=== PATIENT | female | born 1955 | race Caucasian/White ===

== ENCOUNTER 2019-08-30 16:51 | Inpatient (IN) | payer OTHER, SELFPAY ==
[2019-08-30 16:51] VITALS: BP 154/114; PULSE 104; RESP 15; TEMP 36.8; O2SAT 97; BMI 63.6
--- NOTE | 2019-08-30 17:16 | ED_ITS ---
Entered by Poornima Reeves, acting as scribe for HPI - Psych General: Chief Complaint: Psychiatric Symptoms Stated Complaint: SI Time Seen by Provider: 08/30/19 17:16 Source: patient and family Mode of arrival: ambulatory Limitations: no limitations History of Present Illness: HPI Narrative: 63 yo female presents with depression and SI thoughts. pt states she has had depression all of her life. pt had thoughts of cutting her arm but didnt. pt denies any other symptoms at this time. MD complaint: suicidal ideation (1 week ago) and feels depressed Onset (ago): week(s) (1 week ago) Duration: constant History of same: Yes Relieving factors: none Exacerbating factors: other (stress) Context: new medication(s) Associated psychiatric symptoms: depression and suicidal ideation Associated symptoms: Reports depression Treatments prior to arrival: other (urgent care for the same sent to ED for treatment) If self harm: admits thoughts of self harm Review of Systems General: Reports: 10 or more systems reviewed and unremarkable except in HPI and below Psych: Reports: depression PFSH ED PFSH: Statuses (acute, chronic, etc) shown below reflect problem list status as previously entered and may not be historically accurate Medical History (Updated 08/30/19 @ 17:25 by Poornima Reeves) History of depression (Acute) Social History Smoking and tobacco status: never smoked Physical Exam Const: COMMON NORMALS: no apparent distress, average body habitus, oriented x3, no limitations, healthy appearing, alert and well nourished HENMT: COMMON NORMALS: normocephalic, head/scalp atraumatic, hearing grossly normal bilaterally, external ears normal, EAC's normal, TM's normal bilaterally, external nose normal, nasal mucous membranes and turbinates normal, moist oral mucous membranes, oropharynx normal, dentition normal and gingiva normal HEAD & SCALP: normocephalic and atraumatic NOSE: external nose normal and nasal mucous membranes and turbinates normal EXTERNAL EAR: Yes external ears normal EXTERNAL AUDITORY CANAL: EAC's normal TYMPANIC MEMBRANE: TM's normal bilaterally Eye: COMMON NORMALS: PERRL, EOMs intact bilaterally, conjunctivae normal, no scleral icterus, no papilledema, normal visual liu by confrontation and fundi normal bilaterally CONJUNCTIVA: Yes conjunctivae normal PUPIL: Yes PERRL DIRECT OPHTHALMOSCOPY: Yes no papilledema and Yes fundi normal bilaterally Neck/C-Spine: COMMON NORMALS: full ROM, no lymphadenopathy, supple, no meningeal signs, no JVD, thyroid normal and no carotid bruits THYROID: thyroid normal Chest: COMMONS NORMALS: inspection of chest normal and palpation of chest normal Resp: COMMON NORMALS: normal respiratory effort, no retractions, no use of accessory muscles, clear to auscultation bilaterally and percussion normal AUSCULTATION: clear to auscultation bilaterally PERCUSSION: percussion normal Cardio: COMMON NORMALS: no JVD, regular rate, regular rhythm, S1 normal heart sound, S2 normal heart sound, no gallops, no clicks, no murmurs, no rub and peripheral pulses 2+ throughout RATE: regular rate RHYTHM: regular rhythm HEART SOUNDS: S1 normal and S2 normal PERIPHERAL PULSES: pulses 2+ throughout GI: COMMON NORMALS: normal to inspection, nondistended, normoactive bowel sounds, soft to palpation, non-tender, no hepatosplenomegaly, no masses and no bruits PALPATION: Yes soft and Yes no hepatosplenomegaly : COMMON NORMALS: Yes no CVA tenderness and Yes external appearance normal BLADDER/KIDNEY EXAM: Yes no CVA tenderness Back/Pelvis: COMMON NORMALS: no CVA tenderness, thoracic and lumbar spine normal to inspection, no thoracic nor lumbar tenderness, thoraco-lumbar ROM normal and straight leg raise negative bilaterally Extremity: COMMON NORMALS: normal to inspection, full ROM, normal capillary refill, no joint enlargement, no clubbing, cyanosis or edema, no calf tenderness and no pedal edema Neuro: COMMON NORMALS: oriented x3 SENSORIUM/ORIENTATION: Yes alert MENINGEAL SIGNS: Yes no meningeal signs Psych: COMMON NORMALS: thought process normal THOUGHT PROCESS: normal thought process JUDGEMENT: judgment good Skin: COMMON NORMALS: no rashes or lesions noted, no wounds, skin turgor normal, no jaundice, no petechiae and no mottling GENERAL SKIN EXAM: no rashes or lesions noted and turgor normal Coding Level of Care Code ED Check Inspector for Chg Fwd Exam Problem Focused The documentation recorded by the Leandro gallegos Bridget Annette, accurately reflects the service I personally performed and the decisions made by , Alex Bhatia, DO
--- NOTE | 2019-08-30 17:33 | ECG_ITS ---
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 [email or web address]
[2019-08-30 18:42] LABS: Basophils # 0.1 10^3/uL (0.0-0.1); Basophils % 0.5 %; Eosinophils # 0.1 10^3/uL (0.0-0.8); Eosinophils % 0.8 %; Hematocrit 44.9 % (37.0-47.0); Hemoglobin 14.4 g/dL (11.5-15.3); Lymphocytes # 4.1 10^3/uL (0.8-4.8); Lymphocytes % 39.3 %; Mean Corpuscular HGB Conc 32.1 g/dL (30.0-36.0); Mean Corpuscular Hemoglobin 29.5 pg (28.0-34.0); Monocytes # 0.4 10^3/uL (0.2-0.9); Monocytes % 4.1 %; Neutrophils # 5.8 10^3/uL (1.8-7.7); Neutrophils % 55.1 %; Nucleated Red Blood Cells % 0 %; Platelet Count 292 10^3/cmm (130-400); Red Blood Count 4.88 10^6/uL (4.1-5.3); Red Cell Distribution Width 13.8 % (12.1-15.1); White Blood Count 10.4 10^3/uL (4.0-10.0)
--- NOTE | 2019-08-30 18:42 | PC.NURSE ---
Report was called to NPU by Sim. We were asked to wait till after shift change to bring pt down to NPU
--- NOTE | 2019-08-30 18:50 | PC.NURSE ---
NPU was called for report. They asked if we could wait until after shift change to bring pt down.
[2019-08-30 19:00] LABS: Alanine Aminotransferase 20 U/L (0-33); Albumin Level 4.6 g/dL (3.5-5.2); Alkaline Phosphatase 130 IU/L (35-105); Anion Gap 17.5 (5-19); Aspartate Amino Transferase 21 U/L (0-32); Blood Urea Nitrogen 15 mg/dL (8-23); Calcium 9.7 mg/Dl (8.8-10.2); Carbon Dioxide 25 mmol/L (22-29); Chloride 103 mmol/L (98-107); Globulin 2.9 g/dL (1.3-4.6); Glomerular Filtration Rate 50.2 mL/min (90-130); Glucose 124 mg/dL (74-106); Potassium 3.5 mmol/L (3.5-5.1); Sodium 142 mmol/L (136-145); Thyroid Stimulating Hormone 2.03 uIU/mL (0.27-4.20); Total Bilirubin 0.3 mg/dL (0.15-1.2); Total Protein 7.5 g/dL (6.6-8.7)
[2019-08-30 19:11] LABS: Acetaminophen < 5.0 ug/mL (10-30); Alcohol Level < 10 mg/dL (0-10); Salicylate < 0.3 mg/dL (3-10)
[2019-08-30 19:41] VITALS: BP 140/94; PULSE 100; RESP 16; O2SAT 100
[2019-08-30 19:52] VITALS: BP 134/84; PULSE 96; RESP 24; TEMP 36.7; O2SAT 99
[2019-08-30] MEDS: doxepin 25 mg Capsule PO (21:16)
[2019-08-30] MEDS: ropinirole 2 mg Tablet PO (21:16)
[2019-08-30] MEDS: mirtazapine 30 mg Tablet 45 MG PO (21:16)
[2019-08-31 06:00] VITALS: BP 119/78; PULSE 104; RESP 20; TEMP 36.9; O2SAT 96
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
[2019-08-31] MEDS: valACYclovir 1,000 mg Tablet 1000 MG PO (08:41)
[2019-08-31] MEDS: BuSPIRONE 10 mg Tablet 20 MG PO ×2 (08:41→17:31)
[2019-08-31] MEDS: montelukast sodium 10 mg Tablet PO (08:41)
[2019-08-31 14:00] VITALS: BP 114/75; PULSE 104; RESP 18; TEMP 36.6; O2SAT 92
[2019-08-31] MEDS: hyDROXYzine 25 mg Capsule 50 MG PO (17:31)
[2019-08-31] MEDS: atorvastatin 40 mg Tablet 20 MG PO (17:31)
--- NOTE | 2019-08-31 17:33 | PC.NURSE ---
Addendum entered by Little Cuello, TERRELL 08/31/19 18:36: PRN MED EFFECTIVE NO FURTHER C/O ANXIETY. PT ALSO UP TO NURSES STATION, STATED THAT HER HIVES WERE BETTER. Original Note: PRN VISTARIL 50 MG GIVEN PO PER PT C/O GENERALIZED ANXIETY. PT STATES SHE IS BREAKING OUT IN HIVES DUE TO STRESS WILL CONT TO MONITOR FOR DESIRED MED EFFECTIVENESS.
[2019-08-31 19:55] VITALS: BP 150/83; PULSE 96; RESP 19; TEMP 36.5; O2SAT 97
[2019-08-31] MEDS: ropinirole 2 mg Tablet PO (20:40)
[2019-08-31] MEDS: mirtazapine 30 mg Tablet 45 MG PO (20:40)
[2019-08-31] MEDS: quetiapine 25 mg Tablet PO (20:40)
[2019-09-01 06:00] VITALS: BP 133/78; PULSE 95; RESP 18; TEMP 36.7; O2SAT 94
[2019-09-01] MEDS: BuSPIRONE 10 mg Tablet 20 MG PO ×2 (08:22→17:54)
[2019-09-01] MEDS: montelukast sodium 10 mg Tablet PO (08:23)
[2019-09-01] MEDS: valACYclovir 1,000 mg Tablet 1000 MG PO (08:23)
[2019-09-01 14:00] VITALS: BP 142/83; PULSE 104; RESP 18; TEMP 36.4; O2SAT 96
[2019-09-01 16:16] VITALS: BP 142/53; PULSE 104; RESP 18; TEMP 36.4
[2019-09-01 16:20] VITALS: BP 142/53; PULSE 104; RESP 18; TEMP 36.4
--- NOTE | 2019-09-01 17:27 | P.DS_ITS ---
Reason for Visit Reason for Visit: Reason For Visit: SI Brief History: ER note: HPI Narrativ e: 63 yo female presents with depression and SI thoughts. pt states she has had depression all of her life. pt had thoughts of cutting her arm but didnt. pt denies any other symptoms at this time. Hospital Course Discharge Summary The patient attributed her suicidal ideation to the withdrawal of Seroquel by her psychiatrist. Doxepin had been used to replace it. When Seroquel was returned to her regimen and Doxepin withdrawn, the suicidal ideation resolved. Involuntary Hold Information 96 Hour Hold: 96 Hour Involuntary Admission: No Mental Status Exam MSE Comments: Mental Status Exam: Appearance: hygiene is good; no gross neurological deficits., gait is unremarkable; AIMS=0 Speech: Speech is of normal rate and rhythm and easily understood. Thought processes: Thought processes are abstract. Judgment is adequate for safety. Associations: intact Psychotic processes: There is no indication of guarding or paranoia. There is no attention to the internal stimuli. Auditory and visual hallucinations are denied. Judgment: Insight is fair. Problem solving skills are adequate for safety. Orientation: The patient is oriented to person, place time and situation. Memory: no deficits noted in immediate, intermediate, or remote spheres. Attention: The patient is alert and interpersonally engaged. Language: Verbalizations are coherent. Fund of knowledge: Fund of knowledge is adequate. Affect/Mood: Affect is consistent with a euthymic mood. she denied suicidal ideation Affective range is appropriate. Psychosis: perception unimpaired except through cognitive distortion; reality testing intact. Discharge Data Data Completed and Pending: Pending at discharge Category Date Time Status Drug Screen, Urin e Stat Lab 08/30/19 21:48 Ordered Urinalysis Stat Lab 08/30/19 21:47 Ordered Vitals: Last Vital Signs Temp 97.6 F 09/01/19 16:20 Pulse 104 H 09/01/19 16:20 Resp 18 09/01/19 16:20 BP 142/53 09/01/19 16:20 Pulse Ox 96 09/01/19 14:00 Discharge Plan Discharge Patient Disposition: Home, Self-Care Condition: Stable Prescriptions: New quetiapine 25 mg Tablet 25 mg PO BEDTIME Qty: 30 RF: 2 atorvastatin 40 mg Tablet 20 mg PO QPM Qty: 15 RF: 2 trazodone 50 mg Tablet 50 mg PO BEDTIME PRN (Reason: Sleep) Qty: 0 RF: 2 mirtazapine 30 mg Tablet 45 mg PO BEDTIME Qty: 30 RF: 2 buspirone 10 mg Tablet 20 mg PO BID Qty: 60 RF: 2 Continued valacyclovir 1 gram Tablet 1,000 mg PO DAILY RF: 0 ropinirole 2 mg Tablet 2 mg PO BEDTIME RF: 0 montelukast 10 mg Tablet 10 mg PO DAILY RF: 0 epinephrine 0.3 mg/0.3 mL Auto-Injector 0.3 mg IM Q10M PRN (Reason: Allergic Reaction) RF: 0 Discontinued doxepin 25 mg Capsule 25 mg PO BEDTIME RF: 0 simvastatin 40 mg Tablet 20 mg PO QPM RF: 0 buspirone 10 mg Tablet 20 mg PO BID RF: 0 mirtazapine 45 mg Tablet 45 mg PO BEDTIME RF: 0 Discharge Orders: Discharge Order (Routine); Ordered 09/01/19 Ordered By: Delano Frederick Referrals: Miguel Angel MD [Family Provider] - Discharge Diet: Usual diet Discharge Activity: Increase activity as tolerated Activity Restrictions/Additional Instructions: Follow-up at the [place]: [facility]. [address] [place] [address]. . November 09 @ 1:30 with Edilia Nunez for psychiatric medication management Call if you need to get in sooner. Right now she is booked out but she will see you if needed. Just call if the need arises, [facility] made for a [facility]. You will need to check with [facility] office staff about that request. Discharge Attestations NPU Time Spent in Discharge Care*: greater than 30 min Status at Discharge: Cognitive status at discharge: cognitively intact , Behavioral status at discharge: cooperative , Functional status at discharge: independent ambulation Overall status at discharge: patient is back to baseline Coding Level of Care Code Acute Grain Broker And Market Operator for Marci Quinn
[2019-09-01] MEDS: atorvastatin 40 mg Tablet 20 MG PO (17:54)
== END 2019-09-01 19:10 | disposition home or self-care (01) | DRG 897 ==
LOC: ER 18:03 → NP 18:28
PROVIDERS: Admitting Provider Psychiatry & Neurology Psychiatry; Emergency Provider Family Medicine; Family Provider Family Medicine Adult Medicine; Visit Provider Psychiatry & Neurology Psychiatry
DX: F19.939 Other psychoactive substance use, unspecified with withdrawal, unspecified (principal); R45.851 Suicidal ideations; E66.3 Overweight; F32.9 Major depressive disorder, single episode, unspecified; Z68.28 Body mass index [BMI] 28.0-28.9, adult
CPT/HCPCS: 12345; 36415; 80053; 80307; 84443; 85025; 93005; 99284

== ENCOUNTER 2019-10-06 20:00 | Outpatient (CLI) | payer OTHER, SELFPAY | END 2019-10-06 20:01 | disposition home or self-care (01) | LOC: SLEEP 10-07 10:32 | PROVIDERS: Family Provider Family Medicine Adult Medicine; Visit Provider Psychiatry & Neurology Psychiatry | DX: G47.30 Sleep apnea, unspecified (principal) | CPT/HCPCS: 95810; 95811 ==

== ENCOUNTER → 2019-10-17 10:31 | Outpatient (BNVA) | payer OTHER, SELFPAY | PROVIDERS: Family Provider Family Medicine Adult Medicine; Visit Provider Family Medicine | DX: R05 Cough (principal); J06.9 Acute upper respiratory infection, unspecified; B97.89 Other viral agents as the cause of diseases classified elsewhere | CPT/HCPCS: 87804 ==

== ENCOUNTER 2019-11-07 08:47 | Emergency (ER) | payer OTHER, SELFPAY ==
[2019-11-07 09:04] VITALS: O2SAT 96
--- NOTE | 2019-11-07 09:04 | XRR_ITS ---
PROCEDURE INFORMATION: Exam: XR Chest, 1 View Exam date and time: 11/07/2019 9:37 AM Age: 63 years old Clinical indication: Fever and cough TECHNIQUE: Imaging protocol: XR of the chest Views: 1 view. COMPARISON: CR Chest 2 views* [id number] 10/31/2014 9:18 PM FINDINGS: Lungs: No focal peripheral lung consolidation, air bronchogram formation, or silhouette sign. Pleural space: No pleural effusion or pneumothorax. Heart/Mediastinum: The cardiac silhouette is not enlarged. The mediastinal contours are normal. Bones/joints: No acute osseous abnormality. XR/XR chest 1V portable [id number] IMPRESSION: No pneumonia.
[2019-11-07 09:13] VITALS: BP 165/105; PULSE 108; RESP 20; TEMP 36.6; O2SAT 96; BMI 29.5
[2019-11-07 09:19] LABS: Basophils # 0.1 10^3/uL (0.0-0.1); Basophils % 0.6 %; Eosinophils # 0.1 10^3/uL (0.0-0.8); Eosinophils % 0.6 %; Hematocrit 46.6 % (37.0-47.0); Hemoglobin 14.8 g/dL (11.5-15.3); Lymphocytes # 3.3 10^3/uL (0.8-4.8); Lymphocytes % 38.2 %; Mean Corpuscular HGB Conc 31.8 g/dL (30.0-36.0); Mean Corpuscular Hemoglobin 28.8 pg (28.0-34.0); Mean Corpuscular Volume 90.8 fL (81-99); Mean Platelet Volume 8.9 fL (7.4-10.4); Monocytes # 0.4 10^3/uL (0.2-0.9); Monocytes % 4.9 %; Neutrophils # 4.7 10^3/uL (1.8-7.7); Neutrophils % 55.6 %; Nucleated Red Blood Cells % 0 %; Platelet Count 343 10^3/cmm (130-400); Red Blood Count 5.13 10^6/uL (4.1-5.3); Red Cell Distribution Width 14.2 % (12.1-15.1); White Blood Count 8.5 10^3/uL (4.0-10.0)
--- NOTE | 2019-11-07 09:29 | ED_ITS ---
Documented by User: RICCI Holloway 11/07/19 16:07 HPI - URI/Sore Throat General: Chief Complaint: Upper Respiratory Infection Stated Complaint: cough,fever, body aches Time Seen by Provider: 11/07/19 09:04 History of Present Illness: HPI Narrative: Patient is a 63-year-old female who comes into the ED with fever, cough and body aches. Symptoms started about a week ago. She describes the fevers as low-grade 99 to 100 ?F. He is having nasal drainage and nonproductive cough. She also has been having some body aches and fatigue. She has been eating and drinking normally. This morning she just started getting diarrhea. She has had some nausea but has not vomited. Does not care currently have any nausea. Patient denies any travel to the state of [place], [place] or [place] in the last month. Patient also denies any known contact with COVID-19 positive patients. Patient does describe that she works at a facility that is about [address] outside of the [facility] [place]. Associated symptoms: Reports diarrhea, fever(s), nasal congestion and nausea; Deny abdominal pain, chills, chest pain, headache(s) or vomiting Review of Systems Const: Reports: fever, body aches and fatigue; Denies: chills Eyes: Denies: change in vision or eye discomfort ENMT: Reports: nasal discharge, nasal congestion and post nasal drip; Denies: throat pain or painful swallowing Card: Denies: chest pain, palpitations, edema, swelling of feet/ankles, shortness of breath on exertion or shortness of breath when lying down Resp: Reports: non-productive cough; Denies: shortness of breath or productive cough GI: Reports: nausea and diarrhea; Denies: abdominal pain, vomiting, constipation or blood in stool : Denies: flank pain, painful urination or blood in urine Musc: Denies: neck pain, back pain or extremity swelling Skin/Breast: Denies: rash or new lesion Neuro: Denies: headache, numbness in extremities or weakness in extremities PFSH ED PFSH: Medical History History of depression Social History Smoking and tobacco status: never smoked Physical Exam Narrative: EXAM NARRATIVE: Patient is a 63-year-old female that is sitting comfortably on the exam bed monitor the room. Patient is showing no signs of acute respiratory distress or any other distress or pain. Const: COMMON NORMALS: oriented x3 HENMT: COMMON NORMALS: normocephalic and external nose normal HEAD & SCALP: normocephalic NOSE: external nose normal MOUTH: oral and palatal mucosa normal THROAT: uvula midline and posterior oropharynx abnormal cobblestoning Neck/C-Spine: COMMON NORMALS: supple GENERAL: Yes normal visual inspection Lymph: LYMPHATIC: no lymphadenopathy noted Resp: COMMON NORMALS: normal respiratory effort, no retractions, no use of accessory muscles and clear to auscultation bilaterally AUSCULTATION: clear to auscultation bilaterally Cardio: COMMON NORMALS: regular rate, regular rhythm, S1 normal heart sound, S2 normal heart sound, no gallops, no clicks, no murmurs and peripheral pulses 2+ throughout RATE: regular rate RHYTHM: regular rhythm HEART SOUNDS: S1 normal and S2 normal PERIPHERAL PULSES: pulses 2+ throughout GI: COMMON NORMALS: normal to inspection, nondistended, normoactive bowel sounds, soft to palpation, non-tender and no masses PALPATION: Yes soft : COMMON NORMALS: Yes no CVA tenderness BLADDER/KIDNEY EXAM: Yes no CVA tenderness Back/Pelvis: COMMON NORMALS: no CVA tenderness Extremity: COMMON NORMALS: normal to inspection and normal capillary refill Neuro: COMMON NORMALS: oriented x3 and moves all extremities Skin: COMMON NORMALS: no rashes or lesions noted GENERAL SKIN EXAM: no rashes or lesions noted and dry skin Course Consultations: Consultation #1: I called the [facility] epidemiology hotline to discuss patient's case for them to determine if COVID-19 testing would be recommended. After hearing the patient's case and history they do not recommend patient getting COVID-19 testing. Time: 10:10 Vital Signs: Vital signs: Vital Signs Temperature 98 F 11/07/19 09:13 Pulse Rate 68 11/07/19 10:52 Respiratory Rate 17 11/07/19 10:52 Blood Pressure 158/76 11/07/19 10:52 Pulse Oximetry 97 11/07/19 10:52 MDM - URI/Sore Throat Lab Data: Attestation: I reviewed the patient's lab results. Labs: Lab Results 11/07/19 11/07/19 11/07/19 Range/Units 09:10 09:10 09:10 WBC 8.5 (4.0-10.0) 10^3/ uL RBC 5.13 (4.1-5.3) 10^6/u L Hgb 14.8 (11.5-15.3) g/dL Hct 46.6 (37.0-47.0) % MCV 90.8 (81-99) fL MCH 28.8 (28.0-34.0) pg MCHC 31.8 (30.0-36.0) g/dL RDW 14.2 (12.1-15.1) % Plt Count 343 (130-400) 10^3/c mm MPV 8.9 (7.4-10.4) fL Neut % (Auto) 55.6 % Lymph % (Auto) 38.2 % [place] % (Auto) 4.9 % Eos % (Auto) 0.6 % Baso % (Auto) 0.6 % Neut # (Auto) 4.7 (1.8-7.7) 10^3/u L Lymph # (Auto) 3.3 (0.8-4.8) 10^3/u L [place] # (Auto) 0.4 (0.2-0.9) 10^3/u L Eos # (Auto) 0.1 (0.0-0.8) 10^3/u L Baso # (Auto) 0.1 (0.0-0.1) 10^3/u L Nucleated RBC % (a uto) 0 % Nucleated RBCs # 0.0 /100WBC Sodium 140 (136-145) mmol/L Potassium 4.1 (3.5-5.1) mmol/L Chloride 103 (98-107) mmol/L Carbon Dioxide 27 (22-29) mmol/L Anion Gap 14.1 (5-19) BUN 14 (8-23) mg/dL Creatinine 0.9 (0.5-0.9) mg/dL GFR Calculation 63.2 L (90-130) mL/min Glucose 133 H (65-115) mg/dL Calculated Osmolal ity 288 (285-295) mOsm/k g Calcium 9.9 (8.5-10.5) mg/dL Total Bilirubin 0.5 (0.15-1.2) mg/dL AST 23 (0-32) U/L ALT 22 (0-33) U/L Alkaline Phosphata se 126 H (35-105) IU/L Total Protein 7.9 (6.6-8.7) g/dL Albumin 4.7 (3.5-5.2) g/dL Globulin 3.2 (1.3-4.6) g/dL Influenza Type A A g Negative (Negative) POC Influenza B Ag Negative (Negative) Imaging Data^: CXR: Attestation: I personally reviewed and interpreted this imaging study as follows: Radiologist's impression: [address] [address] XRay Report Signed Patient: Natasha Wharton Unit #: [id number] : 1955 Age/Sex: 63 / F ADM Date: 11/07/19 Loc: ER Room/Bed: Attending Dr: Ordering Provider/Ordering MD: Luis Enrique Mclean Date of Service: 11/07/19 Procedure(s): XR chest 1V portable [id number] Accession Number(s): [id number] Report Number: [id number] PROCEDURE INFORMATION: Exam: XR Chest, 1 View Exam date and time: 11/07/2019 9:37 AM Age: 63 years old Clinical indication: Fever and cough TECHNIQUE: Imaging protocol: XR of the chest Views: 1 view. COMPARISON: CR Chest 2 views* [id number] 10/31/2014 9:18 PM FINDINGS: Lungs: No focal peripheral lung consolidation, air bronchogram formation, or silhouette sign. Pleural space: No pleural effusion or pneumothorax. Heart/Mediastinum: The cardiac silhouette is not enlarged. The mediastinal contours are normal. Bones/joints: No acute osseous abnormality. XR/XR chest 1V portable [id number] IMPRESSION: No pneumonia. Dictated By: Von Mckenzie Signed By: Von Mckenzie Signed Date/Time: 11/07/1957 DD/ 5 Discharge Plan Discharge Patient Disposition: Home, Self-Care Clinical Impression: Upper respiratory infection Qualifiers: URI type: unspecified viral URI Qualified Code(s): J06.9 - Acute upper respiratory infection, unspecified Condition: Stable Prescriptions: No Action valacyclovir 1 gram Tablet 1,000 mg PO DAILY RF: 0 ropinirole 2 mg Tablet 2 mg PO BEDTIME RF: 0 montelukast 10 mg Tablet 10 mg PO DAILY RF: 0 epinephrine 0.3 mg/0.3 mL Auto-Injector 0.3 mg IM Q10M PRN (Reason: Allergic Reaction) RF: 0 quetiapine 25 mg Tablet 25 mg PO BEDTIME Qty: 30 RF: 2 atorvastatin 40 mg Tablet 20 mg PO QPM Qty: 15 RF: 2 trazodone 50 mg Tablet 50 mg PO BEDTIME PRN (Reason: Sleep) Qty: 0 RF: 2 mirtazapine 30 mg Tablet 45 mg PO BEDTIME Qty: 30 RF: 2 buspirone 10 mg Tablet 20 mg PO BID Qty: 60 RF: 2 doxepin 25 mg Capsule 25 mg PO BEDTIME RF: 0 Bactrim DS 800-160 mg Tablet 1 tab PO Q12H RF: 0 Discharge Orders: Discharge Order (Routine); Ordered 11/07/19 Ordered By: Luis Enrique Mclean Referrals: Miguel Angel MD [Family Provider] - Discharge Diet: Regular Discharge Activity: Resume usual activity Patient Instructions: Viral Syndrome (ED), Upper Respiratory Infection - Adult Activity Restrictions/Additional Instructions: Follow-up with your PCP in 7 days for reevaluation. Take Tylenol or ibuprofen for fevers. Drink plenty of fluids and stay hydrated. Take [id number] nasal decongestants to help with symptoms. Remember to prevent the spread of any upper respiratory virus cover your mouth when coughing or sneezing. Wash hands multiple times throughout the day. Return to ED if worsening symptoms. Stand Alone Forms: Work/School Release Discharge Date/Time: 11/07/19 10:53 Coding Level of Care Code ED Apparatus Operator for Adalidg Fwd Exam Comprehensive Documented by User: Ken Saenz DO 11/09/19 12:54 HPI - URI/Sore Throat General: Chief Complaint: Upper Respiratory Infection Stated Complaint: cough,fever, body aches Time Seen by Provider: 11/07/19 09:04 [facility] ED PFSH: Medical History History of depression Social History Smoking and tobacco status: never smoked Course ED course: Agree with assessment and plan Vital Signs: Vital signs: Vital Signs Temperature 98 F 11/07/19 09:13 Pulse Rate 68 11/07/19 10:52 Respiratory Rate 17 11/07/19 10:52 Blood Pressure 158/76 11/07/19 10:52 Pulse Oximetry 97 11/07/19 10:52 MDM - URI/Sore Throat Lab Data: Labs: Lab Results 11/07/19 11/07/19 11/07/19 Range/Units 09:10 09:10 09:10 WBC 8.5 (4.0-10.0) 10^3/ uL RBC 5.13 (4.1-5.3) 10^6/u L Hgb 14.8 (11.5-15.3) g/dL Hct 46.6 (37.0-47.0) % MCV 90.8 (81-99) fL MCH 28.8 (28.0-34.0) pg MCHC 31.8 (30.0-36.0) g/dL RDW 14.2 (12.1-15.1) % Plt Count 343 (130-400) 10^3/c mm MPV 8.9 (7.4-10.4) fL Neut % (Auto) 55.6 % Lymph % (Auto) 38.2 % [place] % (Auto) 4.9 % Eos % (Auto) 0.6 % Baso % (Auto) 0.6 % Neut # (Auto) 4.7 (1.8-7.7) 10^3/u L Lymph # (Auto) 3.3 (0.8-4.8) 10^3/u L [place] # (Auto) 0.4 (0.2-0.9) 10^3/u L Eos # (Auto) 0.1 (0.0-0.8) 10^3/u L Baso # (Auto) 0.1 (0.0-0.1) 10^3/u L Nucleated RBC % (a uto) 0 % Nucleated RBCs # 0.0 /100WBC Sodium 140 (136-145) mmol/L Potassium 4.1 (3.5-5.1) mmol/L Chloride 103 (98-107) mmol/L Carbon Dioxide 27 (22-29) mmol/L Anion Gap 14.1 (5-19) BUN 14 (8-23) mg/dL Creatinine 0.9 (0.5-0.9) mg/dL GFR Calculation 63.2 L (90-130) mL/min Glucose 133 H (65-115) mg/dL Calculated Osmolal ity 288 (285-295) mOsm/k g Calcium 9.9 (8.5-10.5) mg/dL Total Bilirubin 0.5 (0.15-1.2) mg/dL AST 23 (0-32) U/L ALT 22 (0-33) U/L Alkaline Phosphata se 126 H (35-105) IU/L Total Protein 7.9 (6.6-8.7) g/dL Albumin 4.7 (3.5-5.2) g/dL Globulin 3.2 (1.3-4.6) g/dL Influenza Type A A g Negative (Negative) POC Influenza B Ag Negative (Negative) Discharge Plan Discharge Patient Disposition: Home, Self-Care Clinical Impression: Upper respiratory infection Qualifiers: URI type: unspecified viral URI Qualified Code(s): J06.9 - Acute upper respiratory infection, unspecified Condition: Stable Prescriptions: No Action valacyclovir 1 gram Tablet 1,000 mg PO DAILY RF: 0 ropinirole 2 mg Tablet 2 mg PO BEDTIME RF: 0 montelukast 10 mg Tablet 10 mg PO DAILY RF: 0 epinephrine 0.3 mg/0.3 mL Auto-Injector 0.3 mg IM Q10M PRN (Reason: Allergic Reaction) RF: 0 quetiapine 25 mg Tablet 25 mg PO BEDTIME Qty: 30 RF: 2 atorvastatin 40 mg Tablet 20 mg PO QPM Qty: 15 RF: 2 trazodone 50 mg Tablet 50 mg PO BEDTIME PRN (Reason: Sleep) Qty: 0 RF: 2 mirtazapine 30 mg Tablet 45 mg PO BEDTIME Qty: 30 RF: 2 buspirone 10 mg Tablet 20 mg PO BID Qty: 60 RF: 2 doxepin 25 mg Capsule 25 mg PO BEDTIME RF: 0 Bactrim DS 800-160 mg Tablet 1 tab PO Q12H RF: 0 Discharge Orders: Discharge Order (Routine); Ordered 11/07/19 Ordered By: Luis Enrique Mclean Referrals: Miguel Angel MD [Family Provider] - Discharge Diet: Regular Discharge Activity: Resume usual activity Patient Instructions: Viral Syndrome (ED), Upper Respiratory Infection - Adult Activity Restrictions/Additional Instructions: Follow-up with your PCP in 7 days for reevaluation. Take Tylenol or ibuprofen for fevers. Drink plenty of fluids and stay hydrated. Take [id number] nasal decongestants to help with symptoms. Remember to prevent the spread of any upper respiratory virus cover your mouth when coughing or sneezing. Wash hands multiple times throughout the day. Return to ED if worsening symptoms. Stand Alone Forms: Work/School Release Discharge Date/Time: 11/07/19 10:53 Coding Level of Care Code ED Apparatus Operator for Marci Fwd Exam Comprehensive
[2019-11-07 09:35] LABS: Albumin Level 4.7 g/dL (3.5-5.2); Alkaline Phosphatase 126 IU/L (35-105); Anion Gap 14.1 (5-19); Aspartate Amino Transferase 23 U/L (0-32); Blood Urea Nitrogen 14 mg/dL (8-23); Calcium 9.9 mg/dL (8.5-10.5); Carbon Dioxide 27 mmol/L (22-29); Chloride 103 mmol/L (98-107); Globulin 3.2 g/dL (1.3-4.6); Glomerular Filtration Rate 63.2 mL/min (90-130); Glucose 133 mg/dL (65-115); Osmolality Calculated 288 mOsm/kg (285-295); Potassium 4.1 mmol/L (3.5-5.1); Sodium 140 mmol/L (136-145); Total Bilirubin 0.5 mg/dL (0.15-1.2); Total Protein 7.9 g/dL (6.6-8.7)
[2019-11-07 09:46] LABS: Alanine Aminotransferase 22 U/L (0-33)
[2019-11-07 09:58] LABS: Influenza A by IFA Negative (Negative); Influenza B by IFA Negative (Negative)
[2019-11-07 10:52] VITALS: BP 158/76; PULSE 68; RESP 17; O2SAT 97
== END 2019-11-07 10:53 | disposition home or self-care (01) ==
PROVIDERS: Emergency Provider Physician Assistant; Family Provider Family Medicine Adult Medicine
DX: J06.9 Acute upper respiratory infection, unspecified (principal)
CPT/HCPCS: 12345; 36415; 71045; 80053; 85025; 87804; 99283

== ENCOUNTER → 2020-05-24 13:33 | Outpatient (BNVA) | payer OTHER, SELFPAY | PROVIDERS: Family Provider Family Medicine Adult Medicine; Visit Provider Internal Medicine | DX: Z20.828 Contact with and (suspected) exposure to other viral communicable diseases (principal) | CPT/HCPCS: 87635 ==

== ENCOUNTER → 2020-08-20 08:25 | Outpatient (BNVA) | payer OTHER, SELFPAY | PROVIDERS: Family Provider Family Medicine Adult Medicine; PCP Nurse Practitioner; Referring Provider Nurse Practitioner; Visit Provider Anesthesiology Pain Medicine | DX: M51.17 Intervertebral disc disorders with radiculopathy, lumbosacral region (principal); M47.816 Spondylosis without myelopathy or radiculopathy, lumbar region; M51.36 Other intervertebral disc degeneration, lumbar region; M54.9 Dorsalgia, unspecified | CPT/HCPCS: 99205 ==

== ENCOUNTER → 2020-08-31 12:30 | Outpatient (BNVA) | payer OTHER, SELFPAY | PROVIDERS: Family Provider Family Medicine Adult Medicine; PCP Nurse Practitioner; Visit Provider Anesthesiology Pain Medicine | DX: M47.816 Spondylosis without myelopathy or radiculopathy, lumbar region (principal); M54.9 Dorsalgia, unspecified | CPT/HCPCS: 64493; 64494; 64495; J1040; J3490 ==

== ENCOUNTER → 2020-09-17 10:18 | Outpatient (BNVA) | payer OTHER, SELFPAY | PROVIDERS: Family Provider Family Medicine Adult Medicine; PCP Nurse Practitioner; Visit Provider Anesthesiology Pain Medicine | DX: M54.9 Dorsalgia, unspecified (principal); M47.816 Spondylosis without myelopathy or radiculopathy, lumbar region; M54.16 Radiculopathy, lumbar region; M51.36 Other intervertebral disc degeneration, lumbar region; M79.605 Pain in left leg | CPT/HCPCS: 99213 ==

== ENCOUNTER 2020-12-10 19:32 | Emergency (ER) | payer OTHER, MEDICARE, SELFPAY ==
[2020-12-10] VITALS (8 sets, daily range): BP systolic 127–177; BP diastolic 76–97; PULSE 61–101; RESP 15–18; TEMP 36.7; O2SAT 95–97; BMI 29.5
--- NOTE | 2020-12-10 19:34 | ECG_ITS ---
[facility] Test Date: 2020-12-10 Pat Name: Natasha Wharton Department: Room: Gender: Female Rn Or Lvn: : 1955 Requested By: Alexis Bray Order Number: [id number] Rajni MD: Erin Nguyen M.D. Measurements Intervals [place] Rate: 100 P: 64 [place]: 154 QRS: 109 QRSD: 95 T: 31 QT: 366 QTc: 474 Interpretive Statements SINUS TACHYCARDIA WITH FREQUENT ECTOPIC PREMATURE COMPLEXES POSSIBLE RIGHT VENTRICULAR HYPERTROPHY NONSPECIFIC T-WAVE ABNORMALITY Compared to ECG 08/30/2019 19:09:07 Atrial abnormality now present Sinus rhythm no longer present Ventricular premature complex(es) no longer present T-wave abnormality still present Electronically Signed On 12-11-2020 17:32:29 CDT by Erin Nguyen M.D. [id number]
--- NOTE | 2020-12-10 19:34 | XR_ITS ---
WS: [id number] Exam: XR chest 1V portable [id number] Date/Time of Exam: 12/10/2020 7:34 PM Reason For Exam: cp Comparison 11/07/2019. Findings: The lungs are clear and fully expanded. Costophrenic angles are sharp. No infiltrates. Bronchovascula r relief appears normal. Cardiac silhouette is unremarkable. Bony elements are intact. XR/XR chest 1V portable [id number] IMPRESSION: Unremarkable chest radiograph.
--- NOTE | 2020-12-10 20:27 | ED_ITS ---
HPI - Chest Pain General: Chief Complaint: Chest Pain Stated Complaint: CP Time Seen by Provider: 12/10/20 20:18 Source: patient Mode of arrival: ambulatory Limitations: no limitations History of Present Illness: HPI narrative: 65-year-old female states she been having chest pain over the last week to 2 weeks. She states that it is in her left lower chest sharp in nature. States been constant. States it palpation makes it much worse. States that today her cat walked over her chest and caused severe pain. States pain is currently 8 out of 10. Denies any diaphoresis or shortness of breath. Denies any radiation of her pain. MD complaint: chest pain Associated symptoms: Deny abdominal pain, dyspnea, fever(s), nausea or vomiting Review of Systems Const: Denies: fever(s), chills, body aches or change in appetite Eyes: Denies: blurry vision or eye discomfort ENMT: Denies: throat pain or dental pain Card: Reports: chest pain Resp: Denies: dyspnea GI: Denies: abdominal pain, nausea, vomiting or diarrhea : Denies: dysuria Musc: Denies: neck pain or back pain Skin/Breast: Denies: rash Neuro: Denies: headache(s) Psych: Denies: depression Osmel/Lymph: Denies: easy bruising All/Imm: Denies: urticaria PFSH ED PFSH: Medical History (Updated 12/10/20 @ 23:08 by Alexis Bray MD) History of depression Social History Smoking and tobacco status: never smoked Physical Exam Const: COMMON NORMALS: no acute distress, patient oriented x3 and healthy appearing HENMT: COMMON NORMALS: normocephalic and atraumatic HEAD & SCALP: normocephalic and atraumatic Eye: COMMON NORMALS: Equal, round and reactive pupils present and EOMs intact bilaterally PUPIL: Yes Equal, round and reactive pupils present Neck/C-Spine: COMMON NORMALS: full ROM and supple Chest: COMMONS NORMALS: normal inspection of the chest OTHER: Point tender to left chest reproduces her pain Resp: COMMON NORMALS: normal respiratory effort, No retractions, No use of accessory muscles and clear to auscultation bilaterally AUSCULTATION: clear to auscultation bilaterally Cardio: COMMON NORMALS: regular rate, regular rhythm and No murmurs present (Cardio) RATE: regular rate RHYTHM: regular rhythm GI: COMMON NORMALS: Normal to inspection, nondistended, normoactive bowel sounds present, Soft to palpation, non-tender and no masses PALPATION: Yes Soft to palpation Extremity: COMMON NORMALS: normal to inspection and full ROM Neuro: COMMON NORMALS: patient oriented x3, moves all extremities and no focal motor deficits Psych: COMMON NORMALS: mental status grossly normal, Normal thought process present and cooperative THOUGHT PROCESS: Normal thought process present Skin: COMMON NORMALS: no rashes or lesions noted and no wounds GENERAL SKIN EXAM: no rashes or lesions noted Course Vital Signs: Vital signs: Vital Signs Temperature 98.0 F 12/10/20 20:00 Pulse Rate 83 12/10/20 22:31 Respiratory Rate 16 12/10/20 22:31 Blood Pressure 128/80 12/10/20 22:31 Pulse Oximetry 96 12/10/20 22:31 MDM - Chest Pain MDM Narrative: Medical decision making narrative: Natasha presents here with chest pain that is likely muscular in nature. She is point tender on exam and initial and repeat troponins here are negative. Her D-dimer is negative as well. She has no signs of pulmonary embolism or acute coronary syndrome. She is stable for discharge and is to follow-up with her PCP in 2 to 4 days return if worsening. Lab Data: Labs: Lab Results 12/10/20 12/10/20 12/10/20 Range/Units 20:36 20:36 20:36 WBC 11.1 H (4.0-10.0) 10^3/ uL RBC 4.74 (4.1-5.3) 10^6/u L Hgb 13.6 (11.5-15.3) g/dL Hct 42.3 (37.0-47.0) % MCV 89.2 (81-99) fL MCH 28.7 (28.0-34.0) pg MCHC 32.2 (30.0-36.0) g/dL RDW 14.1 (12.1-15.1) % Plt Count 330 (130-400) 10^3/c mm MPV 9.1 (7.4-10.4) fL Neut % (Auto) 50.2 % Lymph % (Auto) 42.9 % [place] % (Auto) 5.0 % Eos % (Auto) 1.1 % Baso % (Auto) 0.5 % Neut # (Auto) 5.58 (1.8-7.7) 10^3/u L Lymph # (Auto) 4.8 (0.8-4.8) 10^3/u L [place] # (Auto) 0.6 (0.2-0.9) 10^3/u L Eos # (Auto) 0.1 (0.0-0.8) 10^3/u L Baso # (Auto) 0.1 (0.0-0.1) 10^3/u L Nucleated RBC % (a uto) 0 % Nucleated RBCs # 0.0 /100WBC PT 12.80 (12.1-14.9) SECO NDS INR 0.93 (0.8-1.2) D-Dimer <= 0.27 (0-0.59) ug/mIFE U Sodium 142 (136-145) mmol/L Potassium 3.5 (3.5-5.1) mmol/L Chloride 106 (98-107) mmol/L Carbon Dioxide 24 (22-29) mmol/L Anion Gap 15.5 (5-19) BUN 16 (8-23) mg/dL Creatinine 0.8 (0.5-0.9) mg/dL GFR Calculation 72.0 L (90-130) mL/min Glucose 114 (65-115) mg/dL Calculated Osmolal ity 296 H (285-295) mOsm/k g Calcium 8.7 (8.5-10.5) mg/dL Total Bilirubin 0.3 (0.15-1.2) mg/dL AST 21 (0-32) U/L ALT 34 H (0-33) U/L Alkaline Phosphata se 110 H (35-105) IU/L Troponin T Baselin e (0-10) ng/L Troponin T 120 Min [place] (0-10) ng/L Delta Troponin T (0-10) ABS# Total Protein 6.6 (6.6-8.7) g/dL Albumin 4.3 (3.5-5.2) g/dL Globulin 2.3 (1.3-4.6) g/dL 12/10/20 12/10/20 Range/Units 20:36 22:41 WBC (4.0-10.0) 10^3/ uL RBC (4.1-5.3) 10^6/u L Hgb (11.5-15.3) g/dL Hct (37.0-47.0) % MCV (81-99) fL MCH (28.0-34.0) pg MCHC (30.0-36.0) g/dL RDW (12.1-15.1) % Plt Count (130-400) 10^3/c mm MPV (7.4-10.4) fL Neut % (Auto) % Lymph % (Auto) % [place] % (Auto) % Eos % (Auto) % Baso % (Auto) % Neut # (Auto) (1.8-7.7) 10^3/u L Lymph # (Auto) (0.8-4.8) 10^3/u L [place] # (Auto) (0.2-0.9) 10^3/u L Eos # (Auto) (0.0-0.8) 10^3/u L Baso # (Auto) (0.0-0.1) 10^3/u L Nucleated RBC % (a uto) % Nucleated RBCs # /100WBC PT (12.1-14.9) SECO NDS INR (0.8-1.2) D-Dimer (0-0.59) ug/mIFE U Sodium (136-145) mmol/L Potassium (3.5-5.1) mmol/L Chloride (98-107) mmol/L Carbon Dioxide (22-29) mmol/L Anion Gap (5-19) BUN (8-23) mg/dL Creatinine (0.5-0.9) mg/dL GFR Calculation (90-130) mL/min Glucose (65-115) mg/dL Calculated Osmolal ity (285-295) mOsm/k g Calcium (8.5-10.5) mg/dL Total Bilirubin (0.15-1.2) mg/dL AST (0-32) U/L ALT (0-33) U/L Alkaline Phosphata se (35-105) IU/L Troponin T Baselin e 6 (0-10) ng/L Troponin T 120 Min [place] 6.00 (0-10) ng/L Delta Troponin T 0 (0-10) ABS# Total Protein (6.6-8.7) g/dL Albumin (3.5-5.2) g/dL Globulin (1.3-4.6) g/dL Imaging Data^: CXR: Attestation: I personally reviewed and interpreted this imaging study as follows: My impression: no acute abnormality EKG Data^: EKG 1: Attestation: I personally reviewed and interpreted this EKG as follows: EKG interpretation date: 12/10/20 EKG interpretation time: 20:12 Interpretation: sins tach hr [address] or t wave abnormalities qrs 95 qtc 423 EKG 2: Attestation: I personally reviewed and interpreted this EKG as follows: EKG interpretation date: 12/10/20 EKG interpretation time: 21:28 Interpretation: nsr hr [address] or t wave abnormalities qrs 115 qtc 430 Discharge Plan Discharge Patient Disposition: Home Clinical Impression: Chest pain Qualifiers: Chest pain type: unspecified Qualified Code(s): R07.9 - Chest pain, unspecified Condition: Stable Prescriptions: New Naprosyn 500 mg tablet 500 mg PO BID PRN (Reason: pain) Qty: 20 RF: 0 No Action naproxen 500 mg tablet 500 mg PO BID@0700,1700 RF: 0 omeprazole 40 mg capsule,delayed release(DR/EC) 40 mg PO DAILY@0300 RF: 0 valacyclovir 1 gram Tablet 1,000 mg PO DAILY@0700 RF: 0 ropinirole 2 mg Tablet 2 mg PO BEDTIME@1700 RF: 0 montelukast 10 mg Tablet 10 mg PO DAILY@1700 RF: 0 epinephrine 0.3 mg/0.3 mL Auto-Injector 0.3 mg IM Q10M PRN (Reason: Allergic Reaction) RF: 0 One-A-Day Women's 50 Plus 400 mcg-500 mg calcium-20 mcg Tablet 1 tab PO DAILY@0700 RF: 0 Vitamin D3 1 tab PO DAILY@0700 RF: 0 quetiapine 25 mg tablet 25 mg PO BEDTIME@1700 RF: 0 atorvastatin 40 mg tablet 20 mg PO DAILY@1700 RF: 0 mirtazapine 30 mg tablet 45 mg PO BEDTIME@1700 RF: 0 buspirone 10 mg tablet 20 mg PO BID@0700,1700 RF: 0 Discharge Orders: Discharge ED (Routine); Ordered 12/10/20 Ordered By: Alexis Bray Referrals: Joellen Alvarez FNP [Primary Care Provider] - 1-3 days Discharge Diet: Advance as tolerated Discharge Activity: Resume usual activity Patient Instructions: Chest Pain (ED) Coding Level of Care Code ED Training And Development Coordinator for Chg Fwd Exam Comprehensive
[2020-12-10] MEDS: morphine 4 mg/mL SDV 1 mL IM (20:38)
[2020-12-10] MEDS: ondansetron 2 mg/ML SDV 2 mL 4 MG IVP (20:38)
[2020-12-10 20:53] LABS: Basophils # 0.1 10^3/uL (0.0-0.1); Basophils % 0.5 %; Eosinophils # 0.1 10^3/uL (0.0-0.8); Eosinophils % 1.1 %; Hematocrit 42.3 % (37.0-47.0); Hemoglobin 13.6 g/dL (11.5-15.3); Lymphocytes # 4.8 10^3/uL (0.8-4.8); Lymphocytes % 42.9 %; Mean Corpuscular HGB Conc 32.2 g/dL (30.0-36.0); Mean Corpuscular Hemoglobin 28.7 pg (28.0-34.0); Mean Corpuscular Volume 89.2 fL (81-99); Mean Platelet Volume 9.1 fL (7.4-10.4); Monocytes # 0.6 10^3/uL (0.2-0.9); Neutrophils # 5.58 10^3/uL (1.8-7.7); Neutrophils % 50.2 %; Nucleated Red Blood Cells % 0 %; Platelet Count 330 10^3/cmm (130-400); Red Blood Count 4.74 10^6/uL (4.1-5.3); Red Cell Distribution Width 14.1 % (12.1-15.1); White Blood Count 11.1 10^3/uL (4.0-10.0)
[2020-12-10 21:00] LABS: INR 0.93 (0.8-1.2)
[2020-12-10 21:03] LABS: D Dimer <= 0.27 ug/mIFEU (0-0.59)
[2020-12-10 21:12] LABS: Alanine Aminotransferase 34 U/L (0-33); Albumin Level 4.3 g/dL (3.5-5.2); Alkaline Phosphatase 110 IU/L (35-105); Anion Gap 15.5 (5-19); Aspartate Amino Transferase 21 U/L (0-32); Blood Urea Nitrogen 16 mg/dL (8-23); Calcium 8.7 mg/dL (8.5-10.5); Carbon Dioxide 24 mmol/L (22-29); Chloride 106 mmol/L (98-107); Creatinine Clr Calc Pharmacy 70.8634; Globulin 2.3 g/dL (1.3-4.6); Glucose 114 mg/dL (65-115); Osmolality Calculated 296 mOsm/kg (285-295); Potassium 3.5 mmol/L (3.5-5.1); Sodium 142 mmol/L (136-145); Total Bilirubin 0.3 mg/dL (0.15-1.2); Total Protein 6.6 g/dL (6.6-8.7)
[2020-12-10 21:17] LABS: Troponin(5th) Baseline 6 ng/L (0-10)
--- NOTE | 2020-12-10 21:34 | ECG_ITS ---
[facility] Test Date: 2020-12-10 Pat Name: Natasha Wharton Department: Room: Gender: Female Delivery Mgr: : 1955 Requested By: Alexis Bray Order Number: [id number] Rajni MD: Erin Nguyen M.D. Measurements Intervals [place] Rate: 85 P: 48 [place]: 157 QRS: 100 QRSD: 115 T: 2 QT: 388 QTc: 463 Interpretive Statements SINUS RHYTHM WITH OCCASIONAL ECTOPIC PREMATURE COMPLEXES BORDERLINE RIGHT AXIS DEVIATION [QRS AXIS > 90] INCOMPLETE RIGHT BUNDLE BRANCH BLOCK [90+ ms QRS DURATION, TERMINAL R IN V1/V2, 40+ ms S IN I/aVL/V4/V5/V6] ST DEVIATION AND MODERATE T-WAVE ABNORMALITY, CONSIDER ANTERIOR ISCHEMIA [-0.1+ mV T WAVE IN V3/V4] Compared to ECG 08/30/2019 19:09:07 Incomplete right bundle-branch block now present Possible ischemia now present Ventricular premature complex(es) no longer present T-wave abnormality still present Electronically Signed On 12-11-2020 17:49:42 CDT by Erin Nguyen M.D. [id number]
[2020-12-10 23:04] LABS: Troponin 5 2HR Delta 0 ABS# (0-10)
== END 2020-12-10 23:38 | disposition home or self-care (01) ==
PROVIDERS: Emergency Provider Emergency Medicine; PCP Nurse Practitioner
DX: R07.9 Chest pain, unspecified (principal)
CPT/HCPCS: 36415; 71045; 80053; 84484; 85025; 85378; 85610; 93005; 96372; 96374; 99284; J2270; J2405

== ENCOUNTER 2020-12-28 11:21 | Emergency (ER) | payer OTHER, MEDICARE, SELFPAY ==
[2020-12-28 11:36] VITALS: BP 143/70; PULSE 97; RESP 16; TEMP 36.8; O2SAT 98; BMI 27.6
--- NOTE | 2020-12-28 12:00 | XR_ITS ---
WS: [id number] Portable AP upright chest, 12/28/2020 Clinical Data: CP Comparison: Portable chest, 12/10/2020. Findings: No nodules, masses or effusions are seen. The heart is normal. The pulmonary vascularity is not increased. No pneumonia or pneumothorax is seen. The aortic arch and descending aorta are minima lly tortuous. The right diaphragm is slightly elevated. XR/XR chest 1V portable [id number] Impression: Atherosclerosis.
--- NOTE | 2020-12-28 12:02 | ED_ITS ---
HPI - Chest Pain General: Chief Complaint: Chest Pain Stated Complaint: CP SENT FROM [place] Time Seen by Provider: 12/28/20 11:45 Source: patient Mode of arrival: ambulatory Limitations: no limitations History of Present Illness: HPI narrative: Patient is a 65-year-old female who was recently diagnosed with a thoracic aortic aneurysm and presents to the emergency department with chest pain that has been intermittent for about 3 months. Chest pain is on the left side of her chest and radiates to her left arm and her flank region. She endorses dizziness and lightheadedness. Today she had severe dyspnea on exertion and had to lay down after doing mild work. She went to the [place] clinic who advised that she come to the emergency department to be evaluated. MD complaint: chest pain Pertinent past history: known aortic aneurysm Onset (ago): month(s) (3) Timing of current episode: episodic Prior episodes: Yes Onset: during rest and during exertion Pain location: left chest Pain radiation: left arm and left shoulder Severity: moderate Quality: aching Relieving factors: nothing Exacerbating factors: nothing Associated symptoms: Reports dyspnea; Deny abdominal pain, diaphoresis, fever(s), leg edema, nausea, palpitations, sense of impending doom, syncope or vomiting Treatment prior to arrival: none Review of Systems General: Reports: 10 or more systems reviewed and unremarkable except in HPI and below Const: Denies: fever(s) or diaphoresis Card: Denies: palpitations or syncope Resp: Reports: dyspnea GI: Denies: abdominal pain, nausea or vomiting [facility] ED PFSH: Medical History (Reviewed 12/28/20 @ 12:05 by Diya C[place] [facility] [facility] [place] GERD (gastroesophageal reflux disease) History of depression Hyperlipidemia PTSD (post-traumatic stress disorder) PVC (premature ventricular contraction) [place] History (Reviewed 12/28/20 @ 12:05 by Diya Cid [place] [facility] [place] Grandfather CAD (coronary artery disease) Myocardial infarction Diabetes Mother Stroke Dementia Father Stroke Dementia Social History (Reviewed 12/28/20 @ 12:05 by Diya Cid [place], [facility] [place] Smoking and tobacco status: never smoked Alcohol intake: current Alcohol intake frequency: holidays/special occasions only Physical Exam Const: COMMON NORMALS: no acute distress, average body habitus, patient oriented x3, no limitations, healthy appearing, alert and well nourished HENMT: COMMON NORMALS: normocephalic, atraumatic and moist oral mucous membranes HEAD & SCALP: normocephalic and atraumatic Neck/C-Spine: COMMON NORMALS: no meningeal signs and no JVD Chest: COMMONS NORMALS: normal inspection of the chest and normal palpation of entire chest wall Resp: COMMON NORMALS: normal respiratory effort, No retractions, No use of accessory muscles, clear to auscultation bilaterally and percussion normal AUSCULTATION: clear to auscultation bilaterally PERCUSSION: percussion normal Cardio: COMMON NORMALS: no JVD, regular rate, regular rhythm, S1 normal heart sound present, S2 normal heart sound present, No gallops present (Cardio), No clicks present (Cardio), No murmurs present (Cardio), No rub (Cardio) and Peripheral pulses 2+ throughout RATE: regular rate RHYTHM: regular rhythm HEART SOUNDS: S1 normal heart sound present and S2 normal heart sound present PERIPHERAL PULSES: Peripheral pulses 2+ throughout GI: COMMON NORMALS: Normal to inspection, nondistended, normoactive bowel sounds present, Soft to palpation, non-tender, No hepatosplenomegaly present, no masses and no bruits PALPATION: Yes Soft to palpation and Yes No hepatosplenomegaly present Extremity: COMMON NORMALS: normal to inspection, full ROM, capillary refill normal, no calf tenderness and no pedal edema Neuro: COMMON NORMALS: patient oriented x3 SENSORIUM/ORIENTATION: Yes alert MENINGEAL SIGNS: Yes no meningeal signs Course Reevaluation(s): Reevaluation #1: Discussed her lab and imaging findings with her. Negative high-sensitivity troponin. Since her symptoms have been ongoing for months ago think we need to repeat troponin. CTA of her chest was negative for complications of the aneurysm, it did however show emphysematous changes in her lungs. Even though she does not smoke she said she was exposed to a lot of secondhand smoke growing up and so I believe she has emphysema which may be responsible for her symptoms. 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 She informed me of this after I said I would like to order an outpatient stress test for her. We will therefore discharge her home and manage her as a case of COPD exacerbation with oral steroids and antibiotic. She voiced understanding and is in agreement with the plan. She has some hepatic cysts which are not concerning at this time. HEART score is 3 for age and risk factors, low risk for MACE in the next 6 weeks (1.7% risk). Time: 13:40 Vital Signs: Vital signs: Vital Signs Temperature 98.3 F 12/28/20 11:36 Pulse Rate 91 12/28/20 13:21 Respiratory Rate 20 H 12/28/20 13:21 Blood Pressure 154/52 12/28/20 13:21 Pulse Oximetry 98 12/28/20 13:21 MDM - Chest Pain MDM Narrative: Medical decision making narrative: 65-year-old female patient asthma presents to the emergency department with chest pain. Symptoms have been intermittent for about several months and has seen cardiology also for the same. Heart score is 3 which is low risk for a major adverse cardiac event within the next 6 weeks. She was recently diagnosed with an aneurysm and a CTA done today shows a mild thoracic aortic aneurysm. She also has some hepatic cysts which are unremarkable and does not require follow-up according to radiology. She has already been scheduled for an outpatient stress test and echocardiogram and she is advised to continue this. CTA shows emphysema and so she is treated as a case of a COPD exacerbation with oral steroids and antibiotic. Medical Records: Attestation: I reviewed the patient's medical records. Lab Data: Attestation: I reviewed the patient's lab results. Labs: Lab Results 12/28/20 12/28/20 12/28/20 Range/Units 11:47 12:10 12:10 WBC 9.4 (4.0-10.0) 10^3/ uL RBC 4.98 (4.1-5.3) 10^6/u L Hgb 14.3 (11.5-15.3) g/dL Hct 44.2 (37.0-47.0) % MCV 88.8 (81-99) fL MCH 28.7 (28.0-34.0) pg MCHC 32.4 (30.0-36.0) g/dL RDW 14.4 (12.1-15.1) % Plt Count 320 (130-400) 10^3/c mm MPV 9.3 (7.4-10.4) fL Neut % (Auto) 56.9 % Lymph % (Auto) 36.1 % [place] % (Auto) 5.7 % Eos % (Auto) 0.5 % Baso % (Auto) 0.6 % Neut # (Auto) 5.33 (1.8-7.7) 10^3/u L Lymph # (Auto) 3.4 (0.8-4.8) 10^3/u L [place] # (Auto) 0.5 (0.2-0.9) 10^3/u L Eos # (Auto) 0.1 (0.0-0.8) 10^3/u L Baso # (Auto) 0.1 (0.0-0.1) 10^3/u L Nucleated RBC % (a uto) 0 % Nucleated RBCs # 0.0 /100WBC Sodium 139 (136-145) mmol/L Potassium 4.2 (3.5-5.1) mmol/L Chloride 104 (98-107) mmol/L Carbon Dioxide 25 (22-29) mmol/L Anion Gap 14.2 (5-19) BUN 15 (8-23) mg/dL Creatinine 1.3 H (0.5-0.9) mg/dL GFR Calculation 41.1 L (90-130) mL/min Glucose 83 (65-115) mg/dL Calculated Osmolal ity 288 (285-295) mOsm/k g Calcium 9.0 (8.5-10.5) mg/dL Total Bilirubin 0.4 (0.15-1.2) mg/dL AST 34 H (0-32) U/L ALT 45 H (0-33) U/L Alkaline Phosphata se 111 H (35-105) IU/L Troponin T Baselin e (0-10) ng/L NT-Pro-B Natriuret Pep 33 (0-125) pg/mL Total Protein 7.3 (6.6-8.7) g/dL Albumin 4.7 (3.5-5.2) g/dL Globulin 2.6 (1.3-4.6) g/dL Lipase 46 (13-60) U/L Urine Color Straw (Yellow) Urine Appearance Clear (CLEAR) Urine pH 6.5 (5-7) Ur Specific Gravit y 1.005 (1.005-1.030) Urine Protein Neg (Negative) Urine Glucose (UA) Norm (Normal) Urine Ketones Negative (Negative) Urine Blood Neg (Negative) Urine Nitrate Negative (Negative) Urine Bilirubin Neg (Negative) Urine Urobilinogen Norm (Negative) mg/dL Ur Leukocyte Brittney ase Negative (Negative) 12/28/20 Range/Units 12:10 WBC (4.0-10.0) 10^3/ uL RBC (4.1-5.3) 10^6/u L Hgb (11.5-15.3) g/dL Hct (37.0-47.0) % MCV (81-99) fL MCH (28.0-34.0) pg MCHC (30.0-36.0) g/dL RDW (12.1-15.1) % Plt Count (130-400) 10^3/c mm MPV (7.4-10.4) fL Neut % (Auto) % Lymph % (Auto) % [place] % (Auto) % Eos % (Auto) % Baso % (Auto) % Neut # (Auto) (1.8-7.7) 10^3/u L Lymph # (Auto) (0.8-4.8) 10^3/u L [place] # (Auto) (0.2-0.9) 10^3/u L Eos # (Auto) (0.0-0.8) 10^3/u L Baso # (Auto) (0.0-0.1) 10^3/u L Nucleated RBC % (a uto) % Nucleated RBCs # /100WBC Sodium (136-145) mmol/L Potassium (3.5-5.1) mmol/L Chloride (98-107) mmol/L Carbon Dioxide (22-29) mmol/L Anion Gap (5-19) BUN (8-23) mg/dL Creatinine (0.5-0.9) mg/dL GFR Calculation (90-130) mL/min Glucose (65-115) mg/dL Calculated Osmolal ity (285-295) mOsm/k g Calcium (8.5-10.5) mg/dL Total Bilirubin (0.15-1.2) mg/dL AST (0-32) U/L ALT (0-33) U/L Alkaline Phosphata se (35-105) IU/L Troponin T Baselin e 6 (0-10) ng/L NT-Pro-B Natriuret Pep (0-125) pg/mL Total Protein (6.6-8.7) g/dL Albumin (3.5-5.2) g/dL Globulin (1.3-4.6) g/dL Lipase (13-60) U/L Urine Color (Yellow) Urine Appearance (CLEAR) Urine pH (5-7) Ur Specific Gravit y (1.005-1.030) Urine Protein (Negative) Urine Glucose (UA) (Normal) Urine Ketones (Negative) Urine Blood (Negative) Urine Nitrate (Negative) Urine Bilirubin (Negative) Urine Urobilinogen (Negative) mg/dL Ur Leukocyte Brittney ase (Negative) Imaging Data^: CTA Chest: Attestation: I personally reviewed and interpreted this imaging study as follows: Radiologist's impression: [employer] [address] [id number] Scan ReportSigned Patient: Natasha Wharton #: [id number]: 1955cct#:[id number]/Sex: 65 / FADM Date: 12/28/20Loc: ERRoom/Bed:Attending Dr: Ordering Provider/Ordering MD: Diya Cid [place] [facility] Date of Service: 12/28/20 Procedure(s): CT angio chest 32944 Accession Number(s): [id number] Report Number: [id number] PROCEDURE INFORMATION: Exam: CTA Chest With Contrast Exam date and time: 12/28/2020 12:26 PM Age: 65 years old Clinical indication: Pain; Chest pressure; Prior surgery; Additional info: History of thoracic aneurysm, nuno, chest pain TECHNIQUE: Imaging protocol: Computed tomographic angiography of the chest with contrast. 3D rendering (Not supervised by radiologist): MIP and/or 3D reconstructed images were created by the technologist. Radiation optimization: All CT scans at this facility use at least one of these dose optimization techniques: automated exposure control; mA and/or kV adjustment per patient size (includes targeted exams where dose is matched to clinical indication); or iterative reconstruction. Contrast material: OMNI 350; Contrast volume: 95 ml; Contrast route: INTRAVENOUS (IV); COMPARISON: CR XR chest 1V portable [id number] 12/28/2020 12:05 PM RADIATION DOSE METRICS: Total DLP (mGy-cm): 851.82 FINDINGS: Pulmonary arteries: Normal. No pulmonary emboli. Aorta: Proximal ascending thoracic aorta demonstrates mild aneurysmal dilation to 4.4 cm without findings of rupture. Lungs: Emphysematous changes. Bibasilar atelectasis. Pleural spaces: Unremarkable. No pneumothorax. No pleural effusion. Heart: Unremarkable. No cardiomegaly. No pericardial effusion. Lymph nodes: Unremarkable. No enlarged lymph nodes. Liver: Multiple hepatic cysts negative for follow-up advised. Bones/joints: Unremarkable. No acute fracture. Soft tissues: Unremarkable. CT/CT angio chest 59046 IMPRESSION: 1. Proximal ascending thoracic aorta demonstrates mild aneurysmal dilation to 4.4 cm without findings of rupture. 2. Multiple hepatic cysts negative for follow-up advised. 3. Emphysematous changes. 4. Bibasilar atelectasis. Radiation Dose CTDIVOL = (mGy): DLP = 851.82 (mGy-cm) Dictated By:Satya Carvajal MDSigned By:Satya Carvajal MDSigned Date/Time:12/28/20 1330DD/ 1328 CXR: Attestation: I personally reviewed and interpreted this imaging study as follows: Radiologist's impression: [address] [id number] ReportSigned Patient: Natasha Wharton #: [id number]: 1955cct#:[id number]/Sex: 65 / FADM Date: 12/28/20Loc: ERRoom/Bed:Attending Dr: Ordering Provider/Ordering MD: Diya Cid [place], [facility] of Service: 12/28/20 Procedure(s): XR chest 1V portable [id number] Accession Number(s): [id number] Report Number: [id number] WS: [id number] Portable AP upright chest, 12/28/2020 Clinical Data: CP Comparison: Portable chest, 12/10/2020. Findings: No nodules, masses or effusions are seen. The heart is normal. The pulmonary vascularity is not increased. No pneumonia or pneumothorax is seen. The aortic arch and descending aorta are minimally tortuous. The right diaphragm is slightly elevated. XR/XR chest 1V portable [id number] Impression: Atherosclerosis. Dictated By:Loren Wynn MDSigned By:Loren Wynn MDSigned Date/Time:12/28/20 1216DD/ 1215 EKG Data^: EKG 1: Attestation: I personally reviewed and interpreted this EKG as follows: EKG interpretation date: 12/28/20 EKG interpretation time: 11:39 Prior EKG tracings: available for review Interpretation: Sinus rhythm with frequent PVCs. Heart rate [address] changes. Discharge Plan Discharge Patient Disposition: Home Clinical Impression: COPD exacerbation, Hepatic cyst Chest pain Qualifiers: Chest pain type: unspecified Qualified Code(s): R07.9 - Chest pain, unspecified Aneurysm, thoracic aortic Qualifiers: Presence of rupture: without rupture Qualified Code(s): I71.2 - Thoracic aortic aneurysm, without rupture Condition: Stable Prescriptions: New prednisone 20 mg tablet 60 mg PO DAILY 5 Days Qty: 15 RF: 0 doxycycline hyclate 100 mg capsule 100 mg PO BID 7 Days Qty: 14 RF: 0 albuterol sulfate 90 mcg/actuation HFA aerosol inhaler 4 inh inhalation Q4H PRN (Reason: shortness of breath or wheezing) Qty: 8.5 RF: 0 Continued cholecalciferol (vitamin D3) 50 mcg (2,000 unit) capsule 50 mcg PO QAM RF: 0 omega-3 fatty acids [Fish Oil Concentrate] 1,000 mg capsule 1,000 mg PO BID RF: 0 chlorpheniramine maleate 4 mg tablet 4 mg PO QID PRN (Reason: Allergy Symptoms) RF: 0 valacyclovir 1 gram Tablet 1,000 mg PO BEDTIME RF: 0 epinephrine 0.3 mg/0.3 mL Auto-Injector 0.3 mg IM PRN PRN (Reason: Allergic Reaction) RF: 0 ropinirole 2 mg tablet 2 mg PO BID RF: 0 quetiapine 25 mg tablet 25 mg PO BEDTIME RF: 0 atorvastatin 40 mg tablet 20 mg PO DAILY@1700 RF: 0 buspirone 10 mg tablet 20 mg PO BID@0700,1700 RF: 0 Protonix 40 mg Tablet,Delayed Release (Dr/Ec) 40 mg PO DAILY RF: 0 mirtazapine 45 mg Tablet 45 mg PO BEDTIME RF: 0 One-A-Day Menopause Formula 400-60 mcg-mg Tablet 1 tab PO QAM RF: 0 Zzzquil Pure Zzzs 1 tab PO BEDTIME RF: 0 Discharge Orders: Discharge ED (Routine); Ordered 12/28/20 Ordered By: Diya Cid Referrals: Joellen Alvarez FNP [Primary Care Provider] - 1-3 days Discharge Diet: Advance as tolerated Discharge Activity: Increase activity as tolerated Patient Instructions: Chest Pain (ED), Emphysema (ED) Activity Restrictions/Additional Instructions: Return for any new or worsening symptoms. Follow-up with your primary care provider within 3 days. Follow-up with cardiology as scheduled. Obtain your echocardiogram and stress test as the school standards coach had ordered. Take the medications I prescribed as prescribed, use the inhaler every 4 hours for the next 2 days and then as needed thereafter. See if these help your symptoms. You might eventually need a lung function test to see if indeed you have emphysema and to see how severe it is. Coding Level of Care Code ED General Foundry Worker for Marci Fwsung Exam Comprehensive
[2020-12-28 12:21] VITALS: BP 133/86; PULSE 95; RESP 20; O2SAT 99
[2020-12-28 12:22] LABS: Add Urine Microscopic? NO; Charge for UA Resulting for Rev
[2020-12-28 12:22] LABS: Basophils # 0.1 10^3/uL (0.0-0.1); Basophils % 0.6 %; Eosinophils # 0.1 10^3/uL (0.0-0.8); Eosinophils % 0.5 %; Hematocrit 44.2 % (37.0-47.0); Hemoglobin 14.3 g/dL (11.5-15.3); Lymphocytes # 3.4 10^3/uL (0.8-4.8); Lymphocytes % 36.1 %; Mean Corpuscular HGB Conc 32.4 g/dL (30.0-36.0); Mean Corpuscular Hemoglobin 28.7 pg (28.0-34.0); Mean Corpuscular Volume 88.8 fL (81-99); Mean Platelet Volume 9.3 fL (7.4-10.4); Monocytes # 0.5 10^3/uL (0.2-0.9); Monocytes % 5.7 %; Neutrophils # 5.33 10^3/uL (1.8-7.7); Neutrophils % 56.9 %; Nucleated Red Blood Cells % 0 %; Platelet Count 320 10^3/cmm (130-400); Red Blood Count 4.98 10^6/uL (4.1-5.3); Red Cell Distribution Width 14.4 % (12.1-15.1); White Blood Count 9.4 10^3/uL (4.0-10.0)
[2020-12-28 12:38] LABS: Troponin(5th) Baseline 6 ng/L (0-10)
[2020-12-28 12:40] LABS: Bilirubin Urine Neg (Negative); Blood Urine Neg (Negative); Glucose Urine UA Norm (Normal); Ketones Urine Negative (Negative); Leukocyte Esterase Urine Negative (Negative); Nitrate Urine Negative (Negative); Protein Urine Neg (Negative); Specific Gravity, Urine 1.005 (1.005-1.030); Urine Appearance Clear (CLEAR); Urine Color Straw (Yellow); Urobilinogen Urine Norm (Negative); pH Urine 6.5 (5-7)
[2020-12-28 12:50] LABS: Alanine Aminotransferase 45 U/L (0-33); Albumin Level 4.7 g/dL (3.5-5.2); Alkaline Phosphatase 111 IU/L (35-105); Anion Gap 14.2 (5-19); Aspartate Amino Transferase 34 U/L (0-32); Blood Urea Nitrogen 15 mg/dL (8-23); Carbon Dioxide 25 mmol/L (22-29); Chloride 104 mmol/L (98-107); Globulin 2.6 g/dL (1.3-4.6); Glomerular Filtration Rate 41.1 mL/min (90-130); Glucose 83 mg/dL (65-115); Lipase 46 U/L (13-60); NT Pro B Type Natriuretic Pept 33 pg/mL (0-125); Osmolality Calculated 288 mOsm/kg (285-295); Potassium 4.2 mmol/L (3.5-5.1); Sodium 139 mmol/L (136-145); Total Bilirubin 0.4 mg/dL (0.15-1.2); Total Protein 7.3 g/dL (6.6-8.7)
[2020-12-28] MEDS: iohexol 350 mg/mL 100 mL Btl IV (12:52)
[2020-12-28 13:21] VITALS: BP 154/52; PULSE 91; RESP 20; O2SAT 98
--- NOTE | 2020-12-28 13:24 | PC.PHAR ---
pt states she takes care if her own medications-pt states she was taking a 81mg aspirin daily but states she stop taking if about 5 days ago-pt states she has protonix but hasnt started taking yet
[2020-12-28 14:27] VITALS: BP 142/87; PULSE 83; RESP 18; O2SAT 97
== END 2020-12-28 14:28 | disposition home or self-care (01) ==
PROVIDERS: Emergency Provider Family Medicine; PCP Nurse Practitioner
DX: J44.1 Chronic obstructive pulmonary disease with (acute) exacerbation (principal); K76.89 Other specified diseases of liver; R07.9 Chest pain, unspecified; I71.2 Thoracic aortic aneurysm, without rupture; E78.5 Hyperlipidemia, unspecified
CPT/HCPCS: 71045; 71275; 80053; 81003; 83690; 83880; 84484; 85025; 99284; Q9967

== ENCOUNTER 2021-01-18 09:26 | Outpatient (CLI) | payer OTHER, MEDICARE, SELFPAY ==
--- NOTE | 2021-01-18 10:00 | NM_ITS ---
WS: [id number] NUCLEAR MEDICINE HIDA SCAN CLINICAL INFORMATION: R10.11 - Right upper quadrant pain TECHNIQUE: Following intravenous administration of mCi of technetium 99m mebrofenin, images of the ab domen were obtained over the course of 60 minutes. Next, gallbladder ejection fraction was determined by obtaining preprandial and one-hour postprandial images of the gallbladder following oral ingestio n of Ensure. COMPARISON: None. FINDINGS: Normal hepatic uptake at 5 minutes. Hepatomegaly. Normal common bile duct activity and small bowel ac tivity. Gallbladder is visualized by 40 minutes. No evidence of acute cholecystitis. Gallbladder ejection fraction 71% within normal limits. No evidence of chronic cholecystitis. NM/NM hepatobiliary w phar* [id number] IMPRESSION: 1. No evidence of acute or chronic cholecystitis. 2. Gallbladder ejection fraction 71% within normal limits. 3. Hepatomegaly with multiple hepatic cysts.
== END 2021-01-18 09:27 | disposition home or self-care (01) ==
LOC: RAD 09:27
PROVIDERS: PCP Nurse Practitioner; Visit Provider Surgery
DX: R10.11 Right upper quadrant pain (principal); R16.0 Hepatomegaly, not elsewhere classified; K76.89 Other specified diseases of liver
CPT/HCPCS: 78227; A9537

== ENCOUNTER → 2021-01-25 12:39 | Outpatient (BNVA) | payer OTHER, MEDICARE, SELFPAY | PROVIDERS: PCP Nurse Practitioner; Visit Provider Surgery | DX: Z01.818 Encounter for other preprocedural examination (principal); Z20.822 Contact with and (suspected) exposure to COVID-19 | CPT/HCPCS: 87635 ==

== ENCOUNTER 2021-01-28 11:32 | Outpatient (CLI) | payer OTHER, MEDICARE, SELFPAY ==
[2021-01-28 11:40] VITALS: BMI 27.8
--- NOTE | 2021-01-28 11:55 | ECG_ITS ---
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 Interpretive Statements NAME OF STUDY: TREADMILL STRESS ECHOCARDIOGRAM INDICATION: Chest Pain Baseline blood pressure of 141/79 mm Hg, heart rate 93 beats per minute and oxygen saturation 97%. EKG showed normal sinus rhythm, right axis deviation with nonspecific ST depression. The patient exercised for 4 minutes 18 seconds on a standard Jeremias protocol. Patient attained a maximum heart rate of 155 beats per minute(100% of the maximum predicted heart rate) with a blood pressure at the peak exercise of 195/93 mm Hg and oxygen saturation 90%. The EKG at the peak exercise revealed half to [address] depression in inferolateral leads not meeting diagnostic criteria for ischemia. Patient did not have any chest pain or any significant arrhythmis with the exercise. The study was terminated due to exertional fatigue and attainment of maximum heart rate. During the recovery phase, there were no new changes. Early in recovery blood pressure increased to 206/92 mmHg and at the end of the recovery phase was 166/80 mm Hg with a heart rate of 95 beats per minute and oxygen saturation 95%. CONCLUSION: 1. Normal EKG response to treadmill exercise. 2. No exercise-induced chest pain or cardiac arrhythmia 3. Patient exercised for 4 minutes 18 seconds. Decreased exercise tolerance, attained a maximum of 7 METs. Maximum VO2 of 24.5 mL/kg/min. 4. Baseline hypertension with hypertensive response to exercise. Exaggerated heart rate response to exercise that may be suggestive of deconditioning. 5. Echo portion of the study will be documented separately. Electronically Signed On 02-01-2021 11:40:13 CDT by Erin Nguyen M.D. [id number]
--- NOTE | 2021-01-28 11:57 | USCV_ITS ---
Stress Echo Natasha Wharton Age: 65 Gender: F : 1955 Exam Date: 01/28/2021 12:27 Ordering Phys: Erin Nguyen MD ([email or web address]) Technologist: Exam Location: [facility] [place] Indication: chest pain Rhythm: Sinus Patient History: chest pain Cardiac Medications: Medications in past 24 hours: Contrast: Optison Stress Results Protocol: Jeremias Total dose(mL): Exercise Duration (min:sec): 4:18 METS: 7 Resting HR: 93 Resting BP: 141 / 79 Peak HR: 155 Peak BP: 210 / 93 Max Predicted HR: 155 100 % Max Predicted HR Target HR: 132 Double Product: 35878 Stress Summary: The patient's target heart rate was achieved BP Response: Normal Reason for Termination: Test terminated after reaching maximum heart rate Cardiac Symptoms: Short of Breath ECG Analysis Resting ECG: Stress ECG: Arrhythmia: MEASUREMENTS (Male/Female) Normal Values FINDINGS PROCEDURE: At the baseline, the patient's blood pressure was 141/79 mmHg with a heart rate of 87 bpm. The patient exercised for 4 minutes 18 seconds on a standard Jeremias protocol. Patient attained a maximum heart rate of 155 beats per minute(100% of the maximum predicted heart rate) with a blood pressure at the peak exercise of 210/93 mm Hg. During the recovery phase, there were no new changes. Echocardiographic pictures were taken at the baseline, immediately following the peak exercise and during the recovery phase. Baseline echocardiogram: Normal left ventricular size and systolic function with ejection fraction estimated at 65%. No regional wall motion abnormalities. Normal right ventricle size and systolic function. Normal left and right atrial size. No pericardial effusion. No intracardiac masses. Peak exercise echocardiogram: Normal augmentation of left ventricular systolic function with exercise. No new regional wall motion abnormalities. Recovery echocardiogram: Left ventricular systolic function normalizes. No regional wall motion abnormalities. CONCLUSIONS 1. This is a treadmill stress echocardiogram. 2. Fair exercise tolerance, attained a maximum of 7 METs. Double product of 32,551. 3. Baseline hypertension with normal blood pressure response to exercise. 4. Normal echocardiographic response to exercise. 5. Normal EKG response to exercise. Please see separate report for details of the study. Erin Nguyen MD (Electronically Signed) Final Date: 01 February 2021 13:46 S
--- NOTE | 2021-01-28 12:00 | USCV_ITS ---
Natasha Wharton Age: 65 Gender: F : 1955 Exam Date: 01/28/2021 11:48 Ordering Phys: Erin Nguyen MD ([email or web address]) Technologist: Danie Leong Exam Location: [facility] [place] Indication: CHEST PAIN, PVC BP: 120 / 70 HR: 83 Rhythm: Sinus Technical Quality: Adequate MEASUREMENTS (Male / Female) Normal Values 2D ECHO LV Diastolic Diameter PLAX 3.2 cm 4.2 - 5.9 / 3.9 - 5.3 cm LV Systolic Diameter PLAX 2.2 cm IVS Diastolic Thickness 0.9 cm 0.6 - 1.0 / 0.6 - 0.9 cm IVS Systolic Thickness 1.1 cm LVPW Diastolic Thickness 0.8 cm 0.6 - 1.0 / 0.6 - 0.9 cm LVPW Systolic Thickness 1.1 cm LVOT Diameter 2.0 cm LV Ejection Fraction 2D Teich 59.6 % LV Ejection Fraction MOD 2C 62.4 % LV Ejection Fraction 2C AL 62.5 % LA Diameter 3.3 cm LA Width 3.4 cm LA Height 4.5 cm RA Width 3.8 cm RA Height 4.8 cm Aorta at Sinotubular Diameter 2.8 cm M-MODE RV Diastolic Diameter MM 1.6 cm Aortic Annulus Diameter 3.0 cm LA Ao Ratio MM 1.2 MV E Point Septal Separation 0.7 cm DOPPLER AV Peak Velocity 119.0 cm/s LVOT Peak Velocity 108.0 cm/s AV Area Cont Eq vti 3.7 cm squared AV Area Cont Eq pk 3.0 cm squared MV Area PHT 5.1 cm squared Mitral E to A Ratio 0.9 MV E' Velocity 46.0 cm/s Mitral E to MV E' Ratio 9.1 Mitral E to LV E' Lateral Ratio 8.8 Mitral E to LV E' Septal Ratio 9.5 TR Peak Velocity 169.0 cm/s TR Peak Gradient 11.4 mmHg TV Peak E Velocity 94.0 cm/s Right Atrial Pressure 3.0 mmHg Pulmonary Artery Systolic Pressu 14.4 mmHg FINDINGS Left Ventricle Normal left ventricular size, systolic function and wall thickness, with no regional wall motion abnormalities. Left ventricular ejection fraction is estimated at 70 %. Normal diastolic function. Right Ventricle Normal right ventricular size and systolic function. Right ventricular systolic pressure 14.4 mmHg. Right Atrium Normal right atrial size. Left Atrium Normal left atrial size. Mitral Valve Structurally normal mitral valve. No mitral valve stenosis. No mitral valve regurgitation. Aortic Valve Aortic valve not well visualized. No aortic valve stenosis. No aortic valve regurgitation. Tricuspid Valve Structurally normal tricuspid valve. Trace tricuspid valve regurgitation. Pulmonic Valve Pulmonic valve not well visualized. Pericardium No pericardial effusion. Aorta Normal size aortic root. CONCLUSIONS 1. Technically difficult study. Echo contrast used per protocol. 2. Normal left ventricular size, systolic function and wall thickness, with no regional wall motion abnormalities. Left ventricular ejection fraction is estimated at 70 %. Normal diastolic function. 3. Normal right ventricular size and systolic function. 4. No significant valvular abnormality. 5. No prior similar studies to compare. Erin Nguyen MD (Electronically Signed) Final Date: 03 February 2021 13:37 S
[2021-01-28 12:52] VITALS: BP 166/80; PULSE 97
== END 2021-01-28 11:33 | disposition home or self-care (01) ==
LOC: CDL 11:34
PROVIDERS: PCP Nurse Practitioner; Visit Provider Internal Medicine Cardiovascular Disease
DX: R07.9 Chest pain, unspecified (principal); I10 Essential (primary) hypertension
CPT/HCPCS: 93017; 93350; 93352; C8929

== ENCOUNTER 2021-01-31 09:49 | Day surgery (SDC) | payer OTHER, MEDICARE, SELFPAY ==
[2021-01-30 08:44] VITALS: BMI 27.4
[2021-01-31 10:26] VITALS: BP 115/80; PULSE 51; RESP 18; TEMP 36.1; O2SAT 99
[2021-01-31] MEDS: sodium chloride 0.9% 1,000 ML 30 ML IV (10:31)
--- NOTE | 2021-01-31 10:40 | ANES.PREANE2 ---
Pre-Anesthetic Assessment Pre-Anesthetic Assessment: Height/Weight: Height 1.63 m Weight 72.575 kg Temp Pulse Resp BP Pulse Ox 97.0 F L 51 L 18 115/80 99 01/31/21 10:26 01/31/21 10:26 01/31/21 10:26 01/31/21 10:26 01/31/21 10:26 Preop Diagnosis: upper gi symptoms Proposed Procedure: Operation Date: 01/31/21 11:15 Proposed Procedures p EGD 94969 r10.11(Not Applicable) - Darrius Jeffrey MD Was Beta Yuri taken within 24 hours: Yes Was Clonidine taken within 24 hours: N/A Last intake: Intake Last Liquid Date 01/30/21 Last Solid Date 01/30/21 Social: Social History: No alcohol and No tobacco Exam: Pre-Anes Outpt Exam: alert, oriented x 3, clear to auscultation bilaterally and regular rate & rhythm Airway: Submandibular: WNL Cervical ROM: WNL MP: 2 Dentition: Full CV/HEM: CV/HEM: Arrythmia and HTN GI: GI: GERD Neuropsych: Neuropsych: Depression Anesthetic Plan: ASA status: 3 Anesthesia: MAC Risk of > 500 ml blood loss (7ml/kg in children): No Meds/Allergies Current Medications: Current Medications Generic Name Dose Route Start Last Admin Trade Name Freq PRN Reason Stop Dose Admin Sodium Chloride 1,000 mls @ 30 ml s/hr 01/31/21 10:15 01/31/21 10:31 Sodium Chloride 0.9% IV 02/01/21 10:14 30 mls/hr .Q24H NINA Administration PFSH Anesthesia PFSH: Medical History GERD (gastroesophageal reflux disease) History of depression Hyperlipidemia PTSD (post-traumatic stress disorder) PVC (premature ventricular contraction) Surgical History Hx of hysterectomy S/P bilateral breast lumpectomy Status post colonoscopy Family History Grandfather CAD (coronary artery disease) Myocardial infarction Diabetes Mother Stroke Dementia Father Stroke Dementia Social History Smoking and tobacco status: never smoked Alcohol intake: current Alcohol intake frequency: holidays/special occasions only Data Anesthesia Cardiac Studies: No Data to Display
--- NOTE | 2021-01-31 11:48 | W.PM.OPSUD ---
Surgery/Procedure H&P Update DATE OF PROCEDURE: January 31, 2021 DATE H&P PERFORMED: 01/08/21 H&P UPDATE INFORMATION: I have reviewed H&P completed within last 30 days, I have examined patient prior to procedure and No changes to prior documentation PREOP DIAGNOSIS: upper gi symptoms PLANNED PROCEDURE: Operation Date: 01/31/21 11:15 Proposed Procedures p EGD 48614 r10.11(Not Applicable) - Darrius Jeffery MD
[2021-01-31 12:05] VITALS: PULSE 66; TEMP 36.9; O2SAT 97
[2021-01-31 12:15] VITALS: BP 117/71; PULSE 62; RESP 18; O2SAT 96
--- NOTE | 2021-01-31 13:41 | ANE.PACU2 ---
Inpatient post-anesthesia follow up: Airway intact: Yes Vital signs: Temperature 98.4 F Pulse Rate 62 Respiratory Rate 18 Blood Pressure 117/71 Pulse Oximetry 96 Oxygen Delivery Me thod Room Air Oxygen Flow Rate 2 Fraction of Inspir ed Oxygen Hydration adequate: Yes Nausea and vomiting: No Pain level: 1 Mental status: Baseline
== END 2021-01-31 12:48 | disposition home or self-care (01) ==
PROVIDERS: PCP Nurse Practitioner; Visit Provider Surgery
PROC: 0DJ08ZZ Inspection of Upper Intestinal Tract, Via Natural or Artificial Opening Endoscopic (ICD-10-PCS; CPT 43235; principal; 2021-01-31 11:15)
DX: R10.11 Right upper quadrant pain (principal); K29.70 Gastritis, unspecified, without bleeding; F32.9 Major depressive disorder, single episode, unspecified; E78.5 Hyperlipidemia, unspecified; I10 Essential (primary) hypertension; K21.9 Gastro-esophageal reflux disease without esophagitis
CPT/HCPCS: 43239; 88305; 96360; 96361; J2704; J7030

== ENCOUNTER → 2021-02-01 10:41 | Outpatient (BNVA) | payer OTHER, MEDICARE, SELFPAY | PROVIDERS: PCP Nurse Practitioner; Visit Provider Surgery | DX: Z01.812 Encounter for preprocedural laboratory examination (principal); Z20.822 Contact with and (suspected) exposure to COVID-19 | CPT/HCPCS: 87635 ==

== ENCOUNTER 2021-02-06 10:57 | Day surgery (SDC) | payer OTHER, MEDICARE, SELFPAY ==
[2021-02-05 13:11] VITALS: BMI 27.8
[2021-02-06] VITALS (9 sets, daily range): BP systolic 102–130; BP diastolic 43–76; PULSE 61–79; RESP 12–22; TEMP 36.1–36.6; O2SAT 96–100
--- NOTE | 2021-02-06 11:06 | W.PM.OPSFHP ---
Same Day Surgery H&P Indication for Procedure/HPI DATE OF PROCEDURE: February 06, 2021 CHIEF COMPLAINT/INDICATIONFOR SURGICAL PROCEDURE: Laparoscopic cholecystectomy for chronic cholecystitis EGD: Normal PREOP DIAGNOSIS: upper gi symptoms PLANNED PROCEDRUE: Operation Date: 02/06/21 13:25 Proposed Procedures p Laparoscopic Cholecystectomy 41143 R10.11(Not Applicable) - Darrius Jeffrey MD Medications/Allergies* Home Medications Medication Instructions Recorded Confirmed Type epinephrine 0.3 mg IM PRN PRN 08/30/19 02/05/21 History atorvastatin 20 mg PO DAILY@1700 12/10/20 02/05/21 History buspirone 20 mg PO BID@0700,1700 12/10/20 02/05/21 History quetiapine 25 mg PO BEDTIME 12/10/20 02/05/21 History cholecalciferol (vitamin D3) 50 50 mcg PO QAM 12/20/20 02/05/21 History mcg (2,000 unit) capsule omega-3 fatty acids 1,000 mg 1,000 mg PO BID 12/20/20 02/05/21 History capsule ropinirole 2 mg tablet 2 mg PO BID tab 12/20/20 02/05/21 History One-A-Day Menopause Formula 1 tab PO QAM 12/28/20 02/05/21 History Zzzquil Pure Zzzs 1 tab PO BEDTIME 12/28/20 02/05/21 History mirtazapine 45 mg PO BEDTIME 12/28/20 02/05/21 History pantoprazole [Protonix] 40 mg PO DAILY 12/28/20 02/05/21 History ondansetron HCl [Zofran] 4 mg PO Q6H PRN 01/30/21 02/05/21 History Allergies/Adverse Reactions Allergy/AdvReac Type Severity Reaction Status Date / Time Penicillins Allergy Unknown Unknown Verified 02/05/21 13:08 erythromycin base Allergy Unknown Verified 02/05/21 13:08 ceyanne pepper Allergy Unknown Uncoded 02/05/21 13:08 Pertinent History/Comorbid Conditions* Medical History (Updated 02/04/21 @ 20:30 by Erin Nguyen MD) GERD (gastroesophageal reflux disease) History of depression Hyperlipidemia PTSD (post-traumatic stress disorder) PVC (premature ventricular contraction) Surgical History (Updated 01/31/21 @ 12:03 by Darrius Jeffrey MD) H/O esophagogastroduodenoscopy (01/31/21) gastritis Hx of hysterectomy S/P bilateral breast lumpectomy Status post colonoscopy Family History (Updated 12/20/20 @ 13:39 by Glendy Phipps RN) Diabetes Grandfather CAD (coronary artery disease) Grandfather Dementia Mother Father Myocardial infarction Grandfather Stroke Mother Father Social History Smoking and tobacco status: never smoked Alcohol intake: current Alcohol intake frequency: holidays/special occasions only Pertinent Exam Findings alert, oriented x 3 and regular rate & rhythm Recommendations Surgery/Procedure today Other Plans: Had extensive discussion with the patient that even though the imaging studies were normal patient could still have gallbladder disease since she has postprandial right upper quadrant pain associated with nausea, tenderness right upper quadrant on palpation, Golden sign positive. I explained to the patient that she could have less common etiologies like sphincter of Oddi spasm which could mimic gallbladder pathology and that she could have persistent symptoms after surgery. After being made aware of these possibilities the patient would still like to proceed with surgery Plan for laparoscopic possible open cholecystectomy Procedure, risks, benefits and alternatives have been discussed with the patient who wishes to proceed with surgery. Coding Level of Care Code Acute Mandrel Cleaner for Marci Quinn
--- NOTE | 2021-02-06 11:31 | ANES.PREANE2 ---
Pre-Anesthetic Assessment Pre-Anesthetic Assessment: Height/Weight: Height 1.63 m Weight 73.482 kg Preop Diagnosis: upper gi symptoms Proposed Procedure: Operation Date: 02/06/21 13:25 Proposed Procedures p Laparoscopic Cholecystectomy 51354 R10.11(Not Applicable) - Darrius Jeffrey MD Familial anesthetic complications: None Was Beta Yuri taken within 24 hours: N/A Was Clonidine taken within 24 hours: N/A Last intake: NPO > 8hrs Social: Social History: No alcohol and No tobacco Exam: Pre-Anes Outpt Exam: alert, oriented x 3, clear to auscultation bilaterally and regular rate & rhythm Airway: Cervical ROM: WNL MP: 2 Dentition: Full CV/HEM: Comments: chest pain - full cardiac work up, negative GI: GI: GERD Metabolic: Metabolic: Hyperlipidemia Anesthetic Plan: ASA status: 2 Risk of > 500 ml blood loss (7ml/kg in children): No PFSH Anesthesia PFSH: Medical History (Updated 02/04/21 @ 20:30 by Erin Nguyen MD) GERD (gastroesophageal reflux disease) History of depression Hyperlipidemia PTSD (post-traumatic stress disorder) PVC (premature ventricular contraction) Surgical History (Updated 02/06/21 @ 11:09 by Darrius Jeffrey MD) H/O esophagogastroduodenoscopy (01/31/21) gastritis Hx of hysterectomy S/P bilateral breast lumpectomy Status post colonoscopy Status post laparoscopic cholecystectomy (02/06/21) Family History Grandfather CAD (coronary artery disease) Myocardial infarction Diabetes Mother Stroke Dementia Father Stroke Dementia Social History Smoking and tobacco status: never smoked Alcohol intake: current Alcohol intake frequency: holidays/special occasions only Data Anesthesia Cardiac Studies: Echocardiogram 01/28/21
[2021-02-06] MEDS: sodium chloride 0.9% 1,000 ML 30 ML IV (11:35)
[2021-02-06] MEDS: ciprofloxacin 400 MG/200 ML PREMIX 200 MG IV (11:45)
[2021-02-06] MEDS: fentaNYL 50 mcg/mL INJ 2mL IVP ×2 (12:45→12:50)
[2021-02-06] MEDS: HYDROcodone-acetaminophen 5-325 mg Tablet 1 TAB PO (13:16)
--- NOTE | 2021-02-06 15:48 | ANE.PACU2 ---
Inpatient post-anesthesia follow up: Airway intact: Yes Vital signs: Temperature 98 F Pulse Rate 63 Respiratory Rate 16 Blood Pressure 122/58 Pulse Oximetry 97 Oxygen Delivery Me thod Room Air Oxygen Flow Rate 8 Fraction of Inspir ed Oxygen Hydration adequate: Yes Nausea and vomiting: No Pain level: 3 Mental status: Baseline
--- NOTE | 2021-02-06 16:43 | PM.OP ---
Operative Report Date of procedure: February 06, 2021 Pre-op Diagnosis: Chronic cholecystitis Post-op Diagnosis: 1. Chronic cholecystitis 2. Omentum and antrum of the stomach adherent to the body of the gallbladder Procedure Done: Laparoscopic cholecystectomy Specimens removed/disposition: Gallbladder Surgeon: Darrius Jeffrey Anesthesia: General Condition: stable Disposition: PACU Procedure: The patient was taken to the operating room and was intubated under general anesthesia. After the antibiotic had been administered, the abdomen was prepped and draped in a sterile manner. Using a #15 blade, a 1 centimeter infraumbilical curvilinear incision was made and using an open Karen technique the peritoneal cavity was entered. A 10 millimeter port was placed and 15 millimeters of pneumoperitoneum was created. A 10 millimeter, 30 degrees scope was then introduced. Three 5 millimeter ports were placed in the epigastric, midclavicular and the anterior axillary line two fingerbreadths below the costal margin on the right side under the direct visualization. The omentum and the stomach adherent to the body of the gallbladder was slowly taken down using combination of gentle dissection and electrocautery. Ratcheted forceps were introduced into the lateral most port and was used to retract the fundus of the gallbladder cephalad and using forceps the infundibulum of the gallbladder was retracted laterally. Using L-hook cautery the peritoneum overlying the Calot's triangle was opened medially and laterally until the cystic duct and the cystic artery were skeletonized. Dissection was carried along the body of the gallbladder and after ensuring critical view of safety, 4 clips applied on the cystic duct and 3 clips applied on the cystic artery and cut leaving, 3 clips on the remaining portion of the duct and 2 clips on the remaining portion of the artery. The rest of the gallbladder was dissected off the liver using L-hook cautery. There was no bleeding or bile leaking noted from the gallbladder fossa and the clips appeared to be in place. An EndoCatch bag was introduced to remove the gallbladder. All the ports were removed under direct visualization and there was no bleeding noted from the port sites. The fascia of the umbilicus was closed using [id number] 0 Vicryl sutures and the subcutaneous tissue was approximated using 3-0 Vicryl sutures. The skin at all four ports were closed using 4-0 Monocryl and Dermabond. A total of 10 millimeters of 0.5% Marcaine was infiltrated around the port sites. The patient was stable throughout the procedure.
== END 2021-02-06 14:15 | disposition home or self-care (01) ==
PROVIDERS: PCP Nurse Practitioner; Visit Provider Surgery
PROC: 0FT44ZZ Resection of Gallbladder, Percutaneous Endoscopic Approach (ICD-10-PCS; CPT 47562; principal; 2021-02-06 13:25)
DX: K81.1 Chronic cholecystitis (principal); K21.9 Gastro-esophageal reflux disease without esophagitis; E78.5 Hyperlipidemia, unspecified; F32.9 Major depressive disorder, single episode, unspecified
CPT/HCPCS: 47562; 88304; 96365; J0744; J1100; J2250; J2405; J2704; J2710; J3010; J3490; J7030

== ENCOUNTER 2021-08-12 09:24 | Outpatient (CLI) | payer OTHER, SELFPAY ==
--- NOTE | 2021-08-12 09:36 | MM_ITS ---
WS: [id number] Bilateral screening digital mammogram, 08/12/2021 Clinical Data: SCREEN Comparison: 06/17/2017, 01/05/2017, 06/23/2016, 06/02/2016, 03/25/2013, 03/18/2012, 03/17/2011, 05/24/2007, 04/17, 04/21/2007, 04/23/2006. Findings: The breast parenchymal pattern shows heterogeneous density No spiculated masses or clustered calcific ations are seen. There are no secondary signs of carcinoma. There are mole markers on both breasts. T here are clips in the central portion of the right breast unchanged. There are small calcifications i n the left breast unchanged MM/[id number] Impression: 1. Negative bilateral mammogram unchanged. 2. Recommend annual screening mammograms. BIRADS: 1-Negative FOLLOW UP: 1 Year Follow-up The CAD glass checker was used.
== END 2021-08-12 09:25 | disposition home or self-care (01) ==
LOC: RADSHAW 09:30
PROVIDERS: PCP Nurse Practitioner; Visit Provider Nurse Practitioner
DX: Z12.31 Encounter for screening mammogram for malignant neoplasm of breast (principal)
CPT/HCPCS: 77067

== ENCOUNTER 2021-08-13 14:11 | Emergency (ER) | payer OTHER, MEDICARE, SELFPAY ==
[2021-08-13 14:24] VITALS: BP 138/78; PULSE 80; RESP 20; TEMP 37.1; O2SAT 97; BMI 27.4
--- NOTE | 2021-08-13 16:38 | ED_ITS ---
Documented by User: RICCI Atkins 08/13/21 16:41 HPI - Back Pain/Injury General: Chief Complaint: Back Pain/Injury Stated Complaint: SEVERE BACK PAIN RIGHT SIDE Time Seen by Provider: 08/13/21 16:31 Source: patient Mode of arrival: ambulatory Limitations: no limitations History of Present Illness: HPI Narrative: Patient is a nice 65-year-old fema le presents to ED today with a complaint of right-sided back pain. Patient tells me approximately 4 days ago she was attempting to move a washer after one of the water hoses broke and began noticing pain to her back several hours later. She states over the weekend pain continued to increase. She is noticing radicular symptoms down her right leg above the knee. She does not describe any saddle anesthesia. She is not having any urinary retention or bowel incontinence. Patient has been ambulatory since injury. Patient tells me she has a history of chronic back pains and osteoporosis. MD elicited complaint: back pain Pertinent past history: prior back pain Onset (ago): day(s) Timing: constant Severity: moderate Pain scale (0-10): 7 Location: lumbar spine and right lower back Radiation: right leg below the knee Relieving factors: none Context: turning/twisting Associated symptoms: Reports no associated symptoms; Deny abdominal pain, chills, dysuria, fever(s) or hematuria Review of Systems Const: Denies: fever(s), chills or body aches Card: Denies: chest pain Resp: Denies: dyspnea GI: Denies: abdominal pain : Denies: flank pain, dysuria or hematuria Musc: Reports: back pain; Denies: neck pain, extremity swelling, joint pain, joint swelling, joint redness or joint warmth Neuro: Denies: numbness in extremities or weakness in extremities PFS ED PFSH: Medical History GERD (gastroesophageal reflux disease) History of depression Hyperlipidemia PTSD (post-traumatic stress disorder) PVC (premature ventricular contraction) Surgical History H/O esophagogastroduodenoscopy (01/31/21) gastritis Hx of hysterectomy S/P bilateral breast lumpectomy Status post colonoscopy Status post laparoscopic cholecystectomy (02/06/21) Family History Grandfather CAD (coronary artery disease) Myocardial infarction Diabetes Mother Stroke Dementia Father Stroke Dementia Social History Alcohol intake: current Alcohol intake frequency: holidays/special occasions only Physical Exam Const: COMMON NORMALS: average body habitus, patient oriented x3, no limitations, healthy appearing, alert and well nourished GENERAL APPEARANCE: cooperative and in distress (appears mildly uncomfortable secondary to pain) Resp: COMMON NORMALS: normal respiratory effort and clear to auscultation bilaterally AUSCULTATION: clear to auscultation bilaterally Cardio: COMMON NORMALS: regular rate and regular rhythm RATE: regular rate RHYTHM: regular rhythm : COMMON NORMALS: Yes no CVA tenderness BLADDER/KIDNEY EXAM: Yes no CVA tenderness Back/Pelvis: COMMON NORMALS: no CVA tenderness THORACIC SPINE/UPPER BACK: Yes normal to inspection and Yes thoracic ROM normal LUMBAR SPINE/LOWER BACK: Yes pain with ROM, Yes lumbar spinal tenderness Lumbar spinal tenderness location: L2, L3 and L4, Yes paraspinal muscle tenderness Lumbar paraspinal muscle tenderness: right and No paraspinal muscle spasm PELVIS: Yes buttocks normal Extremity: COMMON NORMALS: normal to inspection, full ROM, no clubbing, cyanosis or edema, no calf tenderness and no pedal edema GENERAL: Yes normal exam except as noted Neuro: COMMON NORMALS: patient oriented x3, moves all extremities, no focal motor deficits and no sensory deficits noted SENSORIUM/ORIENTATION: Yes alert SENSORY EXAM: Yes other (equal to bilateral LEs) MOTOR EXAM: 5/5 motor strength present throughout Skin: COMMON NORMALS: no rashes or lesions noted GENERAL SKIN EXAM: no rashes or lesions noted Course Vital Signs: Vital signs: Vital Signs Temperature 98.7 F 08/13/21 14:24 Pulse Rate 80 08/13/21 14:24 Respiratory Rate 20 H 08/13/21 14:24 Blood Pressure 138/78 08/13/21 14:24 Pulse Oximetry 97 08/13/21 14:24 Discharge Plan Discharge Patient Disposition: Home Clinical Impression: Lumbar radiculopathy Condition: Stable Prescriptions: New Celebrex 100 mg capsule 100 mg PO BID PRN (Reason: pain) Qty: 30 RF: 0 prednisone 20 mg tablet 20 mg PO BID 7 Days Qty: 14 RF: 0 methocarbamol 750 mg tablet 750 mg PO Q8H PRN (Reason: muscle pain and spasms) Qty: 20 RF: 0 No Action cholecalciferol (vitamin D3) 50 mcg (2,000 unit) capsule 50 mcg PO QAM RF: 0 omega-3 fatty acids [Fish Oil Concentrate] 1,000 mg capsule 1,000 mg PO BID RF: 0 metoprolol tartrate 25 mg tablet 25 mg PO BID Qty: 180 RF: 3 epinephrine 0.3 mg/0.3 mL Auto-Injector 0.3 mg IM PRN PRN (Reason: Allergic Reaction) RF: 0 ropinirole 2 mg tablet 2 mg PO BID RF: 0 quetiapine 25 mg tablet 25 mg PO BEDTIME RF: 0 atorvastatin 40 mg tablet 20 mg PO DAILY@1700 RF: 0 buspirone 10 mg tablet 20 mg PO BID@0700,1700 RF: 0 ondansetron HCl [Zofran] 4 mg tablet 4 mg PO Q6H PRN (Reason: Nausea) RF: 0 hydrocodone-acetaminophen 5-325 mg tablet 1 tab PO Q6H PRN (Reason: pain) Qty: 20 RF: 0 Zofran 4 mg tablet 4 mg PO Q6H PRN (Reason: nausea and vomiting) Qty: 20 RF: 0 Colace 100 mg capsule 100 mg PO BID Qty: 30 RF: 0 pantoprazole [Protonix] 40 mg Tablet,Delayed Release (Dr/Ec) 40 mg PO DAILY RF: 0 mirtazapine 45 mg Tablet 45 mg PO BEDTIME RF: 0 One-A-Day Menopause Formula 400-60 mcg-mg Tablet 1 tab PO QAM RF: 0 Zzzquil Pure Zzzs 1 tab PO BEDTIME RF: 0 albuterol sulfate 90 mcg/actuation HFA aerosol inhaler 4 inh inhalation Q4H PRN (Reason: shortness of breath or wheezing) Qty: 8.5 RF: 0 Discharge Orders: Discharge ED (Routine); Ordered 08/13/21 Ordered By: Luis Enrique Mclean Referrals: Joellen Alvarez FNP [Primary Care Provider] - Discharge Diet: Regular Discharge Activity: Increase activity as tolerated Patient Instructions: Lumbar Radiculopathy (ED) Activity Restrictions/Additional Instructions: Follow-up with medical provider as directed in 7 to 10 days for reevaluation. Rest, ice or apply heat on lower back to help with symptoms. Limit lifting to allow for healing. Stretch lower back daily. Take medications as prescribed. Return to the ER or your medical provider if condition worsens. Please read and understand discharge instructions. Thank you for choosing [facility] for your healthcare needs today. Please realize this is an emergency room and that we are providing you with a medical screening exam and this may not be complete and all inclusive of all the testing and or work up that you may need to determine your ailment or severity of your illness. It is very important that you follow up as instructed or that you return to the Emergency Department should you have concerns or if your condition changes or worsens in any way. Sign Out Sign Out Data: Patient Sign Out occurred on 08/13/21 at 17:08. Patient's care was discussed, and care was transferred from to RICCI Holloway. Coding Level of Care Code ED [employer]ed [employer] Drafter for Chg Fwd Exam Comprehensive Documented by User: RICCI Holloway 08/14/21 00:18 HPI - Back Pain/Injury General: Chief Complaint: Back Pain/Injury Stated Complaint: SEVERE BACK PAIN RIGHT SIDE Time Seen by Provider: 08/13/21 16:31 [facility] ED PFSH: Medical History GERD (gastroesophageal reflux disease) History of depression Hyperlipidemia PTSD (post-traumatic stress disorder) PVC (premature ventricular contraction) Surgical History H/O esophagogastroduodenoscopy (01/31/21) gastritis Hx of hysterectomy S/P bilateral breast lumpectomy Status post colonoscopy Status post laparoscopic cholecystectomy (02/06/21) Family History Grandfather CAD (coronary artery disease) Myocardial infarction Diabetes Mother Stroke Dementia Father Stroke Dementia Social History Alcohol intake: current Alcohol intake frequency: holidays/special occasions only Course Vital Signs: Vital signs: Vital Signs Temperature 98.7 F 08/13/21 14:24 Pulse Rate 80 08/13/21 14:24 Respiratory Rate 20 H 08/13/21 14:24 Blood Pressure 138/78 08/13/21 14:24 Pulse Oximetry 97 08/13/21 14:24 MDM - Back Pain/Injury MDM Narrative: Medical decision making narrative: Patient is a 65-year-old female comes to the ED with right lower back pain that radiates down into her right upper leg. Denies any cauda equina symptoms. Patient injured lower back when trying to move a washing machine. X-ray of lumbar spine showed no acute fractures but showed some multilevel degenerative changes of the lumbar spine. Patient was diagnosed with lumbar radiculopathy and discharged home with a p rescription for Celebrex, prednisone and methocarbamol. She was told to follow- up with PCP in 7 to 10 days for reevaluation. Return to ED precautions given. Patient understood agree with plan. Imaging Data^: Xray Ortho: Attestation: I personally reviewed and interpreted this imaging study as follows: Radiologist's impression: [address] [address] XRay Report Signed Patient: Natasha Wharton Unit #: [id number] : 1955 Age/Sex: 65 / F ADM Date: 08/13/21 Loc: ER Room/Bed: Attending Dr: Ordering Provider/Ordering MD: Angella Todd Date of Service: 08/13/21 Procedure(s): XR lumbar spine 2-3V* [id number] Accession Number(s): [id number] Report Number: [id number] PROCEDURE INFORMATION: Exam: XR Lumbosacral Spine Exam date and time: 08/13/2021 4:37 PM Age: 65 years old Clinical indication: Injury or trauma; Fall; Sprain or strain, lumbar ligaments; Injury date: 1 week ago; Additional info: Back injury TECHNIQUE: Imaging protocol: XR of the lumbosacral spine. Views: 2 or 3 views. COMPARISON: No relevant prior studies available. FINDINGS: Bones/joints: 5 [id number] vertebral bodies. The right and left sacroiliac joints are unremarkable. Vertebral body height is maintained. No subluxation. Normal bone mineralization. Small marginal osteophytes from L2-L3 through L5-S1. Mild loss of disc space height at L3-L4. Mild to moderate facet sclerosis and hypertrophy at all lumbar spine levels. No acute fracture. Soft tissues: No paravertebral soft tissue abnormality. No radiopaque foreign body. Intraperitoneal space: Surgical clips in the right upper quadrant, consistent with a previous cholecystectomy. XR/XR lumbar spine 2-3V* [id number] IMPRESSION: 1. No acute fracture of the lumbar spine. CT scan would be recommended if there is continuing clinical concern for fracture. 2. Multilevel degenerative changes of varying severity in the visualized spine. Dictated By: Amelia Teixeira MD Signed By: Amelia Teixeira MD Signed Date/Time: 08/13/21 2355 DD/ 1637 Discharge Plan Discharge Patient Disposition: Home Clinical Impression: Lumbar radiculopathy Condition: Stable Prescriptions: New Celebrex 100 mg capsule 100 mg PO BID PRN (Reason: pain) Qty: 30 RF: 0 prednisone 20 mg tablet 20 mg PO BID 7 Days Qty: 14 RF: 0 methocarbamol 750 mg tablet 750 mg PO Q8H PRN (Reason: muscle pain and spasms) Qty: 20 RF: 0 No Action cholecalciferol (vitamin D3) 50 mcg (2,000 unit) capsule 50 mcg PO QAM RF: 0 omega-3 fatty acids [Fish Oil Concentrate] 1,000 mg capsule 1,000 mg PO BID RF: 0 metoprolol tartrate 25 mg tablet 25 mg PO BID Qty: 180 RF: 3 epinephrine 0.3 mg/0.3 mL Auto-Injector 0.3 mg IM PRN PRN (Reason: Allergic Reaction) RF: 0 ropinirole 2 mg tablet 2 mg PO BID RF: 0 quetiapine 25 mg tablet 25 mg PO BEDTIME RF: 0 atorvastatin 40 mg tablet 20 mg PO DAILY@1700 RF: 0 buspirone 10 mg tablet 20 mg PO BID@0700,1700 RF: 0 ondansetron HCl [Zofran] 4 mg tablet 4 mg PO Q6H PRN (Reason: Nausea) RF: 0 hydrocodone-acetaminophen 5-325 mg tablet 1 tab PO Q6H PRN (Reason: pain) Qty: 20 RF: 0 Zofran 4 mg tablet 4 mg PO Q6H PRN (Reason: nausea and vomiting) Qty: 20 RF: 0 Colace 100 mg capsule 100 mg PO BID Qty: 30 RF: 0 pantoprazole [Protonix] 40 mg Tablet,Delayed Release (Dr/Ec) 40 mg PO DAILY RF: 0 mirtazapine 45 mg Tablet 45 mg PO BEDTIME RF: 0 One-A-Day Menopause Formula 400-60 mcg-mg Tablet 1 tab PO QAM RF: 0 Zzzquil Pure Zzzs 1 tab PO BEDTIME RF: 0 albuterol sulfate 90 mcg/actuation HFA aerosol inhaler 4 inh inhalation Q4H PRN (Reason: shortness of breath or wheezing) Qty: 8.5 RF: 0 Discharge Orders: Discharge ED (Routine); Ordered 08/13/21 Ordered By: Luis Enrique Mclean Referrals: Joellen Alvarez FNP [Primary Care Provider] - Discharge Diet: Regular Discharge Activity: Increase activity as tolerated Patient Instructions: Lumbar Radiculopathy (ED) Activity Restrictions/Additional Instructions: Follow-up with medical provider as directed in 7 to 10 days for reevaluation. Rest, ice or apply heat on lower back to help with symptoms. Limit lifting to a llow for healing. Stretch lower back daily. Take medications as prescribed. Return to the ER or your medical provider if condition worsens. Please read and understand discharge instructions. Thank you for choosing [facility] for your healthcare needs today. Please realize this is an emergency room and that we are providing you with a medical screening exam and this may not be complete and all inclusive of all the testing and or work up that you may need to determine your ailment or severity of your illness. It is very important that you follow up as instructed or that you return to the Emergency Department should you have concerns or if your condition changes or worsens in any way. Sign Out Sign Out Data: Patient Sign Out occurred on 08/13/21 at 17:08. Patient's care was discussed, and care was transferred from to RICCI Holloway. Coding Level of Care Code ED [employer]ed [employer] Drafter for Adaildg Fwd Exam Comprehensive
[2021-08-13] MEDS: orphenadrine 30 mg/mL Inj 2 mL 60 MG IM (16:54)
[2021-08-13] MEDS: ketorolac 30 mg/mL INJ IM (16:55)
[2021-08-13] MEDS: dexamethasone 10 mg/mL INJ 8 MG IM (16:55)
== END 2021-08-13 18:19 | disposition home or self-care (01) ==
PROVIDERS: Emergency Provider Physician Assistant; PCP Nurse Practitioner
DX: M54.16 Radiculopathy, lumbar region (principal); E78.5 Hyperlipidemia, unspecified
CPT/HCPCS: 72100; 96372; 99283; J1100; J1885; J2360

== ENCOUNTER → 2021-09-12 12:43 | Outpatient (BNVA) | payer OTHER, SELFPAY | PROVIDERS: PCP Nurse Practitioner; Referring Provider Nurse Practitioner; Visit Provider Podiatrist Foot & Ankle Surgery | DX: M79.672 Pain in left foot (principal) | CPT/HCPCS: 73630 ==

== ENCOUNTER 2021-11-15 15:43 | Emergency (ER) | payer OTHER, MEDICARE, SELFPAY ==
[2021-11-15 15:50] VITALS: BP 156/96; PULSE 82; RESP 16; TEMP 36.7; O2SAT 96; BMI 27.1
--- NOTE | 2021-11-15 16:17 | ED_ITS ---
HPI - Fall General: Chief Complaint: Extremity Injury, Upper Stated Complaint: Rt hand injury, left side hurting too Time Seen by Provider: 11/15/21 15:55 Source: patient Mode of arrival: ambulatory Limitations: no limitations History of Present Illness: Patient is a 66-year-old female who presents to the ED today following a fall. Patient tells me she accidentally tripped and fell yesterday and landed onto her left side. She states she believes she tried to catch herself prior to the fall and injured her right wrist and hand. She noticed a small area of bruising to her left lateral thigh as well as a small bruise to her left lower ribs. She denies painful inspiration, chest pain, shortness of breath, difficulty breathing. He is not having any abdominal pain. She denies striking her head or LOC. No neck or back pain. She is ambulatory without difficulty. MD complaint: fall Onset (ago): day(s) (yesterday) Fall from: standing Place fall occurred: home Loss of consciousness: None Prolonged down time: no Symptoms prior to fall: none Context: tripped/slipped Location of injury - extremities: Right: hand Associated symptoms-after fall: Reports no associated symptoms; Denies abdominal pain, chest pain, difficulty walking, headache(s), lightheadedness or neck pain Review of Systems Const: Denies: fever(s), chills, body aches or fatigue Eyes: Denies: change in vision Card: Denies: chest pain, palpitations, lightheadedness, syncope or pre- syncope Resp: Denies: dyspnea or pain on inspiration GI: Denies: abdominal pain, nausea or vomiting Musc: Reports: extremity pain (R hand) and joint pain (R wrist); Denies: neck pain, back pain, extremity swelling or joint swelling Neuro: Denies: headache(s), numbness in extremities, weakness in extremities, sensory changes, difficulty walking, frequent falls or dizziness PFSH ED PFSH: Medical History GERD (gastroesophageal reflux disease) History of depression Hyperlipidemia PTSD (post-traumatic stress disorder) PVC (premature ventricular contraction) Surgical History H/O esophagogastroduodenoscopy (01/31/21) gastritis Hx of hysterectomy S/P bilateral breast lumpectomy Status post colonoscopy Status post laparoscopic cholecystectomy (02/06/21) Family History Grandfather CAD (coronary artery disease) Myocardial infarction Diabetes Mother Stroke Dementia Father Stroke Dementia Social History Smoking and tobacco status: never smoked Alcohol intake: current Alcohol intake frequency: holidays/special occasions only Physical Exam Const: COMMON NORMALS: no acute distress, average body habitus, patient oriented x3, no limitations, healthy appearing, alert and well nourished HENMT: COMMON NORMALS: normocephalic and atraumatic HEAD & SCALP: normo cephalic and atraumatic FACE & SINUS: normal facial exam Eye: GENERAL EYE: appearance normal, both eyes and all related structures Neck/C-Spine: COMMON NORMALS: full ROM CERVICAL SPINE: Yes cervical ROM normal, No pain with cervical ROM, No Cervical spine tenderness, No step off deformity and No Paracervical muscle tenderness Chest: OTHER: very small area of faint ecchymosis to L lateral lower ribs with mild tenderness; no crepitus; breathing pattern/lung sounds normal; no abdominal tenderness Resp: COMMON NORMALS: normal respiratory effort and clear to auscultation bilaterally AUSCULTATION: clear to auscultation bilaterally Cardio: COMMON NORMALS: regular rate and regular rhythm RATE: regular rate RHYTHM: regular rhythm GI: COMMON NORMALS: Normal to inspection, nondistended, normoactive bowel sounds present, Soft to palpation, non-tender, No hepatosplenomegaly present and no masses PALPATION: Yes Soft to palpation and Yes No hepatosplenomegaly present Back/Pelvis: COMMON NORMALS: thoracic and lumbar spine normal to inspection, no thoracic nor lumbar tenderness and thoraco-lumbar ROM normal Extremity: COMMON NORMALS: capillary refill normal, no joint enlargement and no clubbing, cyanosis or edema GENERAL: Yes normal exam except as noted RIGHT UPPER EXTREMITY: Yes wrist (TTP distal wrist w/o no swelling or deformity noted) Right wrist: Yes neurovascular exam (normal) and Yes hand & digits (TTP thenar eminence w/o scaphoid tenderness) Right hand and digits: Yes ROM exam (normal), Yes neurovascular exam (normal) and Yes tendon exam (normal) LEFT LOWER EXTREMITY: Yes hip joint and Yes upper leg (full painless ROM to hip/knee; minimal pain/bruising to lateral L thigh) Left upper leg: Yes neurovascular exam (normal) Neuro: COMMON NORMALS: patient oriented x3 SENSORIUM/ORIENTATION: Yes alert Course Vital Signs: Vital signs: Vital Signs Temperature 98.1 F 11/15/21 15:50 Pulse Rate 82 11/15/21 15:50 Respiratory Rate 16 11/15/21 15:50 Blood Pressure 156/96 11/15/21 15:50 Pulse Oximetry 96 11/15/21 15:50 MDM - Fall Medical Decision Making XRs negative. Recommend conservative therapies at home and follow up with PCP in 1-2 weeks for continued pain. Return to ED precautions verbally discussed with patient. Imaging Data XR R wrist/hand: My impression: NAD XR CXR/R ribs: My impression: NAD Discharge Plan Discharge Patient Disposition: Home Clinical Impression: Fall on same level from tripping Right wrist sprain Qualifiers: Encounter type: initial encounter Qualified Code(s): S63.501A - Unspecified sprain of right wrist, initial encounter Contusion of rib on left side Qualifiers: Encounter type: initial encounter Qualified Code(s): S20.212A - Contusion of left front wall of thorax, initial encounter Condition: Stable Prescriptions: No Action cholecalciferol (vitamin D3) 50 mcg (2,000 unit) capsule 50 mcg PO QAM 0RF omega-3 fatty acids [Fish Oil Concentrate] 1,000 mg capsule 1,000 mg PO BID 0RF (DME) Custom Molded Orthotics See Rx Instructions .Route .MEDSUPPLY Qty: 1 0RF Rx Instructions: As directed metoprolol tartrate 25 mg tablet 25 mg PO BID Qty: 180 3RF epinephrine 0.3 mg/0.3 mL Auto-Injector 0.3 mg IM PRN PRN (Reason: Allergic Reaction) 0RF ropinirole 2 mg tablet 2 mg PO BID 0RF quetiapine 25 mg tablet 25 mg PO BEDTIME 0RF atorvastatin 40 mg tablet 20 mg PO DAILY@1700 0RF buspirone 10 mg tablet 20 mg PO BID@0700,1700 0RF hydrocodone-acetaminophen 5-325 mg tablet 1 tab PO Q6H PRN (Reason: pain) Qty: 20 0RF Zofran 4 mg tablet 4 mg PO Q6H PRN (Reason: nausea and vomiting) Qty: 20 0RF Colace 100 mg capsule 100 mg PO BID Qty: 30 0RF Celebrex 100 mg capsule 100 mg PO BID PRN (Reason: pain) Qty: 30 0RF methocarbamol 750 mg tablet 750 mg PO Q8H PRN (Reason: muscle pain and spasms) Qty: 20 0RF pantoprazole [Protonix] 40 mg Tablet,Delayed Release (Dr/Ec) 40 mg PO DAILY 0RF mirtazapine 45 mg Tablet 45 mg PO BEDTIME 0RF One-A-Day Menopause Formula 400-60 mcg-mg Tablet 1 tab PO QAM 0RF Zzzquil Pure Zzzs 1 tab PO BEDTIME 0RF albuterol sulfate 90 mcg/actuation HFA aerosol inhaler 4 inh inhalation Q4H PRN (Reason: shortness of breath or wheezing) Qty: 8.5 0RF Rx Instructions: until breathing returns to target peak flow/parameters Discharge Orders: Discharge ED (Routine); Ordered 11/15/21 Ordered By: Angella Todd Referrals: Joellen Alvarez FNP [Primary Care Provider] - Patient Instructions: Wrist Sprain (ED), Rib Contusion (ED) Coding Level of Care Code ED [employer] Leader for Marci Quinn
--- NOTE | 2021-11-15 16:17 | XRR_ITS ---
PROCEDURE INFORMATION: Exam: XR Right Wrist Exam date and time: 11/15/2021 4:29 PM Age: 66 years old Clinical indication: Injury or trauma; Blunt trauma (contusions or hematomas); Injury date: 11/14/21; Patient HX: Accidentally tripped and fell yesterday and landed onto her left side. Tried to catch herself prior to the fall and injured her right wrist and hand. She noticed a small area of bruising to her left lateral thigh as well as a small bruise to her left lower ribs. She denies painful inspiration, chest pain, shortness of breath, difficulty breathing. ; Additional info: Fall, pain TECHNIQUE: Imaging protocol: XR Right wrist. Views: 3 or more views. COMPARISON: No relevant prior studies available. FINDINGS: Bones/joints: Normal. Soft tissues: Normal. XR/XR wrist RT min 3V* [id number] IMPRESSION: No acute findings.
--- NOTE | 2021-11-15 16:17 | XRR_ITS ---
PROCEDURE INFORMATION: Exam: XR Left Ribs with PA Chest Exam date and time: 11/15/2021 4:29 PM Age: 66 years old Clinical indication: Injury or trauma; Rib area, left side; Blunt trauma; Injury date: 11/14/21; Patient HX: Accidentally tripped and fell yesterday and landed onto her left side. Tried to catch herself prior to the fall and injured her right wrist and hand. She noticed a small area of bruising to her left lateral thigh as well as a small bruise to her left lower ribs. She denies painful inspiration, chest pain, shortness of breath, difficulty breathing. TECHNIQUE: Imaging protocol: XR Left ribs with PA chest. Views: 3 views COMPARISON: CR XR chest 1V portable [id number] 12/28/2020 12:05 PM FINDINGS: Lungs: Unremarkable. No consolidation. Pleural spaces: Unremarkable. No pleural effusion. No pneumothorax. Heart/Mediastinum: Unremarkable. No cardiomegaly. Bones/joints: Unremarkable. XR/XR ribs LT mn 3V w CXR1V [id number] IMPRESSION: No acute findings.
--- NOTE | 2021-11-15 16:17 | XRR_ITS ---
PROCEDURE INFORMATION: Exam: XR Left Hand Exam date and time: 11/15/2021 4:29 PM Age: 66 years old Clinical indication: Injury or trauma; Blunt trauma (contusions or hematomas); Injury date: 11/14/21; Patient HX: Accidentally tripped and fell yesterday and landed onto her left side. Tried to catch herself prior to the fall and injured her right wrist and hand. She noticed a small area of bruising to her left lateral thigh as well as a small bruise to her left lower ribs. She denies painful inspiration, chest pain, shortness of breath, difficulty breathing. ; Additional info: Fall, pain TECHNIQUE: Imaging protocol: XR Left hand. Views: 3 or more views. COMPARISON: No relevant prior studies available. 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 No fracture. Soft tissues: Normal. XR/XR hand LT min 3V* [id number] IMPRESSION: No acute findings.
== END 2021-11-15 17:29 | disposition home or self-care (01) ==
PROVIDERS: Emergency Provider Physician Assistant; PCP Nurse Practitioner
DX: S63.501A Unspecified sprain of right wrist, initial encounter (principal); W01.0XXA Fall on same level from slipping, tripping and stumbling without subsequent striking against object, initial encounter; S20.212A Contusion of left front wall of thorax, initial encounter; Z79.891 Long term (current) use of opiate analgesic
CPT/HCPCS: 71101; 73110; 73130; 99282

== ENCOUNTER 2021-11-19 06:48 | Outpatient (CLI) | payer OTHER, SELFPAY ==
--- NOTE | 2021-11-19 07:15 | US_ITS ---
WS: [id number] INDICATION: Ruelas's neuroma LEFT foot TECHNIQUE: Ultrasound plantar LEFT foot area of concern FINDINGS: Ultrasound plantar LEFT foot in the area of concern. 1st through 5th intertarsal metatarsal spaces evaluated. No cystic or solid lesions. No evidence of Ruelas's neuroma. US/US soft tissue/extremity [id number] IMPRESSION: No suspicious findings. No evidence of Ruelas's neuroma.
== END 2021-11-19 06:49 | disposition home or self-care (01) ==
LOC: RAD 06:49
PROVIDERS: PCP Nurse Practitioner; Visit Provider Podiatrist Foot & Ankle Surgery
DX: G57.62 Lesion of plantar nerve, left lower limb (principal)
CPT/HCPCS: 76882

== ENCOUNTER → 2021-12-10 13:02 | Outpatient (BNVA) | payer OTHER, SELFPAY | PROVIDERS: PCP Nurse Practitioner; Visit Provider Podiatrist Foot & Ankle Surgery | DX: G57.62 Lesion of plantar nerve, left lower limb (principal); M20.41 Other hammer toe(s) (acquired), right foot; M20.42 Other hammer toe(s) (acquired), left foot; M21.612 Bunion of left foot | CPT/HCPCS: 64455; J1100; J3301; J3490 ==

== ENCOUNTER 2021-12-23 13:42 | Emergency (ER) | payer OTHER, MEDICARE, SELFPAY ==
[2021-12-23 14:07] VITALS: BP 121/87; PULSE 86; RESP 15; TEMP 36.7; O2SAT 98; BMI 27.4
--- NOTE | 2021-12-23 14:33 | CT_ITS ---
WS: [id number] CT HEAD NONCONTRAST HISTORY: gait problem TECHNIQUE: Contiguous axial imaging performed through the brain in 2.5 mm imaging. Bone and soft tiss ue windows. Sagittal and coronal reformats reviewed. All CT scans at [facility] use at least one of these dose optimization techniques: automated exposure control; mA and/or kV adjustment per pa tient size (includes targeted exams where dose is matched to clinical indication); or iterative recon struction. DLP: 825.86 mGy.cm COMPARISON: 08/23/2007 No acute intracranial hemorrhage, midline shift or mass effect. No atrophy or prior infarcts or herniation. Perivascular space inferior LEFT basal ganglia. Ventricles: Normal size with no hydrocephalus. No inferior displacement of the cerebellar tonsils. Paranasal sinuses: As visualized are clear. Mastoid air cells: Well pneumatized. Calvarium and scalp: Skull is intact with no soft tissue edema or swelling. CT/CT head wo con* [id number] IMPRESSION: 1. No acute intracranial hemorrhage or edema. 2. No sulcal effacement or edema.
--- NOTE | 2021-12-23 14:44 | W.ED.GENADLT ---
HPI - General Adult General: Chief complaint: Extremity Problem,Nontraumatic Stated complaint: Doctor sent for possible stroke Time Seen by Provider: 12/23/21 14:17 History of Present Illness: Patient is a 66-year-old female with history of GERD, hyperlipidemia, PVCs, depression who presents the emergency room for concerns of recurrent falls and left foot drop. Patient tells me that she has been dealing with a left foot issues for the last month and noticed that her left foot has been caught occasionally and causing her to fall. Patient denies any injury. Patient tells me that this started shortly after she fell about a month ago onto her right wrist. At that time, patient denies any injury to the left foot. However since to the fall, patient has had difficulty walking with the left foot. Patient denies any acute weakness in the arms or legs, diplopia, slurring of speech, language difficulty, vision changes in the last month. In addition, patient denies n/v/f/c/cp/sob/abdpain/dysuria/hematuria/diarrhea/hematochezia. She was told earlier today to come to the emergency room for evaluation of her problem. Onset:1 month ago Duration:1 month Location:ongoing Severity:mild Associated symptoms: Deny chest pain, dyspnea, nausea, rash, palpitations or vomiting Review of Systems Const: Denies: fever(s) or chills Eyes: Denies: change in vision ENMT: Denies: mouth pain Card: Denies: chest pain or palpitations Resp: Denies: dyspnea or non-productive cough GI: Denies: abdominal pain, nausea, vomiting or diarrhea : Denies: dysuria Musc: Reports: other (+L foot drop); Denies: extremity pain Skin/Breast: Denies: rash or new lesions Neuro: Denies: weakness in extremities Psych: Reports: other (Normal mood) Osmel/Lymph: Denies: easy bruising PFSH ED PFSH: Medical History GERD (gastroesophageal reflux disease) History of depression Hyperlipidemia PTSD (post-traumatic stress disorder) PVC (premature ventricular contraction) Surgical History H/O esophagogastroduodenoscopy (01/31/21) gastritis Hx of hysterectomy S/P bilateral breast lumpectomy Status post colonoscopy Status post laparoscopic cholecystectomy (02/06/21) Family History Grandfather CAD (coronary artery disease) Myocardial infarction Diabetes Mother Stroke Dementia Father Stroke Dementia Social History Smoking and tobacco status: never smoked Alcohol intake: current Alcohol intake frequency: holidays/special occasions only Physical Exam Const: COMMON NORMALS: alert HENMT: COMMON NORMALS: atraumatic HEAD & SCALP: atraumatic MOUTH: moist mucous membranes not abnormal Eye: COMMON NORMALS: EOMs intact bilaterally and conjunctivae normal CONJUNCTIVA: Yes conjunctivae normal Neck/C-Spine: COMMON NORMALS: full ROM and supple Resp: COMMON NORMALS: normal respiratory effort and clear to auscultation bilaterally AUSCULTATION: clear to auscultation bilaterally Cardio: COMMON NORMALS: regular rate RATE: regular rate GI: COMMON NORMALS: Soft to palpation and non-tender PALPATION: Yes Soft to palpation Extremity: COMMON NORMALS: full ROM Neuro: SENSORIUM/ORIENTATION: Yes alert MOTOR EXAM: No Abnormal motor strength present and Other motor observations present (no focal motor deficits) OTHER: Mental status? Awake, alert, and oriented to self, year, month, location, and situation.? Following simple axial and appendicular commands.? Has appropriate fund of knowledge, comprehension, and insight.? Able to recall and understands pertinent aspects of medical history and current treatment status.? ? Language? Speech is fluent without word-finding difficulties.? 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 ? Cranial nerves? 2,3,4,6: PERRL, EOMI with no nystagmus. 5: Intact sensation to light touch, symmetric? 7: Smile symmetrical, no facial droop.? 8: Hearing grossly intact.? 9,10: Normal palate movement.? 11: Normal strength in trapezius bilaterally 12: Tongue protrudes midline.? ? Motor examination? Normal bulk & tone. Strength as follows (R/L): Delts (5/5), Biceps (5/5), Triceps (5/5), Wrist ext (5/5), hip flexors (5/5), plantarflexors (5/5), dorsiflexors (5/5). ? Sensation? Light Touch: Grossly intact and equal in upper and lower extremities bilaterally? Romberg: Negative.? Distal joint position sense intact ? Coordination? Gdxerk-wy-xyrx-finger movements intact without dysmetria or past-pointing.? Rapid fingertaps: preserved amplitude without decriment.? No tremor, myoclonus or truncal ataxia.? ? Gait/stance? Steady, normal narrow base gait with appropriate arm swing and turning.? Tandem gait without hesitation or loss of balance. Psych: COMMON NORMALS: speech normal SPEECH: Yes normal speech MOOD & AFFECT: Yes euthymic mood Course Vital Signs: Vital signs: Vital Signs Temperature 98.0 F 12/23/21 16:18 Pulse Rate 81 12/23/21 16:18 Respiratory Rate 15 12/23/21 16:18 Blood Pressure 114/79 12/23/21 16:18 Pulse Oximetry 98 12/23/21 16:18 [facility] - General Adult Medical Decision Making 66-year-old female with a history of PTSD, PVC, hyperlipidemia presenting to the emergency room for evaluation of left-sided foot drop and recurrent falls. On physical exam, patient is able to ambulate without difficulty. Strength out of 5 out of 5 on the left foot, no visible foot drop today. CT head negative for any acute finding. Basic blood work within normal limit. It is unclear what is the cause of patient's foot drop. Neurologically patient is intact. I have given patient close follow-up with outpatient PCP for possible MRI at this time. Do not suspect acute stroke or other acute intracranial pathologies. Disposition: Discharge. Patient counseled regarding diagnostic impression, treatment plan. Patient given ED strict return precautions to return for continuation, worsening, or development of new symptoms. Instructed to f/u w/ PCP regarding symptoms today. Patient verbalized understanding. Lab Data : 12/23/21 15:00 12/23/21 15:[address] 12/23/21 14:33 IMPRESSION: 1. No acute intracranial hemorrhage or edema. 2. No sulcal effacement or edema. Laboratory Results WBC 11.0 10^3/uL (4.0-10.0) H 12/23/21 15:00 RBC 4.70 10^6/uL (4.1-5.3) 12/23/21 15:00 Hgb 13.8 g/dL (11.5-15.3) 12/23/21 15:00 Hct 42.5 % (37.0-47.0) 12/23/21 15:00 MCV 90.4 fl (81-99) 12/23/21 15:00 MCH 29.4 pg (28.0-34.0) 12/23/21 15:00 MCHC 32.5 g/dL (30.0-36.0) 12/23/21 15:00 RDW 14.1 % (12.1-15.1) 12/23/21 15:00 Plt Count 294 10^3/cmm (130-400) 12/23/21 15:00 MPV 9.1 fL (7.4-10.4) 12/23/21 15:00 Neut % (Auto) 64.9 % 12/23/21 15:00 Lymph % (Auto) 29.0 % 12/23/21 15:00 Ashe % (Auto) 5.0 % 12/23/21 15:00 Eos % (Auto) 0.3 % 12/23/21 15:00 Baso % (Auto) 0.4 % 12/23/21 15:00 Neut # (Auto) 7.14 10^3/uL (1.8-7.7) 12/23/21 15:00 Lymph # (Auto) 3.2 10^3/uL (0.8-4.8) 12/23/21 15:00 Ashe # (Auto) 0.6 10^3/uL (0.2-0.9) 12/23/21 15:00 Eos # (Auto) 0.0 10^3/uL (0.0-0.8) 12/23/21 15:00 Baso # (Auto) 0.0 10^3/uL (0.0-0.1) 12/23/21 15:00 Nucleated RBC % (auto) 0 % 12/23/21 15:00 Nucleated RBCs # 0.0 /100WBC 12/23/21 15:00 Sodium 141 mmol/L (136-145) 12/23/21 15:00 Potassium 3.4 mmol/L (3.5-5.1) L 12/23/21 15:00 Chloride 106 mmol/L (98-107) 12/23/21 15:00 Carbon Dioxide 23 mmol/L (22-29) 12/23/21 15:00 Anion Gap 15.4 (5-19) 12/23/21 15:00 BUN 15 mg/dL (8-23) 12/23/21 15:00 Creatinine 0.9 mg/dL (0.5-0.9) 12/23/21 15:00 GFR Calculation 62.6 mL/min (90-130) L 12/23/21 15:00 Glucose 100 mg/dL (65-115) 12/23/21 15:00 Calculated Osmolality 293 mOsm/kg (285-295) 12/23/21 15:00 Calcium 8.8 mg/dL (8.5-10.5) 12/23/21 15:00 Imaging Data Other Imaging: Radiologist's impression: [facility] [place] [address] CT Scan Report Signed Patient: Natasha Wharton Unit #: [id number] : 1955 Age/Sex: 66 / F ADM Date: 12/23/21 Loc: ER Room/Bed: Attending Dr: Ordering Provider/Ordering MD: Anne Olivia MD Date of Service: 12/23/21 Procedure(s): CT head wo con* [id number] Accession Number(s): [id number] Report Number: [id number] WS: [id number] CT HEAD NONCONTRAST HISTORY: gait problem TECHNIQUE: Contiguous axial imaging performed through the brain in 2.5 mm imaging. Bone and soft tissue windows. Sagittal and coronal reformats reviewed.? [facility] use at least one of these dose optimization techniques: automated exposure control; mA and/or kV adjustment per patient size (includes targeted exams where dose is matched to clinical indication); or iterative reconstruction. DLP: 825.86 mGy.cm COMPARISON: 08/23/2007 No acute intracranial hemorrhage, midline shift or mass effect. No atrophy or prior infarcts or herniation.? Perivascular space inferior LEFT basal ganglia. Ventricles:? Normal size with no hydrocephalus. No inferior displacement of the cerebellar tonsils. Paranasal sinuses: As visualized are clear. Mastoid air cells: Well pneumatized. Calvarium and scalp: Skull is intact with no soft tissue edema or swelling. CT/CT head wo con* [id number] IMPRESSION: ? 1.? No acute intracranial hemorrhage or edema. 2.? No sulcal effacement or edema. ? Dictated By: Denise Mosley DO Signed By: Denise Mosley DO Signed Date/Time: 12/23/211457 DD/ 52 Discharge Plan Discharge Patient Disposition: Home Clinical Impression: Foot drop Condition: Stable Prescriptions: No Action cholecalciferol (vitamin D3) 50 mcg (2,000 unit) capsule 50 mcg PO QAM 0RF (DME) Custom Molded Orthotics See Rx Instructions .Route .MEDSUPPLY Qty: 1 0RF Rx Instructions: As directed metoprolol tartrate 25 mg tablet 25 mg PO BID Qty: 180 3RF ropinirole 2 mg tablet 2 mg PO BID 0RF quetiapine 25 mg tablet 25 mg PO BEDTIME 0RF atorvastatin 40 mg tablet 20 mg PO DAILY@1700 0RF buspirone 10 mg tablet 20 mg PO BID@0700,1700 0RF pantoprazole [Protonix] 40 mg Tablet,Delayed Release (Dr/Ec) 40 mg PO DAILY@04 0RF One-A-Day Menopause Formula 400-60 mcg-mg Tablet 1 tab PO QAM 0RF Zzzquil Pure Zzzs 1 tab PO BEDTIME 0RF albuterol sulfate 90 mcg/actuation HFA aerosol inhaler 4 inh inhalation Q4H PRN (Reason: shortness of breath or wheezing) Qty: 8.5 0RF Rx Instructions: until breathing returns to target peak flow/parameters Celebrex 200 mg Capsule 200 mg PO BEDTIME PRN (Reason: Back Pain) 0RF methocarbamol 500 mg Tablet 500 mg PO Q8H PRN (Reason: Muscle Spasm) 0RF Fish Oil Concentrate 1,000 mg Capsule 1,000 mg PO BID 0RF valacyclovir 1 gram Tablet 1,000 mg PO QPM 0RF Fosamax 35 mg Tablet 35 mg PO Q7D 0RF Rx Instructions: on thu mirtazapine 30 mg Tablet 60 mg PO BEDTIME 0RF EpiPen 2-Fredy 0.3 mg/0.3 mL Auto-Injector 0.3 mg IM Q4H PRN (Reason: Allergic Reaction) 0RF Discharge Orders: Discharge ED (Routine); Ordered 12/23/21 Ordered By: Anne Olivia Referrals: Joellen Alvarez FNP [Referring] - Discharge Diet: Advance as tolerated Discharge Activity: Increase activity as tolerated Patient Instructions: Fall Prevention (ED) Activity Restrictions/Additional Instructions: Come back to the emergency room if any weakness in your arms or legs, if you have any facial droop, double vision, visual blindness, visual field deficits, balance problem, inability to walk, language difficulties or any new or concerning complaints. Coding Level of Care Code ED Cement Mason Helper for Adalidg Fwd Exam Comprehensive
[2021-12-23 15:25] LABS: Basophils % 0.4 %; Eosinophils % 0.3 %; Hematocrit 42.5 % (37.0-47.0); Hemoglobin 13.8 g/dL (11.5-15.3); Lymphocytes # 3.2 10^3/uL (0.8-4.8); Mean Corpuscular HGB Conc 32.5 g/dL (30.0-36.0); Mean Corpuscular Hemoglobin 29.4 pg (28.0-34.0); Mean Corpuscular Volume 90.4 fl (81-99); Mean Platelet Volume 9.1 fL (7.4-10.4); Monocytes # 0.6 10^3/uL (0.2-0.9); Neutrophils # 7.14 10^3/uL (1.8-7.7); Neutrophils % 64.9 %; Nucleated Red Blood Cells % 0 %; Platelet Count 294 10^3/cmm (130-400); Red Cell Distribution Width 14.1 % (12.1-15.1)
[2021-12-23 15:50] LABS: Anion Gap 15.4 (5-19); Blood Urea Nitrogen 15 mg/dL (8-23); Calcium 8.8 mg/dL (8.5-10.5); Carbon Dioxide 23 mmol/L (22-29); Chloride 106 mmol/L (98-107); Creatinine Clr Calc Pharmacy 60.0365; Glomerular Filtration Rate 62.6 mL/min (90-130); Glucose 100 mg/dL (65-115); Osmolality Calculated 293 mOsm/kg (285-295); Potassium 3.4 mmol/L (3.5-5.1); Sodium 141 mmol/L (136-145)
[2021-12-23 16:18] VITALS: BP 114/79; PULSE 81; RESP 15; TEMP 36.7; O2SAT 98
== END 2021-12-23 16:20 | disposition home or self-care (01) ==
PROVIDERS: Emergency Provider Emergency Medicine
DX: M21.372 Foot drop, left foot (principal); Z79.51 Long term (current) use of inhaled steroids
CPT/HCPCS: 70450; 80048; 85025; 99283

== ENCOUNTER → 2022-01-09 13:24 | Outpatient (BNVA) | payer OTHER, SELFPAY | PROVIDERS: Visit Provider Podiatrist Foot & Ankle Surgery | DX: G57.62 Lesion of plantar nerve, left lower limb (principal); M20.41 Other hammer toe(s) (acquired), right foot; M20.42 Other hammer toe(s) (acquired), left foot; M21.612 Bunion of left foot | CPT/HCPCS: 99213 ==

== ENCOUNTER → 2022-05-06 13:09 | Outpatient (BNVA) | payer OTHER, SELFPAY | PROVIDERS: PCP Nurse Practitioner; Referring Provider Nurse Practitioner; Visit Provider Specialist | DX: M21.372 Foot drop, left foot (principal); M54.32 Sciatica, left side | CPT/HCPCS: 99203; 99204 ==

== ENCOUNTER 2023-04-27 17:59 | Emergency (ER) | payer OTHER, SELFPAY ==
[2023-04-27 18:02] VITALS: BP 112/88; PULSE 99; RESP 24; TEMP 37.7; O2SAT 100
--- NOTE | 2023-04-27 18:27 | W.ED.COVID ---
HPI - COVID General: Chief Complaint: COVID symptoms Stated Complaint: Possible Covid\Influence A Time Seen by Provider: 04/27/23 18:26 History of Present Illness: 67-year-old female comes in today with illness starting on Thursday. Patient reports fever and chills occasional cough. Patient reports some increased mucus production. Patient appears nontoxic but mildly unwell. Patient appears in no pain. COVID 19 common symptoms: positive fever(s), non-productive cough, throat pain and diarrhea; negative dyspnea, nausea or vomiting COVID 19 other sytmptoms: negative chest pain COVID Results: SARS-CoV-2 Antigen (Rapid) positive (Negative) H 04/27/23 18:15 SARS-CoV-2 RNA (RT-PCR) Not detected (NOT DETECTED) 02/01/21 10:41 Review of Systems General: Reports: 10 or more systems reviewed and unremarkable except in HPI and below Const: Reports: fever(s) ENMT: Reports: throat pain Card: Denies: chest pain Resp: Reports: non-productive cough; Denies: dyspnea GI: Reports: diarrhea; Denies: nausea or vomiting : Denies: difficulty voiding Skin/Breast: Denies: rash PFSH ED PFSH: Medical History GERD (gastroesophageal reflux disease) History of depression Hyperlipidemia PTSD (post-traumatic stress disorder) PVC (premature ventricular contraction) Surgical History H/O esophagogastroduodenoscopy (01/31/21) gastritis Hx of hysterectomy S/P bilateral breast lumpectomy Status post colonoscopy Status post laparoscopic cholecystectomy (02/06/21) Family History Grandfather CAD (coronary artery disease) Myocardial infarction Diabetes Mother Stroke Dementia Father Stroke Dementia Social History Smoking and tobacco status: never smoked Alcohol intake: current Alcohol intake frequency: holidays/special occasions only Substance/Drug Use: never Physical Exam Const: COMMON NORMALS: alert HENMT: COMMON NORMALS: normocephalic HEAD & SCALP: normocephalic Neck/C-Spine: COMMON NORMALS: full ROM Resp: COMMON NORMALS: normal respiratory effort and clear to auscultation bilaterally AUSCULTATION: clear to auscultation bilaterally Cardio: COMMON NORMALS: regular rate and regular rhythm RATE: regular rate RHYTHM: regular rhythm Extremity: COMMON NORMALS: normal to inspection Neuro: SENSORIUM/ORIENTATION: Yes alert Skin: COMMON NORMALS: turgor normal GENERAL SKIN EXAM: turgor normal Course Vital Signs: Vital signs: Vital Signs Temperature 99.8 F H 04/27/23 18:02 Pulse Rate 99 04/27/23 18:02 Respiratory Rate 24 H 04/27/23 18:02 Blood Pressure 112/88 04/27/23 18:02 Pulse Oximetry 100 04/27/23 18:35 Oxygen Delivery Me thod Room Air 04/27/23 18:35 MDM - COVID Medical Decision Making Patient came in today for 2-day history of fever with body aches and flulike symptoms. On exam respirations are even lungs are clear to auscultation. Vital signs are normal. Differential diagnosis include COVID, influenza, pneumonia. Exam noted no signs of respiratory failure distress or pneumonia. COVID-19 test was positive. Influenza was negative. Reviewed exam with patient with recommendations for treatment with Paxlovid and supportive care. Patient and family both reported understanding agreed to plan. Lab Data Laboratory Results Influenza Type A Ag negative (Negative) 04/27/23 18:15 Influenza Type B Ag negative (Negative) 04/27/23 18:15 SARS-CoV-2 Ag (Rapid) positive (Negative) H 04/27/23 18:15 SARS-CoV-2 Antigen (Rapid) positive (Negative) H 04/27/23 18:15 SARS-CoV-2 RNA (RT-PCR) Not detected (NOT DETECTED) 02/01/21 10:41 Discharge Plan Discharge Patient Disposition: Home Clinical Impression: COVID Condition: Stable Prescriptions: New Paxlovid 150-100 mg tablets,dose pack See Rx Instructions .ROUTE .COMPLEX Qty: 20 0RF Rx Instructions: take ONE 150 mg tablet of nirmatrelvir with ONE 100 mg tablet of ritonavir twice daily for 5 days ondansetron 4 mg tablet,disintegrating 4 mg PO Q8H PRN (Reason: nausea and vomiting) Qty: 10 0RF No Action cholecalciferol (vitamin D3) 50 mcg (2,000 unit) capsule 50 mcg PO QAM (DME) Custom Molded Orthotics See Rx Instructions .Route .MEDSUPPLY Qty: 1 0RF Rx Instructions: As directed clindamycin HCl 150 mg capsule 450 mg PO TID 7 Days Qty: 63 0RF metoprolol tartrate 25 mg tablet 25 mg PO BID Qty: 180 3RF ropinirole 2 mg tablet 2 mg PO BID quetiapine 25 mg tablet 25 mg PO BEDTIME atorvastatin 40 mg tablet 20 mg PO DAILY@1700 buspirone 10 mg tablet 20 mg PO BID@0700,1700 pantoprazole [Protonix] 40 mg Tablet,Delayed Release (Dr/Ec) 40 mg PO DAILY@04 One-A-Day Menopause Formula 400-60 mcg-mg Tablet 1 tab PO QAM Zzzquil Pure Zzzs 1 tab PO BEDTIME albuterol sulfate 90 mcg/actuation HFA aerosol inhaler 4 inh inhalation Q4H PRN (Reason: shortness of breath or wheezing) Qty: 8.5 0RF Rx Instructions: until breathing returns to target peak flow/parameters Celebrex 200 mg Capsule 200 mg PO BEDTIME PRN (Reason: Back Pain) methocarbamol 500 mg Tablet 500 mg PO Q8H PRN (Reason: Muscle Spasm) Fish Oil Concentrate 1,000 mg Capsule 1,000 mg PO BID valacyclovir 1 gram Tablet 1,000 mg PO QPM Fosamax 35 mg Tablet 35 mg PO Q7D Rx Instructions: on thu mirtazapine 30 mg Tablet 60 mg PO BEDTIME EpiPen 2-Fredy 0.3 mg/0.3 mL Auto-Injector 0.3 mg IM Q4H PRN (Reason: Allergic Reaction) Discharge Orders: Discharge ED (Routine); Ordered 04/27/23 Ordered By: Tulio Juan Referrals: Joellen Alvarez FNP [Primary Care Provider] - Discharge Diet: Usual diet Discharge Activity: Increase activity as tolerated Patient Instructions: COVID-19 (Coronavirus Disease 2019) (ED) Activity Restrictions/Additional Instructions: Home and rest. Drink plenty of water and fluids. Use acetaminophen and/or ibuprofen for pain and discomfort. Take Paxlovid as directed. Use ondansetron as needed for nausea or vomiting. Follow-up with primary care for further instructions. Return to ED for worsening symptoms such as increasing shortness of breath, severe chest pain, or new concerns. Coding Level of Care Code ED Metrology Specialist for Marci Quinn
[2023-04-27 18:35] VITALS: O2SAT 100
[2023-04-27 18:52] LABS: Influenza A by IFA negative (Negative); Influenza B by IFA negative (Negative)
[2023-04-27 18:54] LABS: SARS Covid-2 Antigen positive (Negative)
== END 2023-04-27 19:14 | disposition home or self-care (01) ==
PROVIDERS: Emergency Medicine; Emergency Provider Nurse Practitioner Family; PCP Nurse Practitioner
DX: U07.1 COVID-19 (principal); E78.5 Hyperlipidemia, unspecified
CPT/HCPCS: 87426; 87804; 99283

== ENCOUNTER 2023-04-29 21:43 | Emergency (ER) | payer OTHER, SELFPAY ==
[2023-04-29 21:45] VITALS: BMI 27.4
[2023-04-29 21:50] VITALS: BP 141/117; PULSE 96; RESP 16; TEMP 36.7; O2SAT 97
--- NOTE | 2023-04-29 21:58 | ED_ITS ---
improved HPI - Extremity Problem General: Chief complaint: Extremity Problem,Nontraumatic Stated complaint: covid Time Seen by Provider: 04/29/23 22:06 Source: patient and EMS Mode of arrival: EMS Limitations: no limitations History of Present Illness: This patient returns to our emergency department because of concerns about potential medication interactions. She recently was diagnosed as being COVID- positive and was started on Paxlovid for the tensional benefits from its shortened of duration of COVID-19. She states that she took her Paxlovid earlier today and then took her other medications approximately 5 PM and then started noticing approximately 6 PM or thereabouts severe muscle cramps and spasms of her lower legs. She denies any difficulty swallowing breathing etc. She has had typical COVID symptoms to include some fogginess, nonproductive cough and some body aches. She states she has been eating and drinking normally. She has no history of COPD or other cardiopulmonary conditions. Associated symptoms: Deny chest pain or rash Review of Systems Const: Reports: fatigue and malaise Eyes: Denies: change in vision ENMT: Denies: throat pain, odynophagia, nasal discharge or nasal congestion Card: Denies: chest pain, palpitations or irregular heart rhythm Resp: Reports: non-productive cough; Denies: wheezing or stridor GI: Denies: abdominal pain, nausea, vomiting or diarrhea : Denies: flank pain, difficulty voiding, dysuria or urinary frequency Musc: Reports: extremity pain; Denies: neck pain or back pain Skin/Breast: Denies: rash or pruritus Neuro: Denies: headache(s), numbness in extremities or weakness in extremities Psych: Reports: anxiety [facility] ED PFSH: Medical History GERD (gastroesophageal reflux disease) History of depression Hyperlipidemia PTSD (post-traumatic stress disorder) PVC (premature ventricular contraction) Surgical History H/O esophagogastroduodenoscopy (01/31/21) gastritis Hx of hysterectomy S/P bilateral breast lumpectomy Status post colonoscopy Status post laparoscopic cholecystectomy (02/06/21) Family History Grandfather CAD (coronary artery disease) Myocardial infarction Diabetes Mother Stroke Dementia Father Stroke Dementia Social History Smoking and tobacco status: never smoked Alcohol intake: current Alcohol intake frequency: holidays/special occasions only Substance/Drug Use: never Physical Exam Narrative: EXAM NARRATIVE: The patient is alert and is able to carry on a conversation in a goal-directed fashion but is intermittently having spasms of her lower extremities. Const: COMMON NORMALS: average body habitus, patient oriented x3 and alert GENERAL APPEARANCE: cooperative HENMT: COMMON NORMALS: normocephalic, atraumatic, Normal nasal mucous membranes and turbinates present, moist oral mucous membranes and oropharynx normal HEAD & SCALP: normocephalic and atraumatic NOSE: Normal nasal mucous membranes and turbinates present Eye: COMMON NORMALS: Equal, round and reactive pupils present, EOMs intact bilaterally and conjunctivae normal CONJUNCTIVA: Yes conjunctivae normal PUPIL: Yes Equal, round and reactive pupils present Neck/C-Spine: COMMON NORMALS: full ROM, no lymphadenopathy, supple and No carotid bruits Chest: COMMONS NORMALS: normal inspection of the chest Resp: COMMON NORMALS: normal respiratory effort, No retractions, No use of accessory muscles, clear to auscultation bilaterally and percussion normal EFFORT & INSPECTION: Yes able to speak in complete sentences AUSCULTATION: clear to auscultation bilaterally PERCUSSION: percussion normal Cardio: COMMON NORMALS: regular rate, regular rhythm, No murmurs present (Cardio) and Peripheral pulses 2+ throughout RATE: regular rate RHYTHM: regular rhythm PERIPHERAL PULSES: Peripheral pulses 2+ throughout GI: COMMON NORMALS: Normal to inspection, nondistended, normoactive bowel sounds present, Soft to palpation and non-tender PALPATION: Yes Soft to palpation : COMMON NORMALS: Yes no CVA tenderness BLADDER/KIDNEY EXAM: Yes no CVA tenderness Back/Pelvis: COMMON NORMALS: no CVA tenderness, thoracic and lumbar spine normal to inspection, no thoracic nor lumbar tenderness and thoraco-lumbar ROM normal Extremity: COMMON NORMALS: capillary refill normal and no calf tenderness NARRATIVE EXTREMITY EXAM: She has intermittent palpable firmness of her muscles of her upper thighs. The time of examination she had no palpable firmness or spasm of her calf musculature. There is no deformity of the lower extremities, pedal edema, erythema etc. Neuro: COMMON NORMALS: patient oriented x3 SENSORIUM/ORIENTATION: Yes alert Psych: COMMON NORMALS: mental status grossly normal Skin: COMMON NORMALS: no rashes or lesions noted, no wounds, turgor normal, no jaundice and no petechiae GENERAL SKIN EXAM: no rashes or lesions noted and turgor normal Course Reevaluation(s): Reevaluation #1: Her spasms seem to be lessening albeit still present intermittently. The plan will be to continue to observe her for continued and improvement in the emergency department. The plan will be to recommend that she not take any additional Paxlovid due to the potential for interactions particularly with her BuSpar, mirtazapine, her quetiapine. We noted that she is not hypoxic, not tachycardic or otherwise displaying any ongoing symptoms to suggest severe COVID-19 disease. Time: 22:40 Vital Signs: Vital signs: Vital Signs Temperature 98.0 F 04/29/23 21:50 Pulse Rate 96 04/29/23 21:50 Respiratory Rate 16 04/29/23 21:50 Blood Pressure 141/117 04/29/23 21:50 Pulse Oximetry 97 04/29/23 21:50 Oxygen Delivery Me thod Room Air 04/29/23 21:50 MDM - Extremity (Nontraumatic) Medical Decision Making This patient presented to our emergency department because of severe lower extremity cramps. They began this evening. She notably was diagnosed as having COVID-19 and started on Paxlovid yesterday. She states that she took her Paxlovid today and then shortly thereafter within an hour or so took her usual medications and then sometime later started developing lower extremity cramping. She has a history of restless leg syndrome but this is much more severe than that usual condition. Clinical examination revealed her to be uncomfortable and having intermittent spasms of the quadricep muscles primarily. She was given a Valium 5 mg as well as a 2 g of magnesium bolus. We will also be given IV fluid bolus in addition to help control her symptoms. The plan will be to observe her to ensure that she is having lessening of her symptoms. Some of the symptoms will take a better time to resolve given the half-life of the medications. Because of the significant potential for interactions of Paxlovid with many of her medications most specifically: BuSpar alone, Cristian has a pain, quetiapine we have recommended that she stop the Paxlovid. Her history does not include any history of significant cardiopulmonary disease and she is not displaying any signs of hypoxia tachycardia or other instability at this time so it is 1 should expect her to have a relatively unremarkable COVID-19 course based upon current strain and its decreased clinical effects. Discharge Plan Discharge Patient Disposition: Home Clinical Impression: Drug interaction, COVID Condition: Stable Prescriptions: Discontinued Paxlovid 150-100 mg tablets,dose pack See Rx Instructions .ROUTE .COMPLEX Qty: 20 0RF Rx Instructions: take ONE 150 mg tablet of nirmatrelvir with ONE 100 mg tablet of ritonavir twice daily for 5 days No Action cholecalciferol (vitamin D3) 50 mcg (2,000 unit) capsule 50 mcg PO QAM (DME) Custom Molded Orthotics See Rx Instructions .Route .MEDSUPPLY Qty: 1 0RF Rx Instructions: As directed clindamycin HCl 150 mg capsule 450 mg PO TID 7 Days Qty: 63 0RF metoprolol tartrate 25 mg tablet 25 mg PO BID Qty: 180 3RF ropinirole 2 mg tablet 2 mg PO BID quetiapine 25 mg tablet 25 mg PO BEDTIME atorvastatin 40 mg tablet 20 mg PO DAILY@1700 buspirone 10 mg tablet 20 mg PO BID@0700,1700 pantoprazole [Protonix] 40 mg Tablet,Delayed Release (Dr/Ec) 40 mg PO DAILY@04 One-A-Day Menopause Formula 400-60 mcg-mg Tablet 1 tab PO QAM Zzzquil Pure Zzzs 1 tab PO BEDTIME albuterol sulfate 90 mcg/actuation HFA aerosol inhaler 4 inh inhalation Q4H PRN (Reason: shortness of breath or wheezing) Qty: 8.5 0RF Rx Instructions: until breathing returns to target peak flow/parameters Celebrex 200 mg Capsule 200 mg PO BEDTIME PRN (Reason: Back Pain) methocarbamol 500 mg Tablet 500 mg PO Q8H PRN (Reason: Muscle Spasm) Fish Oil Concentrate 1,000 mg Capsule 1,000 mg PO BID valacyclovir 1 gram Tablet 1,000 mg PO QPM Fosamax 35 mg Tablet 35 mg PO Q7D Rx Instructions: on thu mirtazapine 30 mg Tablet 60 mg PO BEDTIME EpiPen 2-Fredy 0.3 mg/0.3 mL Auto-Injector 0.3 mg IM Q4H PRN (Reason: Allergic Reaction) ondansetron 4 mg tablet,disintegrating 4 mg PO Q8H PRN (Reason: nausea and vomiting) Qty: 10 0RF Discharge Orders: Discharge ED (Routine); Ordered 04/29/23 Ordered By: Blake Hutchison Referrals: Joellen Alvarez FNP [Primary Care Provider] - Discharge Diet: Usual diet Discharge Activity: Increase activity as tolerated Patient Instructions: Opioid Safety, Pain Management Activity Restrictions/Additional Instructions: As we discussed you should continue to remain well-hydrated with sports drinks, water etc. You should aim for at least 2 quarts of fluid a day. You may use a teaspoon to a tablespoon of honey to help with your cough. If you develop worsening symptoms, shortness of breath, inability eat or drink or any other concerning symptoms you are welcome to return to the emergency department. Do not resume taking your Paxlovid. Coding Level of Care Code ED Regional Business Manager for Marci Quinn
[2023-04-29] MEDS: diazePAM 5 mg Tablet PO (22:03)
[2023-04-29] MEDS: magnesium sulfate premix 2 GM/50 ML PIGGYBACK IV (22:18)
[2023-04-29 22:25] VITALS: BP 128/97; PULSE 97; RESP 28; O2SAT 96
[2023-04-29] MEDS: lactated ringers 1,000 ML 999 ML IV (22:47)
[2023-04-29 23:01] VITALS: BP 107/66; PULSE 84; RESP 20; O2SAT 95
[2023-04-29 23:30] VITALS: BP 101/57; PULSE 84; O2SAT 97
[2023-04-30] VITALS: BP 90/64; PULSE 77; O2SAT 95
[2023-04-30 00:49] VITALS: BP 109/73; PULSE 81; O2SAT 98
== END 2023-04-30 00:49 | disposition home or self-care (01) ==
PROVIDERS: Emergency Provider Emergency Medicine; PCP Nurse Practitioner
DX: U07.1 COVID-19 (principal); R25.2 Cramp and spasm; T37.5X5A Adverse effect of antiviral drugs, initial encounter; E78.5 Hyperlipidemia, unspecified
CPT/HCPCS: 96361; 96365; 99284; J3475; J7120

== ENCOUNTER 2023-05-04 10:37 | Emergency (ER) | payer OTHER, SELFPAY ==
[2023-05-04] VITALS (8 sets, daily range): BP systolic 156–178; BP diastolic 86–100; PULSE 69–73; RESP 16; TEMP 37.4; O2SAT 96; BMI 27.4
--- NOTE | 2023-05-04 10:40 | XR_ITS ---
WS: [id number] XR chest 1V portable [id number] REASON FOR EXAM: cp FINDINGS: Chest is unchanged compared to 11/15/2021. The heart and the mediastinum are within normal limits. Normal thoracic aorta. Calcified granulomatous disease in both hemithoraces. No acute pulmonary parenchymal or pleural abnormality. Mild degenerative spondylosis in the mid and lower thoracic spine. IMPRESSION: Stable chest with no acute abnormality.
--- NOTE | 2023-05-04 10:40 | ECG_ITS ---
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 Measurements Intervals [place] Rate: 70 P: 52 OK: 170 QRS: 84 QRSD: 110 T: 33 QT: 398 QTc: 432 Interpretive Statements SINUS RHYTHM WITH OCCASIONAL ECTOPIC PREMATURE COMPLEXES NONSPECIFIC T-WAVE ABNORMALITY Compared to ECG 12/10/2020 21:28:25 Incomplete right bundle-branch block no longer present Possible ischemia no longer present T-wave abnormality still present Electronically Signed On 05-04-2023 21:30:09 CDT by Erin Nguyen M.D. [id number]
--- NOTE | 2023-05-04 11:14 | ED_ITS ---
HPI - COVID General: Chief Complaint: COVID symptoms Stated Complaint: covid+ since thursday Time Seen by Provider: 05/04/23 10:57 History of Present Illness: 67-year-old occasion female with history of PTSD, depression hyperlipidemia and GERD presented emergency room with chest pain that started last night. Patient described the pain as sharp sensation with severity of 7 out of 10 mostly on the left side of her chest. Pain is nonradiating. Chart reviewed some nonproductive cough. Has coughing up blood or vomiting blood no fever or chills. She was diagnosed with COVID about 7 days ago. Denies any sick contact or recent foreign travel. COVID 19 common symptoms: positive non-productive cough; negative fever(s), chills, productive cough, dyspnea, fatigue, body aches, headache(s), nausea or vomiting COVID 19 other sytmptoms: positive chest pain; negative confusion or dizziness COVID Results: SARS-CoV-2 Antigen (Rapid) positive (Negative) H 04/27/23 18:1 5 SARS-CoV-2 RNA (RT-PCR) Not detected (NOT DETECTED) 02/01/21 1 0:41 Review of Systems General: Reports: 10 or more systems reviewed and unremarkable except in HPI and below Const: Denies: fever(s), chills, body aches, change in appetite, change in weight, fatigue, malaise, night sweats, diaphoresis, change in sleep pattern or daytime sleepiness Card: Reports: chest pain; Denies: palpitations, irregular heart rhythm, edema, swelling of feet/ankles, lightheadedness, syncope or pre-syncope Resp: Reports: non-productive cough and pain on inspiration; Denies: dyspnea, productive cough, hemoptysis, chest congestion or other GI: Denies: abdominal pain, nausea, vomiting, hematemesis, coffee ground emesis, dysphagia or heartburn Musc: Denies: neck pain, back pain, extremity pain, extremity swelling, joint pain, joint swelling, joint redness, joint warmth, joint stiffness, limited range of motion or muscle cramps Skin/Breast: Denies: rash, pruritus, erythema, photosensitivity, skin tenderness, skin swelling, sores or new lesions Neuro: Denies: headache(s), numbness in extremities, weakness in extremities, sensory changes, lack of coordination, frequent falls, dizziness, vertigo, confusion, behavioral changes, Slurred speech present, difficulty communicating thoughts, seizure-like activity, involuntary movements, restless legs or other PFSH ED PFSH: Medical History GERD (gastroesophageal reflux disease) History of depression Hyperlipidemia PTSD (post-traumatic stress disorder) PVC (premature ventricular contraction) Surgical History H/O esophagogastroduodenoscopy (01/31/21) gastritis Hx of hysterectomy S/P bilateral breast lumpectomy Status post colonoscopy Status post laparoscopic cholecystectomy (02/06/21) Family History Grandfather CAD (coronary artery disease) Myocardial infarction Diabetes Mother Stroke Dementia Father Stroke Dementia Social History Smoking and tobacco status: never smoked Alcohol intake: current Alcohol intake frequency: holidays/special occasions only Substance/Drug Use: never Physical Exam Const: COMMON NORMALS: no acute distress, average body habitus, patient oriented x3, no limitations, healthy appearing, alert and well nourished HENMT: COMMON NORMALS: normocephalic, atraumatic, hearing grossly normal bilaterally, external ears normal, EAC's normal, TM's normal bilaterally, Normal external nose present, Normal nasal mucous membranes and turbinates present, moist oral mucous membranes, oropharynx normal, dentition normal and gingiva normal HEAD & SCALP: normocephalic and atraumatic NOSE: Normal external nose present and Normal nasal mucous membranes and turbinates present EXTERNAL EAR: Yes external ears normal EXTERNAL AUDITORY CANAL: EAC's normal TYMPANIC MEMBRANE: TM's normal bilaterally Neck/C-Spine: COMMON NORMALS: no JVD Chest: CHEST: Yes abnormal inspection of the chest, Yes Symmetrical chest wall rise, No crepitus, Yes localized rib tenderness with anteroposterior compression, No Sternal flail present, No mass, No sinus tracts, Yes tenderness, No laceration, No abrasion, No Ecchymosis present, No wounds and No Surgical scars present (Chest) OTHER: Left-sided chest wall tenderness on palpation. No palpable deformity or visible rash. Resp: COMMON NORMALS: normal respiratory effort, No retractions, No use of accessory muscles, clear to auscultation bilaterally and percussion normal AUSCULTATION: clear to auscultation bilaterally PERCUSSION: percussion normal Cardio: COMMON NORMALS: no JVD, regular rate, regular rhythm, S1 normal heart sound present, S2 normal heart sound present, No gallops present (Cardio), No clicks present (Cardio), No murmurs present (Cardio), No rub (Cardio) and Per ipheral pulses 2+ throughout RATE: regular rate RHYTHM: regular rhythm HEART SOUNDS: S1 normal heart sound present and S2 normal heart sound present PERIPHERAL PULSES: Peripheral pulses 2+ throughout Extremity: COMMON NORMALS: normal to inspection, full ROM, capillary refill normal, no joint enlargement, no clubbing, cyanosis or edema, no calf tenderness and no pedal edema Neuro: COMMON NORMALS: patient oriented x3 SENSORIUM/ORIENTATION: Yes alert Course Vital Signs: Vital signs: Vital Signs Temperature 99.3 F 05/04/23 10:57 Pulse Rate 69 05/04/23 11:56 Respiratory Rate 16 05/04/23 13:10 Blood Pressure 156/86 05/04/23 12:30 Pulse Oximetry 96 05/04/23 11:24 Oxygen Delivery Me thod Room Air 05/04/23 11:24 MDM - COVID Medical Decision Making Patient was made comfortable emergency room and had extensive work-up done including CBC, CMP and a CT scan and x-ray. CT scan showed stable aortic aneurysm. I discussed the CT finding with patient. Close follow-up PCP recommended for evaluation and treatment. Patient had a complete cardiac work- up done for heart attack including troponin and EKG. Differential Diagnosis Likely COVID 19, influenza, other viral infection, bacterial infection, pneumonia, copd exacerbation, pulmonary embolism, NSTEMI/STEMI, CHF exacerbation, stroke, overdose/intoxication and other Lab Data 05/04/23 11:45 05/04/23 11:45 Laboratory Results WBC 9.57 10^3/uL (3.29-11.43) 05/04/23 11:45 RBC 4.45 10^6/uL (3.85-5.65) 05/04/23 11:45 Hgb 13.20 g/dL (11.27-16.99) 05/04/23 11:45 Hct 39.7 % (36-47) 05/04/23 11:45 MCV 89.2 fl (85-98) 05/04/23 11:45 MCH 29.7 pg (27-33) 05/04/23 11:45 MCHC 33.2 g/dL (30-55) 05/04/23 11:45 RDW 13.6 % (12.1-15.1) 05/04/23 11:45 Plt Count 309 10^3/cmm (157-399) 05/04/23 11:45 MPV 8.8 fL (7.4-10.4) 05/04/23 11:45 Neut % (Auto) 55.8 % 05/04/23 11:45 Lymph % (Auto) 36.2 % 05/04/23 11:45 [place] % (Auto) 6.1 % 05/04/23 11:45 Eos % (Auto) 1.1 % 05/04/23 11:45 Baso % (Auto) 0.4 % 05/04/23 11:45 Neut # (Auto) 5.34 10^3/uL (1.8-7.7) 05/04/23 11:45 Lymph # (Auto) 3.5 10^3/uL (0.8-4.8) 05/04/23 11:45 [place] # (Auto) 0.6 10^3/uL (0.2-0.9) 05/04/23 11:45 Eos # (Auto) 0.1 10^3/uL (0.0-0.8) 05/04/23 11:45 Baso # (Auto) 0.0 10^3/uL (0.0-0.1) 05/04/23 11:45 Nucleated RBC % (auto) 0 % 05/04/23 11:45 Nucleated RBCs # 0.0 /100WBC 05/04/23 11:45 Sodium 136 mmol/L (136-145) 05/04/23 11:45 Potassium 3.1 mmol/L (3.5-5.1) L 05/04/23 11:45 Chloride 102 mmol/L (98-107) 05/04/23 11:45 Carbon Dioxide 24 mmol/L (22-29) 05/04/23 11:45 Anion Gap 13.1 (5-19) 05/04/23 11:45 BUN 11 mg/dL (8-23) 05/04/23 11:45 Creatinine 0.9 mg/dL (0.5-0.9) 05/04/23 11:45 GFR Calculation 62.5 mL/min (90-130) L 05/04/23 11:45 Glucose 129 mg/dL (65-115) H 05/04/23 11:45 Calculated Osmolality 283 mOsm/kg (285-295) L 05/04/23 11:45 Calcium 8.7 mg/dL (8.5-10.5) 05/04/23 11:45 Total Bilirubin 0.3 mg/dL (0.15-1.2) 05/04/23 11:45 AST 27 U/L (0-32) 05/04/23 11:45 ALT 25 U/L (0-33) 05/04/23 11:45 Alkaline Phosphatase 78 U/L (35-105) 05/04/23 11:45 Troponin T Baseline 6 ng/L (0-10) 05/04/23 11:45 Troponin T 120 Minute 6.00 ng/L (0-10) 05/04/23 14:00 Delta Troponin T 0 ABS# (0-10) 05/04/23 14:00 Total Protein 6.6 g/dL (6.6-8.7) 05/04/23 11:45 Albumin 4.0 g/dL (3.5-5.2) 05/04/23 11:45 Globulin 2.6 g/dL (1.3-4.6) 05/04/23 11:45 SARS-CoV-2 Antigen (Rapid) positive (Negative) H 04/27/23 18:1 5 SARS-CoV-2 RNA (RT-PCR) Not detected (NOT DETECTED) 02/01/21 1 0:41 XR interpretation done by ED provider, pending radiology final review EKG Data EKG 1: Interpretation: EKG shows sinus rhythm with a rate of [address] changes. No ST elevation ST changes. OK interval 159 QT interval 422. Discharge Plan Discharge Patient Disposition: Home Clinical Impression: Aortic aneurysm without rupture, Chest pain Condition: Stable Prescriptions: New Medrol (Fredy) 4 mg tablets,dose pack 4 mg PO DAILY Qty: 21 0RF No Action cholecalciferol (vitamin D3) 50 mcg (2,000 unit) capsule 50 mcg PO QAM (DME) Custom Molded Orthotics See Rx Instructions .Route .MEDSUPPLY Qty: 1 0RF Rx Instructions: As directed metoprolol tartrate 25 mg tablet 25 mg PO BID Qty: 180 3RF ropinirole 2 mg tablet 2 mg PO BID quetiapine 25 mg tablet 25 mg PO BEDTIME atorvastatin 40 mg tablet 20 mg PO DAILY@1700 buspirone 10 mg tablet 20 mg PO BID@0700,1700 pantoprazole [Protonix] 40 mg Tablet,Delayed Release (Dr/Ec) 40 mg PO DAILY@04 One-A-Day Menopause Formula 400-60 mcg-mg Tablet 1 tab PO QAM Zzzquil Pure Zzzs 1 tab PO BEDTIME albuterol sulfate 90 mcg/actuation HFA aerosol inhaler 4 inh inhalation Q4H PRN (Reason: shortness of breath or wheezing) Qty: 8.5 0RF Rx Instructions: until breathing returns to target peak flow/parameters celecoxib [Celebrex] 200 mg Capsule 200 mg PO BEDTIME PRN (Reason: Back Pain) valacyclovir 1 gram Tablet 1,000 mg PO QPM alendronate [Fosamax] 35 mg Tablet 35 mg PO Q7D Rx Instructions: on thu mirtazapine 30 mg Tablet 60 mg PO BEDTIME epinephrine [EpiPen 2-Fredy] 0.3 mg/0.3 mL Auto-Injector 0.3 mg IM Q4H PRN (Reason: Allergic Reaction) Discharge Orders: Discharge ED (Routine); Ordered 05/04/23 Ordered By: Michaela Almendarez Referrals: Joellen Alvarez FNP [Primary Care Provider] - Discharge Diet: Advance as tolerated Discharge Activity: Resume usual activity Patient Instructions: Opioid Safety, Pain Management Coding Level of Care Code 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
--- NOTE | 2023-05-04 11:18 | CT_ITS ---
WS: [id number] CTA OF THE CHEST WITH PULMONARY EMBOLISM PROTOCOL TECHNIQUE: High-resolution contrast enhanced CTA of the chest with coronal and sagittal reformatted i mages with pulmonary embolism protocol. MIP images are also reviewed. CLINICAL INFORMATION: sob with covid infection COMPARISON: 12/28/2020 DLP: 301.[address] scans at [facility] use at least one of these dose optimization techniques: automated e xposure control; mA and/or kV adjustment per patient size (includes targeted exams where dose is matc hed to clinical indication); or iterative reconstruction. FINDINGS: Chronic emphysematous changes. Slight bibasilar atelectasis. No acute pulmonary infiltrates . No focal pneumonia or pleural fluid. Aneurysmal ascending thoracic aorta measuring 4.2 cm stable compared to 2020. Proximal main pulmonary arteries are normal. Normal segmental and subsegmental pulmonary arteries. No evidence of pulmonary embolus. No mediastinal or hilar lymphadenopathy. No axillary lymphadenopathy. Adrenal glands are normal. Incidental hepatic cysts. Cholecystectomy. Small esophageal hernia. IMPRESSION: 1. No acute pulmonary infiltrates. 2. No evidence of pulmonary embolus. 3. Aneurysmal ascending thoracic aorta measuring 4.2 cm unchanged. 4. Incidental hepatic cysts similar to previous.
[2023-05-04] MEDS: nitroglycerin 1 gm/inch oint Pkt 0.5 INCH TOPICAL (11:56)
[2023-05-04] MEDS: ondansetron 2 mg/ML SDV 2 mL 4 MG IVP (12:00)
[2023-05-04] MEDS: aspirin 81 mg Chew Tablet 324 MG PO (12:02)
[2023-05-04 12:04] LABS: Basophils % 0.4 %; Eosinophils # 0.1 10^3/uL (0.0-0.8); Eosinophils % 1.1 %; Hematocrit 39.7 % (36-47); Lymphocytes # 3.5 10^3/uL (0.8-4.8); Lymphocytes % 36.2 %; Mean Corpuscular HGB Conc 33.2 g/dL (30-55); Mean Corpuscular Hemoglobin 29.7 pg (27-33); Mean Corpuscular Volume 89.2 fl (85-98); Mean Platelet Volume 8.8 fL (7.4-10.4); Monocytes # 0.6 10^3/uL (0.2-0.9); Monocytes % 6.1 %; Neutrophils # 5.34 10^3/uL (1.8-7.7); Neutrophils % 55.8 %; Nucleated Red Blood Cells % 0 %; Platelet Count 309 10^3/cmm (157-399); Red Blood Count 4.45 10^6/uL (3.85-5.65); Red Cell Distribution Width 13.6 % (12.1-15.1); White Blood Count 9.57 10^3/uL (3.29-11.43)
[2023-05-04 12:17] LABS: Alanine Aminotransferase 25 U/L (0-33); Alkaline Phosphatase 78 U/L (35-105); Anion Gap 13.1 (5-19); Aspartate Amino Transferase 27 U/L (0-32); Blood Urea Nitrogen 11 mg/dL (8-23); Calcium 8.7 mg/dL (8.5-10.5); Carbon Dioxide 24 mmol/L (22-29); Chloride 102 mmol/L (98-107); Globulin 2.6 g/dL (1.3-4.6); Glomerular Filtration Rate 62.5 mL/min (90-130); Glucose 129 mg/dL (65-115); Osmolality Calculated 283 mOsm/kg (285-295); Potassium 3.1 mmol/L (3.5-5.1); Sodium 136 mmol/L (136-145); Total Bilirubin 0.3 mg/dL (0.15-1.2); Total Protein 6.6 g/dL (6.6-8.7); Troponin(5th) Baseline 6 ng/L (0-10)
--- NOTE | 2023-05-04 12:32 | ECG_ITS ---
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 Measurements Intervals [place] Rate: 65 P: 64 AL: 159 QRS: 92 QRSD: 112 T: 34 QT: 422 QTc: 442 Interpretive Statements SINUS RHYTHM BORDERLINE RIGHT AXIS DEVIATION [QRS AXIS > 90] MODERATE INTRAVENTRICULAR CONDUCTION DELAY [110+ ms QRS DURATION] NONSPECIFIC T-WAVE ABNORMALITY Compared to ECG 05/04/2023 10:49:35 Intraventricular conduction delay now present T-wave abnormality still present Electronically Signed On 05-04-2023 21:25:35 CDT by Erni Nguyen M.D. [id number]
[2023-05-04] MEDS: morphine 4 mg/mL SDV 1 mL IVP (13:10)
[2023-05-04] MEDS: iohexol 350 mg/mL 500 mL Btl (per mL) IV (13:48)
[2023-05-04 14:56] LABS: Troponin 5 2HR Delta 0 ABS# (0-10)
== END 2023-05-04 15:10 | disposition home or self-care (01) ==
PROVIDERS: Emergency Provider Family Medicine; PCP Nurse Practitioner
DX: I71.9 Aortic aneurysm of unspecified site, without rupture (principal); E78.5 Hyperlipidemia, unspecified
CPT/HCPCS: 36415; 71045; 71275; 80053; 84484; 85025; 93005; 96374; 96375; 99285; J2270; J2405; Q9967

== ENCOUNTER → 2023-05-19 10:36 | Outpatient (BNVA) | payer OTHER, SELFPAY | PROVIDERS: PCP Nurse Practitioner; Referring Provider Nurse Practitioner; Visit Provider Surgery | DX: K63.5 Polyp of colon (principal) | CPT/HCPCS: 99203; 99214 ==

== ENCOUNTER 2023-06-05 09:22 | Outpatient (CLI) | payer OTHER, SELFPAY ==
--- NOTE | 2023-06-05 09:31 | MM_ITS ---
WS: [id number] BILATERAL SCREENING DIGITAL TOMOSYNTHESIS MAMMOGRAM WITH CAD HISTORY: SCREENING COMPARISON: 06/02/2016, 08/12/2021 Bilateral CC and MLO views with tomosynthesis and synthetic mammography submitted. Computer aided det ection analyzed. Breast composition: The breasts are heterogeneously dense, which may obscure small masses. No suspici ous masses, microcalcifications or architectural distortion. Stable bilateral breast calcifications. IMPRESSION: MM/[place] [id number] BI-RADS: 2-Benign FOLLOW UP: 1 Year Follow-up
== END 2023-06-05 09:23 | disposition home or self-care (01) ==
LOC: RAD 09:22
PROVIDERS: PCP Nurse Practitioner; Visit Provider Nurse Practitioner
DX: Z12.31 Encounter for screening mammogram for malignant neoplasm of breast (principal)
CPT/HCPCS: 77063; 77067

== ENCOUNTER 2023-06-19 05:58 | Day surgery (SDC) | payer OTHER, SELFPAY ==
[2023-06-19 06:03] VITALS: BP 118/80; PULSE 76; RESP 19; TEMP 36.3; O2SAT 99; BMI 25.7
[2023-06-19] MEDS: sodium chloride 0.9% 1,000 ML 30 ML IV (06:20)
--- NOTE | 2023-06-19 06:30 | W.PM.OPSUD ---
Surgery/Procedure H&P Update DATE OF PROCEDURE: June 19, 2023 DATE H&P PERFORMED: 05/19/23 H&P UPDATE INFORMATION: I have reviewed H&P completed within last 30 days, I have examined patient prior to procedure, No changes to prior documentation and [place] [facility] [place] indicated PLANNED PROCEDURE: Operation Date: 06/19/23 07:00 Proposed Procedures p 71791 colon G0121 screen colon A risk K63.5(Not Applicable) - Shon Kovacs MD
--- NOTE | 2023-06-19 06:44 | ANES.PREANE2 ---
Pre-Anesthetic Assessment Height/Weight: Height 1.63 m Weight 68.039 kg Temp Pulse Resp BP Pulse Ox O2 Del Method 97.3 F L 76 19 H 118/80 99 Room Air 06/19/23 06:03 06/19/23 06:03 06/19/23 06:03 06/19/23 06:03 06/19/23 06:03 06/19/23 06:03 Preop Diagnosis: screening Operation Date: 06/19/23 07:00 Proposed Procedures p 90778 colon G0121 screen colon A risk K63.5(Not Applicable) - Shon Kovacs MD Was Beta Yuri taken within 24 hours: Yes Was Clonidine taken within 24 hours: N/A Last intake: Intake Last Liquid Date 06/18/23 Last Liquid Time 22:00 Last Solid Date 06/18/23 Last Solid Time 06:00 Social No alcohol and No tobacco Exam alert and oriented x 3 Airway Submandibular: within normal limits Cervical ROM: within normal limits Mallampati: Class II Dentition: other Comments: Comments: missing, what she has is solid History/ROS No significant history except as noted Pulmonary Sleep Apnea CV/HEM Arrythmia and Hypertension (has thoracic aneurysm; seen in Apr; medically managed) None reported Hepatic None reported GI Gastroesophageal Reflux Disease Metabolic None reported Musc/skel Lower Back Pain Neuropsych Anxiety (PTSD) and Depression Anesthetic Plan ASA status: 3 Anesthesia: MAC Risk of > 500 ml blood loss (7ml/kg in children): No Medications/Allergies Home Medications Medication Instructions Recorded Confirmed Last Taken Type atorvastatin 40 mg tablet 20 mg PO DAILY@1700 12/10/20 06/18/23 06/17/23 History buspirone 10 mg tablet 20 mg PO BID@0700,1700 12/10/20 06/18/23 06/17/23 History quetiapine 25 mg tablet 25 mg PO BEDTIME 12/10/20 06/18/23 06/17/23 History cholecalciferol (vitamin D3) 50 50 mcg PO QAM 12/20/20 06/18/23 06/17/23 History mcg (2,000 unit) capsule ropinirole 2 mg tablet 2 mg PO BID 12/20/20 06/18/23 06/17/23 History Zzzquil Pure Zzzs 1 tab PO BEDTIME PRN Sleep 12/28/20 06/18/2323 History albuterol sulfate 90 mcg/actuation 4 inh inhalation Q4H PRN shortness 12/28/20 06/18/23 01/30/21 Rx aerosol inhaler of breath or wheezing #8.5 grams multivitamin-calcium, 1 tab PO QAM 12/28/20 06/18/23 06/17/23 History [id number] isoflavone 400 mcg-60 mg tablet (One-A-Day Menopause Formula) pantoprazole 40 mg tablet,delayed 40 mg PO DAILY@04 12/28/20 06/18/23 06/18/23 History release (Protonix) metoprolol tartrate 25 mg tablet 25 mg PO BID #180 tabs 01/09/21 06/19/23 06/19/23 Rx 0001 Custom Molded Orthotics #1 ea 09/12/21 05/19/23 Unknown Rx alendronate 35 mg tablet 35 mg PO Q7D 12/23/21 06/18/23 06/17/23 History celecoxib 200 mg capsule (Celebrex) 200 mg PO BEDTIME PRN Back Pain 12/23/21 06/18/23 12/22/21 History epinephrine 0.3 mg/0.3 mL 0.3 mg IM Q4H PRN Allergic Reaction 12/23/21 06/18/23 Unknown History injection, auto-injector (EpiPen 2-Fredy) mirtazapine 30 mg tablet 60 mg PO BEDTIME 12/23/21 06/18/23 06/17/23 History valacyclovir 1 gram tablet 1,000 mg PO QPM 12/23/21 06/18/23 06/17/23 History venlafaxine 75 mg tablet 75 mg PO BEDTIME 06/18/23 06/18/23 06/17/23 History Allergies Allergy/AdvReac Type Severity Reaction Status Date / Time Penicillins Allergy Unknown Unknown Verified 06/18/23 08:07 erythromycin base Allergy Unknown Verified 06/18/23 08:07 ceyanne pepper Allergy Unknown Uncoded 06/18/23 08:07 Current Medications Generic Name Dose Route Start Last Admin Trade Name Freq PRN Reason Stop Dose Admin Sodium Chloride 1,000 mls @ 30 mls/hr 06/19/23 06:15 06/19/23 06:20 Sodium Chloride 0.9% IV 06/20/23 06:14 30 mls/hr .Q24H NINA Administration PFSH Anesthesia Medical History GERD (gastroesophageal reflux disease) History of depression Hyperlipidemia PTSD (post-traumatic stress disorder) PVC (premature ventricular contraction) Surgical History H/O esophagogastroduodenoscopy (01/31/21) gastritis Hx of hysterectomy S/P bilateral breast lumpectomy Status post colonoscopy Status post laparoscopic cholecystectomy (02/06/21) Family History Grandfather CAD (coronary artery disease) Myocardial infarction Diabetes Mother Stroke Dementia Father Stroke Dementia Social History Smoking and tobacco/nicotine status: never used tobacco/nicotine Alcohol intake: current Alcohol intake frequency: holidays/special occasions only Substance/Drug Use: never Data Anesthesia Cardiac Studies: Echocardiogram 01/28/21 Stress Echocardiogram 01/28/21
[2023-06-19 07:39] VITALS: BP 100/59; PULSE 63; RESP 16; TEMP 36.1; O2SAT 100
[2023-06-19 07:49] VITALS: BP 108/67; PULSE 68; RESP 16; O2SAT 100
--- NOTE | 2023-06-19 08:10 | ANE.PACU2 ---
Inpatient post-anesthesia follow up: Airway intact: Yes Vital signs: Temperature 97.0 F Pulse Rate 68 Respiratory Rate 16 Blood Pressure 108/67 Pulse Oximetry 100 Oxygen Delivery Me thod Room Air Oxygen Flow Rate Fraction of Inspir ed Oxygen Hydration adequate: Yes Nausea and vomiting: No Pain level: 1 Mental status: Baseline
== END 2023-06-19 08:09 | disposition home or self-care (01) ==
PROVIDERS: PCP Nurse Practitioner; Visit Provider Surgery
PROC: 0DJD8ZZ Inspection of Lower Intestinal Tract, Via Natural or Artificial Opening Endoscopic (ICD-10-PCS; CPT 45378; principal; 2023-06-19 07:00)
DX: Z12.11 Encounter for screening for malignant neoplasm of colon (principal); G47.30 Sleep apnea, unspecified; I10 Essential (primary) hypertension; K21.9 Gastro-esophageal reflux disease without esophagitis; E78.5 Hyperlipidemia, unspecified
CPT/HCPCS: 45378; J2371; J2704; J7030

== ENCOUNTER 2023-10-13 14:30 | Emergency (ER) | payer OTHER, SELFPAY ==
--- NOTE | 2023-10-13 14:35 | XR_ITS ---
WS: [id number] Exam: XR chest 1V portable [id number] Date/Time of Exam: 10/13/2023 2:35 PM Reason For Exam: fever Comparison 05/04/2023. The lungs are clear and fully expanded. Normal cardiomediastinal silhouette and regional bony element s. No pleural effusion. IMPRESSION: 1. Negative chest.
[2023-10-13 15:10] VITALS: BP 141/78; PULSE 90; RESP 14; TEMP 36.8; O2SAT 95; BMI 26.1
[2023-10-13 15:10] LABS: Basophils # 0.1 10^3/uL (0.0-0.1); Basophils % 0.6 %; Eosinophils # 0.1 10^3/uL (0.0-0.8); Eosinophils % 0.6 %; Hematocrit 41.3 % (36-47); Lymphocytes % 39.4 %; Mean Corpuscular HGB Conc 32.7 g/dL (30-55); Mean Corpuscular Hemoglobin 29.3 pg (27-33); Mean Corpuscular Volume 89.6 fl (85-98); Mean Platelet Volume 8.4 fL (7.4-10.4); Monocytes # 0.5 10^3/uL (0.2-0.9); Monocytes % 4.9 %; Neutrophils # 5.53 10^3/uL (1.8-7.7); Neutrophils % 54.3 %; Nucleated Red Blood Cells % 0 %; Platelet Count 282 10^3/cmm (157-399); Red Blood Count 4.61 10^6/uL (3.85-5.65); Red Cell Distribution Width 14.2 % (12.1-15.1); White Blood Count 10.18 10^3/uL (3.29-11.43)
[2023-10-13 15:28] LABS: Alanine Aminotransferase 22 U/L (0-33); Albumin Level 4.4 g/dL (3.5-5.2); Alkaline Phosphatase 93 U/L (35-105); Anion Gap 16.1 (5-19); Aspartate Amino Transferase 20 U/L (0-32); Blood Urea Nitrogen 17 mg/dL (8-23); Calcium 9.1 mg/dL (8.5-10.5); Carbon Dioxide 25 mmol/L (22-29); Chloride 103 mmol/L (98-107); Creatinine Clr Calc Pharmacy 57.8352; Glomerular Filtration Rate 62.5 mL/min (90-130); Glucose 95 mg/dL (65-115); Osmolality Calculated 291 mOsm/kg (285-295); Potassium 4.1 mmol/L (3.5-5.1); Sodium 140 mmol/L (136-145); Total Bilirubin 0.3 mg/dL (0.15-1.2); Total Protein 7.4 g/dL (6.6-8.7)
--- NOTE | 2023-10-13 16:51 | W.ED.COVID ---
HPI - COVID General: Chief Complaint: COVID symptoms Stated Complaint: fever, chills, confusion, N Time Seen by Provider: 10/13/23 16:33 Source: patient Mode of arrival: ambulatory Limitations: no limitations History of Present Illness: 67-year-old female states she feels like she has COVID again. She states that she has had cough some congestion general malaise with a brain fog. She states she has been going to a long COVID clinic and [place] due to her last COVID infection and thinks she was exposed she is well-appearing here no distress denies any worse improved factors she had a slight sore throat as well she states from coughing. COVID 19 common symptoms: positive chills, non-productive cough, fatigue, body aches and throat pain; negative fever(s), dyspnea, headache(s), nausea, vomiting or diarrhea COVID 19 other sytmptoms: negative chest pain COVID Results: SARS-CoV-2 Antigen (Rapid) negative (Negative) 10/13/23 17:00 SARS-CoV-2 RNA (RT-PCR) Not detected (NOT DETECTED) 02/01/21 10:41 Review of Systems Const: Reports: chills, body aches and fatigue; Denies: fever(s) or change in appetite Eyes: Denies: eye discomfort ENMT: Reports: throat pain; Denies: dental pain Card: Denies: chest pain Resp: Reports: non-productive cough; Denies: dyspnea GI: Denies: abdominal pain, nausea, vomiting or diarrhea Musc: Denies: neck pain or back pain Skin/Breast: Denies: rash Neuro: Denies: headache(s) [facility] PFSH: Medical History PVC (premature ventricular contraction) GERD (gastroesophageal reflux disease) Hyperlipidemia PTSD (post-traumatic stress disorder) History of depression Surgical History Status post laparoscopic cholecystectomy (02/06/21) H/O esophagogastroduodenoscopy (01/31/21) gastritis Status post colonoscopy S/P bilateral breast lumpectomy Hx of hysterectomy Family History Grandfather CAD (coronary artery disease) Myocardial infarction Diabetes Mother Stroke Dementia Father Stroke Dementia Social History Smoking and tobacco/nicotine status: never used tobacco/nicotine Alcohol intake: current Alcohol intake frequency: holidays/special occasions only Substance/Drug Use: never Physical Exam Const: COMMON NORMALS: no acute distress, patient oriented x3 and healthy appearing HENMT: COMMON NORMALS: normocephalic and atraumatic HEAD & SCALP: normocephalic and atraumatic MOUTH: Normal oral and palatal mucosa present THROAT: posterior oropharynx normal Eye: COMMON NORMALS: Equal, round and reactive pupils present and EOMs intact bilaterally PUPIL: Yes Equal, round and reactive pupils present Neck/C-Spine: COMMON NORMALS: full ROM and supple Chest: COMMONS NORMALS: normal inspection of the chest Resp: COMMON NORMALS: normal respiratory effort, No retractions, No use of accessory muscles and clear to auscultation bilaterally AUSCULTATION: clear to auscultation bilaterally Cardio: COMMON NORMALS: regular rate, regular rhythm and No murmurs present (Cardio) RATE: regular rate RHYTHM: regular rhythm GI: COMMON NORMALS: Normal to inspection, nondistended, normoactive bowel sounds present, Soft to palpation, non-tender and no masses PALPATION: Yes Soft to palpation Extremity: COMMON NORMALS: normal to inspection and full ROM Neuro: COMMON NORMALS: patient oriented x3, moves all extremities and no focal motor deficits Psych: COMMON NORMALS: mental status grossly normal, Normal thought process present and cooperative THOUGHT PROCESS: Normal thought process present Skin: COMMON NORMALS: no rashes or lesions noted and no wounds GENERAL SKIN EXAM: no rashes or lesions noted Course Vital Signs: Vital signs: Vital Signs Temperature 98.3 F 10/13/23 15:10 Pulse Rate 90 10/13/23 15:10 Respiratory Rate 14 10/13/23 15:10 Blood Pressure 141/78 10/13/23 15:10 Pulse Oximetry 95 10/13/23 15:10 Oxygen Delivery Me thod Room Air 10/13/23 15:10 [facility] - COVID Medical Decision Making 67-year-old female who presents here with likely upper respiratory infection. She is well-appearing here blood work here is normal x-ray shows no pneumonia her vitals are normal she is stable for discharge she is follow-up with PCP and return if worsening she understands agrees to plan. Medical Records I reviewed the patient's medical records. Lab Data I reviewed the patient's lab results. 10/13/23 14:52 10/13/23 14:52 Laboratory Results WBC 10.18 10^3/uL (3.29-11.43) 10/13/23 14:52 RBC 4.61 10^6/uL (3.85-5.65) 10/13/23 14:52 Hgb 13.50 g/dL (11.27-16.99) 10/13/23 14:52 Hct 41.3 % (36-47) 10/13/23 14:52 MCV 89.6 fl (85-98) 10/13/23 14:52 MCH 29.3 pg (27-33) 10/13/23 14:52 MCHC 32.7 g/dL (30-55) 10/13/23 14:52 RDW 14.2 % (12.1-15.1) 10/13/23 14:52 Plt Count 282 10^3/cmm (157-399) 10/13/23 14:52 MPV 8.4 fL (7.4-10.4) 10/13/23 14:52 Neut % (Auto) 54.3 % 10/13/23 14:52 Lymph % (Auto) 39.4 % 10/13/23 14:52 [place] % (Auto) 4.9 % 10/13/23 14:52 Eos % (Auto) 0.6 % 10/13/23 14:52 Baso % (Auto) 0.6 % 10/13/23 14:52 Neut # (Auto) 5.53 10^3/uL (1.8-7.7) 10/13/23 14:52 Lymph # (Auto) 4.0 10^3/uL (0.8-4.8) 10/13/23 14:52 [place] # (Auto) 0.5 10^3/uL (0.2-0.9) 10/13/23 14:52 Eos # (Auto) 0.1 10^3/uL (0.0-0.8) 10/13/23 14:52 Baso # (Auto) 0.1 10^3/uL (0.0-0.1) 10/13/23 14:52 Nucleated RBC % (auto) 0 % 10/13/23 14:52 Nucleated RBCs # 0.0 /100WBC 10/13/23 14:52 Sodium 140 mmol/L (136-145) 10/13/23 14:52 Potassium 4.1 mmol/L (3.5-5.1) 10/13/23 14:52 Chloride 103 mmol/L (98-107) 10/13/23 14:52 Carbon Dioxide 25 mmol/L (22-29) 10/13/23 14:52 Anion Gap 16.1 (5-19) 10/13/23 14:52 BUN 17 mg/dL (8-23) 10/13/23 14:52 Creatinine 0.9 mg/dL (0.5-0.9) 10/13/23 14:52 GFR Calculation 62.5 mL/min (90-130) L 10/13/23 14:52 Glucose 95 mg/dL (65-115) 10/13/23 14:52 Calculated Osmolality 291 mOsm/kg (285-295) 10/13/23 14:52 Calcium 9.1 mg/dL (8.5-10.5) 10/13/23 14:52 Total Bilirubin 0.3 mg/dL (0.15-1.2) 10/13/23 14:52 AST 20 U/L (0-32) 10/13/23 14:52 ALT 22 U/L (0-33) 10/13/23 14:52 Alkaline Phosphatase 93 U/L (35-105) 10/13/23 14:52 Total Protein 7.4 g/dL (6.6-8.7) 10/13/23 14:52 Albumin 4.4 g/dL (3.5-5.2) 10/13/23 14:52 Globulin 3.0 g/dL (1.3-4.6) 10/13/23 14:52 Influenza Type A Ag negative (Negative) 10/13/23 17:00 Influenza Type B Ag negative (Negative) 10/13/23 17:00 SARS-CoV-2 Ag (Rapid) negative (Negative) 10/13/23 17:00 SARS-CoV-2 Antigen (Rapid) negative (Negative) 10/13/23 17:00 SARS-CoV-2 RNA (RT-PCR) Not detected (NOT DETECTED) 02/01/21 10:41 All radiology interpretation(s) finalized by discharge Discharge Plan Discharge Patient Disposition: Home Clinical Impression: Upper respiratory infection Condition: Stable Prescriptions: No Action cholecalciferol (vitamin D3) 50 mcg (2,000 unit) capsule 50 mcg PO QAM (DME) Custom Molded Orthotics See Rx Instructions .Route .MEDSUPPLY Qty: 1 0RF Rx Instructions: As directed metoprolol tartrate 25 mg tablet 25 mg PO BID Qty: 180 3RF ropinirole 2 mg tablet 2 mg PO BID quetiapine 25 mg tablet 25 mg PO BEDTIME atorvastatin 40 mg tablet 20 mg PO DAILY@1700 buspirone 10 mg tablet 20 mg PO BID@0700,1700 pantoprazole [Protonix] 40 mg Tablet,Delayed Release (Dr/Ec) 40 mg PO DAILY@04 One-A-Day Menopause Formula 400-60 mcg-mg Tablet 1 tab PO QAM Zzzquil Pure Zzzs 1 tab PO BEDTIME PRN (Reason: Sleep) albuterol sulfate 90 mcg/actuation HFA aerosol inhaler 4 inh inhalation Q4H PRN (Reason: shortness of breath or wheezing) Qty: 8.5 0RF Rx Instructions: until breathing returns to target peak flow/parameters celecoxib [Celebrex] 200 mg Capsule 200 mg PO BEDTIME PRN (Reason: Back Pain) valacyclovir 1 gram Tablet 1,000 mg PO QPM alendronate 35 mg Tablet 35 mg PO Q7D Rx Instructions: on thu mirtazapine 30 mg Tablet 60 mg PO BEDTIME epinephrine [EpiPen 2-Fredy] 0.3 mg/0.3 mL Auto-Injector 0.3 mg IM Q4H PRN (Reason: Allergic Reaction) venlafaxine 75 mg Tablet 75 mg PO BEDTIME Discharge Orders: Discharge ED (Routine); Ordered 10/13/23 Ordered By: Alexis Bray Referrals: Joellen Alvarez FNP [Primary Care Provider] - 4-7 days Discharge Diet: Advance as tolerated Discharge Activity: Resume usual activity Patient Instructions: Upper Respiratory Infection (ED) Coding Level of Care Code ED Novelty Worker for Marci Quinn
[2023-10-13 17:00] VITALS: BP 137/116; PULSE 90; O2SAT 97
[2023-10-13 17:14] VITALS: O2SAT 96
[2023-10-13 17:40] LABS: Influenza A by IFA negative (Negative); Influenza B by IFA negative (Negative)
[2023-10-13 17:41] LABS: SARS Covid-2 Antigen negative (Negative)
[2023-10-13 18:41] VITALS: BP 151/92; PULSE 82; O2SAT 95
== END 2023-10-13 18:20 | disposition home or self-care (01) ==
PROVIDERS: Emergency Provider Emergency Medicine; PCP Nurse Practitioner
DX: J06.9 Acute upper respiratory infection, unspecified (principal); Z11.52 Encounter for screening for COVID-19; E78.5 Hyperlipidemia, unspecified
CPT/HCPCS: 36415; 71045; 80053; 85025; 87426; 87804; 99284

== ENCOUNTER 2023-12-16 15:43 | Emergency (ER) | payer OTHER, MEDICARE, SELFPAY ==
--- NOTE | 2023-12-16 15:50 | ECG_ITS ---
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 Measurements Intervals [place] Rate: 113 P: 67 RI: 134 QRS: 121 QRSD: 87 T: 48 QT: 335 QTc: 461 Interpretive Statements SINUS TACHYCARDIA POSSIBLE RIGHT VENTRICULAR HYPERTROPHY [SOME/ALL OF: PROMINENT R IN V1, LATE TRANSITION, RAD, ELIEZER, SSS] MODERATE ST DEPRESSION [0.05+ mV ST DEPRESSION] Compared to ECG 05/04/2023 12:32:01 Atrial abnormality now present ST (T wave) deviation now present Sinus rhythm no longer present Intraventricular conduction delay no longer present T-wave abnormality no longer present Electronically Signed On 12-16-2023 16:47:53 CDT by Jose Gotti M.D. [id number] f
[2023-12-16 15:53] VITALS: BP 173/101; PULSE 110; RESP 18; TEMP 36.7; O2SAT 97
--- NOTE | 2023-12-16 15:53 | XRR_ITS ---
PROCEDURE INFORMATION: Exam: XR Chest Exam date and time: 12/16/2023 4:28 PM Age: 68 years old Clinical indication: Pain; Angina pectoris; Additional info: Chest pain TECHNIQUE: Imaging protocol: Radiologic exam of the chest. Views: 1 view. COMPARISON: CR XR chest 1V portable [id number] 10/13/2023 2:46 PM FINDINGS: Lungs: Clear. Pleural spaces: No pleural effusion identified. Heart/Mediastinum: Cardiomediastinal silhouette is stable.. Diaphragm: Slight elevation right hemidiaphragm similar to that demonstrated 05/04/2023. Bones/joints: No acute osseous abnormality identified. XR/XR chest 1V portable [id number] IMPRESSION: No acute cardiopulmonary abnormality identified.
--- NOTE | 2023-12-16 16:04 | PC.PHAR ---
PT IS [facility] FOR MED LIST 4PM 12/16/23
[2023-12-16 16:16] LABS: Basophils # 0.1 10^3/uL (0.0-0.1); Basophils % 0.6 %; Eosinophils # 0.1 10^3/uL (0.0-0.8); Hematocrit 41.7 % (36-47); Lymphocytes # 4.2 10^3/uL (0.8-4.8); Lymphocytes % 41.8 %; Mean Corpuscular HGB Conc 32.6 g/dL (30-55); Mean Corpuscular Hemoglobin 28.6 pg (27-33); Mean Corpuscular Volume 87.8 fl (85-98); Mean Platelet Volume 8.7 fL (7.4-10.4); Monocytes # 0.6 10^3/uL (0.2-0.9); Monocytes % 5.8 %; Neutrophils # 5.11 10^3/uL (1.8-7.7); Neutrophils % 50.6 %; Nucleated Red Blood Cells % 0 %; Platelet Count 300 10^3/cmm (157-399); Red Blood Count 4.75 10^6/uL (3.85-5.65); Red Cell Distribution Width 14.1 % (12.1-15.1); White Blood Count 10.08 10^3/uL (3.29-11.43)
--- NOTE | 2023-12-16 16:18 | PC.NURSE ---
MEDICATIONS DELAYED DUE TO PYXIS ERROR.
--- NOTE | 2023-12-16 16:19 | PC.PHAR ---
PT STATES IS OUT OF MANY OF HER MEDICATIONS-EXPECTED DELIVERY FROM [facility] IS TOMORROW, 12/17/23.
--- NOTE | 2023-12-16 16:28 | ED_ITS ---
Documented by User: Cabrera Benson DO 12/16/23 16:30 HPI - Chest Pain 2 General: Chief Complaint: Chest Pain Stated Complaint: chest pain Time Seen by Provider: 12/16/23 15:52 History of Present Illness: Patient presents to the ER with intermittent chest pain/pressure/sharp stabbing/dull achy sensation started last night. Sometimes it radiates down her left arm sometimes it feels like her heart is palpating. This does not happen all the time this is not happening currently. Patient does have long COVID and is very post exertionally fatigued even with very small exertional activities. Patient has been out of her blood pressure medicine for about 4 days as well as her anxiety medicine. Review of Systems 2 General: Reports: 10 or more systems reviewed and unremarkable except in HPI and below PFSH ED 2 PFSH: Medical History PVC (premature ventricular contraction) GERD (gastroesophageal reflux disease) Hyperlipidemia PTSD (post-traumatic stress disorder) History of depression Surgical History Status post laparoscopic cholecystectomy (02/06/21) H/O esophagogastroduodenoscopy (01/31/21) gastritis Status post colonoscopy S/P bilateral breast lumpectomy Hx of hysterectomy Family History Grandfather CAD (coronary artery disease) Myocardial infarction Diabetes Mother Stroke Dementia Father Stroke Dementia Social History Smoking and tobacco/nicotine status: never used tobacco/nicotine Alcohol intake: current Alcohol intake frequency: holidays/special occasions only Substance/Drug Use: never Physical Exam 2 Const: COMMON NORMALS: no acute distress, average body habitus, patient oriented x3, no limitations, healthy appearing, alert and well nourished HENMT: COMMON NORMALS: normocephalic, atraumatic, hearing grossly normal bilaterally, external ears normal, Normal external nose present, moist oral mucous membranes and oropharynx normal HEAD & SCALP: normocephalic and atraumatic NOSE: Normal external nose present EXTERNAL EAR: Yes external ears normal Neck/C-Spine: COMMON NORMALS: full ROM, no lymphadenopathy, supple, no meningeal signs, no JVD and Thyroid normal THYROID: Thyroid normal Chest: COMMONS NORMALS: normal inspection of the chest; negative for normal palpation of entire chest wall (Tender to palpate left-sided chest wall anterior) Resp: COMMON NORMALS: normal respiratory effort, No retractions, No use of accessory muscles and clear to auscultation bilaterally AUSCULTATION: clear to auscultation bilaterally Cardio: COMMON NORMALS: no JVD, regular rate, regular rhythm, S1 normal heart sound present, S2 normal heart sound present, No gallops present (Cardio), No clicks present (Cardio), No murmurs present (Cardio) and No rub (Cardio) R ATE: regular rate RHYTHM: regular rhythm HEART SOUNDS: S1 normal heart sound present and S2 normal heart sound present GI: COMMON NORMALS: Normal to inspection, nondistended, normoactive bowel sounds present, Soft to palpation, non-tender, No hepatosplenomegaly present and no masses PALPATION: Yes Soft to palpation and Yes No hepatosplenomegaly present Neuro: COMMON NORMALS: patient oriented x3 SENSORIUM/ORIENTATION: Yes alert MENINGEAL SIGNS: Yes no meningeal signs Course 2 Vital Signs: Vital signs: Vital Signs Temperature 98.1 F 12/16/23 15:53 Pulse Rate 88 12/16/23 19:13 Respiratory Rate 18 12/16/23 19:13 Blood Pressure 133/95 12/16/23 19:13 Pulse Oximetry 95 12/16/23 17:14 Oxygen Delivery Me thod Room Air 12/16/23 17:14 MDM - Chest Pain Differential Diagnosis Unlikely acute massive pulmonary embolism, acute respiratory failure, acute myocardial infarction, cardiac arrest or sudden cardiac Medical Records I reviewed the patient's medical records. Lab Data I reviewed the patient's lab results. 12/16/23 16:06 12/16/23 16:06 Laboratory Results WBC 10.08 10^3/uL (3.29-11.43) 12/16/23 16:06 RBC 4.75 10^6/uL (3.85-5.65) 12/16/23 16:06 Hgb 13.60 g/dL (11.27-16.99) 12/16/23 16:06 Hct 41.7 % (36-47) 12/16/23 16:06 MCV 87.8 fl (85-98) 12/16/23 16:06 MCH 28.6 pg (27-33) 12/16/23 16:06 MCHC 32.6 g/dL (30-55) 12/16/23 16:06 RDW 14.1 % (12.1-15.1) 12/16/23 16:06 Plt Count 300 10^3/cmm (157-399) 12/16/23 16:06 MPV 8.7 fL (7.4-10.4) 12/16/23 16:06 Neut % (Auto) 50.6 % 12/16/23 16:06 Lymph % (Auto) 41.8 % 12/16/23 16:06 Mora % (Auto) 5.8 % 12/16/23 16:06 Eos % (Auto) 1.0 % 12/16/23 16:06 Baso % (Auto) 0.6 % 12/16/23 16:06 Neut # (Auto) 5.11 10^3/uL (1.8-7.7) 12/16/23 16:06 Lymph # (Auto) 4.2 10^3/uL (0.8-4.8) 12/16/23 16:06 Mora # (Auto) 0.6 10^3/uL (0.2-0.9) 12/16/23 16:06 Eos # (Auto) 0.1 10^3/uL (0.0-0.8) 12/16/23 16:06 Baso # (Auto) 0.1 10^3/uL (0.0-0.1) 12/16/23 16:06 Nucleated RBC % (auto) 0 % 12/16/23 16:06 Nucleated RBCs # 0.0 /100WBC 12/16/23 16:06 PT 12.20 SECONDS (12.1-14.9) 12/16/23 16:06 INR 0.88 (0.8-1.2) 12/16/23 16:06 Sodium 139 mmol/L (136-145) 12/16/23 16:06 Potassium 4.3 mmol/L (3.5-5.1) 12/16/23 16:06 Chloride 104 mmol/L (98-107) 12/16/23 16:06 Carbon Dioxide 21 mmol/L (22-29) L 12/16/23 16:06 Anion Gap 18.3 (5-19) 12/16/23 16:06 BUN 14 mg/dL (8-23) 12/16/23 16:06 Creatinine 0.9 mg/dL (0.5-0.9) 12/16/23 16:06 GFR Calculation 62.3 mL/min (90-130) L 12/16/23 16:06 Glucose 106 mg/dL (65-115) 12/16/23 16:06 Calculated Osmolality 289 mOsm/kg (285-295) 12/16/23 16:06 Calcium 9.2 mg/dL (8.5-10.5) 12/16/23 16:06 Total Bilirubin 0.2 mg/dL (0.15-1.2) 12/16/23 16:06 AST 27 U/L (0-32) 12/16/23 16:06 ALT 26 U/L (0-33) 12/16/23 16:06 Alkaline Phosphatase 117 U/L (35-105) H 12/16/23 16:06 Troponin T Baseline 8 ng/L (0-10) 12/16/23 16:06 Troponin T 120 Minute 8.81 ng/L (0-10) 12/16/23 18:11 Delta Troponin T 0.81 ABS# (0-10) 12/16/23 18:11 Total Protein 7.0 g/dL (6.6-8.7) 12/16/23 16:06 Albumin 4.4 g/dL (3.5-5.2) 12/16/23 16:06 Globulin 2.6 g/dL (1.3-4.6) 12/16/23 16:06 All radiology interpretation(s) finalized by discharge Discharge Plan Discharge Patient Disposition: Home Clinical Impression: Chest pain Condition: Stable Prescriptions: No Action (DME) Custom Molded Orthotics See Rx Instructions .Route .MEDSUPPLY Qty: 1 0RF Rx Instructions: As directed metoprolol tartrate 25 mg tablet 25 mg PO BID Qty: 180 3RF ropinirole 2 mg tablet 2 mg PO BID quetiapine 25 mg tablet 25 mg PO BEDTIME atorvastatin 40 mg tablet 20 mg PO DAILY@1700 buspirone 10 mg tablet 20 mg PO BID@0700,1700 pantoprazole [Protonix] 40 mg Tablet,Delayed Release (Dr/Ec) 40 mg PO DAILY@04 One-A-Day Menopause Formula 400-60 mcg-mg Tablet 1 tab PO QAM Zzzquil Pure Zzzs 1 tab PO BEDTIME PRN (Reason: Sleep) albuterol sulfate 90 mcg/actuation HFA aerosol inhaler 4 inh inhalation Q4H PRN (Reason: shortness of breath or wheezing) Qty: 8.5 0RF Rx Instructions: until breathing returns to target peak flow/parameters celecoxib [Celebrex] 200 mg Capsule 200 mg PO BEDTIME PRN (Reason: Back Pain) valacyclovir 1 gram Tablet 1,000 mg PO QPM alendronate 35 mg Tablet 35 mg PO Q7D Rx Instructions: on thu mirtazapine 30 mg Tablet 60 mg PO BEDTIME epinephrine [EpiPen 2-Fredy] 0.3 mg/0.3 mL Auto-Injector 0.3 mg IM Q4H PRN (Reason: Allergic Reaction) venlafaxine 75 mg Tablet 75 mg PO BEDTIME Discharge Orders: Discharge ED (Routine); Ordered 12/16/23 Ordered By: Alexis Bray Referrals: Joellen Alvarez FNP [Primary Care Provider] - 1-3 days Discharge Diet: Advance as tolerated Discharge Activity: Resume usual activity Patient Instructions: Chest Pain (ED) Coding Level of Care Code ED Stunt Double for Chg Fwd Documented by User: Alexis Bray MD 12/16/23 19:31 HPI - Chest Pain 2 General: Chief Complaint: Chest Pain Stated Complaint: chest pain Time Seen by Provider: 12/16/23 15:52 PFSH ED 2 PFSH: Medical History PVC (premature ventricular contraction) GERD (gastroesophageal reflux disease) Hyperlipidemia PTSD (post-traumatic stress disorder) History of depression Surgical History Status post laparoscopic cholecystectomy (02/06/21) H/O esophagogastroduodenoscopy (01/31/21) gastritis Status post colonoscopy S/P bilateral breast lumpectomy Hx of hysterectomy Family History Grandfather CAD (coronary artery disease) Myocardial infarction Diabetes Mother Stroke Dementia Father Stroke Dementia Social History Smoking and tobacco/nicotine status: never used tobacco/nicotine Alcohol intake: current Alcohol intake frequency: holidays/special occasions only Substance/Drug Use: never Course 2 Vital Signs: Vital signs: Vital Signs Temperature 98.1 F 12/16/23 15:53 Pulse Rate 88 12/16/23 19:13 Respiratory Rate 18 12/16/23 19:13 Blood Pressure 133/95 12/16/23 19:13 Pulse Oximetry 95 12/16/23 17:14 Oxygen Delivery Me thod Room Air 12/16/23 17:14 MDM - Chest Pain Medical Decision Making Patient presents for chest pains atypical in nature troponins here are negative she is well-appearing here she has no signs of dissection or pulm embolism she is pain-free here she is follow-up with PCP return if worsening. Lab Data 12/16/23 16:06 12/16/23 16:06 Laboratory Results WBC 10.08 10^3/uL (3.29-11.43) 12/16/23 16:06 RBC 4.75 10^6/uL (3.85-5.65) 12/16/23 16:06 Hgb 13.60 g/dL (11.27-16.99) 12/16/23 16:06 Hct 41.7 % (36-47) 12/16/23 16:06 MCV 87.8 fl (85-98) 12/16/23 16:06 MCH 28.6 pg (27-33) 12/16/23 16:06 MCHC 32.6 g/dL (30-55) 12/16/23 16:06 RDW 14.1 % (12.1-15.1) 12/16/23 16:06 Plt Count 300 10^3/cmm (157-399) 12/16/23 16:06 MPV 8.7 fL (7.4-10.4) 12/16/23 16:06 Neut % (Auto) 50.6 % 12/16/23 16:06 Lymph % (Auto) 41.8 % 12/16/23 16:06 Mora % (Auto) 5.8 % 12/16/23 16:06 Eos % (Auto) 1.0 % 12/16/23 16:06 Baso % (Auto) 0.6 % 12/16/23 16:06 Neut # (Auto) 5.11 10^3/uL (1.8-7.7) 12/16/23 16:06 Lymph # (Auto) 4.2 10^3/uL (0.8-4.8) 12/16/23 16:06 Mora # (Auto) 0.6 10^3/uL (0.2-0.9) 12/16/23 16:06 Eos # (Auto) 0.1 10^3/uL (0.0-0.8) 12/16/23 16:06 Baso # (Auto) 0.1 10^3/uL (0.0-0.1) 12/16/23 16:06 Nucleated RBC % (auto) 0 % 12/16/23 16:06 Nucleated RBCs # 0.0 /100WBC 12/16/23 16:06 PT 12.20 SECONDS (12.1-14.9) 12/16/23 16:06 INR 0.88 (0.8-1.2) 12/16/23 16:06 Sodium 139 mmol/L (136-145) 12/16/23 16:06 Potassium 4.3 mmol/L (3.5-5.1) 12/16/23 16:06 Chloride 104 mmol/L (98-107) 12/16/23 16:06 Carbon Dioxide 21 mmol/L (22-29) L 12/16/23 16:06 Anion Gap 18.3 (5-19) 12/16/23 16:06 BUN 14 mg/dL (8-23) 12/16/23 16:06 Creatinine 0.9 mg/dL (0.5-0.9) 12/16/23 16:06 GFR Calculation 62.3 mL/min (90-130) L 12/16/23 16:06 Glucose 106 mg/dL (65-115) 12/16/23 16:06 Calculated Osmolality 289 mOsm/kg (285-295) 12/16/23 16:06 Calcium 9.2 mg/dL (8.5-10.5) 12/16/23 16:06 Total Bilirubin 0.2 mg/dL (0.15-1.2) 12/16/23 16:06 AST 27 U/L (0-32) 12/16/23 16:06 ALT 26 U/L (0-33) 12/16/23 16:06 Alkaline Phosphatase 117 U/L (35-105) H 12/16/23 16:06 Troponin T Baseline 8 ng/L (0-10) 12/16/23 16:06 Troponin T 120 Minute 8.81 ng/L (0-10) 12/16/23 18:11 Delta Troponin T 0.81 ABS# (0-10) 12/16/23 18:11 Total Protein 7.0 g/dL (6.6-8.7) 12/16/23 16:06 Albumin 4.4 g/dL (3.5-5.2) 12/16/23 16:06 Globulin 2.6 g/dL (1.3-4.6) 12/16/23 16:06 Discharge Plan Discharge Patient Disposition: Home Clinical Impression: Chest pain Condition: Stable Prescriptions: No Action (DME) Custom Molded Orthotics See Rx Instructions .Route .MEDSUPPLY Qty: 1 0RF Rx Instructions: As directed metoprolol tartrate 25 mg tablet 25 mg PO BID Qty: 180 3RF ropinirole 2 mg tablet 2 mg PO BID quetiapine 25 mg tablet 25 mg PO BEDTIME atorvastatin 40 mg tablet 20 mg PO DAILY@1700 buspirone 10 mg tablet 20 mg PO BID@0700,1700 pantoprazole [Protonix] 40 mg Tablet,Delayed Release (Dr/Ec) 40 mg PO DAILY@04 One-A-Day Menopause Formula 400-60 mcg-mg Tablet 1 tab PO QAM Zzzquil Pure Zzzs 1 tab PO BEDTIME PRN (Reason: Sleep) albuterol sulfate 90 mcg/actuation HFA aerosol inhaler 4 inh inhalation Q4H PRN (Reason: shortness of breath or wheezing) Qty: 8.5 0RF Rx Instructions: until breathing returns to target peak flow/parameters celecoxib [Celebrex] 200 mg Capsule 200 mg PO BEDTIME PRN (Reason: Back Pain) valacyclovir 1 gram Tablet 1,000 mg PO QPM alendronate 35 mg Tablet 35 mg PO Q7D Rx Instructions: on thu mirtazapine 30 mg Tablet 60 mg PO BEDTIME epinephrine [EpiPen 2-Fredy] 0.3 mg/0.3 mL Auto-Injector 0.3 mg IM Q4H PRN (Reason: Allergic Reaction) venlafaxine 75 mg Tablet 75 mg PO BEDTIME Discharge Orders: Discharge ED (Routine); Ordered 12/16/23 Ordered By: Alexis Bray Referrals: Joellen Alvarez MANGLE TENDER [Primary Care Provider] - 1-3 days Discharge Diet: Advance as tolerated Discharge Activity: Resume usual activity Patient Instructions: Chest Pain (ED) Coding Level of Care Code ED Stunt Double for Marci Quinn
[2023-12-16 16:35] LABS: INR 0.88 (0.8-1.2)
[2023-12-16 16:36] LABS: Troponin(5th) Baseline 8 ng/L (0-10)
[2023-12-16] MEDS: aspirin 81 mg Chew Tablet 324 MG PO (16:42)
[2023-12-16] MEDS: metoprolol tartrate 1 mg/1 mL SDV 5 mL 5 MG IVP (16:43)
[2023-12-16 16:45] LABS: Alanine Aminotransferase 26 U/L (0-33); Albumin Level 4.4 g/dL (3.5-5.2); Alkaline Phosphatase 117 U/L (35-105); Blood Urea Nitrogen 14 mg/dL (8-23); Calcium 9.2 mg/dL (8.5-10.5); Carbon Dioxide 21 mmol/L (22-29); Chloride 104 mmol/L (98-107); Creatinine Clr Calc Pharmacy 57.0429; Globulin 2.6 g/dL (1.3-4.6); Glomerular Filtration Rate 62.3 mL/min (90-130); Glucose 106 mg/dL (65-115); Osmolality Calculated 289 mOsm/kg (285-295); Sodium 139 mmol/L (136-145); Total Bilirubin 0.2 mg/dL (0.15-1.2)
[2023-12-16 16:51] LABS: Anion Gap 18.3 (5-19); Aspartate Amino Transferase 27 U/L (0-32); Potassium 4.3 mmol/L (3.5-5.1)
[2023-12-16 17:14] VITALS: BP 143/83; PULSE 89; O2SAT 95
--- NOTE | 2023-12-16 17:53 | ECG_ITS ---
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 Measurements Intervals [place] Rate: 83 P: 60 HI: 154 QRS: 95 QRSD: 106 T: 44 QT: 401 QTc: 472 Interpretive Statements SINUS RHYTHM BORDERLINE RIGHT AXIS DEVIATION [QRS AXIS > 90] MODERATE T-WAVE ABNORMALITY, CONSIDER ANTERIOR ISCHEMIA [-0.1+ mV T-WAVE IN V3/V4] Compared to ECG 12/16/2023 15:50:02 T-wave abnormality now present Possible ischemia now present Sinus tachycardia no longer present Atrial abnormality no longer present ST (T wave) deviation no longer present Electronically Signed On 12-17-2023 23:09:45 CDT by Bunny Barcenas M.D. [id number]
[2023-12-16 18:51] VITALS: BP 147/87; PULSE 87
[2023-12-16 19:13] VITALS: BP 133/95; PULSE 88; RESP 18
[2023-12-16 19:25] LABS: Troponin 5 2HR 8.81 ng/L (0-10); Troponin 5 2HR Delta 0.81 ABS# (0-10)
== END 2023-12-16 19:44 | disposition home or self-care (01) ==
PROVIDERS: Emergency Medicine; Emergency Provider Emergency Medicine; PCP Nurse Practitioner
DX: R07.9 Chest pain, unspecified (principal); E78.5 Hyperlipidemia, unspecified
CPT/HCPCS: 36415; 71045; 80053; 84484; 85025; 85610; 93005; 96374; 99285; J3490

== ENCOUNTER 2023-12-20 06:55 | Emergency (ER) | payer OTHER, SELFPAY ==
[2023-12-20 07:08] VITALS: BP 169/78; PULSE 80; TEMP 36.6; O2SAT 95; BMI 26.1
--- NOTE | 2023-12-20 07:08 | XRR_ITS ---
PROCEDURE INFORMATION: Exam: XR Chest Exam date and time: 12/20/2023 7:18 AM Age: 68 years old Clinical indication: Cough and dyspnea; Additional info: Dyspnea/cough TECHNIQUE: Imaging protocol: Radiologic exam of the chest. Views: 1 view. COMPARISON: CR XR chest 1V portable [id number] 12/16/2023 4:28 PM FINDINGS: Lungs: Unremarkable. No consolidation. Pleural spaces: Unremarkable. No pleural effusion. No pneumothorax. Heart/Mediastinum: Unremarkable. No cardiomegaly. 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 XR/XR chest 1V portable [id number] IMPRESSION: No acute cardiopulmonary process.
--- NOTE | 2023-12-20 07:08 | ECG_ITS ---
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 Measurements Intervals [place] Rate: 82 P: 59 [place]: 145 QRS: 91 QRSD: 109 T: 36 QT: 383 QTc: 448 Interpretive Statements SINUS RHYTHM BORDERLINE RIGHT AXIS DEVIATION [QRS AXIS > 90] Compared to ECG 12/16/2023 18:38:33 T-wave abnormality no longer present Possible ischemia no longer present Electronically Signed On 12-20-2023 12:02:35 CDT by Jose Gotti M.D. [id number]
--- NOTE | 2023-12-20 07:09 | ED_ITS ---
HPI - Chest Pain 2 General: Chief Complaint: Chest Pain Stated Complaint: CHEST PAINS Time Seen by Provider: 12/20/23 06:58 Source: patient Mode of arrival: ambulatory History of Present Illness: 60-year-old female presents emergency ro om with complaint of chest pain. She was seen 4 days ago for chest pain cardiac enzymes at that time were negative. She states she continues to have what she describes as twinges of chest pain that is worse with activity. She states she has long COVID and has increasing shortness of breath with activity as well. She has no known history of coronary disease no previous stress Taxanes or angiogram. Patient is non-smoker and she is not diabetic. MD complaint: chest pain Onset (ago): week(s) Timing of current episode: episodic Prior episodes: Yes Onset: during rest and during exertion Pain location: substernal Quality: sharp ([place]) Relieving factors: nothing Exacerbating factors: nothing Associated symptoms: Deny abdominal pain, dyspnea or fever(s) Treatment prior to arrival: none Review of Systems 2 Const: Denies: fever(s) or chills Card: Reports: chest pain Resp: Denies: dyspnea GI: Denies: abdominal pain : Denies: dysuria, urinary frequency or urinary urgency Musc: Denies: neck pain or back pain Skin/Breast: Denies: rash PFSH ED 2 PFSH: Medical History PVC (premature ventricular contraction) GERD (gastroesophageal reflux disease) Hyperlipidemia PTSD (post-traumatic stress disorder) History of depression Surgical History Status post laparoscopic cholecystectomy (02/06/21) H/O esophagogastroduodenoscopy (01/31/21) gastritis Status post colonoscopy S/P bilateral breast lumpectomy Hx of hysterectomy Family History Grandfather CAD (coronary artery disease) Myocardial infarction Diabetes Mother Stroke Dementia Father Stroke Dementia Social History Smoking and tobacco/nicotine status: never used tobacco/nicotine Alcohol intake: current Alcohol intake frequency: holidays/special occasions only Substance/Drug Use: never Physical Exam 2 Const: COMMON NORMALS: no acute distress GENERAL APPEARANCE: cooperative and comfortable ORIENTATION/CONSCIOUSNESS: Yes awake, Yes oriented to person, Yes oriented to place and Yes oriented to time HENMT: COMMON NORMALS: normocephalic, atraumatic and hearing grossly normal bilaterally HEAD & SCALP: normocephalic and atraumatic Resp: COMMON NORMALS: normal respiratory effort, No retractions, No use of accessory muscles and clear to auscultation bilaterally AUSCULTATION: clear to auscultation bilaterally Cardio: COMMON NORMALS: regular rate, regular rhythm and No murmurs present (Cardio) RATE: regular rate RHYTHM: regular rhythm GI: COMMON NORMALS: Soft to palpation and No hepatosplenomegaly present A USCULTATION: Yes normoactive bowel sounds PALPATION: Yes Soft to palpation, No Tenderness to palpation present (GI), No Guarding due to palpation present (GI) and Yes No hepatosplenomegaly present Extremity: COMMON NORMALS: normal to inspection, capillary refill normal, no clubbing, cyanosis or edema, no calf tenderness and no pedal edema Neuro: SENSORIUM/ORIENTATION: Yes oriented to person, Yes oriented to place and Yes oriented to time Skin: COMMON NORMALS: no rashes or lesions noted GENERAL SKIN EXAM: no rashes or lesions noted Course 2 Vital Signs: Vital signs: Vital Signs Temperature 97.8 F 12/20/23 07:08 Pulse Rate 76 12/20/23 07:42 Blood Pressure 136/81 12/20/23 07:42 Pulse Oximetry 97 12/20/23 07:42 Oxygen Delivery Me thod Room Air 12/20/23 07:42 MDM - Chest Pain Medical Decision Making Patient states she has had intermittent chest discomfort for over a week. She was seen earlier this week cardiac enzymes are negative. She has not been tachycardic or hypoxic cardiac enzymes negative EKG does not show any acute changes she is mildly hypertensive. No focal neurologic deficits are noted. She not having any pain radiating to the back. There is no widening of the mediastinum there is a CTA from April 2023 that shows a 4.2 cm thoracic aneurysm. At the time the workup was completed she is not having any further more discomfort. She relates a lot of her symptoms to long-term side effects of having previously had COVID. She has no known history of heart disease. Given her description of symptoms I do think she will need to have a stress test. Her cardiac enzymes continue to be negative as they were at the last evaluation. Will discharge her home on a Sorbide mononitrate started on baby aspirin daily and have her set up for an outpatient Lexiscan sestamibi stress test Medical Records I reviewed the patient's medical records. Lab Data I reviewed the patient's lab results. 12/20/23 07:47 12/20/23 07:47 Radiology Impressions Chest X-Ray 12/20/23 07:08 IMPRESSION: No acute cardiopulmonary process. Laboratory Results WBC 8.36 10^3/uL (3.29-11.43) 12/20/23 07:47 RBC 4.59 10^6/uL (3.85-5.65) 12/20/23 07:47 Hgb 13.00 g/dL (11.27-16.99) 12/20/23 07:47 Hct 40.6 % (36-47) 12/20/23 07:47 MCV 88.5 fl (85-98) 12/20/23 07:47 MCH 28.3 pg (27-33) 12/20/23 07:47 MCHC 32.0 g/dL (30-55) 12/20/23 07:47 RDW 14.1 % (12.1-15.1) 12/20/23 07:47 Plt Count 272 10^3/cmm (157-399) 12/20/23 07:47 MPV 8.7 fL (7.4-10.4) 12/20/23 07:47 Neut % (Auto) 59.6 % 12/20/23 07:47 Lymph % (Auto) 33.5 % 12/20/23 07:47 Dixie % (Auto) 4.9 % 12/20/23 07:47 Eos % (Auto) 1.2 % 12/20/23 07:47 Baso % (Auto) 0.6 % 12/20/23 07:47 Neut # (Auto) 4.98 10^3/uL (1.8-7.7) 12/20/23 07:47 Lymph # (Auto) 2.8 10^3/uL (0.8-4.8) 12/20/23 07:47 Dixie # (Auto) 0.4 10^3/uL (0.2-0.9) 12/20/23 07:47 Eos # (Auto) 0.1 10^3/uL (0.0-0.8) 12/20/23 07:47 Baso # (Auto) 0.1 10^3/uL (0.0-0.1) 12/20/23 07:47 Nucleated RBC % (auto) 0 % 12/20/23 07:47 Nucleated RBCs # 0.0 /100WBC 12/20/23 07:47 Sodium 139 mmol/L (136-145) 12/20/23 07:47 Potassium 4.1 mmol/L (3.5-5.1) 12/20/23 07:47 Chloride 106 mmol/L (98-107) 12/20/23 07:47 Carbon Dioxide 23 mmol/L (22-29) 12/20/23 07:47 Anion Gap 14.1 (5-19) 12/20/23 07:47 BUN 15 mg/dL (8-23) 12/20/23 07:47 Creatinine 0.9 mg/dL (0.5-0.9) 12/20/23 07:47 GFR Calculation 62.3 mL/min (90-130) L 12/20/23 07:47 Glucose 92 mg/dL (65-115) 12/20/23 07:47 Calculated Osmolality 288 mOsm/kg (285-295) 12/20/23 07:47 Calcium 9.0 mg/dL (8.5-10.5) 12/20/23 07:47 Total Bilirubin 0.3 mg/dL (0.15-1.2) 12/20/23 07:47 AST 20 U/L (0-32) 12/20/23 07:47 ALT 24 U/L (0-33) 12/20/23 07:47 Alkaline Phosphatase 98 U/L (35-105) 12/20/23 07:47 Troponin T Baseline < 6 ng/L (0-10) 12/20/23 07:47 Troponin T 120 Minute 6.00 ng/L (0-10) 12/20/23 09:41 Delta Troponin T 0.63269 ABS# (0-10) 12/20/23 09:41 Total Protein 6.4 g/dL (6.6-8.7) L 12/20/23 07:47 Albumin 4.0 g/dL (3.5-5.2) 12/20/23 07:47 Globulin 2.4 g/dL (1.3-4.6) 12/20/23 07:47 All radiology interpretation(s) finalized by discharge Discharge Plan Discharge Patient Disposition: Home Clinical Impression: Atypical chest pain, HTN (hypertension) Condition: Stable Prescriptions: New aspirin 81 mg tablet,delayed release (DR/EC) 81 mg PO DAILY Qty: 30 0RF isosorbide mononitrate 30 mg tablet extended release 24 hr 30 mg PO DAILY Qty: 30 0RF No Action (DME) Custom Molded Orthotics See Rx Instructions .Route .MEDSUPPLY Qty: 1 0RF Rx Instructions: As directed metoprolol tartrate 25 mg tablet 25 mg PO BID Qty: 180 3RF ropinirole 2 mg tablet 2 mg PO BID quetiapine 25 mg tablet 25 mg PO BEDTIME atorvastatin 40 mg tablet 20 mg PO DAILY@1700 buspirone 10 mg tablet 20 mg PO BID@0700,1700 pantoprazole [Protonix] 40 mg Tablet,Delayed Release (Dr/Ec) 40 mg PO DAILY@04 One-A-Day Menopause Formula 400-60 mcg-mg Tablet 1 tab PO QAM Zzzquil Pure Zzzs 1 tab PO BEDTIME PRN (Reason: Sleep) albuterol sulfate 90 mcg/actuation HFA aerosol inhaler 4 inh inhalation Q4H PRN (Reason: shortness of breath or wheezing) Qty: 8.5 0RF Rx Instructions: until breathing returns to target peak flow/parameters celecoxib [Celebrex] 200 mg Capsule 200 mg PO BEDTIME PRN (Reason: Back Pain) valacyclovir 1 gram Tablet 1,000 mg PO QPM alendronate 35 mg Tablet 35 mg PO Q7D Rx Instructions: on thu mirtazapine 30 mg Tablet 60 mg PO BEDTIME epinephrine [EpiPen 2-Fredy] 0.3 mg/0.3 mL Auto-Injector 0.3 mg IM Q4H PRN (Reason: Allergic Reaction) venlafaxine 75 mg Tablet 75 mg PO BEDTIME Discharge Orders: Discharge ED (Routine); Ordered 12/20/23 Ordered By: Ken Saenz Referrals: Alvarez,Joellen R, BRIDGE IRONWORKER HELPER [Primary Care Provider] - Discharge Diet: Usual diet Discharge Activity: Limit activity as instructed Patient Instructions: Opioid Safety, Pain Management Activity Restrictions/Additional Instructions: Thank you for choosing [facility] for your healthcare needs today. Please realize this is an emergency room and that we are providing you with a medical screening exam and this may not be complete and all inclusive of all the testing and or work up that you may need to determine your ailment or severity of your illness. It is very important that you follow up as instructed or that you return to the Emergency Department should you have concerns or if your condition changes or worsens in any way. You were seen today with complaints of chest discomfort. Your EKG did not show any acute changes your cardiac enzymes were normal. Your blood pressure was noted to be high recommend you start isosorbide mononitrate 30 mg once daily baby aspirin daily we will set up an outpatient stress test for you and have you follow-up with your primary care doctor if chest pain worsens return to the emergency room. Coding Level of Care Code ED Product Applications Engineer for Marci Quinn
[2023-12-20] MEDS: isosorbide mononitrate ER 30 mg Tablet PO (07:37)
[2023-12-20 07:42] VITALS: BP 136/81; PULSE 76; O2SAT 97
[2023-12-20] MEDS: aspirin 81 mg Chew Tablet 162 MG PO (07:50)
[2023-12-20 07:54] LABS: Basophils # 0.1 10^3/uL (0.0-0.1); Basophils % 0.6 %; Eosinophils # 0.1 10^3/uL (0.0-0.8); Eosinophils % 1.2 %; Hematocrit 40.6 % (36-47); Lymphocytes # 2.8 10^3/uL (0.8-4.8); Lymphocytes % 33.5 %; Mean Corpuscular Hemoglobin 28.3 pg (27-33); Mean Corpuscular Volume 88.5 fl (85-98); Mean Platelet Volume 8.7 fL (7.4-10.4); Monocytes # 0.4 10^3/uL (0.2-0.9); Monocytes % 4.9 %; Neutrophils # 4.98 10^3/uL (1.8-7.7); Neutrophils % 59.6 %; Nucleated Red Blood Cells % 0 %; Platelet Count 272 10^3/cmm (157-399); Red Blood Count 4.59 10^6/uL (3.85-5.65); Red Cell Distribution Width 14.1 % (12.1-15.1); White Blood Count 8.36 10^3/uL (3.29-11.43)
[2023-12-20 08:14] LABS: Alanine Aminotransferase 24 U/L (0-33); Alkaline Phosphatase 98 U/L (35-105); Anion Gap 14.1 (5-19); Aspartate Amino Transferase 20 U/L (0-32); Blood Urea Nitrogen 15 mg/dL (8-23); Carbon Dioxide 23 mmol/L (22-29); Chloride 106 mmol/L (98-107); Creatinine Clr Calc Pharmacy 57.0429; Globulin 2.4 g/dL (1.3-4.6); Glomerular Filtration Rate 62.3 mL/min (90-130); Glucose 92 mg/dL (65-115); Osmolality Calculated 288 mOsm/kg (285-295); Potassium 4.1 mmol/L (3.5-5.1); Sodium 139 mmol/L (136-145); Total Bilirubin 0.3 mg/dL (0.15-1.2); Total Protein 6.4 g/dL (6.6-8.7)
[2023-12-20 08:15] LABS: Troponin(5th) Baseline < 6 ng/L (0-10)
--- NOTE | 2023-12-20 09:08 | ECG_ITS ---
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 Measurements Intervals [place] Rate: 76 P: 62 ME: 158 QRS: 92 QRSD: 116 T: 40 QT: 391 QTc: 441 Interpretive Statements SINUS RHYTHM BORDERLINE RIGHT AXIS DEVIATION [QRS AXIS > 90] MODERATE INTRAVENTRICULAR CONDUCTION DELAY [110+ ms QRS DURATION] NONSPECIFIC T-WAVE ABNORMALITY Compared to ECG 12/16/2023 18:38:33 Intraventricular conduction delay now present Possible ischemia no longer present T-wave abnormality still present Electronically Signed On 12-20-2023 12:40:15 CDT by Jose Gotti M.D. [id number]
[2023-12-20 10:04] LABS: Troponin 5 2HR Delta 0.00001 ABS# (0-10)
[2023-12-20 11:00] VITALS: BP 136/81; PULSE 76; TEMP 36.6; O2SAT 97
--- NOTE | 2023-12-20 11:40 | DCPLANNER ---
faxed out pt request to central schedule for stress test [id number] @[id number]
== END 2023-12-20 11:09 | disposition home or self-care (01) ==
PROVIDERS: Emergency Provider Family Medicine; PCP Nurse Practitioner
DX: R07.89 Other chest pain (principal); I10 Essential (primary) hypertension; E78.5 Hyperlipidemia, unspecified
CPT/HCPCS: 36415; 71045; 80053; 84484; 85025; 93005; 99285

== ENCOUNTER 2023-12-30 09:30 | Outpatient (CLI) | payer MEDICARE, SELFPAY ==
[2023-12-30 09:49] VITALS: BMI 26.1
--- NOTE | 2023-12-30 09:49 | ECG_ITS ---
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 Interpretive Statements NAME OF STUDY: LEXISCAN SESTAMIBI STRESS TEST INDICATION: [CP, ] Procedure: At the baseline, the blood pressure was 133/83 mmHg with a heart rate of 68 bpm. The electrocardiogram showed normal sinus rhythm, normal axis with normal ST and T's. The Lexiscan was infused over a period of 20 seconds. A total of 0.4 mg of Lexiscan was infused. The stress phase was continued for a total of 5 minutes. Heart rate was at the end of stress phase was 88 bpm and a blood pressure of 126/72 mmHg. The EKG at the peak infusion revealed normal sinus rhythm with no significant ST-T wave changes. Sestamibi was injected 20 seconds after the Lexiscan infusion. Blood pressure at the end of recovery phase was 129/77 mmHg with a heart rate of 85 bpm. Conclusion: 1. Normal EKG response to Lexiscan infusion 2. No Lexiscan induced chest pain or cardiac arrhythmia. 3. Normal blood pressure and heart rate response. 4. Sestamibi/sestamibi perfusion scan pending; see separate report. Electronically Signed On 01-05-2024 10:39:46 CDT by Jose Gotti M.D. [id number]
--- NOTE | 2023-12-30 09:50 | NMCV_ITS ---
NM candice perf SPECT r/s* [id number] Natasha Wharton Age: 68 Gender: F : 1955 Exam Date: 12/30/2023 10:39 Ordering Phys: Ken Saenz DO Technologist: JESSI William Exam Location: [facility] Indications: CHEST PAIN STRESS TEST Please see separate stress test report in [facility] for full findings IMAGE PROTOCOL Rest/Stress 1 Lexiscan Day Radiopharmaceutical Dose (mCi) Administration Site Administered by Rest: Tc-99m 10.4 IV JESSI Quiles Sestamibi Stress:Tc-99m 32.9 IV JESSI Quiles Sestamibi Rest: 30-Dec-2023 60 Discovery 630 Stress: 30-Dec-2023 30 Discovery 630 0.4mg Lexiscan. Images obtained in supine and prone position. SPECT RESULTS Technical Quality: Excellent Raw Data Analysis: Normal Image Corrections: No attenuation or motion correction applied Summed Stress Score: 0 Summed Rest Score: 0 Summed Difference Score: 0 PERFUSION FINDINGS SPECT images demonstrate homogeneous tracer distribution throughout the myocardium. FUNCTIONAL RESULTS (calculated via Gated SPECT) Stress Image LV EF (%): 96 Stress EDV (mL):57 TID: 1.08 Stress ESV (mL):2 FUNCTIONAL FINDINGS: There is normal left ventricular systolic function. IMPRESSIONS 1. Normal myocardial perfusion imaging with no evidence of ischemia 2. LV systolic function is normal Jose Gotti MD (Electronically Signed) Final Date: 01 Jan 2024 11:15 S
[2023-12-30] MEDS: regadenoson 0.4 Mg/5 ml Syringe 0.400000000000000022 MG IVP (11:17)
[2023-12-30 11:26] VITALS: BP 129/77; PULSE 84
== END 2023-12-30 09:31 | disposition home or self-care (01) ==
PROVIDERS: PCP Nurse Practitioner; Visit Provider Family Medicine
DX: R07.89 Other chest pain (principal)
CPT/HCPCS: 36415; 78452; 93017; 96374; A9500; J2785

== ENCOUNTER → 2024-03-01 13:48 | Outpatient (BNVA) | payer OTHER, SELFPAY | PROVIDERS: PCP Nurse Practitioner; Referring Provider Nurse Practitioner; Visit Provider Internal Medicine Cardiovascular Disease | DX: E78.5 Hyperlipidemia, unspecified (principal) | CPT/HCPCS: 99203 ==

== ENCOUNTER 2024-03-31 10:55 | Emergency (ER) | payer OTHER, MEDICARE, SELFPAY ==
[2024-03-31 10:57] VITALS: BP 146/84; PULSE 80; RESP 16; TEMP 36.7; O2SAT 95; BMI 27.1
[2024-03-31 11:18] VITALS: BP 146/84; PULSE 80; RESP 16; O2SAT 95
--- NOTE | 2024-03-31 11:26 | ECG_ITS ---
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 Measurements Intervals [place] Rate: 79 P: 63 IL: 161 QRS: 108 QRSD: 106 T: 46 QT: 384 QTc: 441 Interpretive Statements SINUS RHYTHM POSSIBLE RIGHT VENTRICULAR HYPERTROPHY [SOME/ALL OF: PROMINENT R IN V1, LATE TRANSITION, RAD, ELIEZER, SSS] NONSPECIFIC T-WAVE ABNORMALITY Compared to ECG 12/20/2023 09:56:49 Intraventricular conduction delay no longer present T-wave abnormality still present Electronically Signed On 03-31-2024 11:48:33 CDT by Jose Gotti M.D. [id number]
--- NOTE | 2024-03-31 11:27 | ED.C_ITS ---
HPI - Psych 2 General: Chief Complaint: Psychiatric Symptoms Stated Complaint: si Time Seen by Provider: 03/31/24 10:56 Source: patient Mode of arrival: ambulatory Limitations: no limitations History of Present Illness: This patient presented to the emergency department by EMS. She was on the telephone with a telemetry conference with her psychiatrist and was exhibiting frustration and concerning symptoms that prompted the psychiatrist to call EMS. Patient has a longstanding history of depression and [facility] She states that she has been increasingly frustrated and feeling sad and depressed. She states she just finished her first summer classes online for her doctoral degree and thought she had a 2-week break and wondered if she should just fall down the stairs to ended all for her. She states that for the past year she has had increasing physical debilities which have markedly increased her sadness and frustration. She apparently contracted COVID last year and was left with symptoms which included extreme fatigue shortness of breath with exertion etc. She has been evaluated for those symptoms and not had any notable findings that suggested structural heart disease. She states she has been taking her antidepressant medications as prescribed. She denies drug or alcohol use. 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 She has never attempted to harm herself in the past. She otherwise states that she has not had any other specific plans, have no access to firearms arms in the home etc. MD complaint: suicidal ideation and feels depressed History of same: Yes Relieving factors: medication Associated psychiatric symptoms: suicidal ideation, auditory hallucinations and visual hallucinations Associated symptoms: Reports depression and suicidal ideation; Deny auditory hallucinations, visual hallucinations or homicidal ideation If self harm: admits thoughts of self harm Related Data Home Medications Medication Instructions Recorded Confirmed atorvastatin 40 mg tablet 20 mg PO DAILY@1700 12/10/20 03/31/24 buspirone 10 mg tablet 20 mg PO BID@0700,1700 12/10/20 03/31/24 quetiapine 25 mg tablet 25 mg PO BEDTIME 12/10/20 03/31/24 ropinirole 2 mg tablet 2 mg PO BID 12/20/20 03/31/24 Zzzquil Pure Zzzs 1 tab PO BEDTIME PRN Sleep 12/28/20 03/31/24 multivitamin-calcium, 1 tab PO QAM 12/28/20 03/31/24 [id number] isoflavone 400 mcg-60 mg tablet (One-A-Day Menopause Formula) pantoprazole 40 mg tablet,delayed 40 mg PO DAILY@04 12/28/20 03/31/24 release (Protonix) alendronate 35 mg tablet 35 mg PO Q7D 12/23/21 03/31/24 epinephrine 0.3 mg/0.3 mL 0.3 mg IM Q4H PRN Allergic Reaction 12/23/21 03/31/24 injection, auto-injector (EpiPen 2-Fredy) mirtazapine 30 mg tablet 60 mg PO BEDTIME 12/23/21 03/31/24 valacyclovir 1 gram tablet 1,000 mg PO BEDTIME 12/23/21 03/31/24 venlafaxine 75 mg tablet 75 mg PO BEDTIME 06/18/23 03/31/24 Previous Rx's Medication Instructions Recorded albuterol sulfate 90 mcg/actuation 4 inh inhalation Q4H PRN shortness 12/28/20 aerosol inhaler of breath or wheezing #8.5 grams metoprolol tartrate 25 mg tablet 25 mg PO BID #180 tabs 01/09/21 Custom Molded Orthotics #1 ea 09/12/21 aspirin 81 mg tablet,delayed 81 mg PO DAILY #30 tabs 12/20/23 release Allergies Allergy/AdvReac Type Severity Reaction Status Date / Time Penicillins Allergy Unknown Unknown Verified 03/01/24 13:56 erythromycin base Allergy Unknown Verified 03/01/24 13:56 ceyanne pepper Allergy Unknown Uncoded 03/01/24 13:56 Review of Systems 2 Const: Denies: fever(s) or chills Eyes: Denies: change in vision ENMT: Denies: odynophagia, nasal discharge or nasal congestion Card: Reports: dyspnea on exertion; Denies: chest pain, palpitations, syncope or pre-syncope Resp: Reports: non-productive cough; Denies: productive cough, wheezing or stridor GI: Denies: abdominal pain, nausea, vomiting or diarrhea : Denies: flank pain, difficulty voiding, dysuria or urinary frequency Musc: Denies: neck pain, back pain, extremity pain or extremity swelling Skin/Breast: Denies: rash or pruritus Neuro: Denies: headache(s), numbness in extremities, weakness in extremities, Slurred speech present or seizure-like activity Psych: Reports: depression, mood swings and suicidal ideation; Denies: visual hallucinations, auditory hallucinations or homicidal ideation PFSH ED 2 PFSH: Medical History PVC (premature ventricular contraction) GERD (gastroesophageal reflux disease) Hyperlipidemia PTSD (post-traumatic stress disorder) History of depression Surgical History Status post laparoscopic cholecystectomy (02/06/21) H/O esophagogastroduodenoscopy (01/31/21) gastritis Status post colonoscopy S/P bilateral breast lumpectomy Hx of hysterectomy Family History Grandfather CAD (coronary artery disease) Myocardial infarction Diabetes Mother Stroke Dementia Father Stroke Dementia Social History Smoking and tobacco/nicotine status: never used tobacco/nicotine Alcohol intake: current Alcohol intake frequency: holidays/special occasions only Substance/Drug Use: never Physical Exam 2 Narrative: EXAM NARRATIVE: She makes good eye contact and answers questions in a very goal-directed and complete fashion. He is comfortable and cooperative. Const: COMMON NORMALS: no acute distress, average body habitus and patient oriented x3 GENERAL APPEARANCE: cooperative, comfortable and well kempt HENMT: COMMON NORMALS: Normal nasal mucous membranes and turbinates present, moist oral mucous membranes and oropharynx normal FACE & SINUS: normal facial exam NOSE: Normal nasal mucous membranes and turbinates present Eye: COMMON NORMALS: Equal, round and reactive pupils present, EOMs intact bilaterally and conjunctivae normal CONJUNCTIVA: Yes conjunctivae normal P UPIL: Yes Equal, round and reactive pupils present Neck/C-Spine: COMMON NORMALS: full ROM and Thyroid normal THYROID: Thyroid normal Chest: COMMONS NORMALS: normal inspection of the chest Resp: COMMON NORMALS: normal respiratory effort, No use of accessory muscles and clear to auscultation bilaterally AUSCULTATION: clear to auscultation bilaterally Cardio: COMMON NORMALS: regular rate, regular rhythm, No murmurs present (Cardio) and Peripheral pulses 2+ throughout RATE: regular rate RHYTHM: r egular rhythm PERIPHERAL PULSES: Peripheral pulses 2+ throughout GI: COMMON NORMALS: Normal to inspection, nondistended, normoactive bowel sounds present and Soft to palpation PALPATION: Yes Soft to palpation : COMMON NORMALS: Yes no CVA tenderness BLADDER/KIDNEY EXAM: Yes no CVA tenderness Back/Pelvis: COMMON NORMALS: no CVA tenderness, no thoracic nor lumbar tenderness and thoraco-lumbar ROM normal Extremity: COMMON NORMALS: normal to inspection, full ROM, capillary refill normal and no joint enlargement Neuro: COMMON NORMALS: patient oriented x3, moves all extremities, no focal motor deficits and no sensory deficits noted Psych: COMMON NORMALS: mental status grossly normal, Normal thought process present and speech normal APPEARANCE: Yes well kempt ATTITUDE: Yes calm ACTIVITY/MOTOR BEHAVIOR: Yes appropriate eye contact SPEECH: Yes normal speech MOOD & AFFECT: Yes Labile affect present THOUGHT PROCESS: Normal thought process present THOUGHT CONTENT: Yes Normal thought content present, Yes Suicidality present, No Homicidality present and No Hallucination(s) present MEMORY/COGNITION: Yes memory grossly intact INSIGHT: Good insight present (Psych) JUDGEMENT: Good judgement present (Psych) Skin: COMMON NORMALS: no rashes or lesions noted GENERAL SKIN EXAM: no rashes or lesions noted Course 2 Reevaluation(s): Reevaluation #1: Patient remained stable. She has been accepted by [facility] in [facility]. Stable for transfer. Time: 14:58 Consultations: Consultation #1: [facility] in [facility] reviewed her chart and supporting documents and if accepted the patient. They do not require a doc to doc conversation. Time: 14:59 Vital Signs: Vital signs: Vital Signs Temperature 98.1 F 03/31/24 10:57 Pulse Rate 80 03/31/24 11:18 Respiratory Rate 16 03/31/24 11:18 Blood Pressure 146/84 03/31/24 11:18 Pulse Oximetry 95 03/31/24 11:18 MDM - Psych Medical Decision Making This patient presented as noted in the HPI. She is a patient with longstanding depression being followed by the [place] psychiatry section who was referred to the emerged part because of concerns about decompensation and voicing suicidal ideations. Patient endorses the same during her interview in the emergency department. She has no obvious evidence of physical stigmata that would preclude mental health evaluation and she is desirous of inpatient care. Her screening laboratories EKG are all reassuring without any concerning findings at this time. She will be consulted for a transfer to a [facility]. She is currently cooperative and in stable condition. Lab Data I reviewed the patient's lab results. 03/31/24 12:03/31/24 12:25 Laboratory Results WBC 8.94 10^3/uL (3.29-11.43) 03/31/24 12: RBC 4.70 10^6/uL (3.85-5.65) 03/31/24 12: Hgb 12.90 g/dL (11.27-16.99) 03/31/24 12: Hct 41.7 % (36-47) 03/31/24 12: MCV 88.7 fl (85-98) 03/31/24 12: MCH 27.4 pg (27-33) 03/31/24 12: MCHC 30.9 g/dL (30-55) 03/31/24 12: RDW 14.9 % (12.1-15.1) 03/31/24 12: Plt Count 261 10^3/cmm (157-399) 03/31/24 12: MPV 8.5 fL (7.4-10.4) 03/31/24 12: Neut % (Auto) 57.8 % 03/31/24 12: Lymph % (Auto) 35.6 % 03/31/24 12: [place] % (Auto) 4.9 % 03/31/24 12: Eos % (Auto) 0.8 % 03/31/24 12: Baso % (Auto) 0.6 % 03/31/24 12: Neut # (Auto) 5.17 10^3/uL (1.8-7.7) 03/31/24 12: Lymph # (Auto) 3.2 10^3/uL (0.8-4.8) 03/31/24: [place] # (Auto) 0.4 10^3/uL (0.2-0.9) 03/31/24 12: Eos # (Auto) 0.1 10^3/uL (0.0-0.8) 03/31/24 12: Baso # (Auto) 0.1 10^3/uL (0.0-0.1) 03/31/24 12:25 Nucleated RBC % (auto) 0 % 03/31/24 12:25 Nucleated RBCs # 0.0 /100WBC 03/31/24 12:25 Sodium 140 mmol/L (136-145) 03/31/24 12:25 Potassium 4.2 mmol/L (3.5-5.1) 03/31/24 12:25 Chloride 105 mmol/L (98-107) 03/31/24 12:25 Carbon Dioxide 22 mmol/L (22-29) 03/31/24 12:25 Anion Gap 17.2 (5-19) 03/31/24 12:25 BUN 14 mg/dL (8-23) 03/31/24 12:25 Creatinine 0.9 mg/dL (0.5-0.9) 03/31/24 12:25 GFR Calculation 62.3 mL/min (90-130) L 03/31/24 12:25 Glucose 94 mg/dL (65-115) 03/31/24 12:25 Calculated Osmolality 290 mOsm/kg (285-295) 03/31/24 12:25 Calcium 9.0 mg/dL (8.5-10.5) 03/31/24 12:25 Total Bilirubin 0.2 mg/dL (0.15-1.2) 03/31/24 12:25 AST 20 U/L (0-32) 03/31/24 12:25 ALT 17 U/L (0-33) 03/31/24 12:25 Alkaline Phosphatase 90 U/L (35-105) 03/31/24 12:25 Total Protein 7.0 g/dL (6.6-8.7) 03/31/24 12:25 Albumin 4.2 g/dL (3.5-5.2) 03/31/24 12:25 Globulin 2.8 g/dL (1.3-4.6) 03/31/24 12:25 TSH 1.26 uIU/mL (0.27-4.20) 03/31/24 12:25 Urine Color Yellow (Yellow) 03/31/24 12:17 Urine Appearance Clear (CLEAR) 03/31/24 12:17 Urine pH 6.0 (5-7) 03/31/24 12:17 Ur Specific [place] 1.005 (1.005-1.030) 03/31/24 12:17 Urine Protein Negative (Negative) 03/31/24 12:17 Urine Glucose (UA) Negative (Normal) 03/31/24 12:17 Urine Ketones Negative (Negative) 03/31/24 12:17 Urine Blood Negative (Negative) 03/31/24 12:17 Urine Nitrate Negative (Negative) 03/31/24 12:17 Urine Bilirubin Negative (Negative) 03/31/24 12:17 Urine Urobilinogen 0.2 mg/dL (Negative) 03/31/24 12:17 Ur Leukocyte Esterase Negative (Negative) 03/31/24 12:17 Urine RBC 0-2 /hpf (0-2) 03/31/24 12:17 Urine WBC 0-5 /hpf (0-5) 03/31/24 12:17 Ur Squamous Epith Cells 0-5 /hpf (0-5) 03/31/24 12:17 Amorphous Sediment Not Reportable 03/31/24 12:17 Urine Bacteria None seen /hpf (NONE) 03/31/24 12:17 Hyaline Casts 0-4 /lpf H 03/31/24 12:17 Salicylates 0.4 mg/dL (3-10) L 03/31/24 12:25 Urine Opiates Screen Negative ng/mL (Negative) 03/31/24 12:17 Acetaminophen < 5.0 ug/mL (10-30) L 03/31/24 12:25 Ur Barbiturates Screen Negative ng/mL (Negative) 03/31/24 12:17 Ur Phencyclidine Scrn Negative ng/mL (Negative) 03/31/24 12:17 Ur Amphetamines Screen Negative ng/mL (Negative) 03/31/24 12:17 U Benzodiazepines Scrn Negative ng/mL (Negative) 03/31/24 12:17 Urine Cocaine Screen Negative ng/mL (Negative) 03/31/24 12:17 U Marijuana (THC) Screen Negative ng/mL (Negative) 03/31/24 12:17 Ethyl Alcohol < 10 mg/dL (0-10) 03/31/24 12:25 Influenza Type A Ag negative (Negative) 03/31/24 13:46 Influenza Type B Ag negative (Negative) 03/31/24 13:46 SARS-CoV-2 Ag (Rapid) negative (Negative) 03/31/24 13:46 No radiology studies performed this visit EKG Data EKG 1: I personally reviewed and interpreted this EKG as follows: Interpretation: Contemporaneous review of resting EKG reveals ventricular rate of 79 bpm. Normal OH interval, QRS duration, corrected QT interval. Normal axis. No acute ST-T wave changes noted at this time. No change from prior EKGs within our system. Discharge Plan Discharge Patient Disposition: Xfer Psychiatric Hosp Clinical Impression: Major depressive disorder, Suicidal ideation Condition: Stable Prescriptions: No Action (DME) Custom Molded Orthotics See Rx Instructions .Route .MEDSUPPLY Qty: 1 0RF Rx Instructions: As directed metoprolol tartrate 25 mg tablet 25 mg PO BID Qty: 180 3RF ropinirole 2 mg tablet 2 mg PO BID quetiapine 25 mg tablet 25 mg PO BEDTIME atorvastatin 40 mg tablet 20 mg PO DAILY@1700 buspirone 10 mg tablet 20 mg PO BID@0700,1700 pantoprazole [Protonix] 40 mg Tablet,Delayed Release (Dr/Ec) 40 mg PO DAILY@04 One-A-Day Menopause Formula 400-60 mcg-mg Tablet 1 tab PO QAM Zzzquil Pure Zzzs 1 tab PO BEDTIME PRN (Reason: Sleep) albuterol sulfate 90 mcg/actuation HFA aerosol inhaler 4 inh inhalation Q4H PRN (Reason: shortness of breath or wheezing) Qty: 8.5 0RF Rx Instructions: until breathing returns to target peak flow/parameters valacyclovir 1 gram Tablet 1,000 mg PO BEDTIME alendronate 35 mg Tablet 35 mg PO Q7D Rx Instructions: ON THURSDAY mirtazapine 30 mg Tablet 60 mg PO BEDTIME epinephrine [EpiPen 2-Fredy] 0.3 mg/0.3 mL Auto-Injector 0.3 mg IM Q4H PRN (Reason: Allergic Reaction) venlafaxine 75 mg Tablet 75 mg PO BEDTIME aspirin 81 mg tablet,delayed release (DR/EC) 81 mg PO DAILY Qty: 30 0RF Referrals: Joellen Alvarez FNP [Primary Care Provider] - Coding Level of Care Code ED Piece Dyeing Machine Tender for Marci Quinn
[2024-03-31 12:31] LABS: Basophils # 0.1 10^3/uL (0.0-0.1); Basophils % 0.6 %; Eosinophils # 0.1 10^3/uL (0.0-0.8); Eosinophils % 0.8 %; Hematocrit 41.7 % (36-47); Lymphocytes # 3.2 10^3/uL (0.8-4.8); Lymphocytes % 35.6 %; Mean Corpuscular HGB Conc 30.9 g/dL (30-55); Mean Corpuscular Hemoglobin 27.4 pg (27-33); Mean Corpuscular Volume 88.7 fl (85-98); Mean Platelet Volume 8.5 fL (7.4-10.4); Monocytes # 0.4 10^3/uL (0.2-0.9); Monocytes % 4.9 %; Neutrophils # 5.17 10^3/uL (1.8-7.7); Neutrophils % 57.8 %; Nucleated Red Blood Cells % 0 %; Platelet Count 261 10^3/cmm (157-399); Red Cell Distribution Width 14.9 % (12.1-15.1); White Blood Count 8.94 10^3/uL (3.29-11.43)
[2024-03-31 12:48] LABS: Charge for UA Resulting for Rev
[2024-03-31 12:51] LABS: Bilirubin Urine Negative (Negative); Blood Urine Negative (Negative); Glucose Urine UA Negative (Normal); Ketones Urine Negative (Negative); Leukocyte Esterase Urine Negative (Negative); Nitrate Urine Negative (Negative); Protein Urine Negative (Negative); Specific Gravity, Urine 1.005 (1.005-1.030); Urine Appearance Clear (CLEAR); Urine Color Yellow (Yellow); Urobilinogen Urine 0.2 mg/dL (Negative)
[2024-03-31 12:56] LABS: Bacteria Urine None Seen /hpf; Hyaline Casts Urine 0-4 /lpf; RBC Urine 0-2 /hpf (0-2); Squamous Epithelial Cell Urine 0-5 /hpf (0-5); WBC Urine 0-5 /hpf (0-5)
[2024-03-31 12:58] LABS: Amphetamines Screen Urine Negative (Negative); Barbiturates Screen Urine Negative (Negative); Benzodiazepines Screen Urine Negative (Negative); Cocaine Screen Urine Negative (Negative); Opiate Screen Urine Negative (Negative); PCP Screen Urine Negative (Negative); THC Screen Urine Negative (Negative)
[2024-03-31 13:03] LABS: Alanine Aminotransferase 17 U/L (0-33); Albumin Level 4.2 g/dL (3.5-5.2); Alkaline Phosphatase 90 U/L (35-105); Anion Gap 17.2 (5-19); Aspartate Amino Transferase 20 U/L (0-32); Blood Urea Nitrogen 14 mg/dL (8-23); Carbon Dioxide 22 mmol/L (22-29); Chloride 105 mmol/L (98-107); Creatinine Clr Calc Pharmacy 58.0712; Globulin 2.8 g/dL (1.3-4.6); Glomerular Filtration Rate 62.3 mL/min (90-130); Glucose 94 mg/dL (65-115); Osmolality Calculated 290 mOsm/kg (285-295); Potassium 4.2 mmol/L (3.5-5.1); Salicylate 0.4 mg/dL (3-10); Sodium 140 mmol/L (136-145); Thyroid Stimulating Hormone 1.26 uIU/mL (0.27-4.20); Total Bilirubin 0.2 mg/dL (0.15-1.2)
[2024-03-31 13:06] LABS: Acetaminophen < 5.0 ug/mL (10-30); Alcohol Level < 10 mg/dL (0-10)
--- NOTE | 2024-03-31 13:08 | PC.PHAR ---
PT IS [facility] 03/31/24 1:07PM
--- NOTE | 2024-03-31 13:23 | PC.PHAR ---
PT STATES SHE DID TAKE HER AM MEDS EXCEPT FOR VITAMIN. NEEDS HER REQUIP 2MG FOR RLS.
[2024-03-31] MEDS: ropinirole 1 mg Tablet 2 MG PO (13:46)
[2024-03-31 14:08] LABS: Influenza A by IFA negative (Negative); Influenza B by IFA negative (Negative)
[2024-03-31 14:10] LABS: SARS Covid-2 Antigen negative (Negative)
--- NOTE | 2024-03-31 16:00 | PC.NURSE ---
at 1600-- pt waiting on transport to [facility] in [place], [place]. estimated wait time is undetermined.
[2024-03-31 16:01] VITALS: BP 153/87; PULSE 80; RESP 17; O2SAT 96
== END 2024-03-31 18:40 ==
PROVIDERS: Emergency Provider Emergency Medicine; PCP Nurse Practitioner
DX: R45.851 Suicidal ideations (principal); F32.9 Major depressive disorder, single episode, unspecified; Z11.52 Encounter for screening for COVID-19; Z79.82 Long term (current) use of aspirin; E78.5 Hyperlipidemia, unspecified
CPT/HCPCS: 36415; 80053; 80306; 80307; 81003; 81015; 84443; 85025; 87426; 87804; 93005; 99284

== ENCOUNTER 2024-05-01 10:31 | Emergency (ER) | payer OTHER, MEDICARE, SELFPAY ==
[2024-05-01 10:42] VITALS: BP 175/90; PULSE 84; TEMP 36.8; O2SAT 99; BMI 26.1
--- NOTE | 2024-05-01 12:32 | XRR_ITS ---
PROCEDURE INFORMATION: Exam: XR Chest Exam date and time: 05/01/2024 12:38 PM Age: 68 years old Clinical indication: Other: Hypertension; Additional info: HTN TECHNIQUE: Imaging protocol: Radiologic exam of the chest. Views: 1 view. COMPARISON: CR XR chest 1V portable [id number] 12/20/2023 7:18 AM FINDINGS: Lungs: The lungs are clear. Pleural spaces: No pneumothorax or pleural effusion. Heart/Mediastinum: Cardiomediastinal silhouette is unremarkable. Bones/joints: No acute osseous or soft tissue abnormality. XR/XR chest 1V portable [id number] IMPRESSION: No acute cardiopulmonary abnormality.
--- NOTE | 2024-05-01 12:41 | ECG_ITS ---
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 Measurements Intervals Wright Rate: 83 P: 56 OK: 165 QRS: 89 QRSD: 123 T: 19 QT: 387 QTc: 455 Interpretive Statements SINUS RHYTHM POSSIBLE LATERAL MYOCARDIAL INFARCTION , PROBABLY OLD [30 ms Q WAVE IN I/aVL/V5/V6] Compared to ECG 03/31/2024 11:45:10 Myocardial infarct finding now present Atrial abnormality no longer present T-wave abnormality no longer present Electronically Signed On 05-01-2024 17:43:49 CDT by Jose Gotti M.D. [email or web address]
[2024-05-01 13:02] LABS: Basophils # 0.1 10^3/uL (0.0-0.1); Basophils % 0.5 %; Eosinophils # 0.1 10^3/uL (0.0-0.8); Eosinophils % 0.8 %; Hematocrit 39.5 % (36-47); Lymphocytes # 3.1 10^3/uL (0.8-4.8); Lymphocytes % 31.4 %; Mean Corpuscular HGB Conc 31.9 g/dL (30-55); Mean Corpuscular Hemoglobin 27.9 pg (27-33); Mean Corpuscular Volume 87.4 fl (85-98); Mean Platelet Volume 8.5 fL (7.4-10.4); Monocytes # 0.5 10^3/uL (0.2-0.9); Monocytes % 5.4 %; Neutrophils # 6.11 10^3/uL (1.8-7.7); Neutrophils % 61.7 %; Nucleated Red Blood Cells % 0 %; Platelet Count 272 10^3/cmm (157-399); Red Blood Count 4.52 10^6/uL (3.85-5.65); Red Cell Distribution Width 15.5 % (12.1-15.1); White Blood Count 9.91 10^3/uL (3.29-11.43)
--- NOTE | 2024-05-01 13:17 | ED.C_ITS ---
HPI - Psych 2 General: Chief Complaint: Psychiatric Symptoms Stated Complaint: Depression, Anxiety, MHE Time Seen by Provider: 05/01/24 12:06 History of Present Illness: Patient presents to the ER with complaints of severe depression. Patient states she has no energy to do anything and just cannot force herself. Patient did say if she got more energy she would formulate a plan to try to commit suicide. Patient says she has suicidal thoughts currently but is has no energy to even get it done. Patient was at the [facility] on Thursday they told her to come here to be evaluated. Patient was just seen in [place] in [place] for inpatient treatment and discharge approximately month ago. But patient has not got any better. Patient does have a history of depression. Patient is on buspirone, mirtazapine, Seroquel, ropinirole, venlafaxine. Related Data Home Medications Medication Instructions Recorded Confirmed atorvastatin 40 mg tablet 20 mg PO DAILY@1700 12/10/20 05/02/24 buspirone 10 mg tablet 20 mg PO TID 12/10/20 05/02/24 multivitamin-calcium, 1 tab PO QAM 12/28/20 05/02/24 [id number] isoflavone 400 mcg-60 mg tablet (One-A-Day Menopause Formula) pantoprazole 40 mg tablet,delayed 40 mg PO QAM 12/28/20 05/02/24 release (Protonix) alendronate 35 mg tablet 35 mg PO Q7D 12/23/21 05/02/24 epinephrine 0.3 mg/0.3 mL 0.3 mg IM Q4H PRN Allergic Reaction 12/23/21 05/02/24 injection, auto-injector (EpiPen 2-Fredy) valacyclovir 1 gram tablet 1,000 mg PO BEDTIME 12/23/21 05/02/24 venlafaxine 75 mg tablet 225 mg PO BEDTIME 06/18/23 05/02/24 diphenhydramine HCl 50 mg/30 mL 50 mg PO BEDTIME PRN Sleep 05/02/24 05/02/24 oral liquid (ZzzQuil) quetiapine 200 mg tablet 100 mg PO BEDTIME 05/02/24 05/02/24 Previous Rx's Medication Instructions Recorded metoprolol tartrate 25 mg tablet 25 mg PO BID #180 tabs 01/09/21 Custom Molded Orthotics #1 ea 09/12/21 aspirin 81 mg tablet,delayed 81 mg PO DAILY #30 tabs 12/20/23 release Allergies Allergy/AdvReac Type Severity Reaction Status Date / Time Penicillins Allergy Unknown Unknown Verified 03/01/24 13:56 erythromycin base Allergy Unknown Verified 03/01/24 13:56 ceyanne pepper Allergy Unknown Uncoded 03/01/24 13:56 Review of Systems 2 General: Reports: 10 or more systems reviewed and unremarkable except in HPI and below PFSH ED 2 PFSH: Medical History PVC (premature ventricular contraction) GERD (gastroesophageal reflux disease) Hyperlipidemia PTSD (post-traumatic stress disorder) History of depression Surgical History Status post laparoscopic cholecystectomy (02/06/21) H/O esophagogastroduodenoscopy (01/31/21) gastritis Status post colonoscopy S/P bilateral breast lumpectomy Hx of hysterectomy Family History Grandfather CAD (coronary artery disease) Myocardial infarction Diabetes Mother Stroke Dementia Father Stroke Dementia Social History Smoking and tobacco/nicotine status: never used tobacco/nicotine Alcohol intake: current Alcohol intake frequency: holidays/special occasions only Substance/Drug Use: never Physical Exam 2 Const: COMMON NORMALS: no acute distress, average body habitus, patient oriented x3, no limitations, healthy appearing, alert and well nourished HENMT: COMMON NORMALS: normocephalic, atraumatic, hearing grossly normal bilaterally, external ears normal, Normal external nose present and moist oral mucous membranes HEAD & SCALP: normocephalic and atraumatic NOSE: Normal external nose present EXTERNAL EAR: Yes external ears normal Neck/C-Spine: COMMON NORMALS: no JVD Chest: COMMONS NORMALS: normal inspection of the chest and normal palpation of entire chest wall Resp: COMMON NORMALS: normal respiratory effort, No retractions, No use of accessory muscles and clear to auscultation bilaterally AUSCULTATION: clear to auscultation bilaterally Cardio: COMMON NORMALS: no JVD, regular rate, regular rhythm, S1 normal heart sound present, S2 normal heart sound present, No gallops present (Cardio), No clicks present (Cardio), No murmurs present (Cardio) and No rub (Cardio) R ATE: regular rate RHYTHM: regular rhythm HEART SOUNDS: S1 normal heart sound present and S2 normal heart sound present GI: COMMON NORMALS: Normal to inspection, nondistended, normoactive bowel sounds present, Soft to palpation, non-tender, No hepatosplenomegaly present and no masses PALPATION: Yes Soft to palpation and Yes No hepatosplenomegaly present Neuro: COMMON NORMALS: patient oriented x3 SENSORIUM/ORIENTATION: Yes alert Course 2 Vital Signs: Vital signs: Vital Signs Temperature 98.3 F 05/01/24 10:42 Pulse Rate 110 H 05/02/24 13:22 Respiratory Rate 16 05/02/24 06:00 Blood Pressure 151/84 05/02/24 13:22 Pulse Oximetry 97 05/02/24 13:22 Oxygen Delivery Me thod Room Air 05/02/24 08:00 [facility] - Psych Medical Decision Making Patient is expressing suicidal ideation, [facility] a [facility]. She does not felt that she is getting any better. She wants to go back. Once medically cleared. We will call around search for appropriate placement starting would likely. Lab Data 05/01/24 12:56 05/01/24 12:56 Radiology Impressions Chest X-Ray 05/01/24 12:32 IMPRESSION: No acute cardiopulmonary abnormality. Laboratory Results WBC 9.91 10^3/uL (3.29-11.43) 05/01/24 12:56 RBC 4.52 10^6/uL (3.85-5.65) 05/01/24 12:56 Hgb 12.60 g/dL (11.27-16.99) 05/01/24 12:56 Hct 39.5 % (36-47) 05/01/24 12:56 MCV 87.4 fl (85-98) 05/01/24 12:56 MCH 27.9 pg (27-33) 05/01/24 12:56 MCHC 31.9 g/dL (30-55) 05/01/24 12:56 RDW 15.5 % (12.1-15.1) H 05/01/24 12:56 Plt Count 272 10^3/cmm (157-399) 05/01/24 12:56 MPV 8.5 fL (7.4-10.4) 05/01/24 12:56 Neut % (Auto) 61.7 % 05/01/24 12:56 Lymph % (Auto) 31.4 % 05/01/24 12:56 [place] % (Auto) 5.4 % 05/01/24 12:56 Eos % (Auto) 0.8 % 05/01/24 12:56 Baso % (Auto) 0.5 % 05/01/24 12:56 Neut # (Auto) 6.11 10^3/uL (1.8-7.7) 05/01/24 12:56 Lymph # (Auto) 3.1 10^3/uL (0.8-4.8) 05/01/24 12:56 [place] # (Auto) 0.5 10^3/uL (0.2-0.9) 05/01/24 12:56 Eos # (Auto) 0.1 10^3/uL (0.0-0.8) 05/01/24 12:56 Baso # (Auto) 0.1 10^3/uL (0.0-0.1) 05/01/24 12:56 Nucleated RBC % (auto) 0 % 05/01/24 12:56 Nucleated RBCs # 0.0 /100WBC 05/01/24 12:56 Sodium 142 mmol/L (136-145) 05/01/24 12:56 Potassium 3.9 mmol/L (3.5-5.1) 05/01/24 12:56 Chloride 107 mmol/L (98-107) 05/01/24 12:56 Carbon Dioxide 25 mmol/L (22-29) 05/01/24 12:56 Anion Gap 13.9 (5-19) 05/01/24 12:56 BUN 12 mg/dL (8-23) 05/01/24 12:56 Creatinine 0.9 mg/dL (0.5-0.9) 05/01/24 12:56 GFR Calculation 62.3 mL/min (90-130) L 05/01/24 12:56 Glucose 88 mg/dL (65-115) 05/01/24 12:56 Calculated Osmolality 293 mOsm/kg (285-295) 05/01/24 12:56 Calcium 8.7 mg/dL (8.5-10.5) 05/01/24 12:56 Total Bilirubin 0.2 mg/dL (0.15-1.2) 05/01/24 12:56 AST 17 U/L (0-32) 05/01/24 12:56 ALT 13 U/L (0-33) 05/01/24 12:56 Alkaline Phosphatase 86 U/L (35-105) 05/01/24 12:56 Troponin T 5th Gen ng/L < 6 ng/L (0-10) 05/01/24 12:56 Total Protein 6.9 g/dL (6.6-8.7) 05/01/24 12:56 Albumin 4.3 g/dL (3.5-5.2) 05/01/24 12:56 Globulin 2.6 g/dL (1.3-4.6) 05/01/24 12:56 Vitamin B12 705 pg/mL (232-1245) 05/01/24 12:36 TSH 0.82 uIU/mL (0.27-4.20) 05/01/24 12:56 Urine Color Yellow (Yellow) 05/01/24 11:22 Urine Appearance Clear (CLEAR) 05/01/24 11:22 Urine pH 5 (5-7) 05/01/24 11:22 Ur Specific [place] 1.010 (1.005-1.030) 05/01/24 11:22 Urine Protein Neg (Negative) 05/01/24 11:22 Urine Glucose (UA) Norm (Normal) 05/01/24 11:22 Urine Ketones Negative (Negative) 05/01/24 11:22 Urine Blood Neg (Negative) 05/01/24 11:22 Urine Nitrate Negative (Negative) 05/01/24 11:22 Urine Bilirubin Neg (Negative) 05/01/24 11:22 Urine Urobilinogen Norm mg/dL (Negative) 05/01/24 11:22 Ur Leukocyte Esterase Negative (Negative) 05/01/24 11:22 Amorphous Sediment Not Reportable 05/01/24 11:22 Salicylates 1.0 mg/dL (3-10) L 05/01/24 12:56 Urine Opiates Screen Negative ng/mL (Negative) 05/01/24 11:22 Acetaminophen < 5.0 ug/mL (10-30) L 05/01/24 12:56 Ur Barbiturates Screen Negative ng/mL (Negative) 05/01/24 11:22 Ur Phencyclidine Scrn Negative ng/mL (Negative) 05/01/24 11:22 Ur Amphetamines Screen Negative ng/mL (Negative) 05/01/24 11:22 U Benzodiazepines Scrn Negative ng/mL (Negative) 05/01/24 11:22 Urine Cocaine Screen Negative ng/mL (Negative) 05/01/24 11:22 U Marijuana (THC) Screen Negative ng/mL (Negative) 05/01/24 11:22 Ethyl Alcohol < 10 mg/dL (0-10) 05/01/24 12:56 Coronavirus (PCR) Negative (Negative) 05/01/24 13:30 Influenza A (PCR) Negative (Negative) 05/01/24 13:30 Influenza Type B (PCR) Negative (Negative) 05/01/24 13:30 RSV (PCR) Negative (Negative) 05/01/24 13:30 All radiology interpretation(s) finalized by discharge Discharge Plan Discharge Patient Disposition: Xfer Psychiatric Hosp Condition: Stable Referrals: Joellen Alvarez FNP [Primary Care Provider] - Coding Level of Care Code ED Front Desk Host for Marci Quinn
[2024-05-01 13:29] LABS: Alanine Aminotransferase 13 U/L (0-33); Albumin Level 4.3 g/dL (3.5-5.2); Alkaline Phosphatase 86 U/L (35-105); Anion Gap 13.9 (5-19); Aspartate Amino Transferase 17 U/L (0-32); Blood Urea Nitrogen 12 mg/dL (8-23); Calcium 8.7 mg/dL (8.5-10.5); Carbon Dioxide 25 mmol/L (22-29); Chloride 107 mmol/L (98-107); Creatinine Clr Calc Pharmacy 57.0429; Globulin 2.6 g/dL (1.3-4.6); Glomerular Filtration Rate 62.3 mL/min (90-130); Glucose 88 mg/dL (65-115); Osmolality Calculated 293 mOsm/kg (285-295); Potassium 3.9 mmol/L (3.5-5.1); Sodium 142 mmol/L (136-145); Thyroid Stimulating Hormone 0.82 uIU/mL (0.27-4.20); Total Bilirubin 0.2 mg/dL (0.15-1.2); Total Protein 6.9 g/dL (6.6-8.7)
[2024-05-01 13:31] LABS: Acetaminophen < 5.0 ug/mL (10-30); Alcohol Level < 10 mg/dL (0-10)
--- NOTE | 2024-05-01 13:32 | PC.NURSE ---
Pt friend at bedside. Dr Benson okayed for the friend to stay with pt as they are both calm and cooperative at this time. pt in green paper scrubs and verbalized understanding of delays/process for [facility] admission.
[2024-05-01 13:47] LABS: Add Urine Microscopic? NO
[2024-05-01 13:56] LABS: Bilirubin Urine Neg (Negative); Blood Urine Neg (Negative); Charge for UA Resulting for Rev; Glucose Urine UA Norm (Normal); Ketones Urine Negative (Negative); Leukocyte Esterase Urine Negative (Negative); Nitrate Urine Negative (Negative); Protein Urine Neg (Negative); Urine Appearance Clear (CLEAR); Urine Color Yellow (Yellow); Urobilinogen Urine Norm (Negative); pH Urine 5 (5-7)
[2024-05-01 13:58] LABS: Amphetamines Screen Urine Negative (Negative); Barbiturates Screen Urine Negative (Negative); Benzodiazepines Screen Urine Negative (Negative); Cocaine Screen Urine Negative (Negative); Opiate Screen Urine Negative (Negative); PCP Screen Urine Negative (Negative); THC Screen Urine Negative (Negative)
[2024-05-01 14:08] LABS: Vitamin B12 705 pg/mL (232-1245)
[2024-05-01 14:30] LABS: Covid PCR NEGATIVE (Negative); Influenza A NEGATIVE (Negative); Influenza B NEGATIVE (Negative); Respiratory Syncytial Virus Ce NEGATIVE (Negative)
[2024-05-01 14:51] VITALS: BP 134/78; PULSE 97; O2SAT 97
[2024-05-01 18:32] LABS: Troponin T (5th) Once < 6 ng/L (0-10)
[2024-05-01 19:32] VITALS: BP 129/94; PULSE 90; RESP 16; O2SAT 99
[2024-05-01 22:24] VITALS: PULSE 98
[2024-05-01] MEDS: LORazepam 2 mg Tablet PO (22:38)
[2024-05-02 05:33] VITALS: BP 112/88; PULSE 112; RESP 16; O2SAT 96
[2024-05-02 06:00] VITALS: BP 112/88; PULSE 88; RESP 16; O2SAT 98
--- NOTE | 2024-05-02 07:24 | PC.PHAR ---
[facility] 05/02/24 7:25 am
[2024-05-02 08:00] VITALS: BP 151/84; PULSE 110; O2SAT 97
[2024-05-02 13:22] VITALS: BP 151/84; PULSE 110; O2SAT 97
== END 2024-05-02 09:00 ==
PROVIDERS: Emergency Provider Emergency Medicine; PCP Nurse Practitioner
DX: R45.851 Suicidal ideations (principal); F32.A Depression, unspecified; E78.5 Hyperlipidemia, unspecified
CPT/HCPCS: 0241U; 36415; 71045; 80053; 80306; 80307; 81003; 82607; 84443; 84484; 85025; 93005; 99285

== ENCOUNTER 2024-05-20 12:44 | Emergency (ER) | payer OTHER, MEDICARE, SELFPAY ==
[2024-05-20 12:50] VITALS: BP 140/81; PULSE 92; RESP 18; TEMP 36.8; O2SAT 97
--- NOTE | 2024-05-20 14:07 | XR_ITS ---
WS: [id number] Exam: XR chest 1V portable [id number] Date/Time of Exam: 05/20/2024 2:28 PM Reason For Exam: ams Comparison 05/01/2024. Lungs are clear and fully expanded. Normal cardiomediastinal silhouette and regional bony elements. XR/XR chest 1V portable [id number] IMPRESSION: 1. Normal chest.
[2024-05-20 15:09] LABS: Basophils # 0.1 10^3/uL (0.0-0.1); Basophils % 0.6 %; Eosinophils # 0.1 10^3/uL (0.0-0.8); Eosinophils % 0.6 %; Hematocrit 42.5 % (36-47); Lymphocytes # 2.4 10^3/uL (0.8-4.8); Lymphocytes % 26.7 %; Mean Corpuscular HGB Conc 31.3 g/dL (30-55); Mean Corpuscular Hemoglobin 27.3 pg (27-33); Mean Corpuscular Volume 87.1 fl (85-98); Mean Platelet Volume 8.5 fL (7.4-10.4); Monocytes # 0.5 10^3/uL (0.2-0.9); Monocytes % 5.2 %; Neutrophils # 5.86 10^3/uL (1.8-7.7); Neutrophils % 66.7 %; Nucleated Red Blood Cells % 0 %; Platelet Count 287 10^3/cmm (157-399); Red Blood Count 4.88 10^6/uL (3.85-5.65); Red Cell Distribution Width 14.5 % (12.1-15.1); White Blood Count 8.79 10^3/uL (3.29-11.43)
[2024-05-20 15:21] VITALS: BP 152/110; PULSE 95; RESP 16; O2SAT 94
[2024-05-20 15:27] LABS: Alanine Aminotransferase 16 U/L (0-33); Albumin Level 4.4 g/dL (3.5-5.2); Alkaline Phosphatase 105 U/L (35-105); Aspartate Amino Transferase 24 U/L (0-32); Blood Urea Nitrogen 14 mg/dL (8-23); Calcium 9.2 mg/dL (8.5-10.5); Carbon Dioxide 27 mmol/L (22-29); Chloride 104 mmol/L (98-107); Creatinine Clr Calc Pharmacy 56.7003; Globulin 2.9 g/dL (1.3-4.6); Glomerular Filtration Rate 62.3 mL/min (90-130); Glucose 93 mg/dL (65-115); Osmolality Calculated 292 mOsm/kg (285-295); Sodium 141 mmol/L (136-145); Total Bilirubin 0.2 mg/dL (0.15-1.2); Total Protein 7.3 g/dL (6.6-8.7)
--- NOTE | 2024-05-20 15:30 | W.ED.WEAKNES ---
HPI - Weakness General: Chief complaint: Weakness Stated complaint: has covid, dizzy, trouble thinking Time Seen by Provider: 05/20/24 15:02 Source: patient Mode of arrival: wheelchair Limitations: no limitations History of Present Illness: Patient is a 68-year-old female presents to ED today with a complaint of generalized weakness and dizziness. She states last week while hospitalized at [facility] for mental health, they had a COVID outbreak on the unit. Patient states they tested her for COVID and she tested positive. She did apparently receive antiviral therapy x 5 days. She reportedly had cough, muscle aches, low-grade fevers, and brain fog. Patient tells me several years ago she tested positive for COVID and has since had long-haul COVID . Patient has had multiple medical provider visits regarding her long-haul COVID symptoms. Patient feels like her new COVID has now worsened everything. She is complaining of generalized weakness and dizziness. She denies any acute neurologic deficits. She is not having any chest pain, shortness of breath, difficulty breathing. She denies ear pain, tinnitus, or hearing loss. Vital signs are completely stable upon arrival. MD Complaint: generalized weakness Onset (ago): day(s) Duration: constant Location: generalized Migration: none Severity: moderate Relieving factors: none Exacerbating factors: none Context: other (recent COVID) Associated symptoms: Denies chest pain, chills, confusion, dysuria, fever(s), headache(s), nausea or vomiting Review of Systems Const: Reports: fatigue and malaise; Denies: fever(s), chills or body aches Eyes: Denies: change in vision, blurry vision, photophobia, floaters or seeing flashes ENMT: Denies: throat pain, odynophagia, nasal discharge, nasal congestion or sinus pain Card: Denies: chest pain Resp: Denies: dyspnea GI: Denies: abdominal pain, nausea, vomiting or diarrhea : Denies: flank pain, difficulty voiding, dysuria, urinary frequency, urinary urgency or urinary hesitancy Musc: Denies: neck pain, back pain, extremity pain, extremity swelling, joint pain or joint swelling Skin/Breast: Denies: rash Neuro: Reports: difficulty walking (secondary to weakness) and dizziness; Denies: headache(s), numbness in extremities, weakness in extremities, sensory changes, lack of coordination, confusion, behavioral changes, Slurred speech present, difficulty communicating thoughts or seizure-like activity PFSH ED PFSH: Medical History PVC (premature ventricular contraction) GERD (gastroesophageal reflux disease) Hyperlipidemia PTSD (post-traumatic stress disorder) History of depression Surgical History Status post laparoscopic cholecystectomy (02/06/21) H/O esophagogastroduodenoscopy (01/31/21) gastritis Status post colonoscopy S/P bilateral breast lumpectomy Hx of hysterectomy Family History Grandfather CAD (coronary artery disease) Myocardial infarction Diabetes Mother Stroke Dementia Father Stroke Dementia Social History Smoking and tobacco/nicotine status: never used tobacco/nicotine Alcohol intake: current Alcohol intake frequency: holidays/special occasions only Substance/Drug Use: never Physical Exam Const: COMMON NORMALS: no acute distress, average body habitus, patient oriented x3, no limitations, healthy appearing, alert and well nourished GENERAL APPEARANCE: cooperative ORIENTATION/CONSCIOUSNESS: Yes awake, Yes oriented to person, Yes oriented to place and Yes oriented to time HENMT: COMMON NORMALS: normocephalic and atraumatic HEAD & SCALP: normal to inspection, normocephalic and atraumatic FACE & SINUS: normal facial exam, sinuses nontender and face symmetric Eye: COMMON NORMALS: Equal, round and reactive pupils present and EOMs intact bilaterally GENERAL EYE: appearance normal, both eyes and all related structures and normal light reflex PUPIL: Yes Equal, round and reactive pupils present DIRECT OPHTHALMOSCOPY: Yes normal light reflex OTHER: no nystagmus Neck/C-Spine: COMMON NORMALS: full ROM, no lymphadenopathy and no meningeal signs GENERAL: Yes normal visual inspection Resp: COMMON NORMALS: normal respiratory effort and clear to auscultation bilaterally AUSCULTATION: clear to auscultation bilaterally Cardio: COMMON NORMALS: regular rate and regular rhythm RATE: regular rate RHYTHM: regular rhythm Extremity: GENERAL: Yes normal exam except as noted Neuro: ELIZABETH COMA SCALE: document GCS findings [place] coma scale eye opening: Spontaneous Elizabeth coma scale verbal response: Orientated [place] coma scale motor response: Obey commands [place] coma scale total score: 15 COMMON NORMALS: patient oriented x3, CN's II-XII intact bilaterally, moves all extremities, no focal motor deficits and no sensory deficits noted SENSORIUM/ORIENTATION: Yes alert, Yes oriented to person, Yes oriented to place and Yes oriented to time MENINGEAL SIGNS: Yes no meningeal signs Skin: COMMON NORMALS: no rashes or lesions noted GENERAL SKIN EXAM: no rashes or lesions noted Course Vital Signs: Vital signs: Vital Signs Temperature 98.3 F 05/20/24 12:50 Pulse Rate 79 05/20/24 16:01 Respiratory Rate 16 05/20/24 16:01 Blood Pressure 152/77 05/20/24 16:01 Pulse Oximetry 97 05/20/24 16:01 Oxygen Delivery Me thod Room Air 05/20/24 16:01 MDM - Weakness Medical Decision Making Patient appears in absolutely no acute distress. Her vital signs are stable. Blood work here overall is unremarkable apart from a CPK of 397. She was given a 1.5 liter of fluids and will be discharged home. Recommendation to continue fluids at home. She can follow-up with primary care early next week. She was ambulatory here without difficulty or assistance. Medical Records I reviewed the patient's medical records. Lab Data I reviewed the patient's lab results. 05/20/24 15:04 05/20/24 15:04 Radiology Impressions Chest X-Ray 05/20/24 14:07 IMPRESSION: 1. Normal chest. Laboratory Results WBC 8.79 10^3/uL (3.29-11.43) 05/20/24 15:04 RBC 4.88 10^6/uL (3.85-5.65) 05/20/24 15:04 Hgb 13.30 g/dL (11.27-16.99) 05/20/24 15:04 Hct 42.5 % (36-47) 05/20/24 15:04 MCV 87.1 fl (85-98) 05/20/24 15:04 MCH 27.3 pg (27-33) 05/20/24 15:04 MCHC 31.3 g/dL (30-55) 05/20/24 15:04 RDW 14.5 % (12.1-15.1) 05/20/24 15:04 Plt Count 287 10^3/cmm (157-399) 05/20/24 15:04 MPV 8.5 fL (7.4-10.4) 05/20/24 15:04 Neut % (Auto) 66.7 % 05/20/24 15:04 Lymph % (Auto) 26.7 % 05/20/24 15:04 [place] % (Auto) 5.2 % 05/20/24 15:04 Eos % (Auto) 0.6 % 05/20/24 15:04 Baso % (Auto) 0.6 % 05/20/24 15:04 Neut # (Auto) 5.86 10^3/uL (1.8-7.7) 05/20/24 15:04 Lymph # (Auto) 2.4 10^3/uL (0.8-4.8) 05/20/24 15:04 [place] # (Auto) 0.5 10^3/uL (0.2-0.9) 05/20/24 15:04 Eos # (Auto) 0.1 10^3/uL (0.0-0.8) 05/20/24 15:04 Baso # (Auto) 0.1 10^3/uL (0.0-0.1) 05/20/24 15:04 Nucleated RBC % (auto) 0 % 05/20/24 15:04 Nucleated RBCs # 0.0 /100WBC 05/20/24 15:04 Sodium 141 mmol/L (136-145) 05/20/24 15:04 Potassium 4.0 mmol/L (3.5-5.1) 05/20/24 15:04 Chloride 104 mmol/L (98-107) 05/20/24 15:04 Carbon Dioxide 27 mmol/L (22-29) 05/20/24 15:04 Anion Gap 14.0 (5-19) 05/20/24 15:04 BUN 14 mg/dL (8-23) 05/20/24 15:04 Creatinine 0.9 mg/dL (0.5-0.9) 05/20/24 15:04 GFR Calculation 62.3 mL/min (90-130) L 05/20/24 15:04 Glucose 93 mg/dL (65-115) 05/20/24 15:04 Calculated Osmolality 292 mOsm/kg (285-295) 05/20/24 15:04 Calcium 9.2 mg/dL (8.5-10.5) 05/20/24 15:04 Total Bilirubin 0.2 mg/dL (0.15-1.2) 05/20/24 15:04 AST 24 U/L (0-32) 05/20/24 15:04 ALT 16 U/L (0-33) 05/20/24 15:04 Alkaline Phosphatase 105 U/L (35-105) 05/20/24 15:04 Creatine Kinase 397 U/L (26-192) H* 05/20/24 15:04 Total Protein 7.3 g/dL (6.6-8.7) 05/20/24 15:04 Albumin 4.4 g/dL (3.5-5.2) 05/20/24 15:04 Globulin 2.9 g/dL (1.3-4.6) 05/20/24 15:04 Urine Color Yellow (Yellow) 05/20/24 16:06 Urine Appearance Clear (CLEAR) 05/20/24 16:06 Urine pH 5.5 (5-7) 05/20/24 16:06 Ur Specific [place] 1.010 (1.005-1.030) 05/20/24 16:06 Urine Protein Negative (Negative) 05/20/24 16:06 Urine Glucose (UA) Negative (Normal) 05/20/24 16:06 Urine Ketones Negative (Negative) 05/20/24 16:06 Urine Blood Negative (Negative) 05/20/24 16:06 Urine Nitrate Negative (Negative) 05/20/24 16:06 Urine Bilirubin Negative (Negative) 05/20/24 16:06 Urine Urobilinogen 0.2 mg/dL (Negative) 05/20/24 16:06 Ur Leukocyte Esterase Trace (Negative) A 05/20/24 16:06 Urine RBC 0-2 /hpf (0-2) 05/20/24 16:06 Urine WBC 6-10 /hpf (0-5) 05/20/24 16:06 Ur Squamous Epith Cells 0-5 /hpf (0-5) 05/20/24 16:06 Amorphous Sediment Not Reportable 05/20/24 16:06 Urine Bacteria None seen /hpf (NONE) 05/20/24 16:06 Hyaline Casts 0-4 /lpf H 05/20/24 16:06 All radiology interpretation(s) finalized by discharge Discharge Plan Discharge Patient Disposition: Home Clinical Impression: COVID Condition: Stable Prescriptions: No Action (DME) Custom Molded Orthotics See Rx Instructions .Route .MEDSUPPLY Qty: 1 0RF Rx Instructions: As directed metoprolol tartrate 25 mg tablet 25 mg PO BID Qty: 180 3RF atorvastatin 40 mg tablet 20 mg PO DAILY@1700 buspirone 10 mg tablet 20 mg PO TID pantoprazole [Protonix] 40 mg Tablet,Delayed Release (Dr/Ec) 40 mg PO QAM One-A-Day Menopause Formula 400-60 mcg-mg Tablet 1 tab PO QAM valacyclovir 1 gram Tablet 1,000 mg PO BEDTIME alendronate 35 mg Tablet 35 mg PO Q7D Rx Instructions: ON THURSDAY epinephrine [EpiPen 2-Fredy] 0.3 mg/0.3 mL Auto-Injector 0.3 mg IM Q4H PRN (Reason: Allergic Reaction) venlafaxine 75 mg Tablet 225 mg PO BEDTIME aspirin 81 mg tablet,delayed release (DR/EC) 81 mg PO DAILY Qty: 30 0RF quetiapine 200 mg Tablet 100 mg PO BEDTIME ZzzQuil 50 mg/30 mL Liquid 50 mg PO BEDTIME PRN (Reason: Sleep) Discharge Orders: Discharge ED (Routine); Ordered 05/20/24 Ordered By: Angella Todd Referrals: Joellen Alvarez, TOTER [Primary Care Provider] - Activity Restrictions/Additional Instructions: As we discussed, continue fluid intake at home over the weekend. Please follow-up with primary care for further evaluation next week. You may return to the emergency department for worsening weakness, dizziness, severe muscle pain/weakness/cramps, generally feeling worse or unwell, or any other concerns you may have. Hope you begin to feel better soon. Coding Level of Care Code ED Submarine Advisory Team Watch Officer for Marci Fwd Related Data Home Medications Medication Instructions Recorded Confirmed atorvastatin 40 mg tablet 20 mg PO DAILY@1700 12/10/20 05/02/24 buspirone 10 mg tablet 20 mg PO TID 12/10/20 05/02/24 multivitamin-calcium, 1 tab PO QAM 12/28/20 05/02/24 [id number] isoflavone 400 mcg-60 mg tablet (One-A-Day Menopause Formula) pantoprazole 40 mg tablet,delayed 40 mg PO QAM 12/28/20 05/02/24 release (Protonix) alendronate 35 mg tablet 35 mg PO Q7D 12/23/21 05/02/24 epinephrine 0.3 mg/0.3 mL 0.3 mg IM Q4H PRN Allergic Reaction 12/23/21 05/02/24 injection, auto-injector (EpiPen 2-Fredy) valacyclovir 1 gram tablet 1,000 mg PO BEDTIME 12/23/21 05/02/24 venlafaxine 75 mg tablet 225 mg PO BEDTIME 06/18/23 05/02/24 diphenhydramine HCl 50 mg/30 mL 50 mg PO BEDTIME PRN Sleep 05/02/24 05/02/24 oral liquid (ZzzQuil) quetiapine 200 mg tablet 100 mg PO BEDTIME 05/02/24 05/02/24 Previous Rx's Medication Instructions Recorded metoprolol tartrate 25 mg tablet 25 mg PO BID #180 tabs 01/09/21 Custom Molded Orthotics #1 ea 09/12/21 aspirin 81 mg tablet,delayed 81 mg PO DAILY #30 tabs 12/20/23 release Allergies Allergy/AdvReac Type Severity Reaction Status Date / Time Penicillins Allergy Unknown Unknown Verified 05/20/24 12:55 cayenne Allergy Unknown Verified 05/20/24 12:55 erythromycin base Allergy Unknown Verified 05/20/24 12:55
[2024-05-20 15:54] LABS: Creatine Phosphokinase 397 U/L (26-192)
[2024-05-20] MEDS: sodium chloride 0.9% 1,000 ML 999 ML IV (15:57)
[2024-05-20] MEDS: meclizine 25 mg tablet 50 MG PO (15:57)
[2024-05-20 16:01] VITALS: BP 152/77; PULSE 79; RESP 16; O2SAT 97
[2024-05-20] MEDS: sodium chloride 0.9% 500 ML IV (16:10)
[2024-05-20 16:16] LABS: Bilirubin Urine Negative (Negative); Blood Urine Negative (Negative); Glucose Urine UA Negative (Normal); Ketones Urine Negative (Negative); Leukocyte Esterase Urine Trace (Negative); Nitrate Urine Negative (Negative); Protein Urine Negative (Negative); Urine Appearance Clear (CLEAR); Urine Color Yellow (Yellow); Urobilinogen Urine 0.2 mg/dL (Negative); pH Urine 5.5 (5-7)
[2024-05-20 16:19] LABS: Add Urine Microscopic? YES; Bacteria Urine None Seen /hpf; Hyaline Casts Urine 0-4 /lpf; RBC Urine 0-2 /hpf (0-2); Squamous Epithelial Cell Urine 0-5 /hpf (0-5)
[2024-05-20 18:28] VITALS: BP 152/77; PULSE 86; RESP 16; O2SAT 95
[2024-05-20 18:30] VITALS: BP 152/77; PULSE 86; RESP 16; O2SAT 95
== END 2024-05-20 18:37 | disposition home or self-care (01) ==
PROVIDERS: Emergency Provider Physician Assistant; PCP Nurse Practitioner
DX: U07.1 COVID-19 (principal); Z79.82 Long term (current) use of aspirin; E78.5 Hyperlipidemia, unspecified
CPT/HCPCS: 36415; 71045; 80053; 81001; 82550; 85025; 99284; J7030; J7040; J8597

== ENCOUNTER 2024-05-26 16:33 | Emergency (ER) | payer OTHER, MEDICARE, SELFPAY ==
[2024-05-26 16:40] VITALS: BP 116/60; PULSE 86; RESP 17; TEMP 37; O2SAT 97; BMI 25.7
--- NOTE | 2024-05-26 17:40 | CTR_ITS ---
PROCEDURE INFORMATION: Exam: CT Thoracic Spine Without Contrast Exam date and time: 05/26/2024 6:18 PM Age: 68 years old Clinical indication: Injury or trauma; Fall; Blunt trauma (contusions or hematomas); Additional info: Fall/pain TECHNIQUE: Imaging protocol: Computed tomography of the thoracic spine without contrast. Radiation optimization: All CT scans at this facility use at least one of these dose optimization techniques: automated exposure control; mA and/or kV adjustment per patient size (includes targeted exams where dose is matched to clinical indication); or iterative reconstruction. COMPARISON: CT lumbar spine wo con* [id number] 05/26/2024 6:18 PM RADIATION DOSE METRICS: Total DLP (mGy-cm): 1151 FINDINGS: Bones/joints: [id number] multilevel degenerative endplate osteophytosis in the thoracic spine. No acute fracture or significant vertebral height loss. No significant disc space narrowing. Mild thoracic kyphosis. Soft tissues: Unremarkable. Vasculature: Mild aneurysmal dilatation of the ascending thoracic aorta up to 4.2 cm. Lungs: Mild bibasilar subpleural streak like atelectasis. Small calcified right lower lobe granuloma. Liver: A few hypodense liver lesions are noted up to 1.5 cm, compatible with cysts. Gallbladder and biliary ducts: Cholecystectomy clips appear to be present. CT/CT thoracic spin wo con* [id number] IMPRESSION: 1. No acute fracture or traumatic malalignment. Mild thoracic spondylosis. 2. Mild aneurysmal dilatation of the thoracic aorta. Other incidental findings detailed above.
--- NOTE | 2024-05-26 17:40 | CTR_ITS ---
PROCEDURE INFORMATION: Exam: CT Cervical Spine Without Contrast Exam date and time: 05/26/2024 6:18 PM Age: 68 years old Clinical indication: Injury or trauma; Fall; Blunt trauma; Additional info: Fall/pain TECHNIQUE: Imaging protocol: Computed tomography of the cervical spine without contrast. Radiation optimization: All CT scans at this facility use at least one of these dose optimization techniques: automated exposure control; mA and/or kV adjustment per patient size (includes targeted exams where dose is matched to clinical indication); or iterative reconstruction. COMPARISON: CT thoracic spin wo con* [id number] 05/26/2024 6:18 PM RADIATION DOSE METRICS: Total DLP (mGy-cm): 913 FINDINGS: Bones: No acute fracture. Normal alignment. No significant disc bulge or herniation. No severe spinal canal stenosis. No significant neural foraminal narrowing. Lungs: Lung apices are normal. Soft tissues: Unremarkable. CT/CT cervical spin wo con* [id number] IMPRESSION: No acute findings.
--- NOTE | 2024-05-26 17:40 | CTR_ITS ---
PROCEDURE INFORMATION: Exam: CT Head Without Contrast Exam date and time: 05/26/2024 6:18 PM Age: 68 years old Clinical indication: Injury or trauma; Fall; Blunt trauma (contusions or hematomas); Additional info: Fall/nausea and vomiting since TECHNIQUE: Imaging protocol: Computed tomography of the head without contrast. Radiation optimization: All CT scans at this facility use at least one of these dose optimization techniques: automated exposure control; mA and/or kV adjustment per patient size (includes targeted exams where dose is matched to clinical indication); or iterative reconstruction. COMPARISON: MR head wo/w con [id number] 01/08/2022 11:25 AM RADIATION DOSE METRICS: Total DLP (mGy-cm): 1151 FINDINGS: Brain: No hemorrhage. No edema. Moderate diffuse cerebral atrophy. Old lacunar infarct noted in the left basal ganglia. No mass effect. Cerebral ventricles: No ventriculomegaly. Paranasal sinuses: Visualized sinuses are unremarkable. No fluid levels. Mastoid air cells: Visualized mastoid air cells are well aerated. Bones: Unremarkable. No acute fracture. Soft tissues: Unremarkable. CT/CT head wo con* [id number] IMPRESSION: No acute intracranial abnormality.
--- NOTE | 2024-05-26 17:40 | CTR_ITS ---
PROCEDURE INFORMATION: Exam: CT Lumbar Spine Without Contrast Exam date and time: 05/26/2024 6:18 PM Age: 68 years old Clinical indication: Injury or trauma; Fall; Blunt trauma (contusions or hematomas); Additional info: Fall/pain TECHNIQUE: Imaging protocol: Computed tomography of the lumbar spine without contrast. Radiation optimization: All CT scans at this facility use at least one of these dose optimization techniques: automated exposure control; mA and/or kV adjustment per patient size (includes targeted exams where dose is matched to clinical indication); or iterative reconstruction. COMPARISON: CR XR lumbar spine 2-3V* [id number] 08/13/2021 4:54 PM RADIATION DOSE METRICS: Total DLP (mGy-cm): 913 FINDINGS: Bones/joints: Mild annular disc bulges most pronounced at L4-L5 and L5-S1 with mild canal and subarticular stenosis and slight foraminal stenosis especially at L4-L5. No fracture, significant vertebral height loss, wedge compression or listhesis. Mild degenerative anterior endplate osteophytosis. [id number] facet arthropathy especially at L5-S1. Soft tissues: Unremarkable. CT/CT lumbar spine wo con* [id number] IMPRESSION: No acute fracture or traumatic malalignment.
--- NOTE | 2024-05-26 17:48 | ED_ITS ---
HPI - Back Pain/Injury General: Chief Complaint: Back Pain/Injury Stated Complaint: fall Time Seen by Provider: 05/26/24 17:27 Source: patient Mode of arrival: EMS Limitations: no limitations History of Present Illness: Patient is a 68-year-old female presenting to the emergency department for a fall about 30 minutes prior to arrival. She states she was kneeling down and was on her phone, stood up suddenly and got dizzy and fell to the ground. She is reporting pain to her left neck and head, as well as diffusely throughout her spine. She states she is on an aspirin, no blood thinners. She is actively nauseous and dry heaving here in the emergency department at this time, denying any neurological deficits. She does report a history of vestibular dysfunction and states she is always dizzy. She also notes she has been falling more frequently recently. Her vitals unremarkable at this time, but she does appear uncomfortable on physical examination. No other injuries. No loss of consci ousness. Was able to ambulate after the incident and get up after the fall. MD elicited complaint: back pain, fall and other (Head/neck pain) Onset (ago): minute(s) Context: fall Associated symptoms: Reports nausea and vomiting; Deny abdominal pain, chills, dysuria, fatigue or fever(s) Related Data Home Medications Medication Instructions Recorded Confirmed atorvastatin 40 mg tablet 20 mg PO DAILY@1700 12/10/20 05/02/24 buspirone 10 mg tablet 20 mg PO TID 12/10/20 05/02/24 multivitamin-calcium, 1 tab PO QAM 12/28/20 05/02/24 [id number] isoflavone 400 mcg-60 mg tablet (One-A-Day Menopause Formula) pantoprazole 40 mg tablet,delayed 40 mg PO QAM 12/28/20 05/02/24 release (Protonix) alendronate 35 mg tablet 35 mg PO Q7D 12/23/21 05/02/24 epinephrine 0.3 mg/0.3 mL 0.3 mg IM Q4H PRN Allergic Reaction 12/23/21 05/02/24 injection, auto-injector (EpiPen 2-Fredy) valacyclovir 1 gram tablet 1,000 mg PO BEDTIME 12/23/21 05/02/24 venlafaxine 75 mg tablet 225 mg PO BEDTIME 06/18/23 05/02/24 diphenhydramine HCl 50 mg/30 mL 50 mg PO BEDTIME PRN Sleep 05/02/24 05/02/24 oral liquid (ZzzQuil) quetiapine 200 mg tablet 100 mg PO BEDTIME 05/02/24 05/02/24 Previous Rx's Medication Instructions Recorded metoprolol tartrate 25 mg tablet 25 mg PO BID #180 tabs 01/09/21 Custom Molded Orthotics #1 ea 09/12/21 aspirin 81 mg tablet,delayed 81 mg PO DAILY #30 tabs 12/20/23 release Allergies Allergy/AdvReac Type Severity Reaction Status Date / Time Penicillins Allergy Unknown Unknown Verified 05/20/24 12:55 [email or web address] Allergy Unknown Verified 05/20/24 12:55 erythromycin base Allergy Unknown Verified 05/20/24 12:55 Review of Systems General: Reports: 10 or more systems reviewed and unremarkable except in HPI and below Const: Reports: other (Fall); Denies: fever(s), chills or fatigue Eyes: Denies: change in vision ENMT: Denies: throat pain, ear or mastoid pain or nasal discharge Card: Denies: chest pain, palpitations, swelling of feet/ankles or lightheadedness Resp: Denies: dyspnea, productive cough or wheezing GI: Reports: nausea and vomiting; Denies: abdominal pain, diarrhea or constipation : Denies: flank pain, difficulty voiding, dysuria or urinary frequency Musc: Reports: neck pain and back pain; Denies: joint pain Skin/Breast: Denies: rash Neuro: Reports: headache(s); Denies: numbness in extremities or weakness in extremities PFSH ED PFSH: Medical History PVC (premature ventricular contraction) GERD (gastroesophageal reflux disease) Hyperlipidemia PTSD (post-traumatic stress disorder) History of depression Surgical History Status post laparoscopic cholecystectomy (02/06/21) H/O esophagogastroduodenoscopy (01/31/21) gastritis Status post colonoscopy S/P bilateral breast lumpectomy Hx of hysterectomy Family History Grandfather CAD (coronary artery disease) Myocardial infarction Diabetes Mother Stroke Dementia Father Stroke Dementia Social History Smoking and tobacco/nicotine status: never used tobacco/nicotine Alcohol intake: current Alcohol intake frequency: holidays/special occasions only Substance/Drug Use: never Physical Exam Const: COMMON NORMALS: patient oriented x3 and no limitations GENERAL APPEARANCE: cooperative and well developed ORIENTATION/CONSCIOUSNESS: Yes awake, Yes oriented to person, Yes oriented to place and Yes oriented to time OTHER: Actively dry heaving at time of examination, is not providing much history HENMT: COMMON NORMALS: normocephalic, atraumatic, hearing grossly normal bilaterally and moist oral mucous membranes HEAD & SCALP: normocephalic and atraumatic; no Tenorio's sign, no hematoma, no laceration, no palpable skull fracture, no raccoon eyes and no scalp lesion FACE & SINUS: normal facial exam OTHER: There is no outward evidence of an acute head injury Eye: COMMON NORMALS: Equal, round and reactive pupils present, EOMs intact bilaterally and conjunctivae normal CONJUNCTIVA: Yes conjunctivae normal PUPIL: Yes Equal, round and reactive pupils present Neck/C-Spine: COMMON NORMALS: full ROM, supple and no JVD OTHER: Tenderness to palpation of the left lateral neck muscles, no cervical spinous process tenderness Resp: COMMON NORMALS: normal respiratory effort, No retractions, No use of accessory muscles and clear to auscultation bilaterally AUSCULTATION: clear to auscultation bilaterally Cardio: COMMON NORMALS: no JVD, regular rate, regular rhythm, No clicks present (Cardio), No murmurs present (Cardio) and No rub (Cardio) RATE: regular rate RHYTHM: regular rhythm Back/Pelvis: COMMON NORMALS: thoracic and lumbar spine normal to inspection and no thoracic nor lumbar tenderness OTHER: No step-off deformity or reproducible tenderness to palpation of patient's thoracic and lumbar back. Pain with active range of motion. Extremity: COMMON NORMALS: normal to inspection, full ROM and capillary refill normal Neuro: COMMON NORMALS: patient oriented x3, CN's II-XII intact bilaterally, moves all extremities, no focal motor deficits and no sensory deficits noted SENSORIUM/ORIENTATION: Yes oriented to person, Yes oriented to place and Yes oriented to time Psych: COMMON NORMALS: mental status grossly normal and Normal thought process present THOUGHT PROCESS: Normal thought process present Skin: COMMON NORMALS: no rashes or lesions noted GENERAL SKIN EXAM: no rashes or lesions noted Course Vital Signs: Vital signs: Vital Signs Temperature 98.6 F 05/26/24 16:40 Pulse Rate 90 05/26/24 20:00 Respiratory Rate 18 05/26/24 18:40 Blood Pressure 127/74 05/26/24 20:00 Pulse Oximetry 96 05/26/24 20:00 Oxygen Delivery Me thod Room Air 05/26/24 18:40 MDM - Back Pain/Injury Medical Decision Making Patient presented by ambulance for a fall and unknown head injury. At time of examination she was dry heaving. A CT head and neck was negative, as well as a CT thoracic and lumbar spine. On thoracic CT there was some dilatation of aorta , did instruct patient to follow-up for this. She does note she has a follow-up tomorrow with [facility]. And will discuss this then. She does feel better after receiving pain medication here, and return precautions given. Labs Radiology Impressions Cervical Spine CT 05/26/24 17:40 IMPRESSION: No acute findings. Head CT 05/26/24 17:40 IMPRESSION: No acute intracranial abnormality. Lumbar Spine CT 05/26/24 17:40 IMPRESSION: No acute fracture or traumatic malalignment. Thoracic Spine CT 05/26/24 17:40 IMPRESSION: 1. No acute fracture or traumatic malalignment. Mild thoracic spondylosis. 2. Mild aneurysmal dilatation of the thoracic aorta. Other incidental findings detailed above. All radiology interpretation(s) finalized by discharge Discharge Plan Discharge Patient Disposition: Home Clinical Impression: Fall Qualifiers: Encounter type: initial encounter Qualified Code(s): W19.XXXA - Unspecified fall, initial encounter Acute strain of neck muscle Qualifiers: Encounter type: initial encounter Qualified Code(s): S16.1XXA - Strain of muscle, fascia and tendon at neck level, initial encounter Contusion of lower back Qualifiers: Encounter type: initial encounter Qualified Code(s): S30.0XXA - Contusion of lower back and pelvis, initial encounter Condition: Stable Prescriptions: No Action (DME) Custom Molded Orthotics See Rx Instructions .Route .[facility] Qty: 1 0RF Rx Instructions: As directed metoprolol tartrate 25 mg tablet 25 mg PO BID Qty: 180 3RF atorvastatin 40 mg tablet 20 mg PO DAILY@1700 buspirone 10 mg tablet 20 mg PO TID pantoprazole [Protonix] 40 mg Tablet,Delayed Release (Dr/Ec) 40 mg PO QAM One-A-Day Menopause Formula 400-60 mcg-mg Tablet 1 tab PO QAM valacyclovir 1 gram Tablet 1,000 mg PO BEDTIME alendronate 35 mg Tablet 35 mg PO Q7D Rx Instructions: ON THURSDAY epinephrine [EpiPen 2-Fredy] 0.3 mg/0.3 mL Auto-Injector 0.3 mg IM Q4H PRN (Reason: Allergic Reaction) venlafaxine 75 mg Tablet 225 mg PO BEDTIME aspirin 81 mg tablet,delayed release (DR/EC) 81 mg PO DAILY Qty: 30 0RF quetiapine 200 mg Tablet 100 mg PO BEDTIME ZzzQuil 50 mg/30 mL Liquid 50 mg PO BEDTIME PRN (Reason: Sleep) Discharge Orders: Discharge ED (Routine); Ordered 05/26/24 Ordered By: Shon Underwood Referrals: Joellen Alvarez FNP [Primary Care Provider] - Patient Instructions: Cervical Strain (ED), Fall Prevention (ED), Pain Management Activity Restrictions/Additional Instructions: Apply heat to your neck and back, take ibuprofen and Tylenol. Gentle range of motion exercises of your neck as tolerated. Follow-up with your primary care provider. Please return with any new or worsening symptoms. Coding Level of Care Code ED Production Line Operator for Marci Quinn
[2024-05-26] MEDS: ondansetron 2 mg/ML SDV 2 mL 4 MG IM (17:54)
[2024-05-26 18:40] VITALS: BP 153/77; PULSE 97; RESP 18; O2SAT 95
[2024-05-26 20:00] VITALS: BP 127/74; PULSE 90; O2SAT 96
[2024-05-26 20:44] VITALS: BP 142/80; PULSE 94; O2SAT 94
== END 2024-05-26 20:35 | disposition home or self-care (01) ==
PROVIDERS: Emergency Provider Physician Assistant; PCP Nurse Practitioner
DX: S16.1XXA Strain of muscle, fascia and tendon at neck level, initial encounter (principal); S30.0XXA Contusion of lower back and pelvis, initial encounter; Z79.82 Long term (current) use of aspirin; E78.5 Hyperlipidemia, unspecified; W18.39XA Other fall on same level, initial encounter
CPT/HCPCS: 70450; 72125; 72128; 72131; 96372; 99284; J2405

== ENCOUNTER 2024-09-12 12:58 | Emergency (ER) | payer OTHER, MEDICARE, SELFPAY ==
--- NOTE | 2024-09-12 13:03 | ECG_ITS ---
[email or web address] Test Date: 2024-09-12 Pat Name: Natasha Wharton Department: Room: Gender: Female Retirement Benefits Specialist: : 1955 Requested By: Alexis Bray Order Number: [id number] Rajni MD: Jose Gotti M.D. Measurements Intervals [place] Rate: 84 P: 69 NH: 152 QRS: 97 QRSD: 105 T: 65 QT: 391 QTc: 465 Interpretive Statements SINUS RHYTHM POSSIBLE LEFT ATRIAL ENLARGEMENT [-0.1mV P-WAVE IN V1/V2] BORDERLINE RIGHT AXIS DEVIATION [QRS AXIS > 90] Compared to ECG 05/01/2024 12:41:32 Myocardial infarct finding no longer present Electronically Signed On 09-15-2024 12:41:52 TILE DECORATOR by Jose Gotti M.D. [id number]
[2024-09-12 13:07] VITALS: BP 162/77; PULSE 88; RESP 17; TEMP 37.1; O2SAT 98; BMI 25.7
[2024-09-12 15:51] LABS: Basophils # 0.1 10^3/uL (0.0-0.1); Basophils % 0.7 %; Eosinophils # 0.1 10^3/uL (0.0-0.8); Eosinophils % 0.7 %; Lymphocytes # 2.7 10^3/uL (0.8-4.8); Lymphocytes % 25.1 %; Mean Corpuscular Hemoglobin 25.8 pg (27-33); Mean Corpuscular Volume 86.1 fl (85-98); Mean Platelet Volume 8.5 fL (7.4-10.4); Monocytes # 0.6 10^3/uL (0.2-0.9); Monocytes % 5.8 %; Neutrophils # 7.24 10^3/uL (1.8-7.7); Neutrophils % 67.4 %; Nucleated Red Blood Cells % 0 %; Platelet Count 450 10^3/cmm (157-399); Red Blood Count 4.53 10^6/uL (3.85-5.65); Red Cell Distribution Width 14.8 % (12.1-15.1); White Blood Count 10.73 10^3/uL (3.29-11.43)
--- NOTE | 2024-09-12 16:09 | CTR_ITS ---
PROCEDURE INFORMATION: Exam: CT Head Without Contrast Exam date and time: 09/12/2024 4:28 PM Age: 68 years old Clinical indication: Dizziness TECHNIQUE: Imaging protocol: Computed tomography of the head without contrast. Radiation optimization: All CT scans at this facility use at least one of these dose optimization techniques: automated exposure control; mA and/or kV adjustment per patient size (includes targeted exams where dose is matched to clinical indication); or iterative reconstruction. COMPARISON: CT head wo con* [id number] 05/26/2024 6:18 PM RADIATION DOSE METRICS: Total DLP (mGy-cm): 1066.24 FINDINGS: Brain: No acute intracranial hemorrhage. No confluent lobar infarct. No mass effect. Stable left basal ganglia lacune versus prominent perivascular space. Cerebral ventricles: The ventricles and sulci are normal in size and shape for the patient's stated age. Paranasal sinuses: No fluid levels. Mastoid air cells: Visualized mastoid air cells are well aerated. Bones: No acute calvarial fracture. Soft tissues: Visualized soft tissues are unremarkable. CT/CT head wo con* [id number] IMPRESSION: No acute intracranial abnormality. If symptoms persist, consider further evaluation with MRI, if there are no contraindications to obtaining a MRI scan.
[2024-09-12 16:10] VITALS: BP 179/69; PULSE 89; O2SAT 96
--- NOTE | 2024-09-12 16:14 | ED_ITS ---
HPI - Dizziness 2 General: Chief Complaint: Dizziness Stated Complaint: dizzy, swollen feet and hands Time Seen by Provider: 09/12/24 15:55 Source: patient Mode of arrival: ambulatory Limitations: no limitations History of Present Illness: HPI Narrative: 68-year-old female is here with multiple complaints she states she has been having tongue pain for years also chronic dizziness for years and swelling in her hands and feet. States that her tongue pain is worse and she is not seen on for this states her dizziness is also worsened at times as well but has been chronic. She denies any slurred speech denies any vomiting or diarrhea denies any chest pain Associated symptoms: Denies chest pain, chills, headache(s), nausea or vomiting Related Data Home Medications Medication Instructions Recorded Confirmed atorvastatin 40 mg tablet 20 mg PO DAILY@1700 12/10/20 09/12/24 buspirone 10 mg tablet 20 mg PO TID 12/10/20 09/12/24 multivitamin-calcium, 1 tab PO QAM 12/28/20 09/12/24 [id number] isoflavone 400 mcg-60 mg tablet (One-A-Day Menopause Formula) pantoprazole 40 mg tablet,delayed 40 mg PO QAM 12/28/20 09/12/24 release (Protonix) alendronate 35 mg tablet 35 mg PO Q7D 12/23/21 09/12/24 epinephrine 0.3 mg/0.3 mL 0.3 mg IM Q4H PRN Allergic Reaction 12/23/21 09/12/24 injection, auto-injector (EpiPen 2-Fredy) valacyclovir 1 gram tablet 1,000 mg PO BEDTIME 12/23/21 09/12/24 venlafaxine 75 mg tablet 225 mg PO BEDTIME 06/18/23 09/12/24 diphenhydramine HCl 50 mg/30 mL 50 mg PO BEDTIME PRN Sleep 05/02/24 09/12/24 oral liquid (ZzzQuil) quetiapine 200 mg tablet 100 mg PO BEDTIME 05/02/24 09/12/24 Previous Rx's Medication Instructions Recorded metoprolol tartrate 25 mg tablet 25 mg PO BID #180 tabs 01/09/21 Custom Molded Orthotics #1 ea 09/12/21 aspirin 81 mg tablet,delayed 81 mg PO DAILY #30 tabs 12/20/23 release Allergies Allergy/AdvReac Type Severity Reaction Status Date / Time Penicillins Allergy Unknown Unknown Verified 05/20/24 12:55 cayenne Allergy Unknown Verified 05/20/24 12:55 erythromycin base Allergy Unknown Verified 05/20/24 12:55 Review of Systems 2 Const: Denies: fever(s), chills, body aches or change in appetite ENMT: Reports: mouth pain; Denies: throat pain or dental pain Card: Denies: chest pain Resp: Denies: dyspnea GI: Denies: abdominal pain, nausea, vomiting or diarrhea Musc: Reports: extremity swelling; Denies: neck pain or back pain Skin/Breast: Denies: rash Neuro: Reports: dizziness; Denies: headache(s) PFSH ED 2 PFSH: Medical History PVC (premature ventricular contraction) GERD (gastroesophageal reflux disease) Hyperlipidemia PTSD (post-traumatic stress disorder) History of depression Surgical History Status post laparoscopic cholecystectomy (02/06/21) H/O esophagogastroduodenoscopy (01/31/21) gastritis Status post colonoscopy S/P bilateral breast lumpectomy Hx of hysterectomy Family History Grandfather CAD (coronary artery disease) Myocardial infarction Diabetes Mother Stroke Dementia Father Stroke Dementia Social History Smoking and tobacco/nicotine status: never used tobacco/nicotine Alcohol intake: current Alcohol intake frequency: holidays/special occasions only Substance/Drug Use: never Physical Exam 2 Const: COMMON NORMALS: no acute distress and patient oriented x3 HENMT: COMMON NORMALS: normocephalic and atraumatic HEAD & SCALP: n ormocephalic and atraumatic Eye: COMMON NORMALS: Equal, round and reactive pupils present and EOMs intact bilaterally PUPIL: Yes Equal, round and reactive pupils present Neck/C-Spine: COMMON NORMALS: full ROM and supple Chest: COMMONS NORMALS: normal inspection of the chest Resp: COMMON NORMALS: normal respiratory effort, No retractions, No use of accessory muscles and clear to auscultation bilaterally AUSCULTATION: clear to auscultation bilaterally Cardio: COMMON NORMALS: regular rate, regular rhythm and No murmurs present (Cardio) RATE: regular rate RHYTHM: regular rhythm GI: COMMON NORMALS: Normal to inspection, nondistended, normoactive bowel sounds present, Soft to palpation, non-tender and no masses PALPATION: Yes Soft to palpation Extremity: COMMON NORMALS: normal to inspection and full ROM Neuro: COMMON NORMALS: patient oriented x3, moves all extremities and no focal motor deficits Psych: COMMON NORMALS: mental status grossly normal, Normal thought process present and cooperative THOUGHT PROCESS: Normal thought process present Skin: COMMON NORMALS: no rashes or lesions noted and no wounds GENERAL SKIN EXAM: no rashes or lesions noted Course 2 Vital Signs: Vital signs: Vital Signs Temperature 98.7 F 09/12/24 13:07 Pulse Rate 87 09/12/24 16:40 Respiratory Rate 17 09/12/24 13:07 Blood Pressure 179/69 09/12/24 16:10 Pulse Oximetry 95 09/12/24 16:40 Oxygen Delivery Me thod Room Air 09/12/24 13:07 MDM - Dizziness Medical Decision Making Patient presents for multiple complaints since been a chronic in origin she had tongue pain for quite some time exam here is benign of her tongue no signs of any lesions dizziness she states been going on for months as well she is able ambulate here without any difficulty no signs of a acute stroke imaging blood works normal we will get her follow-up with ENT she is to return if worsening she understands agrees to plan Lab Data 09/12/24 15:42 09/12/24 15:[address] 09/12/24 16:09 IMPRESSION: No acute intracranial abnormality. If symptoms persist, consider further evaluation with MRI, if there are no contraindications to obtaining a MRI scan. Laboratory Results WBC 10.73 10^3/uL (3.29-11.43) 09/12/24 15:42 RBC 4.53 10^6/uL (3.85-5.65) 09/12/24 15:42 Hgb 11.70 g/dL (11.27-16.99) 09/12/24 15:42 Hct 39.0 % (36-47) 09/12/24 15:42 MCV 86.1 fl (85-98) 09/12/24 15:42 MCH 25.8 pg (27-33) L 09/12/24 15:42 MCHC 30.0 g/dL (30-55) 09/12/24 15:42 RDW 14.8 % (12.1-15.1) 09/12/24 15:42 Plt Count 450 10^3/cmm (157-399) H 09/12/24 15:42 MPV 8.5 fL (7.4-10.4) 09/12/24 15:42 Neut % (Auto) 67.4 % 09/12/24 15:42 Lymph % (Auto) 25.1 % 09/12/24 15:42 [place] % (Auto) 5.8 % 09/12/24 15:42 Eos % (Auto) 0.7 % 09/12/24 15:42 Baso % (Auto) 0.7 % 09/12/24 15:42 Neut # (Auto) 7.24 10^3/uL (1.8-7.7) 09/12/24 15:42 Lymph # (Auto) 2.7 10^3/uL (0.8-4.8) 09/12/24 15:42 [place] # (Auto) 0.6 10^3/uL (0.2-0.9) 09/12/24 15:42 Eos # (Auto) 0.1 10^3/uL (0.0-0.8) 09/12/24 15:42 Baso # (Auto) 0.1 10^3/uL (0.0-0.1) 09/12/24 15:42 Nucleated RBC % (auto) 0 % 09/12/24 15:42 Nucleated RBCs # 0.0 /100WBC 09/12/24 15:42 Sodium 141 mmol/L (136-145) 09/12/24 15:42 Potassium 4.1 mmol/L (3.5-5.1) 09/12/24 15:42 Chloride 102 mmol/L (98-107) 09/12/24 15:42 Carbon Dioxide 28 mmol/L (22-29) 09/12/24 15:42 Anion Gap 15.1 (5-19) 09/12/24 15:42 BUN 15 mg/dL (8-23) 09/12/24 15:42 Creatinine 0.7 mg/dL (0.5-0.9) 09/12/24 15:42 GFR Calculation 83.2 mL/min (90-130) L 09/12/24 15:42 Glucose 97 mg/dL (65-115) 09/12/24 15:42 Calculated Osmolality 293 mOsm/kg (285-295) 09/12/24 15:42 Calcium 9.4 mg/dL (8.5-10.5) 09/12/24 15:42 Total Bilirubin 0.2 mg/dL (0.15-1.2) 09/12/24 15:42 AST 18 U/L (0-32) 09/12/24 15:42 ALT 16 U/L (0-33) 09/12/24 15:42 Alkaline Phosphatase 118 U/L (35-105) H 09/12/24 15:42 NT-Pro-B Natriuret Pep 113 pg/mL (0-125) 09/12/24 15:42 Total Protein 7.0 g/dL (6.6-8.7) 09/12/24 15:42 Albumin 4.0 g/dL (3.5-5.2) 09/12/24 15:42 Globulin 3.0 g/dL (1.3-4.6) 09/12/24 15:42 All radiology interpretation(s) finalized by discharge Discharge Plan Discharge Patient Disposition: Home Clinical Impression: Dizziness, Painful tongue Condition: Stable Prescriptions: No Action (DME) Custom Molded Orthotics See Rx Instructions .Route .[facility] Qty: 1 0RF Rx Instructions: As directed metoprolol tartrate 25 mg tablet 25 mg PO BID Qty: 180 3RF atorvastatin 40 mg tablet 20 mg PO DAILY@1700 buspirone 10 mg tablet 20 mg PO TID pantoprazole [Protonix] 40 mg Tablet,Delayed Release (Dr/Ec) 40 mg PO QAM One-A-Day Menopause Formula 400-60 mcg-mg Tablet 1 tab PO QAM valacyclovir 1 gram Tablet 1,000 mg PO BEDTIME alendronate 35 mg Tablet 35 mg PO Q7D Rx Instructions: ON THURSDAY epinephrine [EpiPen 2-Fredy] 0.3 mg/0.3 mL Auto-Injector 0.3 mg IM Q4H PRN (Reason: Allergic Reaction) venlafaxine 75 mg Tablet 225 mg PO BEDTIME aspirin 81 mg tablet,delayed release (DR/EC) 81 mg PO DAILY Qty: 30 0RF quetiapine 200 mg Tablet 100 mg PO BEDTIME ZzzQuil 50 mg/30 mL Liquid 50 mg PO BEDTIME PRN (Reason: Sleep) Discharge Orders: Discharge ED (Routine); Ordered 09/12/24 Ordered By: Alexis Bray Referrals: Mohan Esposito MD [Physician] - 4-7 days Joellen Alvarez FNP [Primary Care Provider] - Discharge Diet: Advance as tolerated Discharge Activity: Resume usual activity Patient Instructions: Dizziness (ED) Coding Level of Care Code ED Shipfitter Helper for Marci Quinn
[2024-09-12 16:25] LABS: Alanine Aminotransferase 16 U/L (0-33); Alkaline Phosphatase 118 U/L (35-105); Anion Gap 15.1 (5-19); Aspartate Amino Transferase 18 U/L (0-32); Blood Urea Nitrogen 15 mg/dL (8-23); Calcium 9.4 mg/dL (8.5-10.5); Carbon Dioxide 28 mmol/L (22-29); Chloride 102 mmol/L (98-107); Creatinine Clr Calc Pharmacy 63.7878; Glomerular Filtration Rate 83.2 mL/min (90-130); Glucose 97 mg/dL (65-115); NT Pro B Type Natriuretic Pept 113 pg/mL (0-125); Osmolality Calculated 293 mOsm/kg (285-295); Potassium 4.1 mmol/L (3.5-5.1); Sodium 141 mmol/L (136-145); Total Bilirubin 0.2 mg/dL (0.15-1.2)
[2024-09-12 16:40] VITALS: PULSE 87; O2SAT 95
[2024-09-12] MEDS: meclizine 25 mg tablet 50 MG PO (16:52)
[2024-09-12 18:08] VITALS: BP 156/80; PULSE 96; O2SAT 95
--- NOTE | 2024-09-15 23:24 | DCPLANNER ---
Referral sent to ENT Dr. Esposito
== END 2024-09-12 18:09 | disposition home or self-care (01) ==
PROVIDERS: Emergency Provider Emergency Medicine; PCP Nurse Practitioner
DX: R42 Dizziness and giddiness (principal); K14.6 Glossodynia; E78.5 Hyperlipidemia, unspecified
CPT/HCPCS: 36415; 70450; 80053; 83880; 85025; 93005; 99284; J8597

== ENCOUNTER 2024-11-01 09:07 | Outpatient (CLI) | payer OTHER, SELFPAY ==
--- NOTE | 2024-11-01 09:12 | CT_ITS ---
WS: [id number] CT NECK WITH CONTRAST HISTORY: DYSPHAGIA,PHARYNGOESOPHAGEAL TECHNIQUE: Contiguous 2 mm axial images are performed through the neck with intravenous contrast. Sagittal and coronal reformats are also submitted. All CT scans at [facility] use at least one of these dose optimization techniques: automated exposure control; mA and/or kV adjustment per patient size (includes targeted exams where dose is matched to clinical indication); or iterative reconstruction. CONTRAST: CONTRAST: Omnipaque 350; 100 mL IV. DLP: 148.12 mGy.cm COMPARISON: None available. Comer tonsils are symmetrically enlarged and mildly hypervascular. There is no discrete mass. Within the oropharynx just below and anterior to the LEFT Comer tonsil is an area of soft tissue mucosal thickening and enhancement measuring 8 x 4 mm which should be further evaluated. Plaque-like soft tissue mass. This is asymmetric to the RIGHT oral pharynx. Torus tubarius and fossa of Rosenmuller and parapharyngeal fat are normal. Small cervical chain lymph nodes are identified. Lymph nodes maintain their normal reniform shape. No adenopathy or enlargement. No necrosis. Thyroid gland and salivary glands are normally enhancing with no masses. No osseous abnormalities. Visualized portions of the skull base demonstrate no abnormalities. Orbits and globes are within normal limits. No soft tissue masses. Visualized paranasal sinuses and mastoid air cells are normal. Lung apices are clear. Carotid and vertebral arteries are patent. CT/CT neck w con* [id number] IMPRESSION: 1. LEFT anterolateral oropharyngeal soft tissue mass measures 8 x 4 mm. This m ass is just inferior and anterior to the LEFT Comer tonsil. Recommend direct visualization and biopsy. 2. Bilateral symmetric Comer tonsil enlargement with enhancement. Mild acut e tonsillitis. 3. No lymphadenopathy.
[2024-11-01] MEDS: iohexol 350 mg/mL 500 mL Btl (per mL) IV (09:35)
== END 2024-11-01 09:08 | disposition home or self-care (01) ==
PROVIDERS: PCP Nurse Practitioner; Visit Provider Otolaryngology
DX: R13.14 Dysphagia, pharyngoesophageal phase (principal); R93.89 Abnormal findings on diagnostic imaging of other specified body structures; J35.1 Hypertrophy of tonsils; R59.0 Localized enlarged lymph nodes
CPT/HCPCS: 70491

== ENCOUNTER 2024-12-13 22:44 | Emergency (ER) | payer OTHER, MEDICARE, SELFPAY ==
[2024-12-13 22:52] VITALS: BP 118/65; PULSE 91; RESP 18; TEMP 36.8; O2SAT 98; BMI 24.0
[2024-12-13] MEDS: LORazepam 2 mg/mL INJ 1 mL IM (23:32)
--- NOTE | 2024-12-13 23:56 | W.ED.EXTPRO ---
HPI - Extremity Problem General: Chief complaint: Extremity Problem,Nontraumatic Stated complaint: Restless Leg Hurts Time Seen by Provider: 12/13/24 23:04 Source: patient Mode of arrival: ambulatory Limitations: no limitations History of Present Illness: Patient is a 69-year-old female who presents the emergency department complaining of convulsions and history of restless leg syndrome. States that she has been weaning off of her Requip, she has done this in the past and has had convulsions similar to the ones you are experiencing now. Prior to entry into the room, noted to be resting comfortably but during examination starts complaining of full body convulsions. Denying any pain, states she is just agitated because she has a constant need to move. Denies history of Parkinson's. Also states that she recently stopped taking her Seroquel. She sees primary care at the [facility]. MD Complaint: other ( Convulsions ) Onset (ago): hour(s) Pain Consistency: constant Associated symptoms: Deny chest pain, fever(s) or rash Related Data Home Medications ?Medication ?Instructions ?Recorded ?Confirmed atorvastatin 40 mg tablet 20 mg PO DAILY@1700 12/10/20 09/12/24 buspirone 10 mg tablet 20 mg PO TID 12/10/20 09/12/24 multivitamin-calcium, 1 tab PO QAM 12/28/20 09/12/24 [id number]-[id number] isoflavone 400 mcg-60 mg tablet (One-A-Day Menopause Formula) pantoprazole 40 mg tablet,delayed 40 mg PO QAM 12/28/20 09/12/24 release (Protonix) alendronate 35 mg tablet 35 mg PO Q7D 12/23/21 09/12/24 epinephrine 0.3 mg/0.3 mL 0.3 mg IM Q4H PRN Allergic Reaction 12/23/21 09/12/24 injection, auto-injector (EpiPen 2-Fredy) valacyclovir 1 gram tablet 1,000 mg PO BEDTIME 12/23/21 09/12/24 venlafaxine 75 mg tablet 225 mg PO BEDTIME 06/18/23 09/12/24 diphenhydramine HCl 50 mg/30 mL 50 mg PO BEDTIME PRN Sleep 05/02/24 09/12/24 oral liquid (ZzzQuil) quetiapine 200 mg tablet 100 mg PO BEDTIME 05/02/24 09/12/24 Previous Rx's ?Medication ?Instructions ?Recorded metoprolol tartrate 25 mg tablet 25 mg PO BID #180 tabs 01/09/21 Custom Molded Orthotics #1 ea 09/12/21 aspirin 81 mg tablet,delayed 81 mg PO DAILY #30 tabs 12/20/23 release Allergies Allergy/AdvReac Type Severity Reaction Status Date / Time Penicillins Allergy Unknown Unknown Verified 12/13/24 23:03 [email or web address] Allergy Unknown Verified 12/13/24 23:03 erythromycin base Allergy Unknown Verified 12/13/24 23:03 Review of Systems General: Reports: 10 or more systems reviewed and unremarkable except in HPI and below Const: Denies: fever(s), chills or fatigue Eyes: Denies: change in vision ENMT: Denies: throat pain, ear or mastoid pain or nasal discharge Card: Denies: chest pain, palpitations, swelling of feet/ankles or lightheadedness Resp: Denies: dyspnea, productive cough or wheezing GI: Denies: abdominal pain, nausea, vomiting, diarrhea or constipation : Denies: flank pain, difficulty voiding, dysuria or urinary frequency Musc: Denies: neck pain, back pain or joint pain Skin/Breast: Denies: rash Neuro: Reports: involuntary movements (Full body, reporting history of restless leg); Denies: headache(s), numbness in extremities or weakness in extremities PFSH ED PFSH: Medical History PVC (premature ventricular contraction) GERD (gastroesophageal reflux disease) Hyperlipidemia PTSD (post-traumatic stress disorder) History of depression Surgical History Status post laparoscopic cholecystectomy (02/06/21) H/O esophagogastroduodenoscopy (01/31/21) gastritis Status post colonoscopy S/P bilateral breast lumpectomy Hx of hysterectomy Family History Grandfather CAD (coronary artery disease) Myocardial infarction Diabetes Mother Stroke Dementia Father Stroke Dementia Social History Smoking and tobacco/nicotine status: never used tobacco/nicotine Alcohol intake: current Alcohol intake frequency: holidays/special occasions only Substance/Drug Use: never Physical Exam Const: COMMON NORMALS: no acute distress and patient oriented x3 GENERAL APPEARANCE: cooperative and well developed ORIENTATION/CONSCIOUSNESS: Yes awake, Yes oriented to person, Yes oriented to place and Yes oriented to time OTHER: Uncomfortable appearing, seemingly intentional shaking of all 4 extremities HENMT: COMMON NORMALS: normocephalic, atraumatic and hearing grossly normal bilaterally HEAD & SCALP: normocephalic and atraumatic Eye: COMMON NORMALS: Equal, round and reactive pupils present, EOMs intact bilaterally and conjunctivae normal CONJUNCTIVA: Yes conjunctivae normal PUPIL: Yes Equal, round and reactive pupils present Neck/C-Spine: COMMON NORMALS: full ROM, supple and no JVD Resp: COMMON NORMALS: normal respiratory effort, No retractions, No use of accessory muscles and clear to auscultation bilaterally AUSCULTATION: clear to auscultation bilaterally Cardio: COMMON NORMALS: no JVD, regular rate, regular rhythm, No clicks present (Cardio), No murmurs present (Cardio) and No rub (Cardio) RATE: regular rate RHYTHM: regular rhythm Extremity: COMMON NORMALS: normal to inspection, full ROM and capillary refill normal Neuro: COMMON NORMALS: patient oriented x3, CN's II-XII intact bilaterally, moves all extremities and no sensory deficits noted SENSORIUM/ORIENTATION: Yes oriented to person, Yes oriented to place and Yes oriented to time Psych: COMMON NORMALS: mental status grossly normal and Normal thought process present THOUGHT PROCESS: Normal thought process present Skin: COMMON NORMALS: no rashes or lesions noted GENERAL SKIN EXAM: no rashes or lesions noted Course Vital Signs: Vital signs: Vital Signs Temperature 98.3 F 12/13/24 22:52 Pulse Rate 91 12/13/24 22:52 Respiratory Rate 18 12/13/24 22:52 Blood Pressure 118/65 12/13/24 22:52 Pulse Oximetry 98 12/13/24 22:52 Oxygen Delivery Me thod Room Air 12/13/24 22:52 MDM - Extremity (Nontraumatic) Medical Decision Making Patient states she has been weaning off her Requip, causing her to have convulsions. Given Ativan here, recheck noted to be resting comfortably on her phone. Stating she is ready to go home, will be sent with 1 Ativan and [facility]. No radiology studies performed this visit Discharge Plan Discharge Patient Disposition: Home Clinical Impression: Restless leg syndrome Condition: Stable Prescriptions: No Action (DME) Custom Molded Orthotics See Rx Instructions .Route .MEDSUPPLY Qty: 1 0RF Rx Instructions: As directed metoprolol tartrate 25 mg tablet 25 mg PO BID Qty: 180 3RF atorvastatin 40 mg tablet 20 mg PO DAILY@1700 buspirone 10 mg tablet 20 mg PO TID pantoprazole [Protonix] 40 mg Tablet,Delayed Release (Dr/Ec) 40 mg PO QAM One-A-Day Menopause Formula 400-60 mcg-mg Tablet 1 tab PO QAM valacyclovir 1 gram Tablet 1,000 mg PO BEDTIME alendronate 35 mg Tablet 35 mg PO Q7D Rx Instructions: ON THURSDAY epinephrine [EpiPen 2-Fredy] 0.3 mg/0.3 mL Auto-Injector 0.3 mg IM Q4H PRN (Reason: Allergic Reaction) venlafaxine 75 mg Tablet 225 mg PO BEDTIME aspirin 81 mg tablet,delayed release (DR/EC) 81 mg PO DAILY Qty: 30 0RF quetiapine 200 mg Tablet 100 mg PO BEDTIME ZzzQuil 50 mg/30 mL Liquid 50 mg PO BEDTIME PRN (Reason: Sleep) Discharge Orders: Discharge ED (Routine); Ordered 12/14/24 Ordered By: Shon Underwood Referrals: Joellen Alvarez FNP [Primary Care Provider] - Patient Instructions: Restless Legs Syndrome (ED) Activity Restrictions/Additional Instructions: Follow-up with your regular doctor at the [facility]. Return with any new or worsening. Print Language: Azeri Coding Level of Care Code ED Data Warehousing Specialist for Marci Quinn
[2024-12-14] MEDS: LORazepam 1 mg Tablet PO (00:20)
[2024-12-14 00:24] VITALS: BP 114/75; PULSE 84; RESP 16; O2SAT 96
== END 2024-12-14 00:26 | disposition home or self-care (01) ==
PROVIDERS: Emergency Provider Physician Assistant; PCP Nurse Practitioner
DX: G25.81 Restless legs syndrome (principal); Z79.82 Long term (current) use of aspirin; E78.5 Hyperlipidemia, unspecified
CPT/HCPCS: 96372; 99284; J2060; J9999

== ENCOUNTER 2024-12-16 09:39 | Outpatient (CLI) | payer OTHER, SELFPAY ==
--- NOTE | 2024-12-16 09:42 | USR_ITS ---
PROCEDURE INFORMATION: Exam: US Bilateral Noninvasive Physiologic Study of the Lower Extremity Arteries, Limited Exam date and time: 12/16/2024 9:43 AM Age: 69 years old Clinical indication: Pain; Leg, lower; Bilateral; Additional info: Varicose veins/color change in lower legs TECHNIQUE: Imaging protocol: Bilateral Limited bilateral noninvasive physiologic studies of lower extremity arteries. Images were documented and archived. Exam is limited. COMPARISON: US soft tissue/extremity [id number] 11/19/2021 7:00 AM FINDINGS: Right side: LIDYA 1.25. TBI 1.21 Left side: LIDYA 1.26. TBI 0.88 US/CV ankle brachial index [id number] IMPRESSION: No lower extremity PVD
== END 2024-12-16 09:40 | disposition home or self-care (01) ==
PROVIDERS: PCP Nurse Practitioner; Visit Provider Nurse Practitioner
DX: I73.9 Peripheral vascular disease, unspecified (principal)
CPT/HCPCS: 93922

== ENCOUNTER 2024-12-25 22:09 | Emergency (ER) | payer OTHER, MEDICARE, SELFPAY ==
[2024-12-25 22:13] VITALS: BP 148/97; PULSE 89; TEMP 36.5; O2SAT 98; BMI 24.2
[2024-12-26 00:03] LABS: Alanine Aminotransferase 13 U/L (0-33); Alkaline Phosphatase 104 U/L (35-105); Anion Gap 15.8 (5-19); Aspartate Amino Transferase 18 U/L (0-32); Basophils # 0.1 10^3/uL (0.0-0.1); Basophils % 0.8 %; Blood Urea Nitrogen 13 mg/dL (8-23); Carbon Dioxide 22 mmol/L (22-29); Chloride 106 mmol/L (98-107); Creatinine Clr Calc Pharmacy 61.1911; Eosinophils # 0.1 10^3/uL (0.0-0.8); Eosinophils % 0.7 %; Globulin 2.9 g/dL (1.3-4.6); Glomerular Filtration Rate 71.1 mL/min (90-130); Glucose 94 mg/dL (65-115); Hematocrit 38.2 % (36-47); Lymphocytes # 4.9 10^3/uL (0.8-4.8); Lymphocytes % 45.4 %; Mean Corpuscular HGB Conc 30.9 g/dL (30-55); Mean Corpuscular Hemoglobin 26.3 pg (27-33); Mean Corpuscular Volume 85.1 fl (85-98); Mean Platelet Volume 8.9 fL (7.4-10.4); Monocytes # 0.6 10^3/uL (0.2-0.9); Monocytes % 5.1 %; Neutrophils % 47.8 %; Nucleated Red Blood Cells % 0 %; Osmolality Calculated 290 mOsm/kg (285-295); Platelet Count 295 10^3/cmm (157-399); Potassium 3.8 mmol/L (3.5-5.1); Red Blood Count 4.49 10^6/uL (3.85-5.65); Red Cell Distribution Width 16.5 % (12.1-15.1); Sodium 140 mmol/L (136-145); Total Bilirubin 0.2 mg/dL (0.15-1.2); Total Protein 6.9 g/dL (6.6-8.7)
[2024-12-26 01:19] VITALS: BP 150/84; PULSE 67; RESP 16; O2SAT 99
[2024-12-26] MEDS: LORazepam 1 mg Tablet PO (01:53)
[2024-12-26 02:41] VITALS: BP 137/80; PULSE 86; RESP 16; O2SAT 100
--- NOTE | 2024-12-26 02:43 | ED_ITS ---
HPI - General Adult 2 General: Chief complaint: General Medical Stated complaint: MUSCLE SPASMS Time Seen by Provider: 12/26/24 01:21 History of Present Illness: 69-year-old female presenting with kariei ng leg cramping symptoms. She says these cramps are worse at night, and tonight they were severe. On my examination she is resting comfortably now. She denies recent fever or illness. She was taken off her ropinirole and a couple of other medications that were thought to be making her symptoms worse lately. He is placed on gabapentin 100 mg initially, which seemed to help at first, but is not helping now. She complains of a tingling sensation in her feet, mainly at night that radiates up her legs, along with muscle cramping that starts in the feet and radiates up the legs as well. No associated rash or wounds. She was unable to get relief, so she came to the hospital this morning. Related Data Home Medications ?Medication ?Instructions ?Recorded ?Confirmed atorvastatin 40 mg tablet 20 mg PO DAILY@1700 12/10/20 09/12/24 buspirone 10 mg tablet 20 mg PO TID 12/10/20 multivitamin-calcium, 1 tab PO QAM 12/28/20 [id number] isoflavone 400 mcg-60 mg tablet (One-A-Day Menopause Formula) pantoprazole 40 mg tablet,delayed 40 mg PO QAM 1 09/12/24 release (Protonix) alendronate 35 mg tablet 35 mg PO Q7D 12/23/21 epinephrine 0.3 mg/0.3 mL 0.3 mg IM Q4H PRN Allergic R eaction 12/23/21 09/12/24 injection, auto-injector (EpiPen 2-Fredy) valacyclovir 1 gram tablet 1,000 mg PO BEDTIME 2 09/12/24 venlafaxine 75 mg tablet 225 mg PO BEDTIME 06/18/23 0 09/12/24 diphenhydramine HCl 50 mg/30 mL 50 mg PO BEDTIME PRN S leep 05/02/24 09/12/24 oral liquid (ZzzQuil) quetiapine 200 mg tablet 100 mg PO BEDTIME 05/02/24 0 09/12/24 Previous Rx's ?Medication ?Instructions ?Recorded metoprolol tartrate 25 mg tablet 25 mg PO BID #180 tab s 01/09/21 Custom Molded Orthotics #1 ea 09/12/21 aspirin 81 mg tablet,delayed 81 mg PO DAILY #30 tabs 0 12/20/23 release lorazepam 0.5 mg tablet 0.5 mg PO .nightly PRN spasm s #7 12/26/24 tabs magnesium oxide 500 mg capsule 500 mg PO .qhs #20 caps 12/26/24 Allergies Allergy/AdvReac Type Severity Reaction Status Date / Time Penicillins Allergy Unknown Unknown Verified 12/13/24 23:03 [email or web address] Allergy Unknown Verified 12/13/24 23:03 erythromycin base Allergy Unknown Verified 12/13/24 23:03 PFSH ED 2 PFSH: Medical History PVC (premature ventricular contraction) GERD (gastroesophageal reflux disease) Hyperlipidemia PTSD (post-traumatic stress disorder) History of depression Surgical History Status post laparoscopic cholecystectomy (02/06/21) H/O esophagogastroduodenoscopy (01/31/21) gastritis Status post colonoscopy S/P bilateral breast lumpectomy Hx of hysterectomy Family History Grandfather CAD (coronary artery disease) Myocardial infarction Diabetes Mother Stroke Dementia Father Stroke Dementia Social History Smoking and tobacco/nicotine status: never used tobacco/nicotine Alcohol intake: current Alcohol intake frequency: holidays/special occasions only Substance/Drug Use: never Physical Exam 2 Const: COMMON NORMALS: no acute distress GENERAL APPEARANCE: cooperative; not ill appearing and not frail appearing HENMT: COMMON NORMALS: normocephalic, atraumatic and Normal external nose present HEAD & SCALP: normocephalic and atraumatic FACE & SINUS: normal facial exam and face symmetric NOSE: Normal external nose present Eye: COMMON NORMALS: Equal, round and reactive pupils present and EOMs intact bilaterally PUPIL: Yes Equal, round and reactive pupils present Neck/C-Spine: GENERAL: Yes trachea midline Chest: CHEST: Yes Symmetrical chest wall rise Resp: COMMON NORMALS: normal respiratory effort, No retractions, No use of accessory muscles and clear to auscultation bilaterally AUSCULTATION: clear to auscultation bilaterally Cardio: COMMON NORMALS: regular rate and regular rhythm RATE: regular rate RHYTHM: regular rhythm GI: COMMON NORMALS: Normal to inspection, nondistended, normoactive bowel sounds present Extremity: COMMON NORMALS: no pedal edema Neuro: ELIZABETH COMA SCALE: document GCS findings [place] coma scale eye opening: Spontaneous Elizabeth coma scale verbal response: Orientated [place] coma scale motor response: Obey commands [place] coma scale total score: 15 S ENSORY EXAM: Yes extremities (intact) Psych: COMMON NORMALS: speech normal SPEECH: Yes normal speech Skin: COMMON NORMALS: no rashes or lesions noted GENERAL SKIN EXAM: no rashes or lesions noted Course 2 Vital Signs: Vital signs: Vital Signs Temperature 97.7 F 12/25/24 22:13 Pulse Rate 86 12/26/24 02:41 Respiratory Rate 16 12/26/24 02:41 Blood Pressure 137/80 12/26/24 02:41 Pulse Oximetry 100 12/26/24 02:41 Oxygen Delivery Me thod Room Air 12/26/24 01:19 [facility] - General Adult Medical Decision Making This lady is calm, not in pain, and has a normal physical exam essentially. Her vitals are stable. CBC and BMP are normal. For her nighttime leg cramping, she will be placed on magnesium at night, given a short course of lorazepam. She should follow-up with her doctor regarding the symptoms, as there chronic. She was instructed to do this. Lab Data 12/25/24 23:32 12/25/24 23:32 Laboratory Results WBC 10.70 10^3/uL (3.29-11.43) 12/25/24 23:32 RBC 4.49 10^6/uL (3.85-5.65) 12/25/24 23:32 Hgb 11.80 g/dL (11.27-16.99) 12/25/24 23:32 Hct 38.2 % (36-47) 12/25/24 23:32 MCV 85.1 fl (85-98) 12/25/24 23:32 MCH 26.3 pg (27-33) L 12/25/24 23:32 MCHC 30.9 g/dL (30-55) 12/25/24 23:32 RDW 16.5 % (12.1-15.1) H 12/25/24 23:32 Plt Count 295 10^3/cmm (157-399) 12/25/24 23:32 MPV 8.9 fL (7.4-10.4) 12/25/24 23:32 Neut % (Auto) 47.8 % 12/25/24 23: Lymph % (Auto) 45.4 % 12/25/24 23:32 Owen % (Auto) 5.1 % 12/25/24 23: Eos % (Auto) 0.7 % 12/25/24: Baso % (Auto) 0.8 % 12/25/24: Neut # (Auto) 5.10 10^3/uL (1.8-7.7) 12/25/24 23: Lymph # (Auto) 4.9 10^3/uL (0.8-4.8) H 12/25/24 23:32 Owen # (Auto) 0.6 10^3/uL (0.2-0.9) 12/25/24 23:32 Eos # (Auto) 0.1 10^3/uL (0.0-0.8) 12/25/24: Baso # (Auto) 0.1 10^3/uL (0.0-0.1) 12/25/24 23: Nucleated RBC % (auto) 0 % 12/25/24: Nucleated RBCs # 0.0 /100WBC 12/25/24 23:32 Sodium 140 mmol/L (136-145) 12/25/24 23:32 Potassium 3.8 mmol/L (3.5-5.1) 12/25/24 23: Chloride 106 mmol/L (98-107) 12/25/24 23: Carbon Dioxide 22 mmol/L (22-29) 12/25/24 23:32 Anion Gap 15.8 (5-19) 12/25/24 23:32 BUN 13 mg/dL (8-23) 12/25/24 23: Creatinine 0.8 mg/dL (0.5-0.9) 12/25/24 23:32 GFR Calculation 71.1 mL/min (90-130) L 12/25/24 23:32 Glucose 94 mg/dL (65-115) 12/25/24 23:32 Calculated Osmolality 290 mOsm/kg (285-295) 12/25/24 23:32 Calcium 9.0 mg/dL (8.5-10.5) 12/25/24 23:32 Total Bilirubin 0.2 mg/dL (0.15-1.2) 12/25/24 23:32 AST 18 U/L (0-32) 12/25/24 23:32 ALT 13 U/L (0-33) 12/25/24 23:32 Alkaline Phosphatase 104 U/L (35-105) 12/25/24 23:32 Total Protein 6.9 g/dL (6.6-8.7) 12/25/24 23:32 Albumin 4.0 g/dL (3.5-5.2) 12/25/24 23:32 Globulin 2.9 g/dL (1.3-4.6) 12/25/24 23:32 No radiology studies performed this visit Discharge Plan Discharge Patient Disposition: Home Clinical Impression: Muscle cramp, nocturnal Condition: Stable Prescriptions: New magnesium oxide 500 mg capsule 500 mg PO .qhs Qty: 20 0RF lorazepam 0.5 mg tablet 0.5 mg PO .nightly PRN (Reason: spasms) Qty: 7 0RF No Action (DME) Custom Molded Orthotics See Rx Instructions .Route .MEDSUPPLY Qty: 1 0RF Rx Instructions: As directed metoprolol tartrate 25 mg tablet 25 mg PO BID Qty: 180 3RF atorvastatin 40 mg tablet 20 mg PO DAILY@1700 buspirone 10 mg tablet 20 mg PO TID pantoprazole [Protonix] 40 mg Tablet,Delayed Release (Dr/Ec) 40 mg PO QAM One-A-Day Menopause Formula 400-60 mcg-mg Tablet 1 tab PO QAM valacyclovir 1 gram Tablet 1,000 mg PO BEDTIME alendronate 35 mg Tablet 35 mg PO Q7D Rx Instructions: ON THURSDAY epinephrine [EpiPen 2-Fredy] 0.3 mg/0.3 mL Auto-Injector 0.3 mg IM Q4H PRN (Reason: Allergic Reaction) venlafaxine 75 mg Tablet 225 mg PO BEDTIME aspirin 81 mg tablet,delayed release (DR/EC) 81 mg PO DAILY Qty: 30 0RF quetiapine 200 mg Tablet 100 mg PO BEDTIME ZzzQuil 50 mg/30 mL Liquid 50 mg PO BEDTIME PRN (Reason: Sleep) Discharge Orders: Discharge ED (Routine); Ordered 12/26/24 Ordered By: Presley Valdivia Referrals: Joellen Alvarez FNP [Primary Care Provider, Nurse Practitioner] - 1-3 days Patient Instructions: Opioid Safety, Pain Management Activity Restrictions/Additional Instructions: Laboratory workup did not reveal a cause of muscle cramps, especially at night. This will likely take further workup as an outpatient. Follow-up with your doctor. In the meantime, these 2 medications can help with night, as well as increasing your nightly dose of gabapentin from 100 mg to up to 300 mg. Call your doctor tomorrow for a follow-up appointment. Return for new or concerning symptoms Print Language: Omani Coding Level of Care Code ED Store Team Member for Marci Quinn
== END 2024-12-26 02:42 | disposition home or self-care (01) ==
PROVIDERS: Emergency Medicine; Emergency Provider Emergency Medicine; PCP Nurse Practitioner
DX: M62.838 Other muscle spasm (principal); Z79.82 Long term (current) use of aspirin; E78.5 Hyperlipidemia, unspecified
CPT/HCPCS: 36415; 80053; 85025; 99283; J9999

== ENCOUNTER 2024-12-29 02:41 | Emergency (ER) | payer OTHER, MEDICARE, SELFPAY ==
[2024-12-29 02:41] VITALS: BP 149/87; PULSE 86; RESP 16; TEMP 36.2; O2SAT 98; BMI 24.0
--- NOTE | 2024-12-29 02:47 | XRR_ITS ---
PROCEDURE INFORMATION: Exam: XR Chest Exam date and time: 12/29/2024 2:50 AM Age: 69 years old Clinical indication: Other: Weakness TECHNIQUE: Imaging protocol: Radiologic exam of the chest. Views: 1 view. COMPARISON: CR XR chest 1V portable [id number] 05/20/2024 2:36 PM FINDINGS: Lungs: Unremarkable. No consolidation. Pleural spaces: Unremarkable. No pleural effusion. No pneumothorax. Heart/Mediastinum: Unremarkable. No cardiomegaly. Bones/joints: Unremarkable. XR/XR chest 1V portable [id number] IMPRESSION: No visualized acute cardiopulmonary process.
--- NOTE | 2024-12-29 02:47 | CTR_ITS ---
PROCEDURE INFORMATION: Exam: CT Head Without Contrast Exam date and time: 12/29/2024 3:05 AM Age: 69 years old Clinical indication: Altered mental status/memory loss; Confusion or disorientation; Additional info: Encephalopathy, altered mental status TECHNIQUE: Imaging protocol: Computed tomography of the head without contrast. Radiation optimization: All CT scans at this facility use at least one of these dose optimization techniques: automated exposure control; mA and/or kV adjustment per patient size (includes targeted exams where dose is matched to clinical indication); or iterative reconstruction. COMPARISON: CT head wo con* [id number] 09/12/2024 4:28 PM RADIATION DOSE METRICS: Total DLP (mGy-cm): 1052.7 FINDINGS: Brain: Negative for intracranial hemorrhage. 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 Central atrophy and mild periventricular deep white matter hypodensity, likely secondary to chronic microvascular ischemia. Cerebral ventricles: No ventriculomegaly. Paranasal sinuses: Visualized sinuses are unremarkable. No fluid levels. Mastoid air cells: Visualized mastoid air cells are well aerated. Bones: Unremarkable. No acute fracture. Soft tissues: Unremarkable. Other findings: Moderate intracranial atherosclerosis. CT/CT head wo con* [id number] IMPRESSION: No identified acute intracranial pathology.
--- NOTE | 2024-12-29 02:48 | ECG_ITS ---
[facility]: 2024-12[facility]29 Pat Name: Natasha Wharton Department: Room: Gender: Female Critical Care Technician: : 1955 Requested By: Merry Russell Order Number: [id number] Rajni MD: MARYAM HODGES Measurements Intervals [place] Rate: 76 P: 52 [place]: 154 QRS: 76 QRSD: 101 T: 15 QT: 407 QTc: 460 Interpretive Statements SINUS RHYTHM NONSPECIFIC T-WAVE ABNORMALITY Compared to ECG 09/12/2024 13:04:17 T-wave abnormality now present Electronically Signed On 12-29-2024 23:30:35 CDT by MARYAM HODGES [email or web address] [id number]
--- NOTE | 2024-12-29 02:48 | W.ED.AMS ---
HPI - Altered Mental Status General: Chief Complaint: Altered Mental Status Stated Complaint: confusion Time Seen by Provider: 12/29/24 02:44 History of Present Illness: 69-year-old female who presents emergency room by ambulance with muscle cramps and some confusion she says she was getting lost in her own apartment. Currently awake alert and oriented. No focal motor deficits. He says she started with cramps in her legs and now she has cramps in her whole body. She said she had a cramp that was so bad at 1 point that it threw her against the wall. No fevers. No chest pain. No abdominal pain. No nausea or vomiting Related Data Home Medications ?Medication ?Instructions ?Recorded ?Confirmed atorvastatin 40 mg tablet 20 mg PO DAILY@1700 12/10/20 09/12/24 buspirone 10 mg tablet 20 mg PO TID 12/10/20 09/12/24 multivitamin-calcium, 1 tab PO QAM 12/28/20 09/12/24 [id number] isoflavone 400 mcg-60 mg tablet (One-A-Day Menopause Formula) pantoprazole 40 mg tablet,delayed 40 mg PO QAM 12/28/20 09/12/24 release (Protonix) alendronate 35 mg tablet 35 mg PO Q7D 12/23/21 09/12/24 epinephrine 0.3 mg/0.3 mL 0.3 mg IM Q4H PRN Allergic Reaction 12/23/21 09/12/24 injection, auto-injector (EpiPen 2-Fredy) valacyclovir 1 gram tablet 1,000 mg PO BEDTIME 12/23/21 09/12/24 venlafaxine 75 mg tablet 225 mg PO BEDTIME 06/18/23 09/12/24 diphenhydramine HCl 50 mg/30 mL 50 mg PO BEDTIME PRN Sleep 05/02/24 09/12/24 oral liquid (ZzzQuil) quetiapine 200 mg tablet 100 mg PO BEDTIME 05/02/24 09/12/24 Previous Rx's ?Medication ?Instructions ?Recorded metoprolol tartrate 25 mg tablet 25 mg PO BID #180 tabs 01/09/21 Custom Molded Orthotics #1 ea 09/12/21 aspirin 81 mg tablet,delayed 81 mg PO DAILY #30 tabs 12/20/23 release lorazepam 0.5 mg tablet 0.5 mg PO .nightly PRN spasms #7 12/26/24 tabs magnesium oxide 500 mg capsule 500 mg PO .qhs #20 caps 12/26/24 Allergies Allergy/AdvReac Type Severity Reaction Status Date / Time Penicillins Allergy Unknown Unknown Verified 12/13/24 23:03 [email or web address] Allergy Unknown Verified 12/13/24 23:03 erythromycin base Allergy Unknown Verified 12/13/24 23:03 Review of Systems Narrative: Constitutional symptoms: Negative except as documented in HPI. Skin symptoms: Negative except as documented in HPI. Eye symptoms: Negative except as documented in HPI. ENMT symptoms: Negative except as documented in HPI. Respiratory symptoms: Negative except as documented in HPI. Cardiovascular symptoms: Negative except as documented in HPI. Gastrointestinal symptoms: Negative except as documented in HPI. Genitourinary symptoms: Negative except as documented in HPI. Musculoskeletal symptoms: Negative except as documented in HPI. Neurologic symptoms: Negative except as documented in HPI. Psychiatric symptoms: Negative except as documented in HPI. Endocrine symptoms: Negative except as documented in HPI. PFSH ED PFSH: Medical History PVC (premature ventricular contraction) GERD (gastroesophageal reflux disease) Hyperlipidemia PTSD (post-traumatic stress disorder) History of depression Surgical History Status post laparoscopic cholecystectomy (02/06/21) H/O esophagogastroduodenoscopy (01/31/21) gastritis Status post colonoscopy S/P bilateral breast lumpectomy Hx of hysterectomy Family History Grandfather CAD (coronary artery disease) Myocardial infarction Diabetes Mother Stroke Dementia Father Stroke Dementia Social History Smoking and tobacco/nicotine status: never used tobacco/nicotine Alcohol intake: current Alcohol intake frequency: holidays/special occasions only Substance/Drug Use: never Physical Exam Narrative: General: Alert, no acute distress. Skin: Warm, dry. Head: Normocephalic, atraumatic. Neck: Supple, trachea midline. Eye: Extraocular movements are intact. Ears, nose, mouth and throat: mucosa moist. Cardiovascular: Regular, Normal peripheral perfusion. Respiratory: Lungs are clear to auscultation, respirations are non-labored, breath sounds are equal, Symmetrical chest wall expansion. Gastrointestinal: Soft, Nontender, Non distended Musculoskeletal: Normal ROM, no deformity. Neurological: Alert and oriented, No focal neurological deficit observed. Psychiatric: Cooperative, appropriate mood & affect. Course Vital Signs: Vital signs: Vital Signs Temperature 97.2 F L 12/29/24 02:41 Pulse Rate 84 12/29/24 05:58 Respiratory Rate 27 H 12/29/24 03:36 Blood Pressure 134/86 12/29/24 05:58 Pulse Oximetry 97 12/29/24 05:58 Oxygen Delivery Me thod Room Air 12/29/24 02:41 MDM - Altered Mental Status Medical Decision Making Medical decision making: Differential diagnosis including but not limited to and based on the above HPI, review of systems and physical exam: In this patient with altered mental status: Stroke. Hypoglycemia. Metabolic encephalopathy. Infections such as pneumonia, urinary tract infection, Covid-19, Influenza. Electrolyte abnormalities such as hypernatremia. Renal failure / uremia. Hepatic encephalopathy. Hypoxemia. Hypercapnic respiratory failure. Psychosis. Drug or alcohol intoxication. Medication overdose. Orders placed to evaluate differential diagnosis based on the above differential, HPI and physical exam CT head: No acute intracranial process. no intracranial hemorrhage, no evidence of infarct. no evidence of acute fracture.This was reviewed and interpreted by myself the ER physician. Chest x-ray: No acute process. No infiltrate. No pneumothorax. This was reviewed and interpreted by myself the emergency room physician. I also reviewed the radiology report. AB.4 with an O2 sat of 96% on room air. Lab Review: Laboratory results were reviewed and interpreted by myself the emergency room physician. Lab work is unremarkable. No leukocytosis. No anemia. No renal failure. Electrolytes are normal. CRP is normal. Urinalysis is negative for infection. Drug screen is positive for benzos. Flu COVID and RSV are negative. I reviewed the patient's medical record. Reexamination: Patient remained stable. No increased work of breathing. No altered mental status. No focal motor deficits. She had more episodes of pain and muscle cramps. Assessment and plan: Muscle spasms Mild confusion ? IV Ativan and Norflex in the emergency room. - Discharged home - Discussed plan with patient. Answered any questions. - Evaluation and treatment of this problem were appropriate in the emergency setting. Lab Data 12/29/24 03:15 12/29/24 03:15 Radiology Impressions Chest X-Ray 12/29/24 02:47 IMPRESSION: No visualized acute cardiopulmonary process. Head CT 12/29/24 02:47 IMPRESSION: No identified acute intracranial pathology. Laboratory Results WBC 9.36 10^3/uL (3.29-11.43) 12/29/24 03:15 RBC 4.47 10^6/uL (3.85-5.65) 12/29/24 03:15 Hgb 11.60 g/dL (11.27-16.99) 12/29/24 03:15 Hct 37.9 % (36-47) 12/29/24 03:15 MCV 84.8 fl (85-98) L 12/29/24 03:15 MCH 26.0 pg (27-33) L 12/29/24 03:15 MCHC 30.6 g/dL (30-55) 12/29/24 03:15 RDW 16.3 % (12.1-15.1) H 12/29/24 03:15 Plt Count 273 10^3/cmm (157-399) 12/29/24 03:15 MPV 9.1 fL (7.4-10.4) 12/29/24 03:15 Neut % (Auto) 54.8 % 12/29/24 03:15 Lymph % (Auto) 37.1 % 12/29/24 03:15 [place] % (Auto) 6.8 % 12/29/24 03:15 Eos % (Auto) 0.5 % 12/29/24 03:15 Baso % (Auto) 0.6 % 12/29/24 03:15 Neut # (Auto) 5.12 10^3/uL (1.8-7.7) 12/29/24 03:15 Lymph # (Auto) 3.5 10^3/uL (0.8-4.8) 12/29/24 03:15 [place] # (Auto) 0.6 10^3/uL (0.2-0.9) 12/29/24 03:15 Eos # (Auto) 0.1 10^3/uL (0.0-0.8) 12/29/24 03:15 Baso # (Auto) 0.1 10^3/uL (0.0-0.1) 12/29/24 03:15 Nucleated RBC % (auto) 0 % 12/29/24 03:15 Nucleated RBCs # 0.0 /100WBC 12/29/24 03:15 Specimen Type Arterial 12/29/24 02:53 Sample Site Radial, left 12/29/24 02:53 ABG pH 7.41 (7.35-7.45) 12/29/24 02:53 ABG pCO2 41.8 mmHg (35-45) 12/29/24 02:53 ABG pO2 74.2 mmHg (80.0-100.0) L 12/29/24 02:53 ABG PO2/FiO2 Ratio 353 12/29/24 02:53 ABG HCO3 26.5 mmol/L (22-26) H 12/29/24 02:53 ABG O2 Saturation 95.8 12/29/24 02:53 ABG Base Excess 1.6 mmol/L (-2.0-2.0) 12/29/24 02:53 Tim Test Pos 12/29/24 02:53 A-a O2 Gradient 2.8 mmHg (5-10) L 12/29/24 02:53 Hematocrit 36.1 % (37-47) L 12/29/24 02:53 Hgb O2 Saturation 94.9 % (95-100) L 12/29/24 02:53 Carboxyhemoglobin 1.0 %THgb (0.4-20.1) 12/29/24 02:53 Methemoglobin 0.0 % (0.4-1.5) L 12/29/24 02:53 Total Hemoglobin 11.8 g/dL (12-16) L 12/29/24 02:53 Sodium 142.0 mmol/L (131-143) 12/29/24 02:53 Potassium 3.4 mmol/L (3.5-5.0) L 12/29/24 02:53 Glucose 91.0 mg/dL (70-115) 12/29/24 02:53 Ionized Calcium 1.2 mmol/L (1.1-1.4) 12/29/24 02:53 O2 Delivery Device Room air 12/29/24 02:53 FiO2 21.0 % 12/29/24 02:53 Spark Plug Assembler ID Ed 12/29/24 02:53 Sodium 143 mmol/L (136-145) 12/29/24 03:15 Potassium 3.5 mmol/L (3.5-5.1) 12/29/24 03:15 Chloride 106 mmol/L (98-107) 12/29/24 03:15 Carbon Dioxide 27 mmol/L (22-29) 12/29/24 03:15 Anion Gap 13.5 (5-19) 12/29/24 03:15 BUN 13 mg/dL (8-23) 12/29/24 03:15 Creatinine 0.8 mg/dL (0.5-0.9) 12/29/24 03:15 GFR Calculation 71.1 mL/min (90-130) L 12/29/24 03:15 Glucose 92 mg/dL (65-115) 12/29/24 03:15 POC Glucose 94 mg/dL (70-110) 12/29/24 02:46 Calculated Osmolality 296 mOsm/kg (285-295) H 12/29/24 03:15 Lactic Acid 0.7 mmol/L (0.5-2.2) 12/29/24 03:15 Calcium 9.0 mg/dL (8.5-10.5) 12/29/24 03:15 Magnesium 2.0 mg/dL (1.7-2.3) 12/29/24 03:15 Total Bilirubin 0.3 mg/dL (0.15-1.2) 12/29/24 03:15 AST 18 U/L (0-32) 12/29/24 03:15 ALT 13 U/L (0-33) 12/29/24 03:15 Alkaline Phosphatase 87 U/L (35-105) 12/29/24 03:15 Creatine Kinase 62 U/L (26-192) 12/29/24 03:15 C-Reactive Protein 3.0 mg/L (0.0-4.9) 12/29/24 03:15 Total Protein 6.9 g/dL (6.6-8.7) 12/29/24 03:15 Albumin 3.9 g/dL (3.5-5.2) 12/29/24 03:15 Globulin 3.0 g/dL (1.3-4.6) 12/29/24 03:15 TSH 1.88 uIU/mL (0.27-4.20) 12/29/24 03:15 Urine Color Yellow (Yellow) 12/29/24 03:49 Urine Appearance Clear (CLEAR) 12/29/24 03:49 Urine pH 5.5 (5-7) 12/29/24 03:49 Ur Specific Herreid 1.019 (1.005-1.030) 12/29/24 03:49 Urine Protein Negative (Negative) 12/29/24 03:49 Urine Glucose (UA) Negative (Normal) 12/29/24 03:49 Urine Ketones Negative (Negative) 12/29/24 03:49 Urine Blood Negative (Negative) 12/29/24 03:49 Urine Nitrate Negative (Negative) 12/29/24 03:49 Urine Bilirubin Negative (Negative) 12/29/24 03:49 Urine Urobilinogen 1.0 mg/dL (Negative) 12/29/24 03:49 Ur Leukocyte Esterase Negative (Negative) 12/29/24 03:49 Urine RBC 0-2 /hpf (0-2) 12/29/24 03:49 Urine WBC 0-5 /hpf (0-5) 12/29/24 03:49 Ur Squamous Epith Cells 0-5 /hpf (0-5) 12/29/24 03:49 Amorphous Sediment Not Reportable 12/29/24 03:49 Urine Bacteria None seen /hpf (NONE) 12/29/24 03:49 Hyaline Casts 1.21 /lpf 12/29/24 03:49 Urine Opiates Screen Negative ng/mL (Negative) 12/29/24 03:49 Ur Barbiturates Screen Negative ng/mL (Negative) 12/29/24 03:49 Ur Phencyclidine Scrn Negative ng/mL (Negative) 12/29/24 03:49 Ur Amphetamines Screen Negative ng/mL (Negative) 12/29/24 03:49 U Benzodiazepines Scrn Positive ng/mL (Negative) H 12/29/24 03:49 Urine Cocaine Screen Negative ng/mL (Negative) 12/29/24 03:49 U Marijuana (THC) Screen Negative ng/mL (Negative) 12/29/24 03:49 Ethyl Alcohol < 10 mg/dL (0-10) 12/29/24 03:15 Influenza A (PCR) Negative (Negative) 12/29/24 03:15 Influenza Type B (PCR) Negative (Negative) 12/29/24 03:15 RSV (PCR) Negative (Negative) 12/29/24 03:15 SARS-CoV-2 (PCR) Negative (Negative) 12/29/24 03:15 All radiology interpretation(s) finalized by discharge Discharge Plan Discharge Patient Disposition: Home Clinical Impression: Muscle spasm Condition: Stable Prescriptions: No Action (DME) Custom Molded Orthotics See Rx Instructions .Route .MEDSUPPLY Qty: 1 0RF Rx Instructions: As directed metoprolol tartrate 25 mg tablet 25 mg PO BID Qty: 180 3RF atorvastatin 40 mg tablet 20 mg PO DAILY@1700 buspirone 10 mg tablet 20 mg PO TID pantoprazole [Protonix] 40 mg Tablet,Delayed Release (Dr/Ec) 40 mg PO QAM One-A-Day Menopause Formula 400-60 mcg-mg Tablet 1 tab PO QAM valacyclovir 1 gram Tablet 1,000 mg PO BEDTIME alendronate 35 mg Tablet 35 mg PO Q7D Rx Instructions: ON THURSDAY epinephrine [EpiPen 2-Fredy] 0.3 mg/0.3 mL Auto-Injector 0.3 mg IM Q4H PRN (Reason: Allergic Reaction) venlafaxine 75 mg Tablet 225 mg PO BEDTIME magnesium oxide 500 mg capsule 500 mg PO .qhs Qty: 20 0RF lorazepam 0.5 mg tablet 0.5 mg PO .nightly PRN (Reason: spasms) Qty: 7 0RF aspirin 81 mg tablet,delayed release (DR/EC) 81 mg PO DAILY Qty: 30 0RF quetiapine 200 mg Tablet 100 mg PO BEDTIME ZzzQuil 50 mg/30 mL Liquid 50 mg PO BEDTIME PRN (Reason: Sleep) Discharge Orders: Discharge ED (Routine); Ordered 12/29/24 Ordered By: Merry Osullivan Discharge Diet: Usual diet Discharge Activity: Increase activity as tolerated Patient Instructions: Muscle Spasm (ED), Opioid Safety, Pain Management Activity Restrictions/Additional Instructions: Thank you for choosing [facility] for your healthcare needs today. You have been screened and evaluated and felt safe for discharge. Health conditions do change or evolve sometimes and as such it is important that you follow up with your Primary Doctor to be re checked, 3-5 days is a general good time frame for follow up. You are always welcome to return to the ED for re assessment if your symptoms are worsening or you have new concerns Print Language: Japanese Coding Level of Care Code ED Medical Care Administrator for Marci Quinn
[2024-12-29 02:49] LABS: Glucose Point of Care 94 mg/dL (70-110)
[2024-12-29 03:02] LABS: ABG PCO2 41.8 mmHg (35-45); ABG PH Result 7.41 (7.35-7.45); Alveolar-Arterial Oxygen Gradi 2.8 mmHg (5-10); Arterial Blood Gas Hematocrit 36.1 % (37-47); Base Excess ABG 1.6 mmol/L (-2.0-2.0); Blood Gas Allen Test Pos; Blood Gas Operator Identificat ED; Blood Gas Sample Site Radial, left; Blood Gas Sample Type Arterial; HCO3 ABG 26.5 mmol/L (22-26); HGB O2 Sat 94.9 % (95-100); Ionized Calcium Level - ABG 1.2 mmol/L (1.1-1.4); Oxygen Device ROOM AIR; Oxygen Saturation ABG 95.8; PO2 ABG 74.2 mmHg (80.0-100.0); PO2 FiO2 Ratio Arterial Blood 353; Potassium Level - ABG 3.4 mmol/L (3.5-5.0); Total Hemoglobin 11.8 g/dL (12-16)
[2024-12-29 03:36] VITALS: BP 122/75; PULSE 92; RESP 27; O2SAT 97
[2024-12-29 03:40] LABS: Basophils # 0.1 10^3/uL (0.0-0.1); Basophils % 0.6 %; Eosinophils # 0.1 10^3/uL (0.0-0.8); Eosinophils % 0.5 %; Hematocrit 37.9 % (36-47); Lymphocytes # 3.5 10^3/uL (0.8-4.8); Lymphocytes % 37.1 %; Mean Corpuscular HGB Conc 30.6 g/dL (30-55); Mean Corpuscular Volume 84.8 fl (85-98); Mean Platelet Volume 9.1 fL (7.4-10.4); Monocytes # 0.6 10^3/uL (0.2-0.9); Monocytes % 6.8 %; Neutrophils # 5.12 10^3/uL (1.8-7.7); Neutrophils % 54.8 %; Nucleated Red Blood Cells % 0 %; Platelet Count 273 10^3/cmm (157-399); Red Blood Count 4.47 10^6/uL (3.85-5.65); Red Cell Distribution Width 16.3 % (12.1-15.1); White Blood Count 9.36 10^3/uL (3.29-11.43)
[2024-12-29 03:57] LABS: Bilirubin Urine Negative (Negative); Blood Urine Negative (Negative); Glucose Urine UA Negative (Normal); Ketones Urine Negative (Negative); Leukocyte Esterase Urine Negative (Negative); Nitrate Urine Negative (Negative); Protein Urine Negative (Negative); Specific Gravity, Urine 1.019 (1.005-1.030); Urine Appearance Clear (CLEAR); Urine Color Yellow (Yellow); pH Urine 5.5 (5-7)
[2024-12-29 03:59] LABS: Lactic Sepsis W/Reflex 0.7 mmol/L (0.5-2.2)
[2024-12-29 04:02] LABS: Bacteria Urine None Seen /hpf; Hyaline Casts Urine 1.21 /lpf; RBC Urine 0-2 /hpf (0-2); Squamous Epithelial Cell Urine 0-5 /hpf (0-5); WBC Urine 0-5 /hpf (0-5)
[2024-12-29 04:04] LABS: Amphetamines Screen Urine Negative (Negative); Barbiturates Screen Urine Negative (Negative); Benzodiazepines Screen Urine Positive (Negative); Cocaine Screen Urine Negative (Negative); Opiate Screen Urine Negative (Negative); PCP Screen Urine Negative (Negative); THC Screen Urine Negative (Negative)
[2024-12-29 04:05] LABS: Alanine Aminotransferase 13 U/L (0-33); Albumin Level 3.9 g/dL (3.5-5.2); Alkaline Phosphatase 87 U/L (35-105); Anion Gap 13.5 (5-19); Aspartate Amino Transferase 18 U/L (0-32); Blood Urea Nitrogen 13 mg/dL (8-23); Carbon Dioxide 27 mmol/L (22-29); Chloride 106 mmol/L (98-107); Creatine Phosphokinase 62 U/L (26-192); Creatinine Clr Calc Pharmacy 61.0009; Glomerular Filtration Rate 71.1 mL/min (90-130); Glucose 92 mg/dL (65-115); Osmolality Calculated 296 mOsm/kg (285-295); Potassium 3.5 mmol/L (3.5-5.1); Sodium 143 mmol/L (136-145); Thyroid Stimulating Hormone 1.88 uIU/mL (0.27-4.20); Total Bilirubin 0.3 mg/dL (0.15-1.2); Total Protein 6.9 g/dL (6.6-8.7)
[2024-12-29 04:09] LABS: Alcohol Level < 10 mg/dL (0-10)
[2024-12-29 04:16] LABS: Influenza A NEGATIVE (Negative); Influenza B NEGATIVE (Negative); Respiratory Syncytial Virus Ce NEGATIVE (Negative); SARS-CoV-2 PCR NEGATIVE (Negative)
[2024-12-29 04:19] LABS: UA Slide Review UA Slide Review Perf
[2024-12-29] MEDS: orphenadrine 30 mg/mL Inj 2 mL 60 MG IVP (04:21)
[2024-12-29 04:39] VITALS: PULSE 89; O2SAT 98
[2024-12-29] MEDS: LORazepam 1 MG/0.5 ML injection (04:40)
[2024-12-29 05:58] VITALS: BP 134/86; PULSE 84; O2SAT 97
[2024-12-30 04:02] LABS: Bacillus cereus group Not Detected (NOT DETECT); Bacillus subtillis group Not Detected (NOT DETECT); Corynebacterium Not Detected (NOT DETECT); Cutibacterium acnes (P.acnes) Not Detected (NOT DETECT); Enterococcus Not Detected (NOT DETECT); Enterococcus faecalis Not Detected (NOT DETECT); Enterococcus faecium Not Detected (NOT DETECT); Lactobacillus species Not Detected (NOT DETECT); Listeria Not Detected (NOT DETECT); Listeria monocytogenes Not Detected (NOT DETECT); Micrococcus Not Detected (NOT DETECT); Pan Candida Not Detected (NOT DETECT); Pan Gram-Negative Not Detected (NOT DETECT); Staphylococcus epidermidis Not Detected (NOT DETECT); Staphylococcus lugdunensis Not Detected (NOT DETECT); Staphylococcus species Not Detected (NOT DETECT); Streptococcus agalactiae Not Detected (NOT DETECT); Streptococcus anginosus group Not Detected (NOT DETECT); Streptococcus pneumoniae Not Detected (NOT DETECT); Streptococcus pyogenes Not Detected (NOT DETECT); Streptococcus species Detected (NOT DETECT)
--- NOTE | 2024-12-30 04:55 | PC.NURSE ---
Positive blood cultures reported to Dr. Osullivan. No new orders at this time.
== END 2024-12-29 04:50 | disposition home or self-care (01) ==
PROVIDERS: Emergency Provider Emergency Medicine
DX: M62.838 Other muscle spasm (principal); Z11.52 Encounter for screening for COVID-19; Z79.82 Long term (current) use of aspirin
CPT/HCPCS: 36416; 36600; 70450; 71045; 80051; 80053; 80306; 80307; 81001; 82330; 82550; 82805; 82962; 83605; 83735; 84443; 85025; 86140; 87040; 87150; 87205; 87637; 93005; 96374; 99285; J2060; J2360

== ENCOUNTER 2024-12-30 11:05 | Outpatient (CLI) | payer OTHER, MEDICARE, SELFPAY ==
--- NOTE | 2024-12-30 11:13 | MRR_ITS ---
PROCEDURE INFORMATION: Exam: MR Neck Without and With Contrast Exam date and time: 12/30/2024 11:31 AM Age: 69 years old Clinical indication: Other: Dysphagia; Trouble swallowing for 2 years/history of covid x2/ left anterolateral oropharyngeal soft tissue mass measures 8 x 4 mm. This mass is just inferior. And anterior to the left palatine tonsil TECHNIQUE: Imaging protocol: Magnetic resonance imaging of the neck without and with contrast. Contrast material: MULTIHANCE; Contrast volume: 14 ml; Contrast route: INTRAVENOUS (IV); COMPARISON: CT neck w con* [id number] 11/01/2024 9:21 AM FINDINGS: Pharynx: There is mild tonsillar enlargement bilaterally unchanged. Larynx: Unremarkable. Salivary glands: Unremarkable. Vasculature: Unremarkable. Lymph nodes: Few borderline enlarged lymph nodes in the upper internal jugular chains bilaterally unchanged. Bones/joints: Unremarkable. Soft tissues: There is a small nodular arear of soft tissue thickening measuring 5 mm along the anteromedial wall of the left vallecula redemonstrated not appreciably changed allowing for differences in technique, nonspecific. MR/MR orbit face neck wo/w* [id number] IMPRESSION: Mild nodular soft tissue thickening along the anteromedial wall of the left follicular unchanged, nonspecific.. Please correlate with findings on laryngoscopy.
[2024-12-30] MEDS: gadobenate dimeglumine 20 mL vial IV (11:59)
== END 2024-12-30 11:06 | disposition home or self-care (01) ==
LOC: RAD 11:07
PROVIDERS: PCP Nurse Practitioner; Visit Provider Specialist
DX: R13.19 Other dysphagia (principal); J35.1 Hypertrophy of tonsils; R59.0 Localized enlarged lymph nodes; M79.89 Other specified soft tissue disorders
CPT/HCPCS: 70543

== ENCOUNTER 2025-01-19 10:45 | Emergency (ER) | payer OTHER, MEDICARE, SELFPAY ==
[2025-01-19 10:47] VITALS: BP 135/63; PULSE 77; RESP 16; TEMP 37; O2SAT 97
[2025-01-19 11:21] VITALS: BP 135/63; PULSE 76; RESP 16; O2SAT 95
[2025-01-19 12:22] LABS: Bilirubin Urine Negative (Negative); Blood Urine Negative (Negative); Glucose Urine UA Negative (Normal); Ketones Urine Negative (Negative); Leukocyte Esterase Urine Trace (Negative); Nitrate Urine Negative (Negative); Protein Urine Negative (Negative); Specific Gravity, Urine 1.021 (1.005-1.030); Urine Appearance Clear (CLEAR); Urine Color Dark Yellow (Yellow); Urobilinogen Urine 0.2 mg/dL (Negative); pH Urine 6.5 (5-7)
[2025-01-19 12:25] LABS: Basophils % 0.4 %; Eosinophils % 0.4 %; Hematocrit 39.3 % (36-47); Lymphocytes # 2.2 10^3/uL (0.8-4.8); Lymphocytes % 29.3 %; Mean Corpuscular HGB Conc 30.8 g/dL (30-55); Mean Corpuscular Hemoglobin 26.7 pg (27-33); Mean Corpuscular Volume 86.8 fl (85-98); Mean Platelet Volume 8.9 fL (7.4-10.4); Monocytes # 0.5 10^3/uL (0.2-0.9); Monocytes % 6.3 %; Neutrophils # 4.66 10^3/uL (1.8-7.7); Neutrophils % 63.5 %; Nucleated Red Blood Cells % 0 %; Platelet Count 276 10^3/cmm (157-399); Red Blood Count 4.53 10^6/uL (3.85-5.65); Red Cell Distribution Width 15.6 % (12.1-15.1); White Blood Count 7.34 10^3/uL (3.29-11.43)
[2025-01-19 12:28] LABS: Add Urine Microscopic? YES; Amphetamines Screen Urine Negative (Negative); Bacteria Urine None Seen /hpf; Barbiturates Screen Urine Negative (Negative); Benzodiazepines Screen Urine Positive (Negative); Cocaine Screen Urine Negative (Negative); Opiate Screen Urine Negative (Negative); PCP Screen Urine Negative (Negative); RBC Urine 0-2 /hpf (0-2); Squamous Epithelial Cell Urine 0-5 /hpf (0-5); THC Screen Urine Negative (Negative)
[2025-01-19 12:31] LABS: Add Urine Culture? No
[2025-01-19 12:42] LABS: Alanine Aminotransferase 10 U/L (0-33); Albumin Level 4.1 g/dL (3.5-5.2); Alkaline Phosphatase 78 U/L (35-105); Anion Gap 13.8 (5-19); Aspartate Amino Transferase 15 U/L (0-32); Blood Urea Nitrogen 17 mg/dL (8-23); Calcium 9.5 mg/dL (8.5-10.5); Carbon Dioxide 27 mmol/L (22-29); Chloride 102 mmol/L (98-107); Creatinine Clr Calc Pharmacy 61.0009; Globulin 2.9 g/dL (1.3-4.6); Glomerular Filtration Rate 71.1 mL/min (90-130); Glucose 96 mg/dL (65-115); Magnesium 1.9 mg/dL (1.7-2.3); Osmolality Calculated 289 mOsm/kg (285-295); Potassium 3.8 mmol/L (3.5-5.1); Sodium 139 mmol/L (136-145); Total Bilirubin 0.3 mg/dL (0.15-1.2)
--- NOTE | 2025-01-19 12:52 | ECG_ITS ---
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
--- NOTE | 2025-01-19 13:09 | W.ED.BACK ---
HPI - Back Pain/Injury General: Chief Complaint: Back Pain/Injury Stated Complaint: muscle spasms Time Seen by Provider: 01/19/25 10:47 History of Present Illness: This patient is a 69-year-old white female who presents to the emergency department stating that she gets these episodes of her entire body developing what she calls muscle spasms. She states they start in her feet and then move up through her entire body. She states she has at least 1 of these episodes per day. They have been going on for about 3 months now. She has discussed the symptoms with her doctor as well as her psychiatrist. She states she was taken off several medications that they thought could be causing it. Related Data Home Medications ?Medication ?Instructions ?Recorded ?Confirmed atorvastatin 40 mg tablet 20 mg PO DAILY@1700 12/10/20 09/12/24 buspirone 10 mg tablet 20 mg PO TID 12/10/20 09/12/24 multivitamin-calcium, 1 tab PO QAM 12/28/20 09/12/24 [id number] isoflavone 400 mcg-60 mg tablet (One-A-Day Menopause Formula) pantoprazole 40 mg tablet,delayed 40 mg PO QAM 12/28/20 09/12/24 release (Protonix) alendronate 35 mg tablet 35 mg PO Q7D 12/23/21 09/12/24 epinephrine 0.3 mg/0.3 mL 0.3 mg IM Q4H PRN Allergic Reaction 12/23/21 09/12/24 injection, auto-injector (EpiPen 2-Fredy) valacyclovir 1 gram tablet 1,000 mg PO BEDTIME 12/23/21 09/12/24 venlafaxine 75 mg tablet 225 mg PO BEDTIME 06/18/23 09/12/24 diphenhydramine HCl 50 mg/30 mL 50 mg PO BEDTIME PRN Sleep 05/02/24 09/12/24 oral liquid (ZzzQuil) quetiapine 200 mg tablet 100 mg PO BEDTIME 05/02/24 09/12/24 Previous Rx's ?Medication ?Instructions ?Recorded metoprolol tartrate 25 mg tablet 25 mg PO BID #180 tabs 01/09/21 Custom Molded Orthotics #1 ea 09/12/21 aspirin 81 mg tablet,delayed 81 mg PO DAILY #30 tabs 12/20/23 release lorazepam 0.5 mg tablet 0.5 mg PO .nightly PRN spasms #7 12/26/24 tabs magnesium oxide 500 mg capsule 500 mg PO .qhs #20 caps 12/26/24 Allergies Allergy/AdvReac Type Severity Reaction Status Date / Time Penicillins Allergy Unknown Unknown Verified 12/13/24 23:03 [email or web address] Allergy Unknown Verified 12/13/24 23:03 erythromycin base Allergy Unknown Verified 12/13/24 23:03 Review of Systems General: Reports: 10 or more systems reviewed and unremarkable except in HPI and below Musc: Reports: other (Muscle spasms) PFSH ED PFSH: Medical History PVC (premature ventricular contraction) GERD (gastroesophageal reflux disease) Hyperlipidemia PTSD (post-traumatic stress disorder) History of depression Surgical History Status post laparoscopic cholecystectomy (02/06/21) H/O esophagogastroduodenoscopy (01/31/21) gastritis Status post colonoscopy S/P bilateral breast lumpectomy Hx of hysterectomy Family History Grandfather CAD (coronary artery disease) Myocardial infarction Diabetes Mother Stroke Dementia Father Stroke Dementia Social History Smoking and tobacco/nicotine status: never used tobacco/nicotine Alcohol intake: current Alcohol intake frequency: holidays/special occasions only Substance/Drug Use: never Physical Exam Const: COMMON NORMALS: no acute distress, patient oriented x3 and no limitations GENERAL APPEARANCE: cooperative and comfortable HENMT: COMMON NORMALS: normocephalic, atraumatic, Normal nasal mucous membranes and turbinates present, moist oral mucous membranes and oropharynx normal HEAD & SCALP: normal to inspection, normocephalic and atraumatic FACE & SINUS: normal facial exam NOSE: Normal nasal mucous membranes and turbinates present Eye: COMMON NORMALS: Equal, round and reactive pupils present, EOMs intact bilaterally and conjunctivae normal GENERAL EYE: appearance normal, both eyes and all related structures CONJUNCTIVA: Yes conjunctivae normal PUPIL: Yes Equal, round and reactive pupils present Neck/C-Spine: COMMON NORMALS: supple and no JVD Chest: COMMONS NORMALS: normal inspection of the chest Resp: COMMON NORMALS: normal respiratory effort and clear to auscultation bilaterally AUSCULTATION: clear to auscultation bilaterally Cardio: COMMON NORMALS: no JVD, regular rate, regular rhythm, No gallops present (Cardio), No murmurs present (Cardio) and No rub (Cardio) RATE: regular rate RHYTHM: regular rhythm GI: COMMON NORMALS: Normal to inspection, nondistended, normoactive bowel sounds present, Soft to palpation and non-tender AUSCULTATION: Yes normoactive bowel sounds PALPATION: Yes Soft to palpation : COMMON NORMALS: Yes no CVA tenderness BLADDER/KIDNEY EXAM: Yes no CVA tenderness Back/Pelvis: COMMON NORMALS: no CVA tenderness and thoracic and lumbar spine normal to inspection Extremity: COMMON NORMALS: normal to inspection Neuro: COMMON NORMALS: patient oriented x3 and CN's II-XII intact bilaterally Psych: COMMON NORMALS: mental status grossly normal, Normal thought process present and cooperative THOUGHT PROCESS: Normal thought process present Skin: COMMON NORMALS: no rashes or lesions noted, turgor normal and no jaundice GENERAL SKIN EXAM: no rashes or lesions noted and turgor normal Course Vital Signs: Vital signs: Vital Signs Temperature 98.6 F 01/19/25 10:47 Pulse Rate 76 01/19/25 11:21 Respiratory Rate 16 01/19/25 11:21 Blood Pressure 135/63 01/19/25 11:21 Pulse Oximetry 95 01/19/25 11:21 Oxygen Delivery Me thod Room Air 01/19/25 10:47 MDM - Back Pain/Injury Medical Decision Making CBC, CMP, magnesium, urinalysis normal. Urine drug screen positive for benzodiazepine. I am not sure what is causing her symptoms. May be medication related. I recommended she follow-up with her physicians for ongoing workup and management. She was discharged in stable condition. Labs 01/19/25 12:16 01/19/25 12:16 Laboratory Results WBC 7.34 10^3/uL (3.29-11.43) 01/19/25 12:16 RBC 4.53 10^6/uL (3.85-5.65) 01/19/25 12:16 Hgb 12.10 g/dL (11.27-16.99) 01/19/25 12:16 Hct 39.3 % (36-47) 01/19/25 12:16 MCV 86.8 fl (85-98) 01/19/25 12:16 MCH 26.7 pg (27-33) L 01/19/25 12:16 MCHC 30.8 g/dL (30-55) 01/19/25 12:16 RDW 15.6 % (12.1-15.1) H 01/19/25 12:16 Plt Count 276 10^3/cmm (157-399) 01/19/25 12:16 MPV 8.9 fL (7.4-10.4) 01/19/25 12:16 Neut % (Auto) 63.5 % 01/19/25 12:16 Lymph % (Auto) 29.3 % 01/19/25 12:16 [place] % (Auto) 6.3 % 01/19/25 12:16 Eos % (Auto) 0.4 % 01/19/25 12:16 Baso % (Auto) 0.4 % 01/19/25 12:16 Neut # (Auto) 4.66 10^3/uL (1.8-7.7) 01/19/25 12:16 Lymph # (Auto) 2.2 10^3/uL (0.8-4.8) 01/19/25 12:16 [place] # (Auto) 0.5 10^3/uL (0.2-0.9) 01/19/25 12:16 Eos # (Auto) 0.0 10^3/uL (0.0-0.8) 01/19/25 12:16 Baso # (Auto) 0.0 10^3/uL (0.0-0.1) 01/19/25 12:16 Nucleated RBC % (auto) 0 % 01/19/25 12:16 Nucleated RBCs # 0.0 /100WBC 01/19/25 12:16 Sodium 139 mmol/L (136-145) 01/19/25 12:16 Potassium 3.8 mmol/L (3.5-5.1) 01/19/25 12:16 Chloride 102 mmol/L (98-107) 01/19/25 12:16 Carbon Dioxide 27 mmol/L (22-29) 01/19/25 12:16 Anion Gap 13.8 (5-19) 01/19/25 12:16 BUN 17 mg/dL (8-23) 01/19/25 12:16 Creatinine 0.8 mg/dL (0.5-0.9) 01/19/25 12:16 GFR Calculation 71.1 mL/min (90-130) L 01/19/25 12:16 Glucose 96 mg/dL (65-115) 01/19/25 12:16 Calculated Osmolality 289 mOsm/kg (285-295) 01/19/25 12:16 Calcium 9.5 mg/dL (8.5-10.5) 01/19/25 12:16 Magnesium 1.9 mg/dL (1.7-2.3) 01/19/25 12:16 Total Bilirubin 0.3 mg/dL (0.15-1.2) 01/19/25 12:16 AST 15 U/L (0-32) 01/19/25 12:16 ALT 10 U/L (0-33) 01/19/25 12:16 Alkaline Phosphatase 78 U/L (35-105) 01/19/25 12:16 Total Protein 7.0 g/dL (6.6-8.7) 01/19/25 12:16 Albumin 4.1 g/dL (3.5-5.2) 01/19/25 12:16 Globulin 2.9 g/dL (1.3-4.6) 01/19/25 12:16 Urine Color Dark yellow (Yellow) A 01/19/25 11:57 Urine Appearance Clear (CLEAR) 01/19/25 11:57 Urine pH 6.5 (5-7) 01/19/25 11:57 Ur Specific [place] 1.021 (1.005-1.030) 01/19/25 11:57 Urine Protein Negative (Negative) 01/19/25 11:57 Urine Glucose (UA) Negative (Normal) 01/19/25 11:57 Urine Ketones Negative (Negative) 01/19/25 11:57 Urine Blood Negative (Negative) 01/19/25 11:57 Urine Nitrate Negative (Negative) 01/19/25 11:57 Urine Bilirubin Negative (Negative) 01/19/25 11:57 Urine Urobilinogen 0.2 mg/dL (Negative) 01/19/25 11:57 Ur Leukocyte Esterase Trace (Negative) A 01/19/25 11:57 Urine RBC 0-2 /hpf (0-2) 01/19/25 11:57 Urine WBC 11-20 /hpf (0-5) H 01/19/25 11:57 Ur Squamous Epith Cells 0-5 /hpf (0-5) 01/19/25 11:57 Amorphous Sediment Not Reportable 01/19/25 11:57 Urine Bacteria None seen /hpf (NONE) 01/19/25 11:57 Hyaline Casts 0.40 /lpf 01/19/25 11:57 Urine Opiates Screen Negative ng/mL (Negative) 01/19/25 11:57 Ur Barbiturates Screen Negative ng/mL (Negative) 01/19/25 11:57 Ur Phencyclidine Scrn Negative ng/mL (Negative) 01/19/25 11:57 Ur Amphetamines Screen Negative ng/mL (Negative) 01/19/25 11:57 U Benzodiazepines Scrn Positive ng/mL (Negative) H 01/19/25 11:57 Urine Cocaine Screen Negative ng/mL (Negative) 01/19/25 11:57 U Marijuana (THC) Screen Negative ng/mL (Negative) 01/19/25 11:57 No radiology studies performed this visit Discharge Plan Discharge Patient Disposition: Home Clinical Impression: Movement disorder Condition: Stable Prescriptions: No Action (DME) Custom Molded Orthotics See Rx Instructions .Route .MEDSUPPLY Qty: 1 0RF Rx Instructions: As directed metoprolol tartrate 25 mg tablet 25 mg PO BID Qty: 180 3RF atorvastatin 40 mg tablet 20 mg PO DAILY@1700 buspirone 10 mg tablet 20 mg PO TID pantoprazole [Protonix] 40 mg Tablet,Delayed Release (Dr/Ec) 40 mg PO QAM One-A-Day Menopause Formula 400-60 mcg-mg Tablet 1 tab PO QAM valacyclovir 1 gram Tablet 1,000 mg PO BEDTIME alendronate 35 mg Tablet 35 mg PO Q7D Rx Instructions: ON THURSDAY epinephrine [EpiPen 2-Fredy] 0.3 mg/0.3 mL Auto-Injector 0.3 mg IM Q4H PRN (Reason: Allergic Reaction) venlafaxine 75 mg Tablet 225 mg PO BEDTIME magnesium oxide 500 mg capsule 500 mg PO .qhs Qty: 20 0RF lorazepam 0.5 mg tablet 0.5 mg PO .nightly PRN (Reason: spasms) Qty: 7 0RF aspirin 81 mg tablet,delayed release (DR/EC) 81 mg PO DAILY Qty: 30 0RF quetiapine 200 mg Tablet 100 mg PO BEDTIME ZzzQuil 50 mg/30 mL Liquid 50 mg PO BEDTIME PRN (Reason: Sleep) Discharge Orders: Discharge ED (Routine); Ordered 01/19/25 Ordered By: Taj Dean Referrals: Joellen Alvarez FNP [Primary Care Provider, Nurse Practitioner] Activity Restrictions/Additional Instructions: Follow-up with your primary care provider and/or psychiatrist for ongoing evaluation. You may need referral to neurology to get their opinion as well. Print Language: Portuguese Coding Level of Care Code ED Textile Conservator for Marci Quinn
[2025-01-19 13:20] VITALS: BP 127/70; PULSE 77; O2SAT 99
== END 2025-01-19 13:21 | disposition home or self-care (01) ==
PROVIDERS: Emergency Provider Emergency Medicine; PCP Nurse Practitioner
DX: G25.9 Extrapyramidal and movement disorder, unspecified (principal); Z79.82 Long term (current) use of aspirin; E78.5 Hyperlipidemia, unspecified
CPT/HCPCS: 36415; 80053; 80306; 81001; 83735; 85025; 93005; 99284

== ENCOUNTER 2025-01-20 22:09 | Emergency (ER) | payer OTHER, MEDICARE, SELFPAY ==
[2025-01-20 22:09] VITALS: BP 103/63; PULSE 74; RESP 18; TEMP 36.5; O2SAT 96; BMI 24.0
--- NOTE | 2025-01-21 00:04 | W.ED.GENADLT ---
HPI - General Adult General: Chief complaint: General Medical Stated complaint: muscle spasms Time Seen by Provider: 01/20/25 23:49 History of Present Illness: Patient comes in with tremors. States she has been having these off and on tremors for over 3 months now. Has been seen multiple times. She was seen yesterday and had unremarkable labs. States that she is on Seroquel, BuSpar, trazodone, and venlafaxine. States that venlafaxine was started 6 to 9 months ago. Throughout the physical exam she has occasional tremors of all 4 extremities that last for couple seconds at a time. Her exam is otherwise unremarkable. Related Data Home Medications ?Medication ?Instructions ?Recorded ?Confirmed atorvastatin 40 mg tablet 20 mg PO DAILY@1700 12/10/20 09/12/24 buspirone 10 mg tablet 20 mg PO TID 12/10/20 09/12/24 multivitamin-calcium, 1 tab PO QAM 12/28/20 09/12/24 lexhxal-WI-tlb isoflavone 400 mcg-60 mg tablet (One-A-Day Menopause Formula) pantoprazole 40 mg tablet,delayed 40 mg PO QAM 12/28/20 09/12/24 release (Protonix) alendronate 35 mg tablet 35 mg PO Q7D 12/23/21 09/12/24 epinephrine 0.3 mg/0.3 mL 0.3 mg IM Q4H PRN Allergic Reaction 12/23/21 09/12/24 injection, auto-injector (EpiPen 2-Fredy) valacyclovir 1 gram tablet 1,000 mg PO BEDTIME 12/23/21 09/12/24 venlafaxine 75 mg tablet 225 mg PO BEDTIME 06/18/23 09/12/24 diphenhydramine HCl 50 mg/30 mL 50 mg PO BEDTIME PRN Sleep 05/02/24 09/12/24 oral liquid (ZzzQuil) quetiapine 200 mg tablet 100 mg PO BEDTIME 05/02/24 09/12/24 Previous Rx's ?Medication ?Instructions ?Recorded metoprolol tartrate 25 mg tablet 25 mg PO BID #180 tabs 01/09/21 Custom Molded Orthotics #1 ea 09/12/21 aspirin 81 mg tablet,delayed 81 mg PO DAILY #30 tabs 12/20/23 release lorazepam 0.5 mg tablet 0.5 mg PO .nightly PRN spasms #7 12/26/24 tabs magnesium oxide 500 mg capsule 500 mg PO .qhs #20 caps 12/26/24 Allergies Allergy/AdvReac Type Severity Reaction Status Date / Time Penicillins Allergy Unknown Unknown Verified 12/13/24 23:03 [email or web address] Allergy Unknown Verified 12/13/24 23:03 erythromycin base Allergy Unknown Verified 12/13/24 23:03 Review of Systems Neuro: Reports: involuntary movements PFSH ED PFSH: Medical History PVC (premature ventricular contraction) GERD (gastroesophageal reflux disease) Hyperlipidemia PTSD (post-traumatic stress disorder) History of depression Surgical History Status post laparoscopic cholecystectomy (02/06/21) H/O esophagogastroduodenoscopy (01/31/21) gastritis Status post colonoscopy S/P bilateral breast lumpectomy Hx of hysterectomy Family History Grandfather CAD (coronary artery disease) Myocardial infarction Diabetes Mother Stroke Dementia Father Stroke Dementia Social History Smoking and tobacco/nicotine status: never used tobacco/nicotine Alcohol intake: current Alcohol intake frequency: holidays/special occasions only Substance/Drug Use: never Physical Exam Const: COMMON NORMALS: no acute distress, patient oriented x3, healthy appearing and alert HENMT: COMMON NORMALS: normocephalic and atraumatic HEAD & SCALP: normocephalic and atraumatic Eye: COMMON NORMALS: Equal, round and reactive pupils present and EOMs intact bilaterally PUPIL: Yes Equal, round and reactive pupils present Neck/C-Spine: COMMON NORMALS: full ROM and supple Resp: COMMON NORMALS: normal respiratory effort, No retractions and No use of accessory muscles Cardio: COMMON NORMALS: regular rate and regular rhythm RATE: regular rate RHYTHM: regular rhythm Extremity: COMMON NORMALS: normal to inspection and full ROM Neuro: COMMON NORMALS: patient oriented x3 SENSORIUM/ORIENTATION: Yes alert Psych: COMMON NORMALS: mental status grossly normal and cooperative Skin: COMMON NORMALS: no rashes or lesions noted and no wounds GENERAL SKIN EXAM: no rashes or lesions noted Course Vital Signs: Vital signs: Vital Signs Temperature 97.7 F 01/20/25 22:09 Pulse Rate 74 01/20/25 22:09 Respiratory Rate 18 01/20/25 22:09 Blood Pressure 103/63 01/20/25 22:09 Pulse Oximetry 96 01/20/25 22:09 Oxygen Delivery Me thod Room Air 01/20/25 22:09 [facility] - General Adult Medical Decision Making We talked about following up with her primary care physician to discuss weaning her off some of her medications. We also discussed using Benadryl which she states she has at home. Will discharge at this time with precautions to return for worsening or changing symptoms. No radiology studies performed this visit Discharge Plan Discharge Patient Disposition: Home Clinical Impression: Tremor of unknown origin Condition: Stable Prescriptions: No Action (DME) Custom Molded Orthotics See Rx Instructions .Route .MEDSUPPLY Qty: 1 0RF Rx Instructions: As directed metoprolol tartrate 25 mg tablet 25 mg PO BID Qty: 180 3RF atorvastatin 40 mg tablet 20 mg PO DAILY@1700 buspirone 10 mg tablet 20 mg PO TID pantoprazole [Protonix] 40 mg Tablet,Delayed Release (Dr/Ec) 40 mg PO QAM One-A-Day Menopause Formula 400-60 mcg-mg Tablet 1 tab PO QAM valacyclovir 1 gram Tablet 1,000 mg PO BEDTIME alendronate 35 mg Tablet 35 mg PO Q7D Rx Instructions: ON THURSDAY epinephrine [EpiPen 2-Fredy] 0.3 mg/0.3 mL Auto-Injector 0.3 mg IM Q4H PRN (Reason: Allergic Reaction) venlafaxine 75 mg Tablet 225 mg PO BEDTIME magnesium oxide 500 mg capsule 500 mg PO .qhs Qty: 20 0RF lorazepam 0.5 mg tablet 0.5 mg PO .nightly PRN (Reason: spasms) Qty: 7 0RF aspirin 81 mg tablet,delayed release (DR/EC) 81 mg PO DAILY Qty: 30 0RF quetiapine 200 mg Tablet 100 mg PO BEDTIME ZzzQuil 50 mg/30 mL Liquid 50 mg PO BEDTIME PRN (Reason: Sleep) Discharge Orders: Discharge ED (Routine); Ordered 01/21/25 Ordered By: Mohan Boothe Referrals: Joellen Alvarez FNP [Primary Care Provider, Nurse Practitioner] Patient Instructions: Tremors (ED) Print Language: [place] Coding Level of Care Code ED Bias Binding Cutter for Marci Quinn
[2025-01-21 01:05] VITALS: BP 139/70; PULSE 74; RESP 18; O2SAT 98
== END 2025-01-21 01:07 | disposition home or self-care (01) ==
PROVIDERS: Emergency Provider Emergency Medicine; PCP Nurse Practitioner
DX: R25.1 Tremor, unspecified (principal); Z79.82 Long term (current) use of aspirin; E78.5 Hyperlipidemia, unspecified
CPT/HCPCS: 99282

== ENCOUNTER 2025-02-08 20:00 | Outpatient (CLI) | payer MEDICARE, SELFPAY | END 2025-02-08 20:01 | disposition home or self-care (01) | LOC: SLEEP 02-09 03:28 | PROVIDERS: PCP Nurse Practitioner; Visit Provider Nurse Practitioner | DX: G47.33 Obstructive sleep apnea (adult) (pediatric) (principal); G47.36 Sleep related hypoventilation in conditions classified elsewhere | CPT/HCPCS: 95810 ==

== ENCOUNTER 2025-02-15 13:46 | Emergency (ER) | payer OTHER, MEDICARE, SELFPAY ==
[2025-02-15 13:47] VITALS: BP 142/76; PULSE 98; RESP 18; TEMP 36.7; O2SAT 100; BMI 24.0
--- OUTSIDE RECORDS SUMMARY | 2025-02-15 13:54 | XMS_ITS | Encounter Summary ---
Author Organization [facility] Address [address] [place] [address] Care Team Providers Care Process Planner Name Role Phone Miguel Angel MD Primary Care Provider [phone] Encounter Details Date Type Department Care Team (Late st Contact Info) Description 03/08/2008 Outpatient [facility] [address] [facility] [address] [place] [address] Social History Tobacco Use Types Packs/Day Years Used Date Smoking Tobacco: Never Assessed Comments Unknown Sex and Gender Information Value Date Recorded Sex Assigned at Not on file 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
--- OUTSIDE RECORDS SUMMARY | 2025-02-15 13:54 | XMS_ITS | Encounter Summary ---
Author Organization [facility] Address [address] [place] [address] Care Team Providers Care Service Center Supervisor Name Role Phone Miguel Angel MD Primary Care Provider [phone] Encounter Details Date Type Department Care Team (Latest Contact Info) Description 12/05/2002 Outpatient Historical [address], [place] [phone] Marcelino Lazar MD [address] [phone] OTHER MALAISE AND FATIGUE (Primary Dx); GASTRITIS/DUODEN NOS W/O HEMORRH Social History Tobacco Use Types Packs/Day Years Used Date Smoking Tobacco: Never Assessed Comments Unknown Sex and Gender Information Value Date Recorded Sex Assigned at Not on file 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 [phone] PCP - General Family Practice 10/14/17 documented as of this encounter
--- OUTSIDE RECORDS SUMMARY | 2025-02-15 13:54 | XMS_ITS | Encounter Summary ---
Author Organization [facility] Address [address] [place] [address] Care Team Providers Care Nursing Program Chair Name Role Phone Miguel Angel MD Primary Care Provider [phone] Encounter Details Date Type Department Care Team (Late st Contact Info) Description 02/01/2003 Outpatient Historical [address] [phone] Josselin Ordonez MD [address] [place] [address], [address] Social History Tobacco Use Types Packs/Day Years Used Date Smoking Tobacco: Never Assessed Comments Unknown Sex and Gender Information Value Date Recorded Sex Assigned at Not on file 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
--- OUTSIDE RECORDS SUMMARY | 2025-02-15 13:54 | XMS_ITS | Encounter Summary ---
Author Organization [facility] Address [address] [place] [address] Care Team Providers Care Stenographer Print Shop Name Role Phone Miguel Angel MD Primary Care Provider [phone] Encounter Details Date Type Department Care Team (Late st Contact Info) Description 03/06/2008 Outpatient [facility] [address] [place], [place] [id number] Magdaleno Phillips MD NO ADDRESS ON FILE Social History Tobacco Use Types Packs/Day Years Used Date Smoking Tobacco: Never Assessed Comments Unknown Sex and Gender Information Value Date Recorded Sex Assigned at Not on file 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 Sex Female 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 Gender Identity Not on file Sexual Orientation Not on file documented as of this encounter Plan of Treatment Not on file documented as of this encounter Procedures Procedure Name Priority Date/Time Associated Diagnosis Comments MAMMO SCRN TO DIAG BILAT Routine 03/08/2008 3:19 PM CDT documented in this encounter Results * MAMMO SCRN TO DIAG BILAT (03/08/2008 3:19 PM CDT) Anatomical Region Laterality Modality Breast Other Narrative 03/08/2008 3:19 PM CDT Report Available in [facility] Procedure Note 09/18/2008 Report Available in [facility] us Magdaleno Phillips MD MAMMO ORDERABLES Final Resul t documented in this encounter Visit Diagnoses Not on filedocumented in this encounter Care Teams Stenographer Print Shop Relationship Specialty Start Date End Date Miguel Angel MD [address] [facility] [place] [phone] PCP - General Family Practice 10/14/17 documented as of this encounter
--- OUTSIDE RECORDS SUMMARY | 2025-02-15 13:54 | XMS_ITS | Encounter Summary ---
Author Organization [facility] Address [address] [place] [address] Care Team Providers Care Leather Dresser Name Role Phone Miguel Angel MD Primary Care Provider [phone] Encounter Details Date Type Department Care Team (Latest Contact Info) Description 05/12/2001 Outpatient Historical [facility] Medicine [address] [phone] Marcelino Lazar MD [address] [phone] Unspecified endocrine disorder (Primary Dx); Sebaceous cyst Social History Tobacco Use Types Packs/Day Years Used Date Smoking Tobacco: Never Assessed Comments Unknown Sex and Gender Information Value Date Recorded Sex Assigned at Not on file 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
--- OUTSIDE RECORDS SUMMARY | 2025-02-15 13:54 | XMS_ITS | Encounter Summary ---
Author Organization [facility] Address [address] [place] [address] Care Team Providers Care Certified Control Systems Technician Name Role Phone Miguel Angel MD Primary Care Provider [phone] Encounter Details Date Type Department Care Team (Late st Contact Info) Description 03/06/2009 Ancillary Orders [facility] Gen Spec [place] 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 The patient is status post benign excisional biopsy on the right. Yearly exams are recommended. Narrative 03/15/2009 3:08 PM CDT DIGITAL SCREENING MAMMOGRAM: Bilateral CC and MLO views were obtained. Comparison was made with studies of 05/24/07, 07/13/07, and 03/08/08. There is dense breast tissue noted on the left. The distribution of that tissue appears to be stable and unremarkable. On the right, the patient is status post excisional biopsy. That excisional biopsy was performed on 07/13/07 and reported no evidence of atypical hyperplasia or malignancy. Prior to the excisional biopsy, the patient did have a needle core biopsy which suggested atypical ductal hyperplasia. The biopsy site is unremarkable. There are a few secretory type of calcifications noted and the tissue distribution and visualized lymph nodes are unremarkable. This digital mammogram was also analyzed by the Computer Aided Detection System (CAD), R2 ImageChecker, Version 8.3. Procedure Note Jazmin Sinclair MD - 03/18/2009 DIGITAL SCREENING MAMMOGRAM: Bilateral CC and MLO views were obtained. Comparison was made withstudies of 05/24/07, 07/13/07, and 03/08/08. There is dense breast tissue noted on the left. The distribution of thattissue appears to be stable and unremarkable. On the right, the patient is status post excisional biopsy. Thatexcisional biopsy was performed on 07/13/07 and reported no evidence ofatypical hyperplasia or malignancy. Prior to the excisional biopsy, thepatient did have a needle core biopsy which suggested atypical ductalhyperplasia. The biopsy site is unremarkable. There are a few secretorytype of calcifications noted and the tissue distribution and visualizedlymph nodes are unremarkable. This digital mammogram was also analyzed by the Computer Aided DetectionSystem (CAD), R2 ImageChecker, Version 8.3. IMPRESSION: Bilateral screening exam demonstrates no suspicious intervalchange. The patient is status post benign excisional biopsy on the right.Yearly exams are recommended. us Magdaleno Phillips MD MAMMO ORDERABLES Final Resul t documented in this encounter Visit Diagnoses Diagnosis Screening mammogram Other screening mammogram Screening mammogram Other screening mammogram documented in this encounter Care Teams Certified Control Systems Technician Relationship Specialty Start Date End Date Miguel Angel MD [address] [place] [phone] PCP - General Family Practice 10/14/17 documented as of this encounter
--- OUTSIDE RECORDS SUMMARY | 2025-02-15 13:54 | XMS_ITS | Encounter Summary ---
Author Organization [facility] Address [address] [place] [address] Care Team Providers Care Trip Follower Name Role Phone Miguel Angel MD Primary Care Provider [phone] Encounter Details Date Type Department Care Team (Latest Contact Info) Description 06/21/2001 Outpatient Historical [facility] Gen Spec [facility] [address] [place] [address] Magdaleno Phillips MD NO ADDRESS ON FILE BENIGN JAKE SOFT TISSUE HEAD (Primary Dx); SURGERY FOLLOWUP, UNSPEC Social History Tobacco Use Types Packs/Day Years Used Date Smoking Tobacco: Never Assessed Comments Unknown Sex and Gender Information Value Date Recorded Sex Assigned at Not on file 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
--- OUTSIDE RECORDS SUMMARY | 2025-02-15 13:54 | XMS_ITS | Encounter Summary ---
Author Organization [facility] Address [address] [place] [address] Care Team Providers Care Materials Manager Name Role Phone Miguel Angel MD Primary Care Provider [phone] Reason for Referral * Outpatient Services (Routine) - Closed Specialty Diagnoses / Procedures Referred By Contsmita t Referred To Contact Diagnoses Other screening mammogram Procedures MAMMO DIGITAL SCREEN BILAT Magdaleno Phillips MD NO ADDRESS ON FILE Referral ID Status Reason Start Date Expiration Date Visits Re quested Visits Authorized [id number] Closed 04/08/2010 10/05/2010 1 1 Encounter Details Date Type Department Care Team (Late st Contact Info) Description 04/08/[address] 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 This examination was reviewed with the aid of a computer-aided detection system(CAD). The breast tissue is dense. No significant new findings since the prior mammogram(s). Procedure Note Katerina Roe MD - 03/18/2011 Bilateral Mammogram Reason for Exam: Screening Comparison: Comparison is made with the prior exam(s) dated 8.2.10 Findings: Bilateral CC and MLO views were obtained. This examination was reviewed with the aid of a computer-aided detectionsystem(CAD). The breast tissue is dense. No significant new findings since the prior mammogram(s). us Magdaleno Phillips MD MAMMO ORDERABLES Final Resul t documented in this encounter Visit Diagnoses Diagnosis Other screening mammogram Other screening mammogram documented in this encounter Care Teams Materials Manager Relationship Specialty Start Date End Date Miguel Angel MD [address] [facility] [place] [address] PCP - General Family Practice 10/14/17 documented as of this encounter
--- OUTSIDE RECORDS SUMMARY | 2025-02-15 13:54 | XMS_ITS | Encounter Summary ---
Author Organization [facility] Address [address] [place] [address] Care Team Providers Care Manager Organizational Name Role Phone Miguel Angel MD Primary Care Provider [phone] Encounter Details Date Type Department Care Team (Latest Contact Info) Description 06/09/2001 Outpatient Historical [facility] Medicine [address] [phone] Rubia Ortiz MD [address] [place] [phone] Acute frontal sinusitis (Primary Dx) Social History Tobacco Use Types Packs/Day Years Used Date Smoking Tobacco: Never Assessed Comments Unknown Sex and Gender Information Value Date Recorded Sex Assigned at Not on file 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
--- OUTSIDE RECORDS SUMMARY | 2025-02-15 13:54 | XMS_ITS | Encounter Summary ---
Author Organization [facility] Address [address] [place] [address] Care Team Providers Care Credit Product Analyst Name Role Phone Miguel Angel MD Primary Care Provider [phone] Encounter Details Date Type Department Care Team (Latest Contact Info) Description 11/16/2001 Outpatient Historical [address] [phone] Josselin Ordonez MD [address] [place] [address], [address] THYROTOX NOS NO CRISIS (Primary Dx) Social History Tobacco Use Types Packs/Day Years Used Date Smoking Tobacco: Never Assessed Comments Unknown Sex and Gender Information Value Date Recorded Sex Assigned at Not on file 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
--- OUTSIDE RECORDS SUMMARY | 2025-02-15 13:54 | XMS_ITS | Encounter Summary ---
Author Organization [facility] Address [address] [place] [address] Care Team Providers Care Telephonic Rn Name Role Phone Miguel Angel MD Primary Care Provider [phone] Encounter Details Date Type Department Care Team (Latest Contact Info) Description 09/07/2001 Outpatient Historical [facility] Medicine [address] [phone] Marcelino Lazar MD [address] [phone] HEADACHE (Primary Dx); Sprain of neck Social History Tobacco Use Types Packs/Day Years Used Date Smoking Tobacco: Never Assessed Comments Unknown Sex and Gender Information Value Date Recorded Sex Assigned at Not on file 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 [place] [address] PCP - General Family Practice 10/14/17 documented as of this encounter
--- OUTSIDE RECORDS SUMMARY | 2025-02-15 13:54 | XMS_ITS | Encounter Summary ---
Author Organization [facility] Address [address] [place] [address] Care Team Providers Care Box Spring Maker Name Role Phone Miguel Angel MD Primary Care Provider [phone] Encounter Details Date Type Department Care Team (Latest Contact Info) Description 02/24/2003 Outpatient Historical [address] [phone] Josselin Ordonez MD [address] [place] [address], [address] INSOMNIA NEC (Primary Dx) Social History Tobacco Use Types Packs/Day Years Used Date Smoking Tobacco: Never Assessed Comments Unknown Sex and Gender Information Value Date Recorded Sex Assigned at Not on file 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
--- OUTSIDE RECORDS SUMMARY | 2025-02-15 13:54 | XMS_ITS | Encounter Summary ---
Author Organization [facility] Address [address] [place] [address] Care Team Providers Care Executive Officer Special Warfare Team Name Role Phone Miguel Angel MD Primary Care Provider [phone] Encounter Details Date Type Department Care Team (Latest Contact Info) Description 09/14/2002 Outpatient Historical [address] [place], [place] [phone] Marcelino Lazar MD [address] [phone] SHOULDER REGION DIS NEC (Primary Dx); ENTHESOPATHY, SITE NOS Social History Tobacco Use Types Packs/Day Years Used Date Smoking Tobacco: Never Assessed Comments Unknown Sex and Gender Information Value Date Recorded Sex Assigned at Not on file 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
--- OUTSIDE RECORDS SUMMARY | 2025-02-15 13:54 | XMS_ITS | Encounter Summary ---
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); Benign neoplasm of skin, site unspecified; Dysthymic disorder Social History Tobacco Use Types Packs/Day Years Used Date Smoking Tobacco: Never Assessed Comments Unknown Sex and Gender Information Value Date Recorded Sex Assigned at Not on file 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
--- OUTSIDE RECORDS SUMMARY | 2025-02-15 13:54 | XMS_ITS | Encounter Summary ---
Author Organization [facility] Address [address] [place] [address] Care Team Providers Care Cloth Examiner Name Role Phone Miguel Angel MD Primary Care Provider [phone] Encounter Details Date Type Department Care Team (Latest Contact Info) Description 01/26/2001 Outpatient Historical [address] [phone] Marcelino Lazar MD [address] [phone] Unspecified disorder of skin and subcutaneous tissue (Primary Dx); Patellar tendinitis Social History Tobacco Use Types Packs/Day Years Used Date Smoking Tobacco: Never Assessed Comments Unknown Sex and Gender Information Value Date Recorded Sex Assigned at Not on file 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
--- OUTSIDE RECORDS SUMMARY | 2025-02-15 13:54 | XMS_ITS | Encounter Summary ---
Author Organization [employer] Address [address] [place] [address] Care Team Providers Care Professor Of Anthropology Name Role Phone Miguel Angel MD Primary Care Provider [phone] Encounter Details Date Type Department Care Team (Latest Contact Info) Description 07/13/2007 Outpatient [facility] [address] [place], [place] [address] Magdaleno Phillips MD NO ADDRESS ON FILE Depressive Disorder, not Elsewhere Classified; Personal History of Allergy to Penicillin Social History Tobacco Use Types Packs/Day Years Used Date Smoking Tobacco: Never Assessed Comments Unknown Sex and Gender Information Value Date Recorded Sex Assigned at Not on file 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
--- OUTSIDE RECORDS SUMMARY | 2025-02-15 13:54 | XMS_ITS | Encounter Summary ---
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 [address] PCP - General Family Practice 10/14/17 documented as of this encounter
--- OUTSIDE RECORDS SUMMARY | 2025-02-15 13:54 | XMS_ITS | Clinical Summary ---
Author Organization [facility] Address [address] [place] [address] Care Team Providers Care Contract Project Manager Name Role Phone Miguel Angel MD Primary Care Provider [phone] Allergies Active Allergy Reactions Criticality Noted Date Comments Erythromycin Anaphylaxis High 12/12/2010 Penicillins Shortness of Breath/Wheezing High 2010 Medications mirtazapine (REMERON) 45 mg Oral tablet Take 45 mg by mouth daily at bedtime. Active ropinirole (REQUIP) 2 mg Oral Tab Take 2 mg by mouth. Every bedtime. Active SIMVASTATIN ORAL Take 20 mg by mouth daily . Active BUSPIRONE HCL (BUSPAR ORAL) Take 5 mg by mouth 2 times daily as needed . Active QUETIAPINE FUMARATE (SEROQUEL ORAL) Take 200 mg by mouth daily at bedtime Takes 1/2 tablet= 100 mg. Active PEG-Electrolyt e Soln (NULYTELY) 420 g Recon Soln Take 4,000 mL by mouth see administration instructions. 4000 mL 8 Active naproxen (NAPROSYN) 500 mg tablet Take 500 mg by mouth 2 times daily with meals. Active montelukast (SINGULAIR) 10 mg tablet Take 10 mg by mouth daily at bedtime. Active atorvastatin (LIPITOR) 40 mg tablet Take 40 mg by mouth daily. Active VALSARTAN ORAL Take by mouth. Active omeprazole (PriLOSEC) 40 mg Capsule, Delayed Release(E.C.) Take 40 mg by mouth daily. Active Active Problems Problem Noted Date Diagnosed Date History of Atypical ductal hyperplasia 2 Screening breast examination 03/18/2012 Lipoma of other skin and subcutaneous tissue 12/2010 Mass of neck 12/12/2010 Family History Medical History Relation Name Comments Stroke Father Diabetes Maternal Grandfather Cancer Maternal Grandmother Breast Cancer Other 3 Mat. Cous Positive Respo nse-see media tab Diabetes Paternal Grandfather Heart Disease Paternal Grandfather Colon Cancer Neg Hx Relation Name Status Comments Father Maternal Grandfather Maternal Grandmother Other 3 Mat. Cous Alive Paternal Grandfather Social History Tobacco Use Types Packs/Day Years Used Date Smoking Tobacco: Never Smokeless Tobacco: Never Alcohol Use Standard Drinks/Week Comments No 0 (1 standard drink = 0.6 oz pur e alcohol) Comments No Sex and Gender Information Value Date Recorded Sex Assigned at Not on file Legal Sex Female 3:31 AM MEDICAL BILLING AND CODING SPECIALIST Gender Identity Not on file Sexual Orientation Not on file Occupation Industry Job Start Date Job End Date Not on file Not on file Not on file Not on file Last Filed Vital Signs Vital Sign Reading Time Taken Comments Blood Pressure 146/88 07/09/2020 9:50 AM MEDICAL BILLING AND CODING SPECIALIST Pulse 84 10/19/2017 1:02 PM MEDICAL BILLING AND CODING SPECIALIST Temperature 36.7 C (98 F) 10/19/2017 11:41 AM MEDICAL BILLING AND CODING SPECIALIST Respiratory Rate 16 10/19/2017 1:02 PM MEDICAL BILLING AND CODING SPECIALIST Oxygen Saturation 97% 10/19/2017 1:02 PM MEDICAL BILLING AND CODING SPECIALIST Inhaled Oxygen Concentration - - Weight 74.8 kg (165 lb) 07/09/2020 9:50 AM MEDICAL BILLING AND CODING SPECIALIST Height 162.6 cm (5' 4 ) 07/09/2020 9:50 AM MEDICAL BILLING AND CODING SPECIALIST Body Mass Index 28.32 07/09/2020 9:50 AM MEDICAL BILLING AND CODING SPECIALIST Plan of Treatment Health Maintenance Due Date Last Done Comments DTAP/TDAP/TD VACCINES (1 - Tdap) 11/14/1974 COLORECTAL SCREENING 11/14/2000 FIT-DNA Q 3 years 11/14/2000 Flex Sig/CT Colonography Q 5 years 11/14/2000 Colorectal Cancer Screening 10/19/2001 FIT/FOBT Q 1 year 10/19/2001 10/19/2000 PNEUMOCOCCAL VACCINE 50+ YEA RS (1 of 1 - PCV) 11/14/2005 ZOSTER VACCINE (1 of 2) 11/14/2005 BREAST CANCER SCREENING 03/25/2014 03/25/20 13, 03/18/2012, 03/17/2011, Additional history exists OSTEOPOROSIS SCREENING 11/14/2020 INFLUENZA VACCINE (#1) 2025 RSV VACCINE (60+ or ) (1 - 1-dose 75+ series) 11/14/2030 Procedures Procedure Name Priority Date/Time Associated Diagnosis Comments MAMMO SCREEN BILAT W OR WO CAD Routine 03/25/2013 10:05 AM CDT Other screening mammogram from Last 3 Months or Most Recently Relevant to Health Maintenance Results * MAMMO DIGITAL SCREEN BILAT (03/25/2013 10:05 AM CDT) Anatomical Region Laterality Modality Breast Bilateral Mammography Narrative 03/28/2013 11:21 AM CDT Bilateral Mammogram Reason for Exam: Screening Comparison: Compared to: 03/18/2012 MAMMO DIGITAL SCREEN BILAT, 03/17/2011 MAMMO DIGITAL SCREEN BILAT, 03/18/2010 MAMMO DIGITAL SCREEN BILAT, 03/14/2009 MAMMO DIGITAL SCREEN BILAT, 03/08/2008 MAMMO SCRN TO DIAG BILAT Findings: Bilateral CC and MLO views were obtained. This examination was reviewed with the aid of a computer-aided detection system(CAD). The breast tissue is dense. No significant new findings since the prior mammogram(s). Procedure Note Alva Gongora MD - 03/28/2013 Bilateral Mammogram Reason for Exam: Screening Comparison: Compared to: 03/18/2012 MAMMO DIGITAL SCREEN BILAT, 03/17/2011MAMMO DIGITAL SCREEN BILAT, 03/18/2010 MAMMO DIGITAL SCREEN BILAT,03/14/2009 MAMMO DIGITAL SCREEN BILAT, 03/08/2008 MAMMO SCRN TO DIAGBILAT Findings: Bilateral CC and MLO views were obtained. This examination was reviewed with the aid of a computer-aided detectionsystem(CAD). The breast tissue is dense. No significant new findings since the prior mammogram(s). us Magdaleno Phillips MD MAMMO ORDERABLES Final Resul t from Last 3 Months or Most Recently Relevant to Health Maintenance Insurance * Guarantor: Natasha Wharton Account Type Relation to Patient Date of Phone Billing Address Personal/Family Self 1955 [address] [place] [address] [facility] WORKERS COMP PA CCN [employer] Advance Directives For more information, please contact: [phone] * Full Code (Latest Code Status on File) Date Activated Date Inactivated Comments 10/19/2017 11:44 AM 10/19/2017 3:11 PM Care Teams Contract Project Manager Relationship Specialty Start Date End Date Miguel Angel MD [address] [facility] [place] [id number] PCP - General Family Practice 10/14/17
--- OUTSIDE RECORDS SUMMARY | 2025-02-15 13:54 | XMS_ITS | Encounter Summary ---
Author Organization [facility] Address [address] [place] [address] Care Team Providers Care Manager Of Software Development Name Role Phone Miguel Angel MD Primary Care Provider [phone] Reason for Referral * Outpatient Services (Routine) - Closed Specialty Diagnoses / Procedures Referred By Gladis laceky Referred To Contact Diagnoses Other screening mammogram Procedures MAMMO DIGITAL SCREEN BILAT Magdaleno Phillips MD NO ADDRESS ON FILE Referral ID Status Reason Start Date Expiration Date Visits Re quested Visits Authorized [id number] Closed 02/15/2012 02/11/2013 1 1 Encounter Details Date Type Department Care Team (Latest Contact Info) Description 02/12/2012 Ancillary Orders [facility] Pre-Registration [place] CALL TO MAKE APPOINTMENT ONLY [address] [place] [phone] Magdaleno Phillips MD NO ADDRESS ON FILE Other screening mammogram Social History Tobacco Use Types Packs/Day Years Used Date Smoking Tobacco: Never Smokeless Tobacco: Never Alcohol Use Standard Drinks/Week Comments Not Asked 0 (1 standard drink = 0.6 oz pur e alcohol) Comments No Sex and Gender Information Value Date Recorded Sex Assigned at Not on file Legal Sex Female 3:31 AM CAGE MAKER Gender Identity Not on file Sexual Orientation Not on file documented as of this encounter Plan of Treatment Not on file documented as of this encounter Results * MAMMO DIGITAL SCREEN BILAT (03/18/2012 9:49 AM CDT) Anatomical Region Laterality Modality Breast Bilateral Mammography Narrative 03/19/2012 12:09 PM CDT Bilateral Mammogram Reason for Exam: Screening Comparison: Comparison is made with the prior exam(s) dated 03.08.08 03.14.09 8.2.10 8.1.11 Findings: Bilateral CC and MLO views were obtained. This examination was reviewed with the aid of a computer-aided detection system(CAD). The breast tissue is dense. No significant new findings since the prior mammogram(s). Procedure Note Katerina Roe MD - 03/19/2012 Bilateral Mammogram Reason for Exam: Screening Comparison: Comparison is made with the prior exam(s) dated 8.2.10 8.1.11 Findings: Bilateral CC and MLO views were obtained. This examination was reviewed with the aid of a computer-aided detectionsystem(CAD). The breast tissue is dense. No significant new findings since the prior mammogram(s). us Magdaleno Phillips MD MAMMO ORDERABLES Final Resul t documented in this encounter Visit Diagnoses Diagnosis Other screening mammogram Other screening mammogram documented in this encounter Care Teams Manager Of Software Development Relationship Specialty Start Date End Date Miguel Angel MD [address] [place] [address] PCP - General Family Practice 10/14/17 documented as of this encounter
--- OUTSIDE RECORDS SUMMARY | 2025-02-15 13:54 | XMS_ITS | Encounter Summary ---
Author Organization [facility] Address [address] [place] [address] Care Team Providers Care Securities Settlement Processor Name Role Phone Miguel Angel MD Primary Care Provider [phone] Encounter Details Date Type Department Care Team (Late st Contact Info) Description 02/01/2003 Outpatient [facility] [address] [facility] [address] [place] [address] Social History Tobacco Use Types Packs/Day Years Used Date Smoking Tobacco: Never Assessed Comments Unknown Sex and Gender Information Value Date Recorded Sex Assigned at Not on file Legal Sex Female 3:31 AM CASE FILLER Gender Identity Not on file Sexual Orientation Not on file documented as of this encounter Plan of Treatment Not on file documented as of this encounter Visit Diagnoses Not on filedocumented in this encounter Care Teams Securities Settlement Processor Relationship Specialty Start Date End Date Miguel Angel MD [address] [facility] [place] [address] PCP - General Family Practice 10/14/17 documented as of this encounter
--- OUTSIDE RECORDS SUMMARY | 2025-02-15 13:54 | XMS_ITS | Encounter Summary ---
Author Organization [facility] Address [address] [place] [address] Care Team Providers Care Licensed Midwife Name Role Phone Miguel Angel MD Primary Care Provider [phone] Encounter Details Date Type Department Care Team (Latest Contact Info) Description 03/10/[address] [facility] Imaging Services-[facility] [place] [address] [place] [address] Kolby Gayle MD [address] [facility] [address] [place] [address] Excessive menstruation (Primary Dx) Social History Tobacco Use Types Packs/Day Years Used Date Smoking Tobacco: Never Assessed Comments Unknown Sex and Gender Information Value Date Recorded Sex Assigned at Not on file Legal Sex Female 3:31 AM SECURITY INSPECTOR Gender Identity Not on file Sexual Orientation Not on file documented as of this encounter Plan of Treatment Not on file documented as of this encounter Visit Diagnoses Diagnosis Excessive menstruation- Primary Excessive or frequent menstruation documented in this encounter Care Teams Licensed Midwife Relationship Specialty Start Date End Date Miguel Angel MD [address] [facility] [place] [address] PCP - General Family Practice 10/14/17 documented as of this encounter
--- OUTSIDE RECORDS SUMMARY | 2025-02-15 13:54 | XMS_ITS | Encounter Summary ---
Author Organization [facility] Address [address] [place] [address] Care Team Providers Care Dag Coater Name Role Phone Miguel Angel MD Primary Care Provider [phone] Encounter Details Date Type Department Care Team (Late st Contact Info) Description 03/16/2006 Outpatient [facility] [address] [place] [address] Kolby Gayle MD [address] [facility] [address] [place] [address] Social History Tobacco Use Types Packs/Day Years Used Date Smoking Tobacco: Never Assessed Comments Unknown Sex and Gender Information Value Date Recorded Sex Assigned at Not on file Legal Sex Female 3:31 AM CHILD CARE GROUP LEADER Gender Identity Not on file Sexual Orientation Not on file documented as of this encounter Plan of Treatment Not on file documented as of this encounter Visit Diagnoses Not on filedocumented in this encounter Care Teams Dag Coater Relationship Specialty Start Date End Date Miguel Angel MD [address] [facility] [place] [address] PCP - General Family Practice 10/14/17 documented as of this encounter
--- OUTSIDE RECORDS SUMMARY | 2025-02-15 13:54 | XMS_ITS | Encounter Summary ---
Author Organization [facility] Address [address] [place] [address] Care Team Providers Care Gutter Installer Name Role Phone Miguel Angel MD Primary Care Provider [phone] Encounter Details Date Type Department Care Team (Latest Contact Info) Description 05/28/2005 Outpatient Historical [facility] [address] [place] [address] Kolby Gayle MD [address] [facility] [address] [place] [address] URIN TRACT INFECTION NOS (Primary Dx) Social History Tobacco Use Types Packs/Day Years Used Date Smoking Tobacco: Never Assessed Comments Unknown Sex and Gender Information Value Date Recorded Sex Assigned at Not on file Legal Sex Female 3:31 AM NUTRITIONAL CHEMIST Gender Identity Not on file Sexual Orientation Not on file documented as of this encounter Plan of Treatment Not on file documented as of this encounter Visit Diagnoses Diagnosis Urinary tract infection, site not specified- Primary documented in this encounter Care Teams Gutter Installer Relationship Specialty Start Date End Date Miguel Angel MD [address] [facility] [place] [address] PCP - General Family Practice 10/14/17 documented as of this encounter
--- OUTSIDE RECORDS SUMMARY | 2025-02-15 13:54 | XMS_ITS | Encounter Summary ---
Author Organization [facility] Address [address] [facility] Attn: [place] [address] Care Team Providers Care Cell Repairer Name Role Phone Miguel Angel MD Primary Care Provider [phone] Encounter Details Date Type Department Care Team (Late st Contact Info) Description 01/27/2001 Outpatient Historical Marcelino Lazar MD [address] [place] [address] Social History Tobacco Use Types Packs/Day Years Used Date Smoking Tobacco: Never Assessed Comments Unknown Sex and Gender Information Value Date Recorded Sex Assigned at Not on file Legal Sex Female 3:31 AM MEAT PUMPER Gender Identity Not on file Sexual Orientation Not on file documented as of this encounter Plan of Treatment Not on file documented as of this encounter Visit Diagnoses Not on filedocumented in this encounter Care Teams Cell Repairer Relationship Specialty Start Date End Date Miguel Angel MD [address] [facility] [place] [address] PCP - General Family Practice 10/14/17 documented as of this encounter
--- OUTSIDE RECORDS SUMMARY | 2025-02-15 13:54 | XMS_ITS | Encounter Summary ---
Author Organization [facility] Address [address] [place] [address] Care Team Providers Care Dairy Lab Technician Name Role Phone Miguel Angel MD Primary Care Provider [phone] Encounter Details Date Type Department Care Team (Latest Contact Info) Description 05/01/2005 Outpatient Historical [facility] [address] [place] [address] Kolby Gayle MD [address] [facility] [address] [place] [address] SURGERY FOLLOWUP NOS (Primary Dx) Social History Tobacco Use Types Packs/Day Years Used Date Smoking Tobacco: Never Assessed Comments Unknown Sex and Gender Information Value Date Recorded Sex Assigned at Not on file Legal Sex Female 3:31 AM DIRECTOR PHARMACY SERVICES Gender Identity Not on file Sexual Orientation Not on file documented as of this encounter Plan of Treatment Not on file documented as of this encounter Visit Diagnoses Diagnosis Follow-up examination, following unspecified surgery- Primary documented in this encounter Care Teams Dairy Lab Technician Relationship Specialty Start Date End Date Miguel Angel MD [address] [facility] [place] [address] PCP - General Family Practice 10/14/17 documented as of this encounter
--- OUTSIDE RECORDS SUMMARY | 2025-02-15 13:54 | XMS_ITS | Encounter Summary ---
Author Organization [facility] Address [address] [place] [address] Care Team Providers Care Divisional Merchandising Manager Name Role Phone Miguel Angel MD Primary Care Provider [phone] Encounter Details Date Type Department Care Team (Latest Contact Info) Description 02/01/2003 Outpatient Historical [facility] [address] [place] [address] Josselin Ordonez MD [address] [place] [address], [address] SCREENING MAMM-MAILG NEOPL-OTHER (Primary Dx) Social History Tobacco Use Types Packs/Day Years Used Date Smoking Tobacco: Never Assessed Comments Unknown Sex and Gender Information Value Date Recorded Sex Assigned at Not on file Legal Sex Female 3:31 AM CINDER MAN Gender Identity Not on file Sexual Orientation Not on file documented as of this encounter Plan of Treatment Not on file documented as of this encounter Visit Diagnoses Diagnosis Other screening mammogram- Primary documented in this encounter Care Teams Divisional Merchandising Manager Relationship Specialty Start Date End Date Miguel Angel MD [address] [facility] [place] [address] PCP - General Family Practice 10/14/17 documented as of this encounter
--- OUTSIDE RECORDS SUMMARY | 2025-02-15 13:54 | XMS_ITS | Encounter Summary ---
Author Organization [facility] Address [address] [place] [address] Care Team Providers Care Agricultural Equipment Test Engineer Name Role Phone Miguel Angel MD Primary Care Provider [phone] Encounter Details Date Type Department Care Team (Latest Contact Info) Description 05/24/2001 Outpatient Historical [facility] Gen Spec [facility]urg [place] [facility] [address] [place] [address] Magdaleno Phillips MD NO ADDRESS ON FILE Sebaceous cyst (Primary Dx) Social History Tobacco Use Types Packs/Day Years Used Date Smoking Tobacco: Never Assessed Comments Unknown Sex and Gender Information Value Date Recorded Sex Assigned at Not on file Legal Sex Female 3:31 AM SKILLED HELPER Gender Identity Not on file Sexual Orientation Not on file documented as of this encounter Plan of Treatment Not on file documented as of this encounter Visit Diagnoses Diagnosis Sebaceous cyst- Primary documented in this encounter Care Teams Agricultural Equipment Test Engineer Relationship Specialty Start Date End Date Miguel Angel MD [address] [facility] [place] [address] PCP - General Family Practice 10/14/17 documented as of this encounter
--- OUTSIDE RECORDS SUMMARY | 2025-02-15 13:54 | XMS_ITS | Encounter Summary ---
Author Organization [facility] Address [address] [place] [address] Care Team Providers Care Roll Over Press Operator Name Role Phone Miguel Angel MD Primary Care Provider [phone] Encounter Details Date Type Department Care Team (Late st Contact Info) Description 03/10/2005 Outpatient Historical [facility] [address] [place] [address] Kolby Gayle MD [address] [facility] [address] [place] [address] Social History Tobacco Use Types Packs/Day Years Used Date Smoking Tobacco: Never Assessed Comments Unknown Sex and Gender Information Value Date Recorded Sex Assigned at Not on file Legal Sex Female 3:31 AM CHEMISTRY LAB INSTRUCTOR Gender Identity Not on file Sexual Orientation Not on file documented as of this encounter Plan of Treatment Not on file documented as of this encounter Visit Diagnoses Not on filedocumented in this encounter Care Teams Roll Over Press Operator Relationship Specialty Start Date End Date Miguel Angel MD [address] [facility] [place] [address] PCP - General Family Practice 10/14/17 documented as of this encounter
--- OUTSIDE RECORDS SUMMARY | 2025-02-15 13:54 | XMS_ITS | Encounter Summary ---
Author Organization [facility] Address [address] [place] [address] Care Team Providers Care Two Needle Machine Operator Name Role Phone Miguel Angel MD Primary Care Provider [phone] Encounter Details Date Type Department Care Team (Late st Contact Info) Description 03/10/2005 [facility]patient [facility] [place] [address] [place] [address] Social History Tobacco Use Types Packs/Day Years Used Date Smoking Tobacco: Never Assessed Comments Unknown Sex and Gender Information Value Date Recorded Sex Assigned at Not on file Legal Sex Female 3:31 AM KNIFE FINISHER Gender Identity Not on file Sexual Orientation Not on file documented as of this encounter Plan of Treatment Not on file documented as of this encounter Visit Diagnoses Not on filedocumented in this encounter Care Teams Two Needle Machine Operator Relationship Specialty Start Date End Date Miguel Angel MD [address] [facility] [place] [address] PCP - General Family Practice 10/14/17 documented as of this encounter
--- OUTSIDE RECORDS SUMMARY | 2025-02-15 13:54 | XMS_ITS | Encounter Summary ---
Author Organization [facility] Address [address] [place] [address] Care Team Providers Care Production Miner Name Role Phone Miguel Angel MD Primary Care Provider [phone] Reason for Referral * Outpatient Services (Routine) - Closed Specialty Diagnoses / Procedures Referred By Contsmita t Referred To Contact Radiology Diagnoses Other screening mammogram Procedures MAMMO DIGITAL SCREEN BILAT Magdaleno Phillips MD NO ADDRESS ON FILE [facility] [address] [facility] [address] [place] [address] Phone: tel: fax: Referral ID Status Reason Start Date Expiration Date Visits Re quested Visits Authorized [id number] Closed 02/23/2013 03/26/2014 1 1 Encounter Details Date Type Department Care Team (Latest Contact Info) Description 02/23/2013 Ancillary Orders [facility] Pre-Registration [place] CALL TO MAKE APPOINTMENT ONLY [address] [place] [address] Magdaleno Phillips MD NO ADDRESS ON FILE Other screening mammogram (Primary Dx) Social History Tobacco Use Types Packs/Day Years Used Date Smoking Tobacco: Never Smokeless Tobacco: Never Alcohol Use Standard Drinks/Week Comments Not Asked 0 (1 standard drink = 0.6 oz pur e alcohol) Comments No Sex and Gender Information Value Date Recorded Sex Assigned at Not on file Legal Sex Female 3:31 AM HIGH RIGGER Gender Identity Not on file Sexual Orientation Not on file Occupation Industry Job Start Date Job End Date Not on file Not on file Not on file Not on file documented as of this encounter Plan of Treatment Not on file documented as of this encounter Results * MAMMO DIGITAL SCREEN BILAT (03/25/2013 [...] Visit Diagnoses Diagnosis Other screening mammogram- Primary Other screening mammogram- Primary documented in this encounter Care Teams Production Miner Relationship Specialty Start Date End Date Miguel Angel MD [address] [place] [address] PCP - General Family Practice 10/14/17 documented as of this encounter
--- OUTSIDE RECORDS SUMMARY | 2025-02-15 13:54 | XMS_ITS | Encounter Summary ---
Author Organization [facility] Address [address] [place] [address] Care Team Providers Care Supervisor Electron Tube Processing Name Role Phone Miguel Angel MD Primary Care Provider [phone] Reason for Referral * Outpatient Services (Routine) - Closed Specialty Diagnoses / Procedures Referred By Contsmita t Referred To Contact Diagnoses Abdominal pain Liver cyst Procedures MRI ABDOMEN W WO CONTRAST Josselin Scott MD [address] [place] [address] Phone: tel: fax: Referral ID Status Reason Start Date Expiration Date Visits Re quested Visits Authorized [id number] Closed 01/01/2011 06/30/2011 1 1 Encounter Details Date Type Department Care Team (Late st Contact Info) Description 12/31/2010 Ancillary Orders [facility] MRI [address] 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 sdm - uploaded from [employer] - Narrative 01/01/2011 3:23 PM CDT Exam: MRI ABDOMEN W WO CONTRAST Date/Time of Exam: January 01, 2011 01:56:00 PM History: ABDOMINAL PAIN. Abdomen imaged with sequences obtained in several planes pre and post administration of Optimark, 20 mL. Several small cystic lesions of varying size scattered throughout both lobes of liver. Relative dominant sized hepatic lesions with thin internal septations. Remainder of solid abdominal organs unremarkable. Nonspecific appearing gallbladder. Biliary tree not abnormally distended. No apparent lymphadenopathy or free fluid. Procedure Note Lindsey Crook MD - 01/01/2011 Exam: MRI ABDOMEN W WO CONTRAST Date/Time of Exam: January 01, 2011 01:56:00 PM History: ABDOMINAL PAIN. Abdomen imaged with sequences obtained in several planes pre and post administration of Optimark, 20 mL. Several small cystic lesions of varying size scattered throughout both lobes of liver. Relative dominant sized hepatic lesions with thin internal septations. Remainder of solid abdominal organs unremarkable. Nonspecific appearing gallbladder. Biliary tree not abnormally distended. No apparent lymphadenopathy or free fluid. IMPRESSION Impression: Multiple hepatic cysts several of which with thin internal septations. sdm - uploaded from [employer] - us Josselin Scott MD MR ORDERABLES Final Result documented in this encounter Visit Diagnoses Diagnosis Abdominal pain Abdominal pain, unspecified site Liver cyst Other specified disorders of liver documented in this encounter Care Teams Supervisor Electron Tube Processing Relationship Specialty Start Date End Date Miguel Angel MD [address] [place] [address] PCP - General Family Practice 10/14/17 documented as of this encounter
--- OUTSIDE RECORDS SUMMARY | 2025-02-15 13:54 | XMS_ITS | Encounter Summary ---
Author Organization [facility] Address [address] [place] [address] Care Team Providers Care Telecommunications Manager Name Role Phone Miguel Angel MD Primary Care Provider Encounter Details Date Type Department Care Team (Latest Contact Info) Description 03/26/2005 Outpatient Historical [facility] [address] [place] [address] Kolby Gayle MD [address] [facility] [address] [place] [address] PREOP EXAM OTHER SPECIFIED (Primary Dx) Social History Tobacco Use Types Packs/Day Years Used Date Smoking Tobacco: Never Assessed Comments Unknown Sex and Gender Information Value Date Recorded Sex Assigned at Not on file 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2 27.0 - 34.0 pg INTERFACE SYSTEM MCHC 34.0 30.0 - 35.0 g/dL INTERFACE SYSTEM RDW 12.8 11.0 - 14.5 % INTERFACE SYSTEM PLATELETS 280 140 - 440 K/ul INTERFACE SYSTEM MPV 9.2 8.9 - 12.8 Fl INTERFACE SYSTEM NEUTROPHILS 61.1 42.2 - 75.2 % INTERFACE SYSTEM LYMPHOCYTES 32.8 24.0 - 44.0 % INTERFACE SYSTEM MONOCYTES 4.8 2.0 - 10.0 % INTERFACE SYSTEM EOSINOPHILS 0.8 0.0 - 7.0 % INTERFACE SYSTEM BASOPHILS 0.5 0.0 - 1.0 % INTERFACE SYSTEM NEUTROPHIL ABSOLUTE 5.4 2.0 - 8.0 K/uL INTERFACE SYSTEM LYMPHOCYTE ABSOLUTE 2.9 1.2 - 4.0 K/ul INTERFACE SYSTEM MONOCYTE ABSOLUTE 0.4 0.1 - 0.6 K/ul INTERFACE SYSTEM EOSINOPHIL ABSOLUTE 0.1 0.0 - 0.7 K/ul INTERFACE SYSTEM BASOPHILS ABSOLUTE 0.0 0.0 - 0.2 K/ul INTERFACE SYSTEM 03/26/2005 5:08 PM CDT us Kolby Gayle MD HEMATOLOGY ORDERABLES Final Resu lt INTERFACE SYSTEM Refer to clinic/hospital department documented in this encounter Visit Diagnoses Diagnosis Other specified pre-operative examination- Primary documented in this encounter Care Teams Telecommunications Manager Relationship Specialty Start Date End Date Miguel Angel MD [address] [place] [address] PCP - General Family Practice 10/14/17 documented as of this encounter
--- OUTSIDE RECORDS SUMMARY | 2025-02-15 13:54 | XMS_ITS | Encounter Summary ---
Author Organization [facility] Address [address] [place] [address] Care Team Providers Care Photographic Supervisor Name Role Phone Miguel Angel MD Primary Care Provider [phone] Encounter Details Date Type Department Care Team (Latest Contact Info) Description 02/24/2005 Outpatient [facility] [place] [address] [place] [phone] Kolby Gayle MD [address] [facility] [address] [place] [address] Excessive menstruation (Primary Dx) Social History Tobacco Use Types Packs/Day Years Used Date Smoking Tobacco: Never Assessed Comments Unknown Sex and Gender Information Value Date Recorded Sex Assigned at Not on file 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
--- OUTSIDE RECORDS SUMMARY | 2025-02-15 13:54 | XMS_ITS | Encounter Summary ---
Author Organization [facility] Address [address] [place] [address] Care Team Providers Care Set Making Machine Operator Name Role Phone Miguel Angel MD Primary Care Provider [phone] Encounter Details Date Type Department Care Team (Late st Contact Info) Description 04/01/2005 Inpatient Historical [facility] IN BED Kolby Gayle MD [address] [facility] [address] [place], [place] [id number] INTRAMURAL LEIOMYOMA (Primary Dx) Social History Tobacco Use Types Packs/Day Years Used Date Smoking Tobacco: Never Assessed Comments Unknown Sex and Gender Information Value Date Recorded Sex Assigned at Not on file 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 Female 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0 Fl INTERFACE SYSTEM MCH 28.6 27.0 - 34.0 pg INTERFACE SYSTEM MCHC 32.7 30.0 - 35.0 g/dL INTERFACE SYSTEM RDW 12.9 11.0 - 14.5 % INTERFACE SYSTEM PLATELETS 215 140 - 440 K/ul INTERFACE SYSTEM MPV 9.3 8.9 - 12.8 Fl INTERFACE SYSTEM NEUTROPHILS 76.3(H) 42.2 - 75.2 % INTERFACE SYSTEM LYMPHOCYTES 16.8(L) 24.0 - 44.0 % INTERFACE SYSTEM MONOCYTES 6.6 2.0 - 10.0 % INTERFACE SYSTEM EOSINOPHILS 0.1 0.0 - 7.0 % INTERFACE SYSTEM BASOPHILS 0.2 0.0 - 1.0 % INTERFACE SYSTEM NEUTROPHIL ABSOLUTE 10.0(H) 2.0 - 8.0 K/uL INTERFACE SYSTEM LYMPHOCYTE ABSOLUTE 2.2 1.2 - 4.0 K/ul INTERFACE SYSTEM MONOCYTE ABSOLUTE 0.9(H) 0.1 - 0.6 K/ul INTERFACE SYSTEM EOSINOPHIL ABSOLUTE 0.0 0.0 - 0.7 K/ul INTERFACE SYSTEM BASOPHILS ABSOLUTE 0.0 0.0 - 0.2 K/ul INTERFACE SYSTEM Blood specimen (specimen) 04/02/2005 5:23 AM CDT us Kolby Gayle MD HEMATOLOGY ORDERABLES Edited INTERFACE SYSTEM Refer to clinic/hospital department documented in this encounter Visit Diagnoses Diagnosis Intramural leiomyoma of uterus- Primary documented in this encounter Care Teams Set Making Machine Operator Relationship Specialty Start Date End Date Miguel Angel MD [address] [place] [address] PCP - General Family Practice 10/14/17 documented as of this encounter
--- OUTSIDE RECORDS SUMMARY | 2025-02-15 13:54 | XMS_ITS | Encounter Summary ---
Author Organization [facility] Address [address] [place] [address] Care Team Providers Care Exhaust And Muffler Repairer Name Role Phone Miguel Angel MD Primary Care Provider [phone] Encounter Details Date Type Department Care Team (Late st Contact Info) Description 12/05/[address] [address] Julius Banda, PATIENT CARE TECHNICIAN INSTRUCTOR [address] [place] [address] Social History Tobacco Use Types Packs/Day Years Used Date Smoking Tobacco: Never Assessed Comments Unknown Sex and Gender Information Value Date Recorded Sex Assigned at Not on file Legal Sex Female 3:31 AM CLAY ARTISAN Gender Identity Not on file Sexual Orientation Not on file documented as of this encounter Plan of Treatment Not on file documented as of this encounter Visit Diagnoses Not on filedocumented in this encounter Care Teams Exhaust And Muffler Repairer Relationship Specialty Start Date End Date Miguel Angel MD [address] [facility] [place] [address] PCP - General Family Practice 10/14/17 documented as of this encounter
--- OUTSIDE RECORDS SUMMARY | 2025-02-15 13:54 | XMS_ITS | Encounter Summary ---
Author Organization [facility] Address [address] [place] [address] Care Team Providers Care Director Ambulatory Name Role Phone Miguel Angel MD Primary Care Provider Encounter Details Date Type Department Care Team (Late st Contact Info) Description 02/24/[address] [facility] [place] [address] [place] [address] Kolby Gayle MD [address] [facility] [address] [place] [address] Social History Tobacco Use Types Packs/Day Years Used Date Smoking Tobacco: Never Assessed Comments Unknown Sex and Gender Information Value Date Recorded Sex Assigned at Not on file Legal Sex Female 3:31 AM SOCIAL SERVICE MANAGER Gender Identity Not on file Sexual Orientation Not on file documented as of this encounter Plan of Treatment Not on file documented as of this encounter Visit Diagnoses Not on filedocumented in this encounter Care Teams Director Ambulatory Relationship Specialty Start Date End Date Miguel Angel MD [address] [facility] [place] [address] PCP - General Family Practice 10/14/17 documented as of this encounter
--- OUTSIDE RECORDS SUMMARY | 2025-02-15 13:54 | XMS_ITS | Encounter Summary ---
Author Organization [facility] Address [address] [place] [address] Care Team Providers Care Pigment Presser Name Role Phone Miguel Angel MD Primary Care Provider [phone] Encounter Details Date Type Department Care Team (Latest Contact Info) Description 11/11/[address] [address] Josselin Ordonez MD [address] [place] [address], [address] INSOMNIA NEC (Primary Dx); OTHER MALAISE AND FATIGUE; ACUTE FRONTAL SINUSITIS Social History Tobacco Use Types Packs/Day Years Used Date Smoking Tobacco: Never Assessed Comments Unknown Sex and Gender Information Value Date Recorded Sex Assigned at Not on file Legal Sex Female 3:31 AM 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
--- OUTSIDE RECORDS SUMMARY | 2025-02-15 13:54 | XMS_ITS | Encounter Summary ---
Author Organization [facility] Address [address] [place] [address] Care Team Providers Care Auto Damage Appraiser Name Role Phone Miguel Angel MD Primary Care Provider [phone] Encounter Details Date Type Department Care Team (Latest Contact Info) Description 10/19/2000 Outpatient Historical [address] [address] Josselin Ordonez MD [address] [place] [address], [address] Hypoglycemia, unspecified (Primary Dx); Dysthymic disorder; Gynecologic examination; Special screening for malignant neoplasms of other sites Social History Tobacco Use Types Packs/Day Years Used Date Smoking Tobacco: Never Assessed Comments Unknown Sex and Gender Information Value Date Recorded Sex Assigned at Not on file Legal Sex Female 3:31 AM POST CLOSER Gender Identity Not on file Sexual Orientation Not on file documented as of this encounter Plan of Treatment Not on file documented as of this encounter Visit Diagnoses Diagnosis Hypoglycemia, unspecified- Primary Dysthymic disorder Gynecologic examination Gynecological examination Special screening for malignant neoplasms of other sites documented in this encounter Care Teams Auto Damage Appraiser Relationship Specialty Start Date End Date Miguel Angel MD [address] [facility] [place] [address] PCP - General Family Practice 10/14/17 documented as of this encounter
--- OUTSIDE RECORDS SUMMARY | 2025-02-15 13:54 | XMS_ITS | Clinical Summary ---
Author Organization [facility] Address [address] [facility] Attn: Epic Prelude ADT ANDREW CABRAL [address] Care Team Providers Care Political Anthropologist Name Role Phone Miguel Angel MD Primary Care Provider [phone] Allergies Active Allergy Reactions Criticality Noted Date Comments Erythromycin Anaphylaxis High 12/12/2010 Penicillins Shortness of Breath/Wheezing High 2010 Medications VALSARTAN ORAL Take by mouth. 0 Active atorvastatin (LIPITOR) 40 mg tablet Take 40 mg by mouth daily. 0 Active omeprazole (PriLOSEC) 40 mg Capsule, Delayed Release(E.C.) Take 40 mg by mouth daily. 0 Active naproxen (NAPROSYN) 500 mg tablet Take 500 mg by mouth 2 times daily with meals. 0 Active montelukast (SINGULAIR) 10 mg tablet Take 10 mg by mouth daily at bedtime. 0 Active fish oil/omega-3/vi tamin E (OMEGA 3-VITAMIN E-FISH OIL ORAL) Take by mouth. Activ e metoprolol tartrate (LOPRESSOR) 25 mg tablet Take 25 mg by mouth daily. Pt takes 1 1/2 tab Active pantoprazole (PROTONIX) 40 mg Tablet, Delayed Release (E.C.) Take 40 mg by mouth daily. Active OTHER Take 50 mg by mouth daily at bedtime. Quetiapine Fumarate, 1 1/2 tab daily Active CHOLECALCIFERO L, VITAMIN D3, ORAL Take by mouth daily. Active rOPINIRole (REQUIP) 2 mg Tablet Take 2 mg by mouth 2 times daily. Active valACYclovir (VALTREX) 1 gram tablet Take 1,000 mg by mouth 2 times daily. Active busPIRone (BUSPAR) 10 mg tablet Take 10 mg by mouth 2 times daily. 2 Tabs Daily Active mirtazapine (REMERON) 45 mg tablet Take 45 mg by mouth daily at bedtime. Active PEG-Electrolyt e Soln (NULYTELY) 420 g Recon Soln Take 4,000 mL by mouth see administration instructions. 4,000 mL 0 8 Active buspirone HCl (BUSPAR ORAL) Take 5 mg by mouth 2 times daily as needed . 7 Active quetiapine fumarate (SEROQUEL ORAL) Take 200 mg by mouth daily at bedtime Takes 1/2 tablet= 100 mg. 7 Active Active Problems Problem Noted Date Diagnosed Date Screening breast examination 03/18/2012 History of Atypical ductal hyperplasia 2 Lipoma of other skin and subcutaneous tissue [...] at Not on file Legal Sex Female 8:29 AM PRIVACY ATTORNEY Gender Identity Not on file Sexual Orientation Not on file Last Filed Vital Signs Vital Sign Reading Time Taken Comments Blood Pressure 148/80 07/08/2021 3:24 PM PRIVACY ATTORNEY Pulse 76 07/08/2021 3:02 PM PRIVACY ATTORNEY Temperature 36.7 C (98 F) 10/19/2017 11:41 AM PRIVACY ATTORNEY Respiratory Rate 16 10/19/2017 1:02 PM PRIVACY ATTORNEY Oxygen Saturation - - Inhaled Oxygen Concentration - - Weight 73.5 kg (162 lb) 07/08/2021 3:02 PM PRIVACY ATTORNEY Height 162.6 cm (5' 4 ) 07/08/2021 3:02 PM PRIVACY ATTORNEY Body Mass Index 27.81 07/08/2021 3:02 PM PRIVACY ATTORNEY Plan of Treatment Health Maintenance Due Date Last Done Comments DTAP/TDAP/TD VACCINES (1 - Tdap) 11/14/1974 COLORECTAL SCREENING 11/14/2000 Colorectal Cancer Screening 11/14/2000 FIT-DNA Q 3 years 11/14/2000 FIT/FOBT Q 1 year 11/14/2000 Flex Sig/CT Colonography Q 5 years 11/14/2000 PNEUMOCOCCAL VACCINE 50+ YEA RS (1 of [...] Relevant to Health Maintenance Results * MAMMO SCREEN BILAT W OR WO CAD (03/25/2013 10:05 AM CDT) Anatomical Region Laterality Modality Breast Bilateral Other Narrative 03/28/2013 11:18 AM CDT Bilateral Mammogram Reason for Exam: [...] mammogram(s). Procedure Note Alva Gongora MD - 10/18/2022 Bilateral Mammogram Reason for Exam: Screening Comparison: [...] significant new findings since the prior mammogram(s). Magdaleno Phillips MD MAMMO ORDERABLES Final Resul t from Last 3 Months or Most Recently Relevant to Health Maintenance Insurance [facility] [id number] [place] [employer] MEDICARE PART A AND B Care Teams Political Anthropologist Relationship Specialty Start Date End Date Miguel Angel MD [address] [facility] [place] [address] PCP - General Family Practice 10/14/17
--- OUTSIDE RECORDS SUMMARY | 2025-02-15 13:54 | XMS_ITS | Encounter Summary ---
Author Organization [facility] Address [address] [place] [address] Care Team Providers Care Help Desk Support Specialist Name Role Phone Miguel Angel MD Primary Care Provider [phone] Encounter Details Date Type Department Care Team (Latest Contact Info) Description 11/30/2001 Outpatient Historical [facility] Medicine [address] [phone] Marcelino Lazar MD [address] [phone] OTALGIA NOS (Primary Dx); ALLERGY, UNSPECIFIED Social History Tobacco Use Types Packs/Day Years Used Date Smoking Tobacco: Never Assessed Comments Unknown Sex and Gender Information Value Date Recorded Sex Assigned at Not on file Legal Sex Female 3:31 AM OBGYN HOSPITALIST PHYSICIAN Gender Identity Not on file Sexual Orientation Not on file documented as of this encounter Plan of Treatment Not on file documented as of this encounter Visit Diagnoses Diagnosis Otalgia, unspecified- Primary Allergy, unspecified not elsewhere classified documented in this encounter Care Teams Help Desk Support Specialist Relationship Specialty Start Date End Date Miguel Angel MD [address] [facility] [place] [address] PCP - General Family Practice 10/14/17 documented as of this encounter
--- OUTSIDE RECORDS SUMMARY | 2025-02-15 13:54 | XMS_ITS | Encounter Summary ---
Author Organization [facility] Address [address] [place] [address] Care Team Providers Care Printing Press Operator Name Role Phone Miguel Angel MD Primary Care Provider [phone] Encounter Details Date Type Department Care Team (Late st Contact Info) Description 09/15/2007 Outpatient Historical [facility] Gen Spec Surg [place] [address] [facility] [address] [place] [phone] Magdaleno Phillips MD NO ADDRESS ON FILE Social History Tobacco Use Types Packs/Day Years Used Date Smoking Tobacco: Never Assessed Comments Unknown Sex and Gender Information Value Date Recorded Sex Assigned at Not on file Legal Sex Female 3:31 AM AUTOMOBILE UPHOLSTERER APPRENTICE Gender Identity Not on file Sexual Orientation Not on file documented as of this encounter Progress Notes * Magdaleno Phillips - 09/15/2007 12:00 AM CST Patient Name: Natasha Wharton DOS: 09/15/2007 : 1955 Natasha Wharton is postop right breast biopsy for an organizing biopsy site with surrounding adenosis. Noevidence of atypical ductal hyperplasia or malignancy noted. She did have atypical ductal hyperplasia on her core biopsy. She returns for follow-up. She notes no problems. She does have some mild soreness at the breast otherwise unremarkable. Physical exam is unremarkable. The wound is healing well. There is no erythema. No induration. No palpable mass. IMPRESSION: Doing well. PLAN: Return to see me in six months. Repeat mammogram of the right breast on return. Magdaleno Phillips M.D. General & Specialty Surgery Electronically Signed by Magdaleno Phillips M.D. 09/24/2007 06:00 , A, 810 Job #: Document #: [id number] cc: MOBILE UPHOLSTERER APPRENTICE documented in this encounter Plan of Treatment Not on file documented as of this encounter Visit Diagnoses Not on filedocumented in this encounter Care Teams Printing Press Operator Relationship Specialty Start Date End Date Miguel Angel MD [address] [facility] [place] [address] PCP - General Family Practice 10/14/17 documented as of this encounter
--- OUTSIDE RECORDS SUMMARY | 2025-02-15 13:54 | XMS_ITS | Encounter Summary ---
Author Organization [facility] Address [address] [place] [address] Care Team Providers Care Dean Of Education Name Role Phone Miguel Angel MD Primary Care Provider [phone] Encounter Details Date Type Department Care Team (Latest Contact Info) Description 05/16/2002 Outpatient Historical [facility] Medicine [address] [phone] Marcelino Lazar MD [address] [phone] ACUTE FRONTAL SINUSITIS (Primary Dx); ABDOMINAL PAIN UNSPEC SITE; NAUSEA ALONE Social History Tobacco Use Types Packs/Day Years Used Date Smoking Tobacco: Never Assessed Comments Unknown Sex and Gender Information Value Date Recorded Sex Assigned at Not on file Legal Sex Female 3:31 AM CERTIFIED HISTOLOGIC TECHNICIAN Gender Identity Not on file Sexual Orientation Not on file documented as of this encounter Plan of Treatment Not on file documented as of this encounter Visit Diagnoses Diagnosis Acute frontal sinusitis- Primary Abdominal pain, unspecified site Nausea alone documented in this encounter Care Teams Dean Of Education Relationship Specialty Start Date End Date Miguel Angel MD [address] [facility] [place] [address] PCP - General Family Practice 10/14/17 documented as of this encounter
--- OUTSIDE RECORDS SUMMARY | 2025-02-15 13:54 | XMS_ITS | Encounter Summary ---
Author Organization [facility] Address [address] [place] [address] Care Team Providers Care Spiral Winding Machine Helper Name Role Phone Miguel Angel MD Primary Care Provider [phone] Encounter Details Date Type Department Care Team (Late st Contact Info) Description 04/16/2009 Ancillary Orders [facility] [place] 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 This examination was reviewed with the aid of a computer-aided detection system(CAD). The breast tissue is dense. Benign calcification(s) right breast. No significant new findings since the prior mammogram(s). Procedure Note Jeremias Bob MD - 03/19/2010 Bilateral Mammogram Reason for Exam: Screening Comparison: Comparison is made with the prior exam(s) dated7+2007+2006 Findings: Bilateral CC and MLO views were obtained. This examination was reviewed with the aid of a computer-aided detectionsystem(CAD). The breast tissue is dense. Benign calcification(s) right breast. No significant new findings since the prior mammogram(s). us Magdaleno Phillips MD MAMMO ORDERABLES Final Resul t documented in this encounter Visit Diagnoses Diagnosis Other screening mammogram Other screening mammogram documented in this encounter Care Teams Spiral Winding Machine Helper Relationship Specialty Start Date End Date Miguel Angel MD [address] [facility] [place] [address] PCP - General Family Practice 10/14/17 documented as of this encounter
--- OUTSIDE RECORDS SUMMARY | 2025-02-15 13:54 | XMS_ITS | Encounter Summary ---
Author Organization [facility] Address [address] [place] [address] Care Team Providers Care Six Sigma Black Belt Engineer Name Role Phone Miguel Angel MD Primary Care Provider [phone] Encounter Details Date Type Department Care Team (Late st Contact Info) Description 07/13/[address] 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
--- OUTSIDE RECORDS SUMMARY | 2025-02-15 13:54 | XMS_ITS | Encounter Summary ---
Author Organization [facility] Address [address] [place] [address] Care Team Providers Care Patient Case Coordinator Name Role Phone Miguel Angel MD Primary Care Provider [phone] Encounter Details Date Type Department Care Team (Latest Contact Info) Description 11/17/2002 Outpatient Historical [address] [phone] Josselin Ordonez MD [address] [place] [address], [address] HYPOVOLEMIA (Primary Dx); NAUSEA WITH VOMITING Social History Tobacco Use Types Packs/Day Years Used Date Smoking Tobacco: Never Assessed Comments Unknown Sex and Gender Information Value Date Recorded Sex Assigned at Not on file 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
--- OUTSIDE RECORDS SUMMARY | 2025-02-15 13:54 | XMS_ITS | Encounter Summary ---
Author Organization [facility] Address [address] [place] [address] Care Team Providers Care Sweep Press Operator Name Role Phone Miguel Angel MD Primary Care Provider [phone] Encounter Details Date Type Department Care Team (Latest Contact Info) Description 02/01/2003 Outpatient Historical [address] [phone] Josselin Ordonez MD [address] [place] [address], [address] Gynecologic examination (Primary Dx) Social History Tobacco Use Types Packs/Day Years Used Date Smoking Tobacco: Never Assessed Comments Unknown Sex and Gender Information Value Date Recorded Sex Assigned at Not on file 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
--- OUTSIDE RECORDS SUMMARY | 2025-02-15 13:54 | XMS_ITS | Encounter Summary ---
Author Organization [facility] Address [address] [place] [address] Care Team Providers Care Research Electrician Name Role Phone Miguel Angel MD Primary Care Provider [phone] Encounter Details Date Type Department Care Team (Latest Contact Info) Description 03/26/2005 Outpatient Historical [facility] [place] [address] [place] [phone] Kolby Gayle MD [address] [facility] [address] [place] [address] UTERINE LEIOMYOMA NOS (Primary Dx); Excessive menstruation; OVARIAN CYST NEC/NOS Social History Tobacco Use Types Packs/Day Years Used Date Smoking Tobacco: Never Assessed Comments Unknown Sex and Gender Information Value Date Recorded Sex Assigned at Not on file Legal Sex Female 3:31 AM ORDNANCE HANDLER Gender Identity Not on file Sexual Orientation Not on file documented as of this encounter Plan of Treatment Not on file documented as of this encounter Visit Diagnoses Diagnosis Leiomyoma of uterus, unspecified- Primary Excessive menstruation Excessive or frequent menstruation Other and unspecified ovarian cyst documented in this encounter Care Teams Research Electrician Relationship Specialty Start Date End Date Miguel Angel MD [address] [facility] [place] [address] PCP - General Family Practice 10/14/17 documented as of this encounter
--- OUTSIDE RECORDS SUMMARY | 2025-02-15 13:54 | XMS_ITS | Encounter Summary ---
Author Organization [facility] Address [address] [place] [address] Care Team Providers Care Routing Machine Operator Name Role Phone Miguel Angel MD Primary Care Provider [phone] Encounter Details Date Type Department Care Team (Late st Contact Info) Description 07/21/2007 Outpatient Historical [facility] Gen Spec Surg [place] [address] [facility] [address] [place] [phone] Magdaleno Phillips MD NO ADDRESS ON FILE Social History Tobacco Use Types Packs/Day Years Used Date Smoking Tobacco: Never Assessed Comments Unknown Sex and Gender Information Value Date Recorded Sex Assigned at Not on file Legal Sex Female 3:31 AM CONTACT CENTER CONSULTANT Gender Identity Not on file Sexual Orientation Not on file documented as of this encounter Plan of Treatment Not on file documented as of this encounter Visit Diagnoses Not on filedocumented in this encounter Care Teams Routing Machine Operator Relationship Specialty Start Date End Date Miguel Angel MD [address] [facility] [place] [address] PCP - General Family Practice 10/14/17 documented as of this encounter
--- OUTSIDE RECORDS SUMMARY | 2025-02-15 13:54 | XMS_ITS | Encounter Summary ---
Author Organization [facility] Address [address] [place] [address] Care Team Providers Care Drum Plater Name Role Phone Miguel Angel MD Primary Care Provider [phone] Encounter Details Date Type Department Care Team (Latest Contact Info) Description 03/16/2006 Outpatient [facility] Jd [place] [address] [place] [phone] Kolby Gayle MD [address] [facility] [address] [place] [address] Routine Medical Exam (Primary Dx); Routine Gynecological Examination Social History Tobacco Use Types Packs/Day Years Used Date Smoking Tobacco: Never Assessed Comments Unknown Sex and Gender Information Value Date Recorded Sex Assigned at Not on file Legal Sex Female 3:31 AM 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
--- NOTE | 2025-02-15 14:53 | W.ED.GENADLT ---
HPI - General Adult General: Chief complaint: General Medical Stated complaint: Rapid resp Time Seen by Provider: 02/15/25 14:13 Source: patient Mode of arrival: ambulatory Limitations: no limitations History of Present Illness: Patient is a 69-year-old female who presents to ED today after a rapid response was called while she was sitting in the waiting room of Dr. Aguero's office waiting for her appointment. Patient has been having abnormal movements to her legs over the past 3 to 4 months. She has been seen here in the emergency department multiple times for evaluation. She has been placed on many different medications-none of which she states helps. She states she was finally able to get an appointment with neurology. She states when she sits down, her tremors to her legs worsen. She states she made the mistake of sitting down while waiting for her appointment and went into an episode of leg convulsions thus a rapid response was called and she was brought to the emergency department. Patient is frustrated that she is here stating she knows she needs to see neurology and that there is nothing that can be done from an emergency standpoint. Onset (ago): month(s) Severity: moderate Relieving factors: none Exacerbating factors: other (sitting down) Associated symptoms: Reports no associated symptoms; Deny chest pain, dyspnea, headache(s) or malaise Treatments prior to arrival: none Related Data Home Medications ?Medication ?Instructions ?Recorded ?Confirmed atorvastatin 40 mg tablet 20 mg PO DAILY@1700 12/10/20 02/15/25 buspirone 10 mg tablet 20 mg PO TID 12/10/20 02/15/25 multivitamin-calcium, 1 tab PO QAM 12/28/20 02/15/25 [id number]-NE-hbk isoflavone 400 mcg-60 mg tablet (One-A-Day Menopause Formula) pantoprazole 40 mg tablet,delayed 40 mg PO QAM 12/28/20 02/15/25 release (Protonix) alendronate 35 mg tablet 35 mg PO Q7D 12/23/21 02/15/25 epinephrine 0.3 mg/0.3 mL 0.3 mg IM Q4H PRN Allergic Reaction 12/23/21 02/15/25 injection, auto-injector (EpiPen 2-Fredy) valacyclovir 1 gram tablet 1,000 mg PO BEDTIME 12/23/21 02/15/25 venlafaxine 75 mg tablet 225 mg PO BEDTIME 06/18/23 02/15/25 diphenhydramine HCl 50 mg/30 mL 50 mg PO BEDTIME PRN Sleep 05/02/24 02/15/25 oral liquid (ZzzQuil) quetiapine 200 mg tablet 100 mg PO BEDTIME 05/02/24 02/15/25 Previous Rx's ?Medication ?Instructions ?Recorded metoprolol tartrate 25 mg tablet 25 mg PO BID #180 tabs 01/09/21 Custom Molded Orthotics #1 ea 09/12/21 aspirin 81 mg tablet,delayed 81 mg PO DAILY #30 tabs 12/20/23 release lorazepam 0.5 mg tablet 0.5 mg PO .nightly PRN spasms #7 12/26/24 tabs magnesium oxide 500 mg capsule 500 mg PO .qhs #20 caps 12/26/24 Allergies Allergy/AdvReac Type Severity Reaction Status Date / Time Penicillins Allergy Unknown Unknown Verified 02/15/25 13:22 cayenne Allergy Unknown Verified 02/15/25 13:22 erythromycin base Allergy Unknown Verified 02/15/25 13:22 Review of Systems Const: Denies: fever(s), chills, body aches, fatigue or malaise Card: Denies: chest pain Resp: Denies: dyspnea GI: Denies: abdominal pain Neuro: Denies: headache(s) or dizziness PFSH ED PFSH: Medical History PVC (premature ventricular contraction) GERD (gastroesophageal reflux disease) Hyperlipidemia PTSD (post-traumatic stress disorder) History of depression Surgical History Status post laparoscopic cholecystectomy (02/06/21) H/O esophagogastroduodenoscopy (01/31/21) gastritis Status post colonoscopy S/P bilateral breast lumpectomy Hx of hysterectomy Family History Grandfather CAD (coronary artery disease) Myocardial infarction Diabetes Mother Stroke Dementia Father Stroke Dementia Social History Smoking and tobacco/nicotine status: never used tobacco/nicotine Alcohol intake: current Alcohol intake frequency: holidays/special occasions only Substance/Drug Use: never Physical Exam Const: COMMON NORMALS: no acute distress, average body habitus, patient oriented x3, no limitations, healthy appearing, alert and well nourished GENERAL APPEARANCE: cooperative OTHER: pt is pacing around the room using her cane-no tremors at this time noted but she states these go away when she gets up and walks HENMT: COMMON NORMALS: normocephalic and atraumatic HEAD & SCALP: normal to inspection, normocephalic and atraumatic Resp: COMMON NORMALS: normal respiratory effort and clear to auscultation bilaterally AUSCULTATION: clear to auscultation bilaterally Cardio: COMMON NORMALS: regular rate and regular rhythm RATE: regular rate RHYTHM: regular rhythm Neuro: COMMON NORMALS: patient oriented x3 SENSORIUM/ORIENTATION: Yes alert Course Vital Signs: Vital signs: Vital Signs Temperature 98.1 F 02/15/25 13:47 Pulse Rate 98 02/15/25 13:47 Respiratory Rate 18 02/15/25 13:47 Blood Pressure 142/76 02/15/25 13:47 Pulse Oximetry 100 02/15/25 13:47 Oxygen Delivery Me thod Room Air 02/15/25 13:47 MDM - General Adult Medical Decision Making Patient has been seen here in the emergency department many times for these identical symptoms over the past 3 months. I do not feel we need to perform any kind of repeat emergency workup today. Utimately she needs her neurology appointment for further evaluation. We did contact the clinic to see if they could squeeze her back in for today or maybe even tomorrow but they could not. They were graciously able to reschedule her for next week. Patient states she has been on many medications none of which help therefore we will forego this today. Medical Records I reviewed the patient's medical records. No radiology studies performed this visit Discharge Plan Discharge Patient Disposition: Home Clinical Impression: Movement disorder Condition: Stable Prescriptions: No Action (DME) Custom Molded Orthotics See Rx Instructions .Route .MEDSUPPLY Qty: 1 0RF Rx Instructions: As directed metoprolol tartrate 25 mg tablet 25 mg PO BID Qty: 180 3RF atorvastatin 40 mg tablet 20 mg PO DAILY@1700 buspirone 10 mg tablet 20 mg PO TID pantoprazole [Protonix] 40 mg Tablet,Delayed Release (Dr/Ec) 40 mg PO QAM One-A-Day Menopause Formula 400-60 mcg-mg Tablet 1 tab PO QAM valacyclovir 1 gram Tablet 1,000 mg PO BEDTIME alendronate 35 mg Tablet 35 mg PO Q7D Rx Instructions: ON THURSDAY epinephrine [EpiPen 2-Fredy] 0.3 mg/0.3 mL Auto-Injector 0.3 mg IM Q4H PRN (Reason: Allergic Reaction) venlafaxine 75 mg Tablet 225 mg PO BEDTIME magnesium oxide 500 mg capsule 500 mg PO .qhs Qty: 20 0RF lorazepam 0.5 mg tablet 0.5 mg PO .nightly PRN (Reason: spasms) Qty: 7 0RF aspirin 81 mg tablet,delayed release (DR/EC) 81 mg PO DAILY Qty: 30 0RF quetiapine 200 mg Tablet 100 mg PO BEDTIME ZzzQuil 50 mg/30 mL Liquid 50 mg PO BEDTIME PRN (Reason: Sleep) Discharge Orders: Discharge ED (Routine); Ordered 02/15/25 Ordered By: Angella Todd Referrals: Joellen Alvarez FNP [Primary Care Provider, Nurse Practitioner] Patient Instructions: Patient Portal & Elbert Instructions Activity Restrictions/Additional Instructions: As we discussed, your appointment with Dr. Aguero has been rescheduled for 02/22 at 11:00. Print Language: Korean Coding Level of Care Code ED Lamp Stack Developer for Marci Quinn
== END 2025-02-15 15:05 | disposition home or self-care (01) ==
PROVIDERS: Emergency Provider Physician Assistant; PCP Nurse Practitioner
DX: G25.9 Extrapyramidal and movement disorder, unspecified (principal); Z79.82 Long term (current) use of aspirin; E78.5 Hyperlipidemia, unspecified
CPT/HCPCS: 99281

== ENCOUNTER → 2025-02-22 10:22 | Outpatient (BNVA) | payer OTHER, SELFPAY | PROVIDERS: PCP Nurse Practitioner; Referring Provider Nurse Practitioner; Visit Provider Specialist | DX: R29.90 Unspecified symptoms and signs involving the nervous system (principal); E78.5 Hyperlipidemia, unspecified; I71.9 Aortic aneurysm of unspecified site, without rupture; G25.9 Extrapyramidal and movement disorder, unspecified; M21.372 Foot drop, left foot; G25.5 Other chorea; M54.16 Radiculopathy, lumbar region | CPT/HCPCS: 36415; 82607; 84439; 84443; 85651; 86038; 99215 ==

== ENCOUNTER 2025-03-14 09:58 | Emergency (ER) | payer OTHER, MEDICARE, SELFPAY ==
[2025-03-14 09:59] VITALS: BMI 23.1
[2025-03-14 10:03] VITALS: BP 158/83; PULSE 70; RESP 16; TEMP 36.7; O2SAT 99
--- OUTSIDE RECORDS SUMMARY | 2025-03-14 10:12 | XMS_ITS | Encounter Summary ---
Author Organization [facility] Address [address] [place] [address] Care Team Providers Care Pin Drafter Operator Name Role Phone Miguel Angel MD Primary Care Provider [phone] Encounter Details Date Type Department Care Team (Latest Contact Info) Description 12/05/2002 Outpatient Historical [address] [phone] Marcelino Lazar MD [address] [phone] OTHER MALAISE AND FATIGUE (Primary Dx); GASTRITIS/DUODEN NOS W/O HEMORRH Social History Tobacco Use Types Packs/Day Years Used Date Smoking Tobacco: Never Assessed Comments Unknown Sex and Gender Information Value Date Recorded Sex Assigned at Not on file 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 Sex Female 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 DIRECTOR OF 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
--- OUTSIDE RECORDS SUMMARY | 2025-03-14 10:12 | XMS_ITS | Encounter Summary ---
Author Organization [facility] Address [address] [place] [address] Care Team Providers Care Rehabilitation Medicine Physician Name Role Phone Miguel Angel MD Primary Care Provider [phone] Encounter Details Date Type Department Care Team (Latest Contact Info) Description 05/28/2005 Outpatient Historical [facility] [place] [address] [place] [phone] Kolby Gayle MD [address] [facility] [address] [place] [address] URIN TRACT INFECTION NOS (Primary Dx) Social History Tobacco Use Types Packs/Day Years Used Date Smoking Tobacco: Never Assessed Comments Unknown Sex and Gender Information Value Date Recorded Sex Assigned at Not on file 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
--- OUTSIDE RECORDS SUMMARY | 2025-03-14 10:12 | XMS_ITS | Encounter Summary ---
Author Organization [facility] Address [address] [place] [address] Care Team Providers Care Site Superintendent Name Role Phone Miguel Angel MD Primary Care Provider [phone] Encounter Details Date Type Department Care Team (Latest Contact Info) Description 05/16/2002 Outpatient Historical [facility] Medicine [address] [phone] Marcelino Lazar MD [address] [phone] ACUTE FRONTAL SINUSITIS (Primary Dx); ABDOMINAL PAIN UNSPEC SITE; NAUSEA ALONE Social History Tobacco Use Types Packs/Day Years Used Date Smoking Tobacco: Never Assessed Comments Unknown Sex and Gender Information Value Date Recorded Sex Assigned at Not on file 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
--- OUTSIDE RECORDS SUMMARY | 2025-03-14 10:12 | XMS_ITS | Encounter Summary ---
Author Organization [facility] Address [address] [place] [address] Care Team Providers Care Apartment Maintenance Technician Name Role Phone Miguel Angel MD Primary Care Provider [phone] Encounter Details Date Type Department Care Team (Latest Contact Info) Description 09/14/2002 Outpatient Historical [address], [place] [phone] Marcelino Lazar MD [address] [phone] SHOULDER REGION DIS NEC (Primary Dx); ENTHESOPATHY, SITE NOS Social History Tobacco Use Types Packs/Day Years Used Date Smoking Tobacco: Never Assessed Comments Unknown Sex and Gender Information Value Date Recorded Sex Assigned at Not on file 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 Female 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
--- OUTSIDE RECORDS SUMMARY | 2025-03-14 10:12 | XMS_ITS | Encounter Summary ---
Author Organization [facility] Address [address] [place] [address] Care Team Providers Care Watchguard Name Role Phone Miguel Angel MD Primary Care Provider [phone] Encounter Details Date Type Department Care Team (Late st Contact Info) Description 04/16/2009 Ancillary Orders [facility] Gen Spec Surg [place] [address] [place] [address] Magdaleno Phillips MD NO ADDRESS ON FILE Other Screening Mammogram Social History Tobacco Use Types Packs/Day Years Used Date Smoking Tobacco: Never Assessed Comments Unknown Sex and Gender Information Value Date Recorded Sex Assigned at Not on file Legal Sex Female 3:31 AM DECK SPECIALIST Gender Identity Not on file Sexual [...] mammogram documented in this encounter Care Teams Watchguard Relationship Specialty Start Date End Date Miguel Angel MD [address] [facility] [place] [address] PCP - General Family Practice 10/14/17 documented as of this encounter
--- OUTSIDE RECORDS SUMMARY | 2025-03-14 10:12 | XMS_ITS | Encounter Summary ---
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); Benign neoplasm of skin, site unspecified; Dysthymic disorder Social History Tobacco Use Types Packs/Day Years Used Date Smoking Tobacco: Never Assessed Comments Unknown Sex and Gender Information Value Date Recorded Sex Assigned at Not on file Legal Sex Female 3:31 AM STRATEGIC DEBRIEFING OFFICER Gender Identity Not on file Sexual Orientation Not on file documented as of this encounter Plan of Treatment Not on file documented as of this encounter Visit Diagnoses Diagnosis 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
--- OUTSIDE RECORDS SUMMARY | 2025-03-14 10:12 | XMS_ITS | Encounter Summary ---
Author Organization [facility] Address [address] [place] [address] Care Team Providers Care Political Worker Name Role Phone Miguel Angel MD Primary Care Provider [phone] Encounter Details Date Type Department Care Team (Late st Contact Info) Description 02/24/2005 Outpatient Historical [facility] [address] [place] [phone] Kolby Gayle MD [address] [facility] [address] [place] [address] Social History Tobacco Use Types Packs/Day Years Used Date Smoking Tobacco: Never Assessed Comments Unknown Sex and Gender Information Value Date Recorded Sex Assigned at Not on file 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
--- OUTSIDE RECORDS SUMMARY | 2025-03-14 10:12 | XMS_ITS | Encounter Summary ---
Author Organization [facility] Address [address] [place] [address] Care Team Providers Care Medical Assistant Cardiology Name Role Phone Miguel Angel MD Primary Care Provider [phone] Encounter Details Date Type Department Care Team (Late st Contact Info) Description 07/21/2007 Outpatient Historical [facility] Gen Spec Surg [place] [address] [place] [phone] Magdaleno Phillpis MD NO ADDRESS ON FILE Social History Tobacco Use Types Packs/Day Years Used Date Smoking Tobacco: Never Assessed Comments Unknown Sex and Gender Information Value Date Recorded Sex Assigned at Not on file Legal Sex Female 3:31 AM IT COMPLIANCE ANALYST Gender Identity Not on file Sexual Orientation Not on file documented as of this encounter Plan of Treatment Not on file documented as of this encounter Visit Diagnoses Not on filedocumented in this encounter Care Teams Medical Assistant Cardiology Relationship Specialty Start Date End Date Miguel Angel MD [address] [facility] [place] [address] PCP - General Family Practice 10/14/17 documented as of this encounter
--- OUTSIDE RECORDS SUMMARY | 2025-03-14 10:12 | XMS_ITS | Encounter Summary ---
Author Organization [facility] Address [address] [place] [address] Care Team Providers Care Pig Casting Machine Operator Name Role Phone Miguel Angel MD Primary Care Provider [phone] Encounter Details Date Type Department Care Team (Late st Contact Info) Description 03/10/2005 Outpatient [facility] [place] [address] [place] [address] Social History Tobacco Use Types Packs/Day Years Used Date Smoking Tobacco: Never Assessed Comments Unknown Sex and Gender Information Value Date Recorded Sex Assigned at Not on file Legal Sex Female 3:31 AM ELECTRIC BLASTING CAP ASSEMBLER Gender Identity Not on file Sexual Orientation Not on file documented as of this encounter Plan of Treatment Not on file documented as of this encounter Visit Diagnoses Not on filedocumented in this encounter Care Teams Pig Casting Machine Operator Relationship Specialty Start Date End Date Miguel Angel MD [address] [facility] [place] [address] PCP - General Family Practice 10/14/17 documented as of this encounter
--- OUTSIDE RECORDS SUMMARY | 2025-03-14 10:12 | XMS_ITS | Encounter Summary ---
Author Organization [facility] Address [address] [place] [address] Care Team Providers Care Bow Making Machine Operator Name Role Phone Miguel Angel MD Primary Care Provider [phone] Encounter Details Date Type Department Care Team (Latest Contact Info) Description 11/16/[address] [address] Josselin Ordonez MD [address] [place] [address], [address] THYROTOX NOS NO CRISIS (Primary Dx) Social History Tobacco Use Types Packs/Day Years Used Date Smoking Tobacco: Never Assessed Comments Unknown Sex and Gender Information Value Date Recorded Sex Assigned at Not on file Legal Sex Female 3:31 AM AUDOGRAPH OPERATOR Gender Identity Not on file Sexual Orientation Not on file documented as of this encounter Plan of Treatment Not on file documented as of this encounter Visit Diagnoses Diagnosis Thyrotoxicosis without mention of goiter or other cause, without mention of thyrotoxic crisis or storm- Primary documented in this encounter Care Teams Bow Making Machine Operator Relationship Specialty Start Date End Date Miguel Angel MD [address] [facility] [place] [address] PCP - General Family Practice 10/14/17 documented as of this encounter
--- OUTSIDE RECORDS SUMMARY | 2025-03-14 10:12 | XMS_ITS | Encounter Summary ---
Author Organization [facility] Address [address] [place] [address] Care Team Providers Care Business Solutions Consultant Name Role Phone Miguel Angel MD Primary Care Provider Encounter Details Date Type Department Care Team (Latest Contact Info) Description 05/12/2001 Outpatient Historical [facility] Medicine [address] [phone] Marcelino Lazar MD [address] [phone] Unspecified endocrine disorder (Primary Dx); Sebaceous cyst Social History Tobacco Use Types Packs/Day Years Used Date Smoking Tobacco: Never Assessed Comments Unknown Sex and Gender Information Value Date Recorded Sex Assigned at Not on file Legal Sex Female 3:31 AM BACK END ENGINEER Gender Identity Not on file Sexual Orientation Not on file documented as of this encounter Plan of Treatment Not on file documented as of this encounter Visit Diagnoses Diagnosis Unspecified endocrine disorder- Primary Sebaceous cyst documented in this encounter Care Teams Business Solutions Consultant Relationship Specialty Start Date End Date Miguel Angel MD [address] [facility] [place] [address] PCP - General Family Practice 10/14/17 documented as of this encounter
--- OUTSIDE RECORDS SUMMARY | 2025-03-14 10:12 | XMS_ITS | Encounter Summary ---
Author Organization [facility] Address [address] [place] [address] Care Team Providers Care Theatre Program Director Name Role Phone Miguel Angel MD Primary Care Provider [phone] Encounter Details Date Type Department Care Team (Latest Contact Info) Description 06/21/2001 Outpatient Historical [facility] Gen Spec Surg [place] [address] [place] [address] Magdaleno Phillips MD NO ADDRESS ON FILE BENIGN JAKE SOFT TISSUE HEAD (Primary Dx); SURGERY FOLLOWUP, UNSPEC Social History Tobacco Use Types Packs/Day Years Used Date Smoking Tobacco: Never Assessed Comments Unknown Sex and Gender Information Value Date Recorded Sex Assigned at Not on file Legal Sex Female 3:31 AM GLOBAL HEAD ADVERTISER SOLUTIONS Gender Identity Not on file Sexual Orientation Not on file documented as of this encounter Plan of Treatment Not on file documented as of this encounter Visit Diagnoses Diagnosis 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
--- OUTSIDE RECORDS SUMMARY | 2025-03-14 10:12 | XMS_ITS | Encounter Summary ---
Author Organization [facility] Address [address] [place] [address] Care Team Providers Care Drill Foreman Name Role Phone Miguel Angel MD Primary Care Provider [phone] Encounter Details Date Type Department Care Team (Latest Contact Info) Description 02/24/2005 Outpatient Historical [facility] [place] [address] [place] [phone] Kolby Gayle MD [address] [facility] [address] [place] [address] Excessive menstruation (Primary Dx) Social History Tobacco Use Types Packs/Day Years Used Date Smoking Tobacco: Never Assessed Comments Unknown Sex and Gender Information Value Date Recorded Sex Assigned at Not on file Legal Sex Female 3:31 AM BONDING MACHINE SETTER Gender Identity Not on file Sexual Orientation Not on file documented as of this encounter Plan of Treatment Not on file documented as of this encounter Visit Diagnoses Diagnosis Excessive menstruation- Primary Excessive or frequent menstruation documented in this encounter Care Teams Drill Foreman Relationship Specialty Start Date End Date Miguel Angel MD [address] [facility] [place] [address] PCP - General Family Practice 10/14/17 documented as of this encounter
--- OUTSIDE RECORDS SUMMARY | 2025-03-14 10:12 | XMS_ITS | Encounter Summary ---
Author Organization [facility] Address [address] [place] [address] Care Team Providers Care Route Sales Trainee Name Role Phone Miguel Angel MD Primary Care Provider [phone] Encounter Details Date Type Department Care Team (Late st Contact Info) Description 02/01/2003 Outpatient Historical [address] [phone] Josselin Ordonez MD [address] [place] [address], [address] Social History Tobacco Use Types Packs/Day Years Used Date Smoking Tobacco: Never Assessed Comments Unknown Sex and Gender Information Value Date Recorded Sex Assigned at Not on file 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
--- OUTSIDE RECORDS SUMMARY | 2025-03-14 10:12 | XMS_ITS | Encounter Summary ---
Author Organization [facility] Address [address] [place] [address] Care Team Providers Care Construction Craft Laborer Name Role Phone Miguel Angel MD Primary Care Provider [phone] Encounter Details Date Type Department Care Team (Latest Contact Info) Description 03/26/2005 Outpatient Historical [facility] [place] [address] [place] [phone] Kolby Gayle MD [address] [facility] [address] [place] [address] UTERINE LEIOMYOMA NOS (Primary Dx); Excessive menstruation; OVARIAN CYST NEC/NOS Social History Tobacco Use Types Packs/Day Years Used Date Smoking Tobacco: Never Assessed Comments Unknown Sex and Gender Information Value Date Recorded Sex Assigned at Not on file Legal Sex Female 3:31 AM UPSCALE SECURITY OFFICER Gender Identity Not on file Sexual Orientation Not on file documented as of this encounter Plan of Treatment Not on file documented as of this encounter Visit Diagnoses Diagnosis Leiomyoma of uterus, unspecified- Primary Excessive menstruation Excessive or frequent menstruation Other and unspecified ovarian cyst documented in this encounter Care Teams Construction Craft Laborer Relationship Specialty Start Date End Date Miguel Angel MD [address] [facility] [place] [address] PCP - General Family Practice 10/14/17 documented as of this encounter
--- OUTSIDE RECORDS SUMMARY | 2025-03-14 10:12 | XMS_ITS | Clinical Summary ---
Author Organization [facility] Address [address] [place] [address] Care Team Providers Care Miniature Set Constructor Name Role Phone Miguel Angel MD Primary Care Provider Allergies Active Allergy Reactions Criticality Noted Date [...] on file Legal Sex Female 3:31 AM PAINTER CHASSIS Gender Identity Not on file Sexual Orientation Not on file Occupation Industry Job Start Date Job End Date Not on file Not on file Not on file Not on file Last Filed Vital Signs Vital Sign Reading Time Taken Comments Blood Pressure 146/88 07/09/2020 9:50 AM PAINTER CHASSIS Pulse 84 10/19/2017 1:02 PM PAINTER CHASSIS Temperature 36.7 C (98 F) 10/19/2017 11:41 AM PAINTER CHASSIS Respiratory Rate 16 10/19/2017 1:02 PM PAINTER CHASSIS Oxygen Saturation 97% 10/19/2017 1:02 PM PAINTER CHASSIS Inhaled Oxygen Concentration - - Weight 74.8 kg (165 lb) 07/09/2020 9:50 AM PAINTER CHASSIS Height 162.6 cm (5' 4 ) 07/09/2020 9:50 AM PAINTER CHASSIS Body Mass Index 28.32 07/09/2020 9:50 AM PAINTER CHASSIS Plan of Treatment Health Maintenance Due Date [...] Personal/Family Self 1955 [address] [place] [address] [facility] WORKERS COMP PR CCN [employer] Advance Directives For more information, please contact: [phone] * Full Code (Latest Code Status on File) Date Activated Date Inactivated Comments 10/19/2017 11:44 AM 10/19/2017 3:11 PM Care Teams Miniature Set Constructor Relationship Specialty Start Date End Date Miguel Angel MD [address] [facility] [place] [address] PCP - General Family Practice 10/14/17
--- OUTSIDE RECORDS SUMMARY | 2025-03-14 10:12 | XMS_ITS | Encounter Summary ---
Author Organization [facility] Address [address] [place] [address] Care Team Providers Care Computer Security Coordinator Name Role Phone Miguel Angel MD Primary Care Provider [phone] Encounter Details Date Type Department Care Team (Latest Contact Info) Description 11/30/2001 Outpatient Historical [facility] Medicine [address] [phone] Marcelino Lazar MD [address] [phone] OTALGIA NOS (Primary Dx); ALLERGY, UNSPECIFIED Social History Tobacco Use Types Packs/Day Years Used Date Smoking Tobacco: Never Assessed Comments Unknown Sex and Gender Information Value Date Recorded Sex Assigned at Not on file Legal Sex Female 3:31 AM LEAD ASSEMBLER Gender Identity Not on file Sexual Orientation Not on file documented as of this encounter Plan of Treatment Not on file documented as of this encounter Visit Diagnoses Diagnosis Otalgia, unspecified- Primary Allergy, unspecified not elsewhere classified documented in this encounter Care Teams Computer Security Coordinator Relationship Specialty Start Date End Date Miguel Angel MD [address] [facility] [place] [address] PCP - General Family Practice 10/14/17 documented as of this encounter
--- OUTSIDE RECORDS SUMMARY | 2025-03-14 10:12 | XMS_ITS | Encounter Summary ---
Author Organization [facility] Address [address] [place] [address] Care Team Providers Care Machine Strap Buckler Name Role Phone Miguel Angel MD Primary Care Provider [phone] Encounter Details Date Type Department Care Team (Late st Contact Info) Description 03/08/2008 Outpatient [facility] [address] [facility] [address] [place] [address] Social History Tobacco Use Types Packs/Day Years Used Date Smoking Tobacco: Never Assessed Comments Unknown Sex and Gender Information Value Date Recorded Sex Assigned at Not on file Legal Sex Female 3:31 AM REFINING ENGINEER Gender Identity Not on file Sexual Orientation Not on file documented as of this encounter Plan of Treatment Not on file documented as of this encounter Visit Diagnoses Not on filedocumented in this encounter Care Teams Machine Strap Buckler Relationship Specialty Start Date End Date Miguel Angel MD [address] [facility] [place] [address] PCP - General Family Practice 10/14/17 documented as of this encounter
--- OUTSIDE RECORDS SUMMARY | 2025-03-14 10:12 | XMS_ITS | Encounter Summary ---
Author Organization [facility] Address [address] [place] [address] Care Team Providers Care Electrician Station Assistant Name Role Phone Miguel Angel MD Primary Care Provider Encounter Details Date Type Department Care Team (Latest Contact Info) Description 03/16/2006 Outpatient [facility] [place] [address] [place] [phone] Kolby Gayle MD [address] [facility] [address] [place] [address] Routine Medical Exam (Primary Dx); Routine Gynecological Examination Social History Tobacco Use Types Packs/Day Years Used Date Smoking Tobacco: Never Assessed Comments Unknown Sex and Gender Information Value Date Recorded Sex Assigned at Not on file Legal Sex Female 3:31 AM TRACER CLERK Gender Identity Not on file Sexual Orientation Not on file documented as of this encounter Plan of Treatment Not on file documented as of this encounter Visit Diagnoses Diagnosis Routine medical exam- Primary Routine general medical examination at a health care facility Routine gynecological examination documented in this encounter Care Teams Electrician Station Assistant Relationship Specialty Start Date End Date Miguel Angel MD [address] [facility] [place] [address] PCP - General Family Practice 10/14/17 documented as of this encounter
--- OUTSIDE RECORDS SUMMARY | 2025-03-14 10:12 | XMS_ITS | Encounter Summary ---
Author Organization [facility] Address [address] [place] [address] Care Team Providers Care Coke Still Cleaner Name Role Phone Miguel Angel MD Primary Care Provider [phone] Encounter Details Date Type Department Care Team (Late st Contact Info) Description 03/10/2005 Outpatient Historical [facility] [place] [address] [place] [phone] Kolby Gayle MD [address] [facility] [address] [place] [address] Social History Tobacco Use Types Packs/Day Years Used Date Smoking Tobacco: Never Assessed Comments Unknown Sex and Gender Information Value Date Recorded Sex Assigned at Not on file Legal Sex Female 3:31 AM 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
--- OUTSIDE RECORDS SUMMARY | 2025-03-14 10:12 | XMS_ITS | Encounter Summary ---
Author Organization [facility] Address [address] [place] [address] Care Team Providers Care Lining Baster Name Role Phone Miguel Angel MD Primary Care Provider [phone] Encounter Details Date Type Department Care Team (Late st Contact Info) Description 02/01/2003 Outpatient [facility] [address] [facility] [address] [place] [address] Social History Tobacco Use Types Packs/Day Years Used Date Smoking Tobacco: Never Assessed Comments Unknown Sex and Gender Information Value Date Recorded Sex Assigned at Not on file Legal Sex Female 3:31 AM SHOE COBBLER Gender Identity Not on file Sexual Orientation Not on file documented as of this encounter Plan of Treatment Not on file documented as of this encounter Visit Diagnoses Not on filedocumented in this encounter Care Teams Lining Baster Relationship Specialty Start Date End Date Miguel Angel MD [address] [facility] [place] [address] PCP - General Family Practice 10/14/17 documented as of this encounter
--- OUTSIDE RECORDS SUMMARY | 2025-03-14 10:12 | XMS_ITS | Encounter Summary ---
Author Organization [facility] Address [address] [place] [address] Care Team Providers Care Director Of Accreditation Name Role Phone Miguel Angel MD Primary Care Provider [phone] Encounter Details Date Type Department Care Team (Late st Contact Info) Description 09/15/2007 Outpatient Historical [facility] Gen Spec Surg [place] [address] [facility] [address] [place] [phone] Magdaleno Phillips MD NO ADDRESS ON FILE Social History Tobacco Use Types Packs/Day Years Used Date Smoking Tobacco: Never Assessed Comments Unknown Sex and Gender Information Value Date Recorded Sex Assigned at Not on file Legal Sex Female 3:31 AM PACKAGE CENTER SUPERVISOR Gender Identity Not on file Sexual [...] , A, 810 Job #: Document #: [id number] cc: AGE CENTER SUPERVISOR documented in this encounter Plan of Treatment Not on file documented as of this encounter Visit Diagnoses Not on filedocumented in this encounter Care Teams Director Of Accreditation Relationship Specialty Start Date End Date Miguel Angel MD [address] [facility] [place] [address] PCP - General Family Practice 10/14/17 documented as of this encounter
--- OUTSIDE RECORDS SUMMARY | 2025-03-14 10:12 | XMS_ITS | Encounter Summary ---
Author Organization [facility] Address [address] [place] [address] Care Team Providers Care Computer Support Technician Name Role Phone Miguel Angel MD Primary Care Provider [phone] Encounter Details Date Type Department Care Team (Latest Contact Info) Description 09/07/2001 Outpatient Historical [facility] [address] [phone] Marcelino Lazar MD [address] [phone] HEADACHE (Primary Dx); Sprain of neck Social History Tobacco Use Types Packs/Day Years Used Date Smoking Tobacco: Never Assessed Comments Unknown Sex and Gender Information Value Date Recorded Sex Assigned at Not on file Legal Sex Female 3:31 AM LOST CHARGE CARD CLERK Gender Identity Not on file Sexual Orientation Not on file documented as of this encounter Plan of Treatment Not on file documented as of this encounter Visit Diagnoses Diagnosis Headache(784.0)- Primary Headache Sprain of neck Neck sprain and strain documented in this encounter Care Teams Computer Support Technician Relationship Specialty Start Date End Date Miguel Angel MD [address] [facility] [place] [address] PCP - General Family Practice 10/14/17 documented as of this encounter
--- OUTSIDE RECORDS SUMMARY | 2025-03-14 10:12 | XMS_ITS | Encounter Summary ---
Author Organization [facility] Address [address] [place] [address] Care Team Providers Care Electronic Sales And Service Technician Name Role Phone Miguel Angel MD Primary Care Provider [phone] Encounter Details Date Type Department Care Team (Latest Contact Info) Description 05/01/2005 Outpatient Historical [facility] [address] [place] [phone] Kolby Gayle MD [address] [facility] [address] [place] [address] SURGERY FOLLOWUP NOS (Primary Dx) Social History Tobacco Use Types Packs/Day Years Used Date Smoking Tobacco: Never Assessed Comments Unknown Sex and Gender Information Value Date Recorded Sex Assigned at Not on file Legal Sex Female 3:31 AM SENIOR PRODUCT INTEGRITY ENGINEER Gender Identity Not on file Sexual Orientation Not on file documented as of this encounter Plan of Treatment Not on file documented as of this encounter Visit Diagnoses Diagnosis Follow-up examination, following unspecified surgery- Primary documented in this encounter Care Teams Electronic Sales And Service Technician Relationship Specialty Start Date End Date Miguel Angel MD [address] [facility] [place] [address] PCP - General Family Practice 10/14/17 documented as of this encounter
--- OUTSIDE RECORDS SUMMARY | 2025-03-14 10:12 | XMS_ITS | Encounter Summary ---
Author Organization [facility] Address [address] [place] [address] Care Team Providers Care Manager Lvn Name Role Phone Miguel Angel MD Primary Care Provider [phone] Encounter Details Date Type Department Care Team (Latest Contact Info) Description 02/01/2003 Outpatient Historical [facility] [employer] [facility] 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
--- OUTSIDE RECORDS SUMMARY | 2025-03-14 10:12 | XMS_ITS | Encounter Summary ---
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
--- OUTSIDE RECORDS SUMMARY | 2025-03-14 10:12 | XMS_ITS | Encounter Summary ---
Author Organization [facility] Address [address] [place] [address] Care Team Providers Care Teaching Pastor Name Role Phone Miguel Angel MD Primary Care Provider [phone] Encounter Details Date Type Department Care Team (Latest Contact Info) Description 01/26/2001 Outpatient Historical [facility] [address] [phone] Marcelino Lazar MD [address] [phone] Unspecified disorder of skin and subcutaneous tissue (Primary Dx); Patellar tendinitis Social History Tobacco Use Types Packs/Day Years Used Date Smoking Tobacco: Never Assessed Comments Unknown Sex and Gender Information Value Date Recorded Sex Assigned at Not on file 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
--- OUTSIDE RECORDS SUMMARY | 2025-03-14 10:12 | XMS_ITS | Encounter Summary ---
Author Organization [facility] Address [address] [place] [address] Care Team Providers Care Certified Green Building Engineer Name Role Phone Miguel Angel MD Primary Care Provider [phone] Encounter Details Date Type Department Care Team (Late st Contact Info) Description 03/06/2008 Outpatient [facility] Breast [facility] [address] [place], [place] [phone] Magdaleno Phillips MD NO ADDRESS ON FILE Social History Tobacco Use Types Packs/Day Years Used Date Smoking Tobacco: Never Assessed Comments Unknown Sex and Gender Information Value Date Recorded Sex Assigned at Not on file 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 Gender Identity Not on file Sexual [...] 03/08/2008 3:19 PM CDT Report Available in [facility] Procedure Note 09/18/2008 Report Available in [facility] us Magdaleno Phillips MD MAMMO ORDERABLES Final Resul t documented in this encounter Visit Diagnoses Not on filedocumented in this encounter Care Teams Certified Green Building Engineer Relationship Specialty Start Date End Date Miguel Angel MD [address] [facility] [place] [address] PCP - General Family Practice 10/14/17 documented as of this encounter
--- OUTSIDE RECORDS SUMMARY | 2025-03-14 10:12 | XMS_ITS | Encounter Summary ---
Author Organization [facility] Address [address] [place] [address] Care Team Providers Care Motor Vehicle Salesperson Name Role Phone Miguel Angel MD Primary Care Provider [phone] Reason for Referral * Outpatient Services (Routine) - Closed Specialty Diagnoses / Procedures Referred By Contsmita t Referred To Contact Radiology Diagnoses Other screening mammogram Procedures MAMMO DIGITAL SCREEN BILAT Magdalneo Phillips MD NO ADDRESS ON FILE [facility] [address] [facility] [address] [place] [address] Phone: tel: fax: Referral ID Status Reason Start Date Expiration Date Visits Re quested Visits Authorized [id number] Closed 02/23/2013 03/26/2014 1 1 Encounter Details Date Type Department Care Team (Latest Contact Info) Description 02/23/2013 Ancillary Orders [facility] Pre-Registration [place] CALL TO MAKE APPOINTMENT ONLY [address] [place] [address] Magdaleno Phillips MD NO ADDRESS [...] on file 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
--- OUTSIDE RECORDS SUMMARY | 2025-03-14 10:12 | XMS_ITS | Encounter Summary ---
Author Organization [facility] Address [address] [place] [address] Care Team Providers Care Outpatient Coding Specialist Name Role Phone Miguel Angel MD Primary Care Provider [phone] Encounter Details Date Type Department Care Team (Latest Contact Info) Description 11/17/2002 Outpatient Historical [address] [phone] Josselin Ordonez MD [address] [place] [address], [address] HYPOVOLEMIA (Primary Dx); NAUSEA WITH VOMITING Social History Tobacco Use Types Packs/Day Years Used Date Smoking Tobacco: Never Assessed Comments Unknown Sex and Gender Information Value Date Recorded Sex Assigned at Not on file 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
--- OUTSIDE RECORDS SUMMARY | 2025-03-14 10:12 | XMS_ITS | Encounter Summary ---
Author Organization [facility] Address [address] [place] [address] Care Team Providers Care Rd Project Manager Name Role Phone Miguel Angel MD Primary Care Provider [phone] Encounter Details Date Type Department Care Team (Late st Contact Info) Description 04/01/2005 Inpatient Historical [facility] Kolby Gayle MD [address] [facility] [address] [place], [place] [phone] INTRAMURAL LEIOMYOMA (Primary Dx) Social History Tobacco Use Types Packs/Day Years Used Date Smoking Tobacco: Never Assessed Comments Unknown Sex and Gender Information Value Date Recorded Sex Assigned at Not on file 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
--- OUTSIDE RECORDS SUMMARY | 2025-03-14 10:12 | XMS_ITS | Encounter Summary ---
Author Organization [facility] Address [address] [place] [address] Care Team Providers Care Stadium Attendant Name Role Phone Miguel Angel MD Primary Care Provider [phone] Encounter Details Date Type Department Care Team (Late st Contact Info) Description 03/06/[address] [facility] Gen Spec Surg [place] [address] 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
--- OUTSIDE RECORDS SUMMARY | 2025-03-14 10:12 | XMS_ITS | Encounter Summary ---
Author Organization [facility] Address [address] [place] [address] Care Team Providers Care Management Lead Name Role Phone Miguel Angel MD Primary Care Provider [phone] Encounter Details Date Type Department Care Team (Latest Contact Info) Description 03/26/2005 Outpatient Historical [facility] [address] [place] [address] [place] [address] Kolby Gayle MD [address] [facility] [address] [place] [address] PREOP EXAM OTHER SPECIFIED (Primary Dx) Social History Tobacco Use Types Packs/Day Years Used Date Smoking Tobacco: Never Assessed Comments Unknown Sex and Gender Information Value Date Recorded Sex Assigned at Not on file 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
--- OUTSIDE RECORDS SUMMARY | 2025-03-14 10:12 | XMS_ITS | Encounter Summary ---
Author Organization [facility] Address [address] [place] [address] Care Team Providers Care Corporate Secretary Name Role Phone Miguel Angel MD Primary Care Provider [phone] Reason for Referral * Outpatient Services (Routine) - Closed Specialty Diagnoses / Procedures Referred By Contsmita t Referred To Contact Diagnoses Other screening mammogram Procedures MAMMO DIGITAL SCREEN BILAT Magdaleno Phillips MD NO ADDRESS ON FILE Referral ID Status Reason Start Date Expiration Date Visits Re quested Visits Authorized [id number] Closed 04/08/2010 10/05/2010 1 1 Encounter Details Date Type Department Care Team (Late st Contact Info) Description 04/08/2010 Ancillary Orders [facility] [address] [facility] [address] [place] [address] Magdaleno Phillips MD NO ADDRESS ON FILE Other Screening Mammogram Social History Tobacco Use Types Packs/Day Years Used Date Smoking Tobacco: Never Assessed Comments Unknown Sex and Gender Information Value Date Recorded Sex Assigned at Not on file 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
--- OUTSIDE RECORDS SUMMARY | 2025-03-14 10:12 | XMS_ITS | Encounter Summary ---
Author Organization [facility] Address [address] [place] [address] Care Team Providers Care Account Associate Name Role Phone Miguel Angel MD Primary Care Provider [phone] Encounter Details Date Type Department Care Team (Latest Contact Info) Description 10/19/2000 Outpatient Historical [address] [phone] Josselin Ordonez MD [address] [place] [address], [address] Hypoglycemia, unspecified (Primary Dx); Dysthymic disorder; Gynecologic examination; Special screening for malignant neoplasms of other sites Social History Tobacco Use Types Packs/Day Years Used Date Smoking Tobacco: Never Assessed Comments Unknown Sex and Gender Information Value Date Recorded Sex Assigned at Not on file 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 Gender Identity Not on file Sexual Orientation Not on file documented as of this encounter Plan of Treatment Not on file documented as of this encounter Visit Diagnoses Diagnosis Hypoglycemia, unspecified- Primary Dysthymic disorder Gynecologic examination Gynecological examination Special screening for malignant neoplasms of other sites documented in this encounter Care Teams Account Associate Relationship Specialty Start Date End Date Miguel Angel MD [address] [facility] [place] [address] PCP - General Family Practice 10/14/17 documented as of this encounter
--- OUTSIDE RECORDS SUMMARY | 2025-03-14 10:12 | XMS_ITS | Encounter Summary ---
Author Organization [facility] Address [address] [place] [address] Care Team Providers Care Sas Bi Developer Name Role Phone Miguel Angel MD Primary Care Provider [phone] Reason for Referral * Outpatient Services (Routine) - Closed Specialty Diagnoses / Procedures Referred By Contsmita t Referred To Contact Diagnoses Abdominal pain Liver cyst Procedures MRI ABDOMEN W WO CONTRAST Josselin Scott MD [address] [place] [address] Phone: tel: fax: Referral ID Status Reason Start Date Expiration Date Visits Re quested Visits Authorized [id number] Closed 01/01/2011 06/30/2011 1 1 Encounter Details Date Type Department Care Team (Late st Contact Info) Description 12/31/2010 Ancillary Orders [facility] [address] 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 sdm - uploaded from [employer] - Narrative 01/01/2011 3:23 PM CDT Exam: [...] thin internal septations. sdm - uploaded from [employer] - us Josselin Scott MD MR ORDERABLES Final Result documented in this encounter Visit Diagnoses Diagnosis Abdominal pain Abdominal pain, unspecified site Liver cyst Other specified disorders of liver documented in this encounter Care Teams Sas Bi Developer Relationship Specialty Start Date End Date Miguel Angel MD [address] [place] [address] PCP - General Family Practice 10/14/17 documented as of this encounter
--- OUTSIDE RECORDS SUMMARY | 2025-03-14 10:12 | XMS_ITS | Encounter Summary ---
Author Organization [facility] Address [address] [place] [address] Care Team Providers Care Traveling Nurse Name Role Phone Miguel Angel MD Primary Care Provider [phone] Encounter Details Date Type Department Care Team (Latest Contact Info) Description 03/10/2005 Outpatient Historical [facility] [place] [address] [place] [phone] Kolby Gayle MD [address] [facility] [address] [place] [address] Excessive menstruation (Primary Dx) Social History Tobacco Use Types Packs/Day Years Used Date Smoking Tobacco: Never Assessed Comments Unknown Sex and Gender Information Value Date Recorded Sex Assigned at Not on file 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
--- OUTSIDE RECORDS SUMMARY | 2025-03-14 10:12 | XMS_ITS | Encounter Summary ---
Author Organization [facility] Address [address] [place] [address] Care Team Providers Care Environmental Scientists Name Role Phone Miguel Angel MD Primary Care Provider [phone] Encounter Details Date Type Department Care Team (Latest Contact Info) Description 02/01/2003 Outpatient Historical [address] [phone] Josselin Ordonez MD [address] [place] [address], [address] Gynecologic examination (Primary Dx) Social History Tobacco Use Types Packs/Day Years Used Date Smoking Tobacco: Never Assessed Comments Unknown Sex and Gender Information Value Date Recorded Sex Assigned at Not on file 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
--- OUTSIDE RECORDS SUMMARY | 2025-03-14 10:12 | XMS_ITS | Clinical Summary ---
Author Organization [facility] Address [address] [facility] Attn: Epic Prelude ADT [place]REW CABRAL [address] Care Team Providers Care Firmware Architect Name Role Phone Miguel Angel MD Primary Care Provider [phone] Allergies Active Allergy Reactions Criticality Noted Date [...] on file Legal Sex Female 8:29 AM TROLLEY COACH DRIVER Gender Identity Not on file Sexual Orientation Not on file Last Filed Vital Signs Vital Sign Reading Time Taken Comments Blood Pressure 148/80 07/08/2021 3:24 PM TROLLEY COACH DRIVER Pulse 76 07/08/2021 3:02 PM TROLLEY COACH DRIVER Temperature 36.7 C (98 F) 10/19/2017 11:41 AM TROLLEY COACH DRIVER Respiratory Rate 16 10/19/2017 1:02 PM TROLLEY COACH DRIVER Oxygen Saturation - - Inhaled Oxygen Concentration - - Weight 73.5 kg (162 lb) 07/08/2021 3:02 PM TROLLEY COACH DRIVER Height 162.6 cm (5' 4 ) 07/08/2021 3:02 PM TROLLEY COACH DRIVER Body Mass Index 27.81 07/08/2021 3:02 PM TROLLEY COACH DRIVER Plan of Treatment Health Maintenance Due Date [...] Most Recently Relevant to Health Maintenance Insurance [facility] [id number] [place] [employer] MEDICARE PART A AND B Care Teams Firmware Architect Relationship Specialty Start Date End Date Miguel Angel MD [address] [facility] [place] [address] PCP - General Family Practice 10/14/17
--- OUTSIDE RECORDS SUMMARY | 2025-03-14 10:12 | XMS_ITS | Encounter Summary ---
Author Organization [facility] Address [address] [place] [address] Care Team Providers Care Film Editor Supervisor Name Role Phone Miguel Angel MD Primary Care Provider [phone] Encounter Details Date Type Department Care Team (Latest Contact Info) Description 07/13/2007 Outpatient [facility] [address], [place] [address] Magdaleno Phillips MD NO ADDRESS ON FILE Depressive Disorder, not Elsewhere Classified; Personal History of Allergy to Penicillin Social History Tobacco Use Types Packs/Day Years Used Date Smoking Tobacco: Never Assessed Comments Unknown Sex and Gender Information Value Date Recorded Sex Assigned at Not on file 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
--- OUTSIDE RECORDS SUMMARY | 2025-03-14 10:12 | XMS_ITS | Encounter Summary ---
Author Organization [facility] Address [address] [facility] Attn: Epic [place] [address] Care Team Providers Care Patient Intake Representative Name Role Phone Miguel Angel MD Primary Care Provider [phone] Encounter Details Date Type Department Care Team (Late st Contact Info) Description 01/27/2001 Outpatient Historical Marcelino Lazar MD [address] [place] [address] Social History Tobacco Use Types Packs/Day Years Used Date Smoking Tobacco: Never Assessed Comments Unknown Sex and Gender Information Value Date Recorded Sex Assigned at Not on file Legal Sex Female 3:31 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 [place] [address] PCP - General Family Practice 10/14/17 documented as of this encounter
--- OUTSIDE RECORDS SUMMARY | 2025-03-14 10:12 | XMS_ITS | Encounter Summary ---
Author Organization [facility] Address [address] [place] [address] Care Team Providers Care Organizational Effectiveness Director Name Role Phone Miguel Angel MD Primary Care Provider [phone] Encounter Details Date Type Department Care Team (Latest Contact Info) Description 05/24/[address] [facility] Gen [facility] [address] [place] [phone] Magdaleno Phillips MD NO ADDRESS ON FILE Sebaceous cyst (Primary Dx) Social History Tobacco Use Types Packs/Day Years Used Date Smoking Tobacco: Never Assessed Comments Unknown Sex and Gender Information Value Date Recorded Sex Assigned at Not on file Legal Sex Female 3:31 AM TOWER HAND Gender Identity Not on file Sexual Orientation Not on file documented as of this encounter Plan of Treatment Not on file documented as of this encounter Visit Diagnoses Diagnosis Sebaceous cyst- Primary documented in this encounter Care Teams Organizational Effectiveness Director Relationship Specialty Start Date End Date Miguel Angel MD [address] [facility] [place] [address] PCP - General Family Practice 10/14/17 documented as of this encounter
--- OUTSIDE RECORDS SUMMARY | 2025-03-14 10:12 | XMS_ITS | Encounter Summary ---
Author Organization [facility] Address [address] [place] [address] Care Team Providers Care Gastroenterology Nurse Practitioner Name Role Phone Miguel Angel MD Primary Care Provider [phone] Encounter Details Date Type Department Care Team (Late st Contact Info) Description 07/13/2007 Outpatient [facility] [address] [facility] [address] [place] [address] Social History Tobacco Use Types Packs/Day Years Used Date Smoking Tobacco: Never Assessed Comments Unknown Sex and Gender Information Value Date Recorded Sex Assigned at Not on file 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
--- OUTSIDE RECORDS SUMMARY | 2025-03-14 10:12 | XMS_ITS | Encounter Summary ---
Author Organization [facility] Address [address] [place] [address] Care Team Providers Care Minibus Driver Name Role Phone Miguel Angel MD Primary Care Provider [phone] Reason for Referral * Outpatient Services (Routine) - Closed Specialty Diagnoses / Procedures Referred By Gladis lackey Referred To Contact Diagnoses Other screening mammogram Procedures MAMMO DIGITAL SCREEN BILAT Magdaleno Phillips MD NO ADDRESS ON FILE Referral ID Status Reason Start Date Expiration Date Visits Re quested Visits Authorized [id number] Closed 02/15/2012 02/11/2013 1 1 Encounter Details Date Type Department Care Team (Latest Contact Info) Description 02/12/2012 Ancillary Orders [facility] Pre-Registration [place] CALL TO MAKE APPOINTMENT ONLY [address] [place] [phone] Magdaleno Phillips MD NO ADDRESS ON FILE Other screening mammogram Social History Tobacco Use Types Packs/Day Years Used Date Smoking Tobacco: Never Smokeless Tobacco: Never Alcohol Use Standard Drinks/Week Comments Not Asked 0 (1 standard drink = 0.6 oz pur e alcohol) Comments No Sex and Gender Information Value Date Recorded Sex Assigned at Not on file 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
--- OUTSIDE RECORDS SUMMARY | 2025-03-14 10:12 | XMS_ITS | Encounter Summary ---
Author Organization [facility] Address [address] [place] [address] Care Team Providers Care Railcar Switchman Name Role Phone Miguel Angel MD Primary Care Provider [phone] Encounter Details Date Type Department Care Team (Latest Contact Info) Description 06/09/2001 Outpatient Historical [facility] Medicine [address] [phone] Rubia Ortiz MD [address] [place] [phone] Acute frontal sinusitis (Primary Dx) Social History Tobacco Use Types Packs/Day Years Used Date Smoking Tobacco: Never Assessed Comments Unknown Sex and Gender Information Value Date Recorded Sex Assigned at Not on file 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
--- OUTSIDE RECORDS SUMMARY | 2025-03-14 10:12 | XMS_ITS | Encounter Summary ---
Author Organization [facility] Address [address] [facility] Attn: [place] [address] Care Team Providers Care Chief Operating Officer Name Role Phone Miguel Angel MD Primary Care Provider [phone] Encounter Details Date Type Department Care Team (Late st Contact Info) Description 06/11/2001 Outpatient Historical Magdaleno Phillips MD NO ADDRESS ON FILE Social History Tobacco Use Types Packs/Day Years Used Date Smoking Tobacco: Never Assessed Comments Unknown Sex and Gender Information Value Date Recorded Sex Assigned at Not on file 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
--- OUTSIDE RECORDS SUMMARY | 2025-03-14 10:12 | XMS_ITS | Encounter Summary ---
Author Organization [facility] Address [address] [place] [address] Care Team Providers Care Prep Manager Name Role Phone Miguel Angel MD Primary Care Provider [phone] Encounter Details Date Type Department Care Team (Late st Contact Info) Description 03/16/2006 [facility] [address] [place] [phone] Kolby Gayle MD [address] [facility] [address] [place] [address] Social History Tobacco Use Types Packs/Day Years Used Date Smoking Tobacco: Never Assessed Comments Unknown Sex and Gender Information Value Date Recorded Sex Assigned at Not on file 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
--- OUTSIDE RECORDS SUMMARY | 2025-03-14 10:12 | XMS_ITS | Encounter Summary ---
Author Organization [facility] Address [address] [place] [address] Care Team Providers Care Transplant Immunologist Name Role Phone Miguel Angel MD Primary Care Provider [phone] Encounter Details Date Type Department Care Team (Latest Contact Info) Description 11/11/[address] [phone] Josselin Ordonez MD [address] [place] [address], [address] INSOMNIA NEC (Primary Dx); OTHER MALAISE AND FATIGUE; ACUTE FRONTAL SINUSITIS Social History Tobacco Use Types Packs/Day Years Used Date Smoking Tobacco: Never Assessed Comments Unknown Sex and Gender Information Value Date Recorded Sex Assigned at Not on file 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
--- OUTSIDE RECORDS SUMMARY | 2025-03-14 10:12 | XMS_ITS | Encounter Summary ---
Author Organization [facility] Address [address] [place] [address] Care Team Providers Care Director Of Event Management Name Role Phone Miguel Angel MD Primary Care Provider [phone] Encounter Details Date Type Department Care Team (Latest Contact Info) Description 02/24/2003 Outpatient Historical [address] [phone] Josselin Ordonez MD [address] [place] [address], [address] INSOMNIA NEC (Primary Dx) Social History Tobacco Use Types Packs/Day Years Used Date Smoking Tobacco: Never Assessed Comments Unknown Sex and Gender Information Value Date Recorded Sex Assigned at Not on file 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
--- NOTE | 2025-03-14 10:19 | XRR_ITS ---
PROCEDURE INFORMATION: Exam: XR Chest Exam date and time: 03/14/2025 11:02 AM Age: 69 years old Clinical indication: Cough TECHNIQUE: Imaging protocol: Radiologic exam of the chest. Views: 1 view. COMPARISON: CR XR chest 1V portable [id number] 12/29/2024 2:50 AM FINDINGS: Lungs: Unremarkable. No consolidation. Pleural spaces: No pneumothorax. Heart/Mediastinum: Unremarkable. No cardiomegaly. Bones/joints: Unremarkable. XR/XR chest 1V portable [id number] IMPRESSION: No acute findings.
--- NOTE | 2025-03-14 10:20 | W.ED.GENADLT ---
HPI - General Adult General: Chief complaint: Weakness Stated complaint: cough, weakness Time Seen by Provider: 03/14/25 10:08 Source: patient Mode of arrival: ambulatory Limitations: no limitations History of Present Illness: Patient is a 69-year-old female with a history of chorea, restless leg syndrome, bipolar, PTSD, hyperlipidemia, GERD here for complaints of a nonproductive cough over the past week as well as feeling weak and fatigued. She also fears she might have a dental abscess. She is not complaining of pain anywhere currently. She has RLS/chorea and has recently seen Dr. Aguero for this. She has not ran any fevers or had any sick contacts. She does not complain of leg edema, weight gain, chest pain, palpitations. Onset (ago): week(s) (one week) Associated symptoms: Reports dyspnea; Deny chest pain, headache(s), malaise, nausea, rash, palpitations, syncope or vomiting Related Data Home Medications ?Medication ?Instructions ?Recorded ?Confirmed buspirone 10 mg tablet 20 mg PO TID 12/10/20 03/14/25 multivitamin-calcium, 1 tab PO QAM 12/28/20 03/14/25 [id number] isoflavone 400 mcg-60 mg tablet (One-A-Day Menopause Formula) pantoprazole 40 mg tablet,delayed 40 mg PO QAM 12/28/20 03/14/25 release (Protonix) alendronate 35 mg tablet 35 mg PO Q7D 12/23/21 03/14/25 epinephrine 0.3 mg/0.3 mL 0.3 mg IM Q4H PRN Allergic Reaction 12/23/21 03/14/25 injection, auto-injector (EpiPen 2-Fredy) valacyclovir 1 gram tablet 1,000 mg PO BEDTIME 12/23/21 03/14/25 venlafaxine 75 mg tablet 225 mg PO BEDTIME 06/18/23 03/14/25 doxepin 10 mg capsule 10 mg PO DAILY 02/22/25 03/14/25 diphenhydramine HCl 25 mg capsule 75 mg PO BEDTIME PRN Sleep 03/14/25 03/14/25 (Benadryl) Previous Rx's ?Medication ?Instructions ?Recorded metoprolol tartrate 25 mg tablet 25 mg PO BID #180 tabs 01/09/21 Custom Molded Orthotics #1 ea 09/12/21 aripiprazole 5 mg tablet 5 mg PO DAILY #90 tabs 02/22/25 pramipexole 0.5 mg tablet 0.5 mg PO BID #60 tabs 03/09/25 levofloxacin 500 mg tablet 500 mg PO DAILY 7 days #7 tabs 03/14/25 metronidazole 500 mg tablet 500 mg PO BID 7 days #14 tabs 03/14/25 Allergies Allergy/AdvReac Type Severity Reaction Status Date / Time Penicillins Allergy Unknown Unknown Verified 02/22/25 10:35 cayenne Allergy Unknown Verified 02/22/25 10:35 erythromycin base Allergy Unknown Verified 02/22/25 10:35 Review of Systems Const: Reports: fatigue; Denies: fever(s), chills, body aches or malaise Eyes: Denies: change in vision, blurry vision, photophobia, eye discomfort, floaters or seeing flashes ENMT: Reports: dental pain; Denies: throat pain, odynophagia, swelling of lips/tongue, oral sores, bleeding gums, ear or mastoid pain, nasal discharge, nasal congestion or sinus pain Card: Denies: chest pain, palpitations, lightheadedness, syncope or pre-syncope Resp: Reports: dyspnea, non-productive cough and chest congestion; Denies: wheezing or pain on inspiration GI: Denies: abdominal pain, nausea, vomiting or diarrhea : Denies: flank pain, dysuria or hematuria Skin/Breast: Denies: rash Neuro: Reports: other (chronic chorea movements ); Denies: headache(s) PFSH ED PFSH: Medical History PVC (premature ventricular contraction) GERD (gastroesophageal reflux disease) Hyperlipidemia PTSD (post-traumatic stress disorder) History of depression Surgical History Status post laparoscopic cholecystectomy (02/06/21) H/O esophagogastroduodenoscopy (01/31/21) gastritis Status post colonoscopy S/P bilateral breast lumpectomy Hx of hysterectomy Family History Grandfather CAD (coronary artery disease) Myocardial infarction Diabetes Mother Stroke Dementia Father Stroke Dementia Social History Smoking and tobacco/nicotine status: never used tobacco/nicotine Alcohol intake: current Alcohol intake frequency: holidays/special occasions only Substance/Drug Use: never Physical Exam Const: COMMON NORMALS: no acute distress, average body habitus, patient oriented x3, no limitations, healthy appearing, alert and well nourished GENERAL APPEARANCE: cooperative ORIENTATION/CONSCIOUSNESS: Yes awake, Yes oriented to person, Yes oriented to place and Yes oriented to time HENMT: COMMON NORMALS: normocephalic and atraumatic HEAD & SCALP: normocephalic and atraumatic FACE & SINUS: normal facial exam MOUTH: Normal oral and palatal mucosa present, lip normal, tongue normal and Normal salivary glands and ducts present TEETH & GINGIVA IMAGES:  1. decay/gingival inflammation; no obvious abscess formation THROAT: posterior oropharynx normal and tonsils normal Neck/C-Spine: COMMON NORMALS: no lymphadenopathy Resp: COMMON NORMALS: normal respiratory effort and clear to auscultation bilaterally AUSCULTATION: clear to auscultation bilaterally Cardio: COMMON NORMALS: regular rate and regular rhythm RATE: regular rate RHYTHM: regular rhythm GI: COMMON NORMALS: Normal to inspection, nondistended, normoactive bowel sounds present, Soft to palpation and non-tender PALPATION: Yes Soft to palpation Extremity: COMMON NORMALS: capillary refill normal, no clubbing, cyanosis or edema, no calf tenderness and no pedal edema Neuro: ELIZABETH COMA SCALE: document GCS findings Elizabeth coma scale eye opening: Spontaneous Elizabeth coma scale verbal response: Orientated Elizabeth coma scale motor response: Obey commands Elizabeth coma scale total score: 15 COMMON NORMALS: patient oriented x3 SENSORIUM/ORIENTATION: Yes alert, Yes oriented to person, Yes oriented to place and Yes oriented to time Skin: COMMON NORMALS: no rashes or lesions noted GENERAL SKIN EXAM: no rashes or lesions noted Course Vital Signs: Vital signs: Vital Signs Temperature 98.1 F 03/14/25 10:03 Pulse Rate 78 03/14/25 11:00 Respiratory Rate 16 03/14/25 10:03 Blood Pressure 130/77 03/14/25 11:00 Pulse Oximetry 97 03/14/25 11:00 Oxygen Delivery Me thod Room Air 03/14/25 11:00 MDM - General Adult Medical Decision Making Patient appears in no acute distress. Her vital signs are stable. Blood work showing a normal white count. H&H is stable. Chemistry is unremarkable. UA does not appear infected. No acute abnormalities noted to her CXR. Patient will be placed on antibiotics for coverage of bronchitis/dental infection. No drainable dental abscess was noted. Recommend she follow-up with primary care later this week. Return ED precautions discussed. Medical Records I reviewed the patient's medical records. Lab Data I reviewed the patient's lab results. 03/14/25 10:46 03/14/25 10:46 Laboratory Results WBC 9.42 10^3/uL (3.29-11.43) 03/14/25 10:46 RBC 4.75 10^6/uL (3.85-5.65) 03/14/25 10:46 Hgb 12.70 g/dL (11.27-16.99) 03/14/25 10:46 Hct 41.0 % (36-47) 03/14/25 10:46 MCV 86.3 fl (85-98) 03/14/25 10:46 MCH 26.7 pg (27-33) L 03/14/25 10:46 MCHC 31.0 g/dL (30-55) 03/14/25 10:46 RDW 15.6 % (12.1-15.1) H 03/14/25 10:46 Plt Count 346 10^3/cmm (157-399) 03/14/25 10:46 MPV 8.7 fL (7.4-10.4) 03/14/25 10:46 Neut % (Auto) 57.5 % 03/14/25 10:46 Lymph % (Auto) 35.5 % 03/14/25 10:46 [place] % (Auto) 5.7 % 03/14/25 10:46 Eos % (Auto) 0.5 % 03/14/25 10:46 Baso % (Auto) 0.6 % 03/14/25 10:46 Neut # (Auto) 5.41 10^3/uL (1.8-7.7) 03/14/25 10:46 Lymph # (Auto) 3.3 10^3/uL (0.8-4.8) 03/14/25 10:46 [place] # (Auto) 0.5 10^3/uL (0.2-0.9) 03/14/25 10:46 Eos # (Auto) 0.1 10^3/uL (0.0-0.8) 03/14/25 10:46 Baso # (Auto) 0.1 10^3/uL (0.0-0.1) 03/14/25 10:46 Nucleated RBC % (auto) 0 % 03/14/25 10:46 Nucleated RBCs # 0.0 /100WBC 03/14/25 10:46 Sodium 137 mmol/L (136-145) 03/14/25 10:46 Potassium 4.2 mmol/L (3.5-5.1) 03/14/25 10:46 Chloride 99 mmol/L (98-107) 03/14/25 10:46 Carbon Dioxide 25 mmol/L (22-29) 03/14/25 10:46 Anion Gap 17.2 (5-19) 03/14/25 10:46 BUN 18 mg/dL (8-23) 03/14/25 10:46 Creatinine 0.8 mg/dL (0.5-0.9) 03/14/25 10:46 GFR Calculation 71.1 mL/min (90-130) L 03/14/25 10:46 Glucose 92 mg/dL (65-115) 03/14/25 10:46 Calculated Osmolality 286 mOsm/kg (285-295) 03/14/25 10:46 Calcium 9.1 mg/dL (8.5-10.5) 03/14/25 10:46 Total Bilirubin 0.4 mg/dL (0.15-1.2) 03/14/25 10:46 AST 23 U/L (0-32) 03/14/25 10:46 ALT 17 U/L (0-33) 03/14/25 10:46 Alkaline Phosphatase 111 U/L (35-105) H 03/14/25 10:46 Total Protein 7.1 g/dL (6.6-8.7) 03/14/25 10:46 Albumin 4.1 g/dL (3.5-5.2) 03/14/25 10:46 Globulin 3.0 g/dL (1.3-4.6) 03/14/25 10:46 Urine Color Yellow (Yellow) 03/14/25 10:12 Urine Appearance Clear (CLEAR) 03/14/25 10:12 Urine pH 6.5 (5-7) 03/14/25 10:12 Ur Specific [place] 1.014 (1.005-1.030) 03/14/25 10:12 Urine Protein Negative (Negative) 03/14/25 10:12 Urine Glucose (UA) Negative (Normal) 03/14/25 10:12 Urine Ketones Negative (Negative) 03/14/25 10:12 Urine Blood Negative (Negative) 03/14/25 10:12 Urine Nitrate Negative (Negative) 03/14/25 10:12 Urine Bilirubin Negative (Negative) 03/14/25 10:12 Urine Urobilinogen 0.2 mg/dL (Negative) 03/14/25 10:12 Ur Leukocyte Esterase Trace (Negative) A 03/14/25 10:12 Urine RBC 0-2 /hpf (0-2) 03/14/25 10:12 Urine WBC 0-5 /hpf (0-5) 03/14/25 10:12 Ur Squamous Epith Cells 0-5 /hpf (0-5) 03/14/25 10:12 Amorphous Sediment Not Reportable 03/14/25 10:12 Urine Bacteria None seen /hpf (NONE) 03/14/25 10:12 Hyaline Casts 0.40 /lpf 03/14/25 10:12 XR interpretation done by ED provider, pending radiology final review Discharge Plan Discharge Patient Disposition: Home Clinical Impression: Pain, dental Fatigue Qualifiers: Fatigue type: unspecified Qualified Code(s): R53.83 - Other fatigue Cough Qualifiers: Cough type: acute Qualified Code(s): R05.1 - Acute cough Condition: Stable Prescriptions: New levofloxacin 500 mg tablet 500 mg PO DAILY 7 Days Qty: 7 0RF metronidazole 500 mg tablet 500 mg PO BID 7 Days Qty: 14 0RF No Action (DME) Custom Molded Orthotics See Rx Instructions .Route .MEDSUPPLY Qty: 1 0RF Rx Instructions: As directed doxepin 10 mg capsule 10 mg PO DAILY aripiprazole 5 mg tablet 5 mg PO DAILY Qty: 90 0RF Rx Instructions: Take one tablet at bedtime metoprolol tartrate 25 mg tablet 25 mg PO BID Qty: 180 3RF pramipexole 0.5 mg tablet 0.5 mg PO BID Qty: 60 3RF buspirone 10 mg tablet 20 mg PO TID pantoprazole [Protonix] 40 mg Tablet,Delayed Release (Dr/Ec) 40 mg PO QAM One-A-Day Menopause Formula 400-60 mcg-mg Tablet 1 tab PO QAM valacyclovir 1 gram Tablet 1,000 mg PO BEDTIME alendronate 35 mg Tablet 35 mg PO Q7D Rx Instructions: ON THURSDAY epinephrine [EpiPen 2-Fredy] 0.3 mg/0.3 mL Auto-Injector 0.3 mg IM Q4H PRN (Reason: Allergic Reaction) venlafaxine 75 mg Tablet 225 mg PO BEDTIME diphenhydramine HCl [Benadryl] 25 mg Capsule 75 mg PO BEDTIME PRN (Reason: Sleep) Discharge Orders: Discharge ED (Routine); Ordered 03/14/25 Ordered By: Angella Todd Referrals: Joellen Alvarez FNP [Primary Care Provider, Nurse Practitioner] Patient Instructions: Dental Caries (Cavities), Acute Bronchitis (ED), Toothache (ED), Patient Portal & Elbert Instructions Activity Restrictions/Additional Instructions: I would like you to follow-up with your primary care provider later this week for re-evaluation. You may return to the emergency department at anytime for any further concerns you may have. Print Language: Mongolian Coding Level of Care Code ED Sock Turner for Marci Quinn
[2025-03-14 10:41] LABS: Glucose Urine UA Negative (Normal); Nitrate Urine Negative (Negative); Specific Gravity, Urine 1.014 (1.005-1.030)
[2025-03-14 10:47] LABS: Add Urine Microscopic? YES
[2025-03-14 10:54] LABS: Hematocrit 41.0 % (36-47); Hemoglobin 12.70 g/dL (11.27-16.99); Mean Corpuscular HGB Conc 31.0 g/dL (30-55); Mean Corpuscular Hemoglobin 26.7 pg (27-33); Mean Corpuscular Volume 86.3 fl (85-98); Nucleated Red Blood Cells % 0 %; Platelet Count 346 10^3/cmm (157-399); Red Blood Count 4.75 10^6/uL (3.85-5.65); White Blood Count 9.42 10^3/uL (3.29-11.43)
[2025-03-14 11:00] VITALS: BP 130/77; PULSE 78; O2SAT 97
[2025-03-14 11:10] LABS: Alanine Aminotransferase 17 U/L (0-33); Albumin Level 4.1 g/dL (3.5-5.2); Alkaline Phosphatase 111 U/L (35-105); Anion Gap 17.2 (5-19); Aspartate Amino Transferase 23 U/L (0-32); Blood Urea Nitrogen 18 mg/dL (8-23); Calcium 9.1 mg/dL (8.5-10.5); Carbon Dioxide 25 mmol/L (22-29); Chloride 99 mmol/L (98-107); Creatinine Clr Calc Pharmacy 60.0503; Globulin 3.0 g/dL (1.3-4.6); Glucose 92 mg/dL (65-115); Osmolality Calculated 286 mOsm/kg (285-295); Potassium 4.2 mmol/L (3.5-5.1); Sodium 137 mmol/L (136-145); Total Protein 7.1 g/dL (6.6-8.7)
== END 2025-03-14 11:50 | disposition home or self-care (01) ==
PROVIDERS: Emergency Provider Physician Assistant; PCP Nurse Practitioner
DX: K08.89 Other specified disorders of teeth and supporting structures (principal); R53.83 Other fatigue; R05.1 Acute cough; E78.5 Hyperlipidemia, unspecified
CPT/HCPCS: 36415; 71045; 80053; 81001; 85025; 99284

== ENCOUNTER 2025-03-15 10:10 | Emergency (ER) | payer OTHER, MEDICARE, SELFPAY ==
[2025-03-15 10:08] VITALS: BP 129/78; PULSE 83; RESP 15; TEMP 36.7; O2SAT 98; BMI 23.1
--- NOTE | 2025-03-15 10:10 | ECG_ITS ---
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 Measurements Intervals [place] Rate: 76 P: 65 SC: 160 QRS: 86 QRSD: 106 T: 43 QT: 396 QTc: 448 Interpretive Statements SINUS RHYTHM NONSPECIFIC T-WAVE ABNORMALITY Compared to ECG 01/19/2025 11:06:44 No significant changes Electronically Signed On 03-16-2025 10:24:18 CDT by Jose Gotti M.D. [email or web address]
--- NOTE | 2025-03-15 10:19 | W.ED.PSYCHS ---
HPI - Psych General: Chief Complaint: Psychiatric Symptoms Stated Complaint: mhe, doesn't feel safe at home Source: patient and EMS Mode of arrival: EMS Limitations: no limitations History of Present Illness: 69-year-old female states that she has been having increasing deb and feeling unsafe at home. States she had recently stopped her psych meds due to chorea and now is feeling very manic and paranoid she denies any SI or HI she denies any worse improving factors. Associated symptoms: Reports depression Related Data Home Medications ?Medication ?Instructions ?Recorded ?Confirmed buspirone 10 mg tablet 20 mg PO TID 12/10/20 03/15/25 multivitamin-calcium, 1 tab PO QAM 12/28/20 03/15/25 [id number] isoflavone 400 mcg-60 mg tablet (One-A-Day Menopause Formula) pantoprazole 40 mg tablet,delayed 40 mg PO QAM 12/28/20 03/15/25 release (Protonix) alendronate 35 mg tablet 35 mg PO Q7D 12/23/21 03/15/25 epinephrine 0.3 mg/0.3 mL 0.3 mg IM Q4H PRN Allergic Reaction 12/23/21 03/15/25 injection, auto-injector (EpiPen 2-Fredy) valacyclovir 1 gram tablet 1,000 mg PO BEDTIME 12/23/21 03/15/25 venlafaxine 75 mg tablet 225 mg PO BEDTIME 06/18/23 03/15/25 doxepin 10 mg capsule 10 mg PO DAILY 02/22/25 03/15/25 diphenhydramine HCl 25 mg capsule 75 mg PO BEDTIME PRN Sleep 03/14/25 03/15/25 (Benadryl) aripiprazole 5 mg tablet 5 mg PO BEDTIME 03/15/25 03/15/25 Previous Rx's ?Medication ?Instructions ?Recorded metoprolol tartrate 25 mg tablet 25 mg PO BID #180 tabs 01/09/21 Custom Molded Orthotics #1 ea 09/12/21 pramipexole 0.5 mg tablet 0.5 mg PO BID #60 tabs 03/09/25 levofloxacin 500 mg tablet 500 mg PO DAILY 7 days #7 tabs 03/14/25 metronidazole 500 mg tablet 500 mg PO BID 7 days #14 tabs 03/14/25 Allergies Allergy/AdvReac Type Severity Reaction Status Date / Time Penicillins Allergy Unknown Unknown Verified 02/22/25 10:35 cayenne Allergy Unknown Verified 02/22/25 10:35 erythromycin base Allergy Unknown Verified 02/22/25 10:35 Review of Systems Const: Denies: fever(s), chills, body aches or change in appetite Eyes: Denies: blurry vision or eye discomfort ENMT: Denies: throat pain or dental pain Card: Denies: chest pain Resp: Denies: dyspnea GI: Denies: abdominal pain, nausea, vomiting or diarrhea : Denies: dysuria Musc: Denies: neck pain or back pain Skin/Breast: Denies: rash Neuro: Denies: headache(s) Psych: Reports: depression and paranoia PFSH ED PFSH: Medical History PVC (premature ventricular contraction) GERD (gastroesophageal reflux disease) Hyperlipidemia PTSD (post-traumatic stress disorder) History of depression Surgical History Status post laparoscopic cholecystectomy (02/06/21) H/O esophagogastroduodenoscopy (01/31/21) gastritis Status post colonoscopy S/P bilateral breast lumpectomy Hx of hysterectomy Family History Grandfather CAD (coronary artery disease) Myocardial infarction Diabetes Mother Stroke Dementia Father Stroke Dementia Social History Smoking and tobacco/nicotine status: never used tobacco/nicotine Alcohol intake: current Alcohol intake frequency: holidays/special occasions only Substance/Drug Use: never Physical Exam Const: COMMON NORMALS: no acute distress, patient oriented x3 and healthy appearing HENMT: COMMON NORMALS: normocephalic and atraumatic HEAD & SCALP: normocephalic and atraumatic Neck/C-Spine: COMMON NORMALS: full ROM and supple Chest: COMMONS NORMALS: normal inspection of the chest Resp: COMMON NORMALS: normal respiratory effort Cardio: COMMON NORMALS: regular rate, regular rhythm and No murmurs present (Cardio) RATE: regular rate RHYTHM: regular rhythm Extremity: COMMON NORMALS: normal to inspection and full ROM Neuro: COMMON NORMALS: patient oriented x3, moves all extremities and no focal motor deficits Psych: COMMON NORMALS: mental status grossly normal, Normal thought process present and cooperative THOUGHT PROCESS: Normal thought process present Skin: COMMON NORMALS: no rashes or lesions noted and no wounds GENERAL SKIN EXAM: no rashes or lesions noted Course Vital Signs: Vital signs: Vital Signs Temperature 98.1 F 03/15/25 10:08 Pulse Rate 83 03/15/25 10:08 Respiratory Rate 15 03/15/25 10:08 Blood Pressure 129/78 03/15/25 10:08 Pulse Oximetry 98 03/15/25 10:08 Oxygen Delivery Me thod Room Air 03/15/25 10:08 MDM - Psych Medical Decision Making Patient presents here with some slight paranoia and depression she is not psychotic she is not suicidal or homicidal she is not want psych admission at this point we will discharge her with the crisis center. Medical Records I reviewed the patient's medical records. Lab Data I reviewed the patient's lab results. 03/15/25 10:30 03/15/25 10:30 Laboratory Results WBC 9.08 10^3/uL (3.29-11.43) 03/15/25 10:30 RBC 4.48 10^6/uL (3.85-5.65) 03/15/25 10:30 Hgb 11.90 g/dL (11.27-16.99) 03/15/25 10:30 Hct 38.2 % (36-47) 03/15/25 10:30 MCV 85.3 fl (85-98) 03/15/25 10:30 MCH 26.6 pg (27-33) L 03/15/25 10:30 MCHC 31.2 g/dL (30-55) 03/15/25 10:30 RDW 15.6 % (12.1-15.1) H 03/15/25 10:30 Plt Count 307 10^3/cmm (157-399) 03/15/25 10:30 MPV 9.1 fL (7.4-10.4) 03/15/25 10:30 Neut % (Auto) 59.1 % 03/15/25 10:30 Lymph % (Auto) 32.7 % 03/15/25 10:30 [place] % (Auto) 6.8 % 03/15/25 10:30 Eos % (Auto) 0.4 % 03/15/25 10:30 Baso % (Auto) 0.7 % 03/15/25 10:30 Neut # (Auto) 5.36 10^3/uL (1.8-7.7) 03/15/25 10:30 Lymph # (Auto) 3.0 10^3/uL (0.8-4.8) 03/15/25 10:30 [place] # (Auto) 0.6 10^3/uL (0.2-0.9) 03/15/25 10:30 Eos # (Auto) 0.0 10^3/uL (0.0-0.8) 03/15/25 10:30 Baso # (Auto) 0.1 10^3/uL (0.0-0.1) 03/15/25 10:30 Nucleated RBC % (auto) 0 % 03/15/25 10:30 Nucleated RBCs # 0.0 /100WBC 03/15/25 10:30 Sodium 141 mmol/L (136-145) 03/15/25 10:30 Potassium 4.0 mmol/L (3.5-5.1) 03/15/25 10:30 Chloride 104 mmol/L (98-107) 03/15/25 10:30 Carbon Dioxide 24 mmol/L (22-29) 03/15/25 10:30 Anion Gap 17.0 (5-19) 03/15/25 10:30 BUN 20 mg/dL (8-23) 03/15/25 10:30 Creatinine 0.9 mg/dL (0.5-0.9) 03/15/25 10:30 GFR Calculation 62.1 mL/min (90-130) L 03/15/25 10:30 Glucose 99 mg/dL (65-115) 03/15/25 10:30 Calculated Osmolality 295 mOsm/kg (285-295) 03/15/25 10:30 Calcium 9.0 mg/dL (8.5-10.5) 03/15/25 10:30 Total Bilirubin 0.3 mg/dL (0.15-1.2) 03/15/25 10:30 AST 16 U/L (0-32) 03/15/25 10:30 ALT 15 U/L (0-33) 03/15/25 10:30 Alkaline Phosphatase 108 U/L (35-105) H 03/15/25 10:30 Total Protein 6.9 g/dL (6.6-8.7) 03/15/25 10:30 Albumin 4.0 g/dL (3.5-5.2) 03/15/25 10:30 Globulin 2.9 g/dL (1.3-4.6) 03/15/25 10:30 TSH 1.36 uIU/mL (0.27-4.20) 03/15/25 10:30 Urine Color Yellow (Yellow) 03/15/25 10:40 Urine Appearance Clear (CLEAR) 03/15/25 10:40 Urine pH 6.0 (5-7) 03/15/25 10:40 Ur Specific [place] 1.011 (1.005-1.030) 03/15/25 10:40 Urine Protein Negative (Negative) 03/15/25 10:40 Urine Glucose (UA) Negative (Normal) 03/15/25 10:40 Urine Ketones Negative (Negative) 03/15/25 10:40 Urine Blood Negative (Negative) 03/15/25 10:40 Urine Nitrate Negative (Negative) 03/15/25 10:40 Urine Bilirubin Negative (Negative) 03/15/25 10:40 Urine Urobilinogen 1.0 mg/dL (Negative) 03/15/25 10:40 Ur Leukocyte Esterase Trace (Negative) A 03/15/25 10:40 Urine RBC 0-2 /hpf (0-2) 03/15/25 10:40 Urine WBC 6-10 /hpf (0-5) 03/15/25 10:40 Ur Squamous Epith Cells 0-5 /hpf (0-5) 03/15/25 10:40 Amorphous Sediment Not Reportable 03/15/25 10:40 Urine Bacteria None seen /hpf (NONE) 03/15/25 10:40 Hyaline Casts 0-4 /lpf H 03/15/25 10:40 Salicylates < 0.3 mg/dL (3-10) L 03/15/25 10:30 Urine Opiates Screen Negative ng/mL (Negative) 03/15/25 10:40 Acetaminophen < 5.0 ug/mL (10-30) L 03/15/25 10:30 Ur Barbiturates Screen Negative ng/mL (Negative) 03/15/25 10:40 Ur Phencyclidine Scrn Negative ng/mL (Negative) 03/15/25 10:40 Ur Amphetamines Screen Negative ng/mL (Negative) 03/15/25 10:40 U Benzodiazepines Scrn Negative ng/mL (Negative) 03/15/25 10:40 Urine Cocaine Screen Negative ng/mL (Negative) 03/15/25 10:40 U Marijuana (THC) Screen Negative ng/mL (Negative) 03/15/25 10:40 Ethyl Alcohol < 10 mg/dL (0-10) 03/15/25 10:30 Influenza A (PCR) Negative (Negative) 03/15/25 10:22 Influenza Type B (PCR) Negative (Negative) 03/15/25 10:22 RSV (PCR) Negative (Negative) 03/15/25 10:22 SARS-CoV-2 (PCR) Negative (Negative) 03/15/25 10:22 No radiology studies performed this visit Discharge Plan Discharge Patient Disposition: Home Clinical Impression: Depression, Acute anxiety Condition: Stable Prescriptions: No Action (DME) Custom Molded Orthotics See Rx Instructions .Route .MEDSUPPLY Qty: 1 0RF Rx Instructions: As directed doxepin 10 mg capsule 10 mg PO DAILY metoprolol tartrate 25 mg tablet 25 mg PO BID Qty: 180 3RF pramipexole 0.5 mg tablet 0.5 mg PO BID Qty: 60 3RF buspirone 10 mg tablet 20 mg PO TID pantoprazole [Protonix] 40 mg Tablet,Delayed Release (Dr/Ec) 40 mg PO QAM One-A-Day Menopause Formula 400-60 mcg-mg Tablet 1 tab PO QAM valacyclovir 1 gram Tablet 1,000 mg PO BEDTIME alendronate 35 mg Tablet 35 mg PO Q7D Rx Instructions: ON THURSDAY epinephrine [EpiPen 2-Fredy] 0.3 mg/0.3 mL Auto-Injector 0.3 mg IM Q4H PRN (Reason: Allergic Reaction) venlafaxine 75 mg Tablet 225 mg PO BEDTIME diphenhydramine HCl [Benadryl] 25 mg Capsule 75 mg PO BEDTIME PRN (Reason: Sleep) levofloxacin 500 mg tablet 500 mg PO DAILY 7 Days Qty: 7 0RF metronidazole 500 mg tablet 500 mg PO BID 7 Days Qty: 14 0RF aripiprazole 5 mg tablet 5 mg PO BEDTIME Discharge Orders: Discharge ED (Routine); Ordered 03/15/25 Ordered By: Alexis Bray Referrals: Joellen Alvarez FNP [Primary Care Provider, Nurse Practitioner] Discharge Diet: Advance as tolerated Discharge Activity: Resume usual activity Patient Instructions: Anxiety (ED) Print Language: Faroese Coding Level of Care Code ED [employer] for Marci Quinn
--- OUTSIDE RECORDS SUMMARY | 2025-03-15 10:27 | XMS_ITS | Encounter Summary ---
Author Organization [facility] Address [address] [place] [address] Care Team Providers Care Pilot Control Operator Name Role Phone Miguel Angel MD Primary Care Provider [phone] Encounter Details Date Type Department Care Team (Late st Contact Info) Description 03/08/2008 Outpatient 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
--- OUTSIDE RECORDS SUMMARY | 2025-03-15 10:27 | XMS_ITS | Encounter Summary ---
Author Organization [facility] Address [address] [place] [address] Care Team Providers Care Paratransit Operator Name Role Phone Miguel Angel MD Primary Care Provider [phone] Encounter Details Date Type Department Care Team (Latest Contact Info) Description 05/01/2005 Outpatient [facility] [address] [place] [id number] Kolby Gayle MD [address] [facility] [address] [place] [address] SURGERY FOLLOWUP NOS (Primary Dx) Social History Tobacco Use Types Packs/Day Years Used Date Smoking Tobacco: Never Assessed Comments Unknown Sex and Gender Information Value Date Recorded Sex Assigned at Not on file 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
--- OUTSIDE RECORDS SUMMARY | 2025-03-15 10:27 | XMS_ITS | Encounter Summary ---
Author Organization [facility] Address [address] [place] [address] Care Team Providers Care Diamond Driller Name Role Phone Miguel Angel MD Primary Care Provider [phone] Encounter Details Date Type Department Care Team (Latest Contact Info) Description 11/11/[address] [phone] Josselin Ordonez MD [address] [place] [address], [address] INSOMNIA NEC (Primary Dx); OTHER MALAISE AND FATIGUE; ACUTE FRONTAL SINUSITIS Social History Tobacco Use Types Packs/Day Years Used Date Smoking Tobacco: Never Assessed Comments Unknown Sex and Gender Information Value Date Recorded Sex Assigned at Not on file 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
--- OUTSIDE RECORDS SUMMARY | 2025-03-15 10:27 | XMS_ITS | Encounter Summary ---
Author Organization [facility] Address [address] [place] [address] Care Team Providers Care Application Consultant Name Role Phone Miguel Angel MD Primary Care Provider [phone] Encounter Details Date Type Department Care Team (Latest Contact Info) Description 01/26/2001 Outpatient Historical [address] [phone] Marcelino Lazar MD [address] [phone] Unspecified disorder of skin and subcutaneous tissue (Primary Dx); Patellar tendinitis Social History Tobacco Use Types Packs/Day Years Used Date Smoking Tobacco: Never Assessed Comments Unknown Sex and Gender Information Value Date Recorded Sex Assigned at Not on file 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
--- OUTSIDE RECORDS SUMMARY | 2025-03-15 10:27 | XMS_ITS | Encounter Summary ---
Author Organization [facility] Address [address] [place] [address] Care Team Providers Care Booking Police Officer Name Role Phone Miguel Angel MD Primary Care Provider [phone] Encounter Details Date Type Department Care Team (Late st Contact Info) Description 09/15/2007 Outpatient Historical [facility] Spec [facility] [place] [facility] [address] [place] [phone] Magdaleno Phillips MD NO ADDRESS ON FILE Social History Tobacco Use Types Packs/Day Years Used Date Smoking Tobacco: Never Assessed Comments Unknown Sex and Gender Information Value Date Recorded Sex Assigned at Not on file 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
--- OUTSIDE RECORDS SUMMARY | 2025-03-15 10:27 | XMS_ITS | Encounter Summary ---
Author Organization [facility] Address [address] [place] [address] Care Team Providers Care Customer Relations Coordinator Name Role Phone Miguel Angel MD Primary Care Provider [phone] Encounter Details Date Type Department Care Team (Latest Contact Info) Description 12/05/2002 Outpatient Historical [address], [place] [phone] Marcelino Lazar MD [address] [phone] OTHER MALAISE AND FATIGUE (Primary Dx); GASTRITIS/DUODEN NOS W/O HEMORRH Social History Tobacco Use Types Packs/Day Years Used Date Smoking Tobacco: Never Assessed Comments Unknown Sex and Gender Information Value Date Recorded Sex Assigned at Not on file 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 Gender Identity Not on file Sexual Orientation Not on file documented as of this encounter Plan of Treatment Not on file documented as of this encounter Visit Diagnoses Diagnosis Other malaise and fatigue- Primary Unspecified gastritis and gastroduodenitis without mention of hemorrhage documented in this encounter Care Teams Customer Relations Coordinator Relationship Specialty Start Date End Date Miguel Angel MD [address] [facility] [place] [address] PCP - General Family Practice 10/14/17 documented as of this encounter
--- OUTSIDE RECORDS SUMMARY | 2025-03-15 10:27 | XMS_ITS | Encounter Summary ---
Author Organization [facility] Address [address] [place] [address] Care Team Providers Care Ada Accommodation Consultant Name Role Phone Miguel Angel MD Primary Care Provider [phone] Encounter Details Date Type Department Care Team (Latest Contact Info) Description 11/30/2001 Outpatient Historical [facility] Medicine [address] [phone] Marcelino Lazar MD [address] [phone] OTALGIA NOS (Primary Dx); ALLERGY, UNSPECIFIED Social History Tobacco Use Types Packs/Day Years Used Date Smoking Tobacco: Never Assessed Comments Unknown Sex and Gender Information Value Date Recorded Sex Assigned at Not on file 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
--- OUTSIDE RECORDS SUMMARY | 2025-03-15 10:27 | XMS_ITS | Encounter Summary ---
Author Organization [facility] Address [address] [place] [address] Care Team Providers Care Cloth Designer Name Role Phone Miguel Angel MD Primary Care Provider [phone] Encounter Details Date Type Department Care Team (Latest Contact Info) Description 03/26/2005 Outpatient Historical [facility] [address] [address] [place] [address] Kolby Gayle MD [address] [facility] [address] [place] [address] PREOP EXAM OTHER SPECIFIED (Primary Dx) Social History Tobacco Use Types Packs/Day Years Used Date Smoking Tobacco: Never Assessed Comments Unknown Sex and Gender Information Value Date Recorded Sex Assigned at Not on file 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
--- OUTSIDE RECORDS SUMMARY | 2025-03-15 10:27 | XMS_ITS | Encounter Summary ---
Author Organization [facility] Address [address] [place] [address] Care Team Providers Care Scrub Woman Name Role Phone Miguel Angel MD Primary Care Provider [phone] Encounter Details Date Type Department Care Team (Latest Contact Info) Description 09/14/2002 Outpatient Historical [address], [place] [phone] Marcelino Lazar MD [address] [phone] SHOULDER REGION DIS NEC (Primary Dx); ENTHESOPATHY, SITE NOS Social History Tobacco Use Types Packs/Day Years Used Date Smoking Tobacco: Never Assessed Comments Unknown Sex and Gender Information Value Date Recorded Sex Assigned at Not on file 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
--- OUTSIDE RECORDS SUMMARY | 2025-03-15 10:27 | XMS_ITS | Encounter Summary ---
Author Organization [facility] Address [address] [place] [address] Care Team Providers Care Industrial Hire Sales Assistant Name Role Phone Miguel Angel MD Primary Care Provider [phone] Encounter Details Date Type Department Care Team (Latest Contact Info) Description 02/24/2005 Outpatient Historical [facility] [place] [address] [place] [phone] Kolby Gayle MD [address] [facility] [address] [place] [address] Excessive menstruation (Primary Dx) Social History Tobacco Use Types Packs/Day Years Used Date Smoking Tobacco: Never Assessed Comments Unknown Sex and Gender Information Value Date Recorded Sex Assigned at Not on file 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
--- OUTSIDE RECORDS SUMMARY | 2025-03-15 10:27 | XMS_ITS | Encounter Summary ---
Author Organization [facility] Address [address] [place] [address] Care Team Providers Care Php Consultant Name Role Phone Miguel Angel MD Primary Care Provider [phone] Encounter Details Date Type Department Care Team (Latest Contact Info) Description 05/24/2001 Outpatient Historical [facility] [place] Gen [facility]urg [place] [facility] [address] [place] [phone] Magdaleno Phillips MD NO ADDRESS ON FILE Sebaceous cyst (Primary Dx) Social History Tobacco Use Types Packs/Day Years Used Date Smoking Tobacco: Never Assessed Comments Unknown Sex and Gender Information Value Date Recorded Sex Assigned at Not on file 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
--- OUTSIDE RECORDS SUMMARY | 2025-03-15 10:27 | XMS_ITS | Encounter Summary ---
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); Benign neoplasm of skin, site unspecified; Dysthymic disorder Social History Tobacco Use Types Packs/Day Years Used Date Smoking Tobacco: Never Assessed Comments Unknown Sex and Gender Information Value Date Recorded Sex Assigned at Not on file Legal Sex Female 3:31 AM APPLIQUE SEWER Gender Identity Not on file Sexual Orientation Not on file documented as of this encounter Plan of Treatment Not on file documented as of this encounter Visit Diagnoses Diagnosis 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
--- OUTSIDE RECORDS SUMMARY | 2025-03-15 10:27 | XMS_ITS | Encounter Summary ---
Author Organization [facility] Address [address] [place] [address] Care Team Providers Care Psychology Lecturer Name Role Phone Miguel Angel MD Primary Care Provider [phone] Encounter Details Date Type Department Care Team (Latest Contact Info) Description 03/10/2005 Outpatient Historical [facility] [place] [address] [place] [phone] Kolby Gayle MD [address]01 [facility] [address] [place] [address] Excessive menstruation (Primary Dx) Social History Tobacco Use Types Packs/Day Years Used Date Smoking Tobacco: Never Assessed Comments Unknown Sex and Gender Information Value Date Recorded Sex Assigned at Not on file Legal Sex Female 3:31 AM HITCHER Gender Identity Not on file Sexual Orientation Not on file documented as of this encounter Plan of Treatment Not on file documented as of this encounter Visit Diagnoses Diagnosis Excessive menstruation- Primary Excessive or frequent menstruation documented in this encounter Care Teams Psychology Lecturer Relationship Specialty Start Date End Date Miguel Angel MD [address] [facility] [place] [address] PCP - General Family Practice 10/14/17 documented as of this encounter
--- OUTSIDE RECORDS SUMMARY | 2025-03-15 10:27 | XMS_ITS | Encounter Summary ---
Author Organization [facility] Address [address] [place] [address] Care Team Providers Care Fire Prevention Chief Name Role Phone Miguel Angel MD Primary Care Provider [phone] Encounter Details Date Type Department Care Team (Latest Contact Info) Description 05/12/2001 Outpatient Historical [facility] Medicine [address] [phone] Marcelino Lazar MD [address] [phone] Unspecified endocrine disorder (Primary Dx); Sebaceous cyst Social History Tobacco Use Types Packs/Day Years Used Date Smoking Tobacco: Never Assessed Comments Unknown Sex and Gender Information Value Date Recorded Sex Assigned at Not on file Legal Sex Female 3:31 AM ROOM SERVER Gender Identity Not on file Sexual Orientation Not on file documented as of this encounter Plan of Treatment Not on file documented as of this encounter Visit Diagnoses Diagnosis Unspecified endocrine disorder- Primary Sebaceous cyst documented in this encounter Care Teams Fire Prevention Chief Relationship Specialty Start Date End Date Miguel Angel MD [address] [facility] [place] [address] PCP - General Family Practice 10/14/17 documented as of this encounter
--- OUTSIDE RECORDS SUMMARY | 2025-03-15 10:27 | XMS_ITS | Encounter Summary ---
Author Organization [facility] Address [address] [place] [address] Care Team Providers Care Icing Mixer Name Role Phone Miguel Angel MD Primary Care Provider [phone] Encounter Details Date Type Department Care Team (Latest Contact Info) Description 06/21/2001 Outpatient Historical [facility] Gen Spec Surg [place] [facility] [address] [place] [address] Magdaleno Phillips MD NO ADDRESS ON FILE BENIGN JAKE SOFT TISSUE HEAD (Primary Dx); SURGERY FOLLOWUP, UNSPEC Social History Tobacco Use Types Packs/Day Years Used Date Smoking Tobacco: Never Assessed Comments Unknown Sex and Gender Information Value Date Recorded Sex Assigned at Not on file Legal Sex Female 3:31 AM 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 AND WILDLIFE MANAGER Gender Identity Not on file Sexual Orientation Not on file documented as of this encounter Plan of Treatment Not on file documented as of this encounter Visit Diagnoses Diagnosis Other benign neoplasm of connective and other soft tissue of head, face, and neck- Primary Follow-up examination, following unspecified surgery documented in this encounter Care Teams Icing Mixer Relationship Specialty Start Date End Date Miguel Angel MD [address] [facility] [place] [address] PCP - General Family Practice 10/14/17 documented as of this encounter
--- OUTSIDE RECORDS SUMMARY | 2025-03-15 10:27 | XMS_ITS | Encounter Summary ---
Author Organization [facility] Address [address] [place] [address] Care Team Providers Care Drum Maker Name Role Phone Miguel Angel MD Primary Care Provider [phone] Encounter Details Date Type Department Care Team (Latest Contact Info) Description 02/01/2003 Outpatient Historical [address] [phone] Josselin Ordonez MD [address] [place] [address], [address] Gynecologic examination (Primary Dx) Social History Tobacco Use Types Packs/Day Years Used Date Smoking Tobacco: Never Assessed Comments Unknown Sex and Gender Information Value Date Recorded Sex Assigned at Not on file 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
--- OUTSIDE RECORDS SUMMARY | 2025-03-15 10:27 | XMS_ITS | Encounter Summary ---
Author Organization [facility] Address [address] [place] [address] Care Team Providers Care Forest Fire Control Officer Name Role Phone Miguel Angel MD Primary Care Provider [phone] Encounter Details Date Type Department Care Team (Late st Contact Info) Description 02/01/2003 Outpatient Historical [address] [phone] Josselin Ordonez MD [address] [place] [address], [address] Social History Tobacco Use Types Packs/Day Years Used Date Smoking Tobacco: Never Assessed Comments Unknown Sex and Gender Information Value Date Recorded Sex Assigned at Not on file Legal Sex Female 3:31 AM FACULTY RESEARCH ASSISTANT Gender Identity Not on file Sexual Orientation Not on file documented as of this encounter Plan of Treatment Not on file documented as of this encounter Visit Diagnoses Not on filedocumented in this encounter Care Teams Forest Fire Control Officer Relationship Specialty Start Date End Date Miguel Angel MD [address] [facility] [place] [address] PCP - General Family Practice 10/14/17 documented as of this encounter
--- OUTSIDE RECORDS SUMMARY | 2025-03-15 10:27 | XMS_ITS | Encounter Summary ---
Author Organization [facility] Address [address] [place] [address] Care Team Providers Care Wire Mesh Gate Assembler Name Role Phone Miguel Angel MD Primary Care Provider [phone] Encounter Details Date Type Department Care Team (Late st Contact Info) Description 03/10/[address] [facility] [place] [address] [place] [address] Social History Tobacco Use Types Packs/Day Years Used Date Smoking Tobacco: Never Assessed Comments Unknown Sex and Gender Information Value Date Recorded Sex Assigned at Not on file Legal Sex Female 3:31 AM CONVENIENCE STORE CLERK Gender Identity Not on file Sexual Orientation Not on file documented as of this encounter Plan of Treatment Not on file documented as of this encounter Visit Diagnoses Not on filedocumented in this encounter Care Teams Wire Mesh Gate Assembler Relationship Specialty Start Date End Date Miguel Angel MD [address] [facility] [place] [address] PCP - General Family Practice 10/14/17 documented as of this encounter
--- OUTSIDE RECORDS SUMMARY | 2025-03-15 10:27 | XMS_ITS | Encounter Summary ---
Author Organization [facility] Address [address] [place] [address] Care Team Providers Care Labor Relations Specialist Name Role Phone Miguel Angel MD Primary Care Provider [phone] Encounter Details Date Type Department Care Team (Latest Contact Info) Description 02/24/2003 Outpatient Historical [address] [phone] Josselin Ordonez MD [address] [place] [address], [address] INSOMNIA NEC (Primary Dx) Social History Tobacco Use Types Packs/Day Years Used Date Smoking Tobacco: Never Assessed Comments Unknown Sex and Gender Information Value Date Recorded Sex Assigned at Not on file Legal Sex Female 3:31 AM WOODEN BARREL MECHANIC Gender Identity Not on file Sexual Orientation Not on file documented as of this encounter Plan of Treatment Not on file documented as of this encounter Visit Diagnoses Diagnosis Insomnia, unspecified- Primary documented in this encounter Care Teams Labor Relations Specialist Relationship Specialty Start Date End Date Miguel Angel MD [address] [facility] [place] [address] PCP - General Family Practice 10/14/17 documented as of this encounter
--- OUTSIDE RECORDS SUMMARY | 2025-03-15 10:27 | XMS_ITS | Encounter Summary ---
Author Organization [facility] Address [address] [place] [address] Care Team Providers Care Internet Programmer Name Role Phone Miguel Angel MD Primary Care Provider [phone] Encounter Details Date Type Department Care Team (Late st Contact Info) Description 03/06/2008 Outpatient [facility] [address] [place], [place] [address] Magdaleno Phillips MD NO ADDRESS ON FILE Social History Tobacco Use Types Packs/Day Years Used Date Smoking Tobacco: Never Assessed Comments Unknown Sex and Gender Information Value Date Recorded Sex Assigned at Not on file Legal Sex Female 3:31 AM TABLE RUNNER Gender Identity Not on file Sexual Orientation [...] 03/08/2008 3:19 PM CDT Report Available in [facility] Procedure Note 09/18/2008 Report Available in [facility] us Magdaleno Phillips MD MAMMO ORDERABLES Final Resul t documented in this encounter Visit Diagnoses Not on filedocumented in this encounter Care Teams Internet Programmer Relationship Specialty Start Date End Date Miguel Angel MD [address] [facility] [place] [address] PCP - General Family Practice 10/14/17 documented as of this encounter
--- OUTSIDE RECORDS SUMMARY | 2025-03-15 10:27 | XMS_ITS | Encounter Summary ---
Author Organization [facility] Address [address] [place] [address] Care Team Providers Care Lawn Mower Operator Name Role Phone Miguel Angel MD Primary Care Provider [phone] Encounter Details Date Type Department Care Team (Late st Contact Info) Description 04/16/2009 Ancillary Orders [facility] Gen Spec Surg [address] [place] [address] Magdaleno Phillips MD NO ADDRESS ON FILE Other Screening Mammogram Social History Tobacco Use Types Packs/Day Years Used Date Smoking Tobacco: Never Assessed Comments Unknown Sex and Gender Information Value Date Recorded Sex Assigned at Not on file Legal Sex Female 3:31 AM YARD BRAKEMAN Gender Identity Not on file Sexual Orientation [...] mammogram documented in this encounter Care Teams Lawn Mower Operator Relationship Specialty Start Date End Date Miguel Angel MD [address] [facility] [place] [address] PCP - General Family Practice 10/14/17 documented as of this encounter
--- OUTSIDE RECORDS SUMMARY | 2025-03-15 10:27 | XMS_ITS | Encounter Summary ---
Author Organization [facility] Address [address] [place] [address] Care Team Providers Care Winding Machine Operator Name Role Phone Miguel Angel MD Primary Care Provider [phone] Encounter Details Date Type Department Care Team (Late st Contact Info) Description 12/05/[address] [address] Julius Banda, POWERHOUSE ELECTRICIAN APPRENTICE [address] [place] [address] Social History Tobacco Use Types Packs/Day Years Used Date Smoking Tobacco: Never Assessed Comments Unknown Sex and Gender Information Value Date Recorded Sex Assigned at Not on file Legal Sex Female 3:31 AM ASSIGNMENT OFFICER Gender Identity Not on file Sexual Orientation Not on file documented as of this encounter Plan of Treatment Not on file documented as of this encounter Visit Diagnoses Not on filedocumented in this encounter Care Teams Winding Machine Operator Relationship Specialty Start Date End Date Miguel Angel MD [address] [facility] [place] [address] PCP - General Family Practice 10/14/17 documented as of this encounter
--- OUTSIDE RECORDS SUMMARY | 2025-03-15 10:27 | XMS_ITS | Encounter Summary ---
Author Organization [facility] Address [address] [place] [address] Care Team Providers Care Enrollment Management Manager Name Role Phone Miguel Angel MD Primary Care Provider [phone] Encounter Details Date Type Department Care Team (Late st Contact Info) Description 02/24/2005 Outpatient Historical [facility] [address] [place] [address] Kolby Gayle MD [address] [facility] [address] [place] [address] Social History Tobacco Use Types Packs/Day Years Used Date Smoking Tobacco: Never Assessed Comments Unknown Sex and Gender Information Value Date Recorded Sex Assigned at Not on file Legal Sex Female 3:31 AM SALVAGE CLERK Gender Identity Not on file Sexual Orientation Not on file documented as of this encounter Plan of Treatment Not on file documented as of this encounter Visit Diagnoses Not on filedocumented in this encounter Care Teams Enrollment Management Manager Relationship Specialty Start Date End Date Miguel Angel MD [address] [facility] [place] [address] PCP - General Family Practice 10/14/17 documented as of this encounter
--- OUTSIDE RECORDS SUMMARY | 2025-03-15 10:27 | XMS_ITS | Encounter Summary ---
Author Organization [facility] Address [address] [place] [address] Care Team Providers Care Can Doffer Name Role Phone Miguel Angel MD Primary Care Provider [phone] Encounter Details Date Type Department Care Team (Late st Contact Info) Description 03/10/2005 Outpatient Historical [facility] [place] [address] [place] [address] Kolby Gayle MD [address] [facility] [address] [place] [address] Social History Tobacco Use Types Packs/Day Years Used Date Smoking Tobacco: Never Assessed Comments Unknown Sex and Gender Information Value Date Recorded Sex Assigned at Not on file Legal Sex Female 3:31 AM PERINATAL INSTRUCTOR Gender Identity Not on file Sexual Orientation Not on file documented as of this encounter Plan of Treatment Not on file documented as of this encounter Visit Diagnoses Not on filedocumented in this encounter Care Teams Can Doffer Relationship Specialty Start Date End Date Miguel Angel MD [address] [facility] [place] [address] PCP - General Family Practice 10/14/17 documented as of this encounter
--- OUTSIDE RECORDS SUMMARY | 2025-03-15 10:27 | XMS_ITS | Encounter Summary ---
Author Organization 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
--- OUTSIDE RECORDS SUMMARY | 2025-03-15 10:27 | XMS_ITS | Encounter Summary ---
Author Organization [facility] Address [address] [place] [address] Care Team Providers Care Customer Service Clerk Name Role Phone Miguel Angel MD Primary Care Provider [phone] Encounter Details Date Type Department Care Team (Late st Contact Info) Description 02/01/2003 Outpatient [facility] [address] [facility] [address] [place] [address] Social History Tobacco Use Types Packs/Day Years Used Date Smoking Tobacco: Never Assessed Comments Unknown Sex and Gender Information Value Date Recorded Sex Assigned at Not on file Legal Sex Female 3:31 AM CEMENT BASED MATERIALS PUMP TENDER Gender Identity Not on file Sexual Orientation Not on file documented as of this encounter Plan of Treatment Not on file documented as of this encounter Visit Diagnoses Not on filedocumented in this encounter Care Teams Customer Service Clerk Relationship Specialty Start Date End Date Miguel Angel MD [address] [facility] [place] [address] PCP - General Family Practice 10/14/17 documented as of this encounter
--- OUTSIDE RECORDS SUMMARY | 2025-03-15 10:27 | XMS_ITS | Encounter Summary ---
Author Organization [facility] Address [address] [place] [address] Care Team Providers Care Bakery Pastry Internship Name Role Phone Miguel Angel MD Primary Care Provider [phone] Encounter Details Date Type Department Care Team (Latest Contact Info) Description 06/09/2001 Outpatient Historical [facility] [address] [phone] Rubia Ortiz MD [address] [place] [phone] Acute frontal sinusitis (Primary Dx) Social History Tobacco Use Types Packs/Day Years Used Date Smoking Tobacco: Never Assessed Comments Unknown Sex and Gender Information Value Date Recorded Sex Assigned at Not on file Legal Sex Female 3:31 AM CAFE ATTENDANT Gender Identity Not on file Sexual Orientation Not on file documented as of this encounter Plan of Treatment Not on file documented as of this encounter Visit Diagnoses Diagnosis Acute frontal sinusitis- Primary documented in this encounter Care Teams Bakery Pastry Internship Relationship Specialty Start Date End Date Miguel Angel MD [address] [facility] [place] [address] PCP - General Family Practice 10/14/17 documented as of this encounter
--- OUTSIDE RECORDS SUMMARY | 2025-03-15 10:27 | XMS_ITS | Encounter Summary ---
Author Organization [facility] Address [address] [place] [address] Care Team Providers Care Sign Painter Name Role Phone Miguel Angel MD Primary Care Provider [phone] Encounter Details Date Type Department Care Team (Latest Contact Info) Description 02/01/2003 Outpatient Historical [facility] [address] [place] [address] Josselin Ordonez MD [address] [place] [address], [address] SCREENING MAMM-MAILG NEOPL-OTHER (Primary Dx) Social History Tobacco Use Types Packs/Day Years Used Date Smoking Tobacco: Never Assessed Comments Unknown Sex and Gender Information Value Date Recorded Sex Assigned at Not on file Legal Sex Female 3:31 AM SANITATION WORKER Gender Identity Not on file Sexual Orientation Not on file documented as of this encounter Plan of Treatment Not on file documented as of this encounter Visit Diagnoses Diagnosis Other screening mammogram- Primary documented in this encounter Care Teams Sign Painter Relationship Specialty Start Date End Date Miguel Angel MD [address] [facility] [place] [address] PCP - General Family Practice 10/14/17 documented as of this encounter
--- OUTSIDE RECORDS SUMMARY | 2025-03-15 10:27 | XMS_ITS | Encounter Summary ---
Author Organization [facility] Address [address] [place] [address] Care Team Providers Care Editor Map Name Role Phone Miguel Angel MD Primary Care Provider [phone] Encounter Details Date Type Department Care Team (Latest Contact Info) Description 09/07/2001 Outpatient Historical [facility] [address] [phone] Marcelino Lazar MD [address] [phone] HEADACHE (Primary Dx); Sprain of neck Social History Tobacco Use Types Packs/Day Years Used Date Smoking Tobacco: Never Assessed Comments Unknown Sex and Gender Information Value Date Recorded Sex Assigned at Not on file Legal Sex Female 3:31 AM MEDICATION RECONCILIATION TECHNICIAN Gender Identity Not on file Sexual Orientation Not on file documented as of this encounter Plan of Treatment Not on file documented as of this encounter Visit Diagnoses Diagnosis Headache(784.0)- Primary Headache Sprain of neck Neck sprain and strain documented in this encounter Care Teams Editor Map Relationship Specialty Start Date End Date Miguel Angel MD [address] [facility] [place] [address] PCP - General Family Practice 10/14/17 documented as of this encounter
--- OUTSIDE RECORDS SUMMARY | 2025-03-15 10:27 | XMS_ITS | Encounter Summary ---
Author Organization [facility] Address [address] [facility] Attn: [place] [address] Care Team Providers Care Medical Investigator Name Role Phone Miguel Angel MD Primary Care Provider [phone] Encounter Details Date Type Department Care Team (Late st Contact Info) Description 01/27/2001 Outpatient Historical Marcelino Lazar MD [address] [place] [address] Social History Tobacco Use Types Packs/Day Years Used Date Smoking Tobacco: Never Assessed Comments Unknown Sex and Gender Information Value Date Recorded Sex Assigned at Not on file Legal Sex Female 3:31 AM MAGICIAN HELPER Gender Identity Not on file Sexual Orientation Not on file documented as of this encounter Plan of Treatment Not on file documented as of this encounter Visit Diagnoses Not on filedocumented in this encounter Care Teams Medical Investigator Relationship Specialty Start Date End Date Miguel Angel MD [address] [facility] [place] [address] PCP - General Family Practice 10/14/17 documented as of this encounter
--- OUTSIDE RECORDS SUMMARY | 2025-03-15 10:27 | XMS_ITS | Encounter Summary ---
Author Organization [facility] Address [address] [facility] Attn: [place] [address] Care Team Providers Care Gasoline Engine Assembler Name Role Phone Miguel Angel MD Primary Care Provider [phone] Encounter Details Date Type Department Care Team (Late st Contact Info) Description 06/11/2001 Outpatient Historical Magdaleno Phillips MD NO ADDRESS ON FILE Social History Tobacco Use Types Packs/Day Years Used Date Smoking Tobacco: Never Assessed Comments Unknown Sex and Gender Information Value Date Recorded Sex Assigned at Not on file Legal Sex Female 3:31 AM HEALTH SANITARIAN Gender Identity Not on file Sexual Orientation Not on file documented as of this encounter Plan of Treatment Not on file documented as of this encounter Visit Diagnoses Not on filedocumented in this encounter Care Teams Gasoline Engine Assembler Relationship Specialty Start Date End Date Miguel Angel MD [address] [facility] [place] [address] PCP - General Family Practice 10/14/17 documented as of this encounter
--- OUTSIDE RECORDS SUMMARY | 2025-03-15 10:27 | XMS_ITS | Encounter Summary ---
Author Organization [facility] Address [address] [place] [address] Care Team Providers Care Health Services Director Name Role Phone Miguel Angel MD Primary Care Provider [phone] Encounter Details Date Type Department Care Team (Latest Contact Info) Description 11/16/2001 Outpatient Historical [address] [address] Josselin Ordonez MD [address] [place] [address], [address] THYROTOX NOS NO CRISIS (Primary Dx) Social History Tobacco Use Types Packs/Day Years Used Date Smoking Tobacco: Never Assessed Comments Unknown Sex and Gender Information Value Date Recorded Sex Assigned at Not on file 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
--- OUTSIDE RECORDS SUMMARY | 2025-03-15 10:27 | XMS_ITS | Encounter Summary ---
Author Organization [facility] Address [address] [place] [address] Care Team Providers Care Business Attorney Name Role Phone Miguel Angel MD Primary Care Provider [phone] Encounter Details Date Type Department Care Team (Latest Contact Info) Description 11/17/2002 Outpatient Historical [address] [phone] Josselin Ordonez MD [address] [place] [address], [address] HYPOVOLEMIA (Primary Dx); NAUSEA WITH VOMITING Social History Tobacco Use Types Packs/Day Years Used Date Smoking Tobacco: Never Assessed Comments Unknown Sex and Gender Information Value Date Recorded Sex Assigned at Not on file 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
--- OUTSIDE RECORDS SUMMARY | 2025-03-15 10:27 | XMS_ITS | Encounter Summary ---
Author Organization [facility] Address [address] [place] [address] Care Team Providers Care Wafer Production Lead Worker Name Role Phone Miguel Angel MD Primary Care Provider [phone] Encounter Details Date Type Department Care Team (Latest Contact Info) Description 05/16/2002 Outpatient Historical [facility] Medicine [address] [phone] Marcelino Lazar MD [address] [phone] ACUTE FRONTAL SINUSITIS (Primary Dx); ABDOMINAL PAIN UNSPEC SITE; NAUSEA ALONE Social History Tobacco Use Types Packs/Day Years Used Date Smoking Tobacco: Never Assessed Comments Unknown Sex and Gender Information Value Date Recorded Sex Assigned at Not on file 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
--- OUTSIDE RECORDS SUMMARY | 2025-03-15 10:27 | XMS_ITS | Encounter Summary ---
Author Organization [facility] Address [address] [place] [address] Care Team Providers Care Careers Counsellor Name Role Phone Miguel Angel MD Primary Care Provider Encounter Details Date Type Department Care Team (Latest Contact Info) Description 03/26/2005 Outpatient Historical [facility] [address] [place] [phone] Kolby Gayle MD [address] [facility] [address] [place] [address] UTERINE LEIOMYOMA NOS (Primary Dx); Excessive menstruation; OVARIAN CYST NEC/NOS Social History Tobacco Use Types Packs/Day Years Used Date Smoking Tobacco: Never Assessed Comments Unknown Sex and Gender Information Value Date Recorded Sex Assigned at Not on file 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
--- OUTSIDE RECORDS SUMMARY | 2025-03-15 10:27 | XMS_ITS | Encounter Summary ---
Author Organization [facility] Address [address] [place] [address] Care Team Providers Care Special Education Educational Assistant Name Role Phone Miguel Angel MD Primary Care Provider [phone] Encounter Details Date Type Department Care Team (Late st Contact Info) Description 03/06/2009 Ancillary Orders [facility] Gen Spec Surg 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
--- OUTSIDE RECORDS SUMMARY | 2025-03-15 10:27 | XMS_ITS | Encounter Summary ---
Author Organization [facility] Address [address] [place] [address] Care Team Providers Care Match Maker Name Role Phone Miguel Angel MD Primary Care Provider [phone] Encounter Details Date Type Department Care Team (Latest Contact Info) Description 10/19/2000 Outpatient Historical [address] [phone] Josselin Ordonez MD [address] [place] [address], [address] Hypoglycemia, unspecified (Primary Dx); Dysthymic disorder; Gynecologic examination; Special screening for malignant neoplasms of other sites Social History Tobacco Use Types Packs/Day Years Used Date Smoking Tobacco: Never Assessed Comments Unknown Sex and Gender Information Value Date Recorded Sex Assigned at Not on file 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 Gender Identity Not on file Sexual Orientation Not on file documented as of this encounter Plan of Treatment Not on file documented as of this encounter Visit Diagnoses Diagnosis Hypoglycemia, unspecified- Primary Dysthymic disorder Gynecologic examination Gynecological examination Special screening for malignant neoplasms of other sites documented in this encounter Care Teams Match Maker Relationship Specialty Start Date End Date Miguel Angel MD [address] [facility] [place] [address] PCP - General Family Practice 10/14/17 documented as of this encounter
--- OUTSIDE RECORDS SUMMARY | 2025-03-15 10:28 | XMS_ITS | Encounter Summary ---
Author Organization [facility] Address [address] [place] [address] Care Team Providers Care Knockdown Worker Name Role Phone Miguel Angel MD Primary Care Provider [phone] Encounter Details Date Type Department Care Team (Latest Contact Info) Description 05/28/2005 Outpatient Historical [facility] [place] [address] [place] [phone] Kolby Gayle MD [address] [facility] [address] [place] [address] URIN TRACT INFECTION NOS (Primary Dx) Social History Tobacco Use Types Packs/Day Years Used Date Smoking Tobacco: Never Assessed Comments Unknown Sex and Gender Information Value Date Recorded Sex Assigned at Not on file 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
--- OUTSIDE RECORDS SUMMARY | 2025-03-15 10:28 | XMS_ITS | Encounter Summary ---
Author Organization [facility] Address [address] [place] [address] Care Team Providers Care Dean Of Faculty Name Role Phone Miguel Angel MD Primary Care Provider [phone] Encounter Details Date Type Department Care Team (Late st Contact Info) Description 07/21/2007 Outpatient Historical [facility] Gen Spec Surg [place] [address] [facility] [address] [place] [address] Magdaleno Phillips MD NO ADDRESS ON FILE Social History Tobacco Use Types Packs/Day Years Used Date Smoking Tobacco: Never Assessed Comments Unknown Sex and Gender Information Value Date Recorded Sex Assigned at Not on file 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
--- OUTSIDE RECORDS SUMMARY | 2025-03-15 10:28 | XMS_ITS | Clinical Summary ---
Author Organization [facility] Address [address] [place] [address] Care Team Providers Care Nozzle Operator Name Role Phone Miguel Angel MD Primary Care Provider [phone] Allergies Active Allergy Reactions Criticality Noted Date [...] on file Legal Sex Female 3:31 AM TREE DOCTOR Gender Identity Not on file Sexual Orientation Not on file Occupation Industry Job Start Date Job End Date Not on file Not on file Not on file Not on file Last Filed Vital Signs Vital Sign Reading Time Taken Comments Blood Pressure 146/88 07/09/2020 9:50 AM TREE DOCTOR Pulse 84 10/19/2017 1:02 PM TREE DOCTOR Temperature 36.7 C (98 F) 10/19/2017 11:41 AM TREE DOCTOR Respiratory Rate 16 10/19/2017 1:02 PM TREE DOCTOR Oxygen Saturation 97% 10/19/2017 1:02 PM TREE DOCTOR Inhaled Oxygen Concentration - - Weight 74.8 kg (165 lb) 07/09/2020 9:50 AM TREE DOCTOR Height 162.6 cm (5' 4 ) 07/09/2020 9:50 AM TREE DOCTOR Body Mass Index 28.32 07/09/2020 9:50 AM TREE DOCTOR Plan of Treatment Health Maintenance Due Date [...] Personal/Family Self 1955 [address] [place] [address] [facility] [employer] [facility] [place] [employer]N [employer] Advance Directives For more information, please contact: [phone] * Full Code (Latest Code Status on File) Date Activated Date Inactivated Comments 10/19/2017 11:44 AM 10/19/2017 3:11 PM Care Teams Nozzle Operator Relationship Specialty Start Date End Date Miguel Angel MD [address] [facility] [place] [address] PCP - General Family Practice 10/14/17
--- OUTSIDE RECORDS SUMMARY | 2025-03-15 10:28 | XMS_ITS | Encounter Summary ---
Author Organization [facility] Address [address] [place] [address] Care Team Providers Care Fresh Food Manager Name Role Phone Miguel Angel MD Primary Care Provider [phone] Encounter Details Date Type Department Care Team (Latest Contact Info) Description 03/16/2006 Outpatient [facility] [place] [address] [place] [address] Kolby Gayle MD [address] [facility] [address] [place] [address] Routine Medical Exam (Primary Dx); Routine Gynecological Examination Social History Tobacco Use Types Packs/Day Years Used Date Smoking Tobacco: Never Assessed Comments Unknown Sex and Gender Information Value Date Recorded Sex Assigned at Not on file 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 Female 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
--- OUTSIDE RECORDS SUMMARY | 2025-03-15 10:28 | XMS_ITS | Clinical Summary ---
Author Organization [facility] Address [address] [facility] Attn: Epic Prelude ADT [place] [address] Care Team Providers Care Birth Certificate Clerk Name Role Phone Miguel Angel MD Primary Care Provider [phone] Allergies Active Allergy Reactions Criticality Noted Date [...] on file Legal Sex Female 8:29 AM COPY HOLDER Gender Identity Not on file Sexual Orientation Not on file Last Filed Vital Signs Vital Sign Reading Time Taken Comments Blood Pressure 148/80 07/08/2021 3:24 PM COPY HOLDER Pulse 76 07/08/2021 3:02 PM COPY HOLDER Temperature 36.7 C (98 F) 10/19/2017 11:41 AM COPY HOLDER Respiratory Rate 16 10/19/2017 1:02 PM COPY HOLDER Oxygen Saturation - - Inhaled Oxygen Concentration - - Weight 73.5 kg (162 lb) 07/08/2021 3:02 PM COPY HOLDER Height 162.6 cm (5' 4 ) 07/08/2021 3:02 PM COPY HOLDER Body Mass Index 27.81 07/08/2021 3:02 PM COPY HOLDER Plan of Treatment Health Maintenance Due Date [...] Most Recently Relevant to Health Maintenance Insurance [facility] [id number] [place] CC[place] [employer] MEDICARE PART A AND B Care Teams Birth Certificate Clerk Relationship Specialty Start Date End Date Miguel Angel MD [address] [facility] [address] PCP - General Family Practice 10/14/17
--- OUTSIDE RECORDS SUMMARY | 2025-03-15 10:28 | XMS_ITS | Encounter Summary ---
Author Organization [facility] Address [address] [place] [address] Care Team Providers Care Belt Dresser Name Role Phone Miguel Angel MD Primary Care Provider [phone] Encounter Details Date Type Department Care Team (Late st Contact Info) Description 07/13/2007 Outpatient [facility] [address] [facility] [address] [place] [address] Social History Tobacco Use Types Packs/Day Years Used Date Smoking Tobacco: Never Assessed Comments Unknown Sex and Gender Information Value Date Recorded Sex Assigned at Not on file 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
--- OUTSIDE RECORDS SUMMARY | 2025-03-15 10:28 | XMS_ITS | Encounter Summary ---
Author Organization [facility] Address [address] [place] [address] Care Team Providers Care Field Radio Operator Name Role Phone Miguel Angel MD Primary Care Provider [phone] Reason for Referral * Outpatient Services (Routine) - Closed Specialty Diagnoses / Procedures Referred By Gladis lackey Referred To Contact Diagnoses Other screening mammogram Procedures MAMMO DIGITAL SCREEN BILAT Magdaleno Phillips MD NO ADDRESS ON FILE Referral ID Status Reason Start Date Expiration Date Visits Re quested Visits Authorized [id number] Closed 02/15/2012 02/11/2013 1 1 Encounter Details Date Type Department Care Team (Latest Contact Info) Description 02/12/2012 Ancillary Orders [facility] Pre-Registration [place] CALL TO MAKE APPOINTMENT ONLY [address] [place] [address] Magdaleno Phillips MD NO ADDRESS ON FILE Other screening mammogram Social History Tobacco Use Types Packs/Day Years Used Date Smoking Tobacco: Never Smokeless Tobacco: Never Alcohol Use Standard Drinks/Week Comments Not Asked 0 (1 standard drink = 0.6 oz pur e alcohol) Comments No Sex and Gender Information Value Date Recorded Sex Assigned at Not on file 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
--- OUTSIDE RECORDS SUMMARY | 2025-03-15 10:28 | XMS_ITS | Encounter Summary ---
Author Organization [facility] Address [address] [place] [address] Care Team Providers Care Manager Ent Name Role Phone Miguel Angel MD Primary Care Provider [phone] Reason for Referral * Outpatient Services (Routine) - Closed Specialty Diagnoses / Procedures Referred By Contsmita t Referred To Contact Diagnoses Abdominal pain Liver cyst Procedures MRI ABDOMEN W WO CONTRAST Josselin Scott MD [address] [place] [address] Phone: tel: fax: Referral ID Status Reason Start Date Expiration Date Visits Re quested Visits Authorized [id number] Closed 01/01/2011 06/30/2011 1 1 Encounter Details Date Type Department Care Team (Late st Contact Info) Description 12/31/2010 Ancillary Orders [facility] Mobile MRI [address] 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 sdm - uploaded from [employer] - Narrative 01/01/2011 3:23 PM CDT Exam: [...] thin internal septations. sdm - uploaded from [employer] - us Josselin Scott MD MR ORDERABLES Final Result documented in this encounter Visit Diagnoses Diagnosis Abdominal pain Abdominal pain, unspecified site Liver cyst Other specified disorders of liver documented in this encounter Care Teams Manager Ent Relationship Specialty Start Date End Date Miguel Angel MD [address] [place] [address] PCP - General Family Practice 10/14/17 documented as of this encounter
--- OUTSIDE RECORDS SUMMARY | 2025-03-15 10:28 | XMS_ITS | Encounter Summary ---
Author Organization [facility] Address [address] [place] [address] Care Team Providers Care Sample Weaver Name Role Phone Miguel Angel MD Primary Care Provider [phone] Encounter Details Date Type Department Care Team (Latest Contact Info) Description 07/13/2007 Outpatient [facility] [address] [place], [place] [address] Magdaleno Phillips MD NO ADDRESS ON FILE Depressive Disorder, not Elsewhere Classified; Personal History of Allergy to Penicillin Social History Tobacco Use Types Packs/Day Years Used Date Smoking Tobacco: Never Assessed Comments Unknown Sex and Gender Information Value Date Recorded Sex Assigned at Not on file 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
--- OUTSIDE RECORDS SUMMARY | 2025-03-15 10:28 | XMS_ITS | Encounter Summary ---
Author Organization [facility] Address [address] [place] [address] Care Team Providers Care Drill Foreman Name Role Phone Miguel Angel MD Primary Care Provider [phone] Reason for Referral * Outpatient Services (Routine) - Closed Specialty Diagnoses / Procedures Referred By Contsmita t Referred To Contact Radiology Diagnoses Other screening mammogram Procedures MAMMO DIGITAL SCREEN BILAT Magdaleno Phillips MD NO ADDRESS ON FILE [facility] [address] [facility] [address] [place] [address] Phone: tel: fax: Referral ID Status Reason Start Date Expiration Date Visits Re quested Visits Authorized [id number] Closed 02/23/2013 03/26/2014 1 1 Encounter Details Date Type Department Care Team (Latest Contact Info) Description 02/23/[address] 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
--- OUTSIDE RECORDS SUMMARY | 2025-03-15 10:28 | XMS_ITS | Encounter Summary ---
Author Organization [facility] Address [address] [place] [address] Care Team Providers Care Evp General Counsel Name Role Phone Miguel Angel MD Primary Care Provider [phone] Reason for Referral * Outpatient Services (Routine) - Closed Specialty Diagnoses / Procedures Referred By Contsmita t Referred To Contact Diagnoses Other screening mammogram Procedures MAMMO DIGITAL SCREEN BILAT Magdaleno Phillips MD NO ADDRESS ON FILE Referral ID Status Reason Start Date Expiration Date Visits Re quested Visits Authorized [id number] Closed 04/08/2010 10/05/2010 1 1 Encounter Details Date Type Department Care Team (Late st Contact Info) Description 04/08/2010 Ancillary Orders [facility] [address] [facility] [address] [place] [address] Magdaleno Phillips MD NO ADDRESS ON FILE Other Screening Mammogram Social History Tobacco Use Types Packs/Day Years Used Date Smoking Tobacco: Never Assessed Comments Unknown Sex and Gender Information Value Date Recorded Sex Assigned at Not on file Legal Sex Female 3:31 AM GEAR CHANGER Gender Identity Not on file Sexual [...] mammogram documented in this encounter Care Teams Evp General Counsel Relationship Specialty Start Date End Date Miguel Angel MD [address] [facility] [place] [address] PCP - General Family Practice 10/14/17 documented as of this encounter
--- OUTSIDE RECORDS SUMMARY | 2025-03-15 10:28 | XMS_ITS | Encounter Summary ---
Author Organization [facility] Address [address] [place] [address] Care Team Providers Care Wire Rope Sales Representative Name Role Phone Miguel Angel MD Primary Care Provider [phone] Encounter Details Date Type Department Care Team (Late st Contact Info) Description 03/16/2006 Outpatient [facility] [address] [place] [address] Kolby Gayle MD [address] [facility] [address] [place] [address] Social History Tobacco Use Types Packs/Day Years Used Date Smoking Tobacco: Never Assessed Comments Unknown Sex and Gender Information Value Date Recorded Sex Assigned at Not on file 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
[2025-03-15 10:38] LABS: Hematocrit 38.2 % (36-47); Hemoglobin 11.90 g/dL (11.27-16.99); Mean Corpuscular HGB Conc 31.2 g/dL (30-55); Mean Corpuscular Hemoglobin 26.6 pg (27-33); Mean Corpuscular Volume 85.3 fl (85-98); Nucleated Red Blood Cells % 0 %; Platelet Count 307 10^3/cmm (157-399); Red Blood Count 4.48 10^6/uL (3.85-5.65); White Blood Count 9.08 10^3/uL (3.29-11.43)
--- NOTE | 2025-03-15 10:47 | PC.PHAR ---
Pt states she could not afford to cotton picker her medications (antibiotics) from yesterday, until she gets her check. Pt also states she did take her maintenance medications this morning.
[2025-03-15 10:56] LABS: Glucose Urine UA Negative (Normal); Nitrate Urine Negative (Negative); Specific Gravity, Urine 1.011 (1.005-1.030)
[2025-03-15 10:58] LABS: Add Urine Microscopic? YES
[2025-03-15 11:00] LABS: Respiratory Syncytial Virus Ce NEGATIVE (Negative); SARS-CoV-2 PCR NEGATIVE (Negative)
[2025-03-15 11:03] LABS: PCP Screen Urine Negative (Negative)
[2025-03-15 11:06] LABS: Alanine Aminotransferase 15 U/L (0-33); Albumin Level 4.0 g/dL (3.5-5.2); Alkaline Phosphatase 108 U/L (35-105); Anion Gap 17.0 (5-19); Aspartate Amino Transferase 16 U/L (0-32); Blood Urea Nitrogen 20 mg/dL (8-23); Calcium 9.0 mg/dL (8.5-10.5); Carbon Dioxide 24 mmol/L (22-29); Chloride 104 mmol/L (98-107); Creatinine Clr Calc Pharmacy 53.3781; Globulin 2.9 g/dL (1.3-4.6); Glucose 99 mg/dL (65-115); Osmolality Calculated 295 mOsm/kg (285-295); Potassium 4.0 mmol/L (3.5-5.1); Sodium 141 mmol/L (136-145); Thyroid Stimulating Hormone 1.36 uIU/mL (0.27-4.20); Total Protein 6.9 g/dL (6.6-8.7)
[2025-03-15 11:07] LABS: Acetaminophen < 5.0 ug/mL (10-30); Alcohol Level < 10 mg/dL (0-10); Salicylate < 0.3 mg/dL (3-10)
[2025-03-15 11:33] VITALS: BP 129/78; PULSE 83; RESP 16; O2SAT 98
== END 2025-03-15 11:44 | disposition home or self-care (01) ==
PROVIDERS: Emergency Provider Emergency Medicine; PCP Nurse Practitioner
DX: F32.A Depression, unspecified (principal); F41.9 Anxiety disorder, unspecified; Z11.52 Encounter for screening for COVID-19; E78.5 Hyperlipidemia, unspecified
CPT/HCPCS: 36415; 80053; 80306; 80307; 81001; 84443; 85025; 87637; 93005; 99284

== ENCOUNTER 2025-03-19 21:22 | Emergency (ER) | payer OTHER, SELFPAY ==
[2025-03-19 21:28] VITALS: BP 125/75; PULSE 78; RESP 17; TEMP 36.5; O2SAT 99; BMI 23.6
--- OUTSIDE RECORDS SUMMARY | 2025-03-19 21:28 | XMS_ITS | Encounter Summary ---
Author Organization [facility] Address [address] [place] [address] Care Team Providers Care Workforce Specialist Name Role Phone Miguel Angel MD Primary Care Provider [phone] Encounter Details Date Type Department Care Team (Late st Contact Info) Description 02/01/2003 Outpatient [facility] [address] [facility] [address] [place] [address] Social History Tobacco Use Types Packs/Day Years Used Date Smoking Tobacco: Never Assessed Comments Unknown Sex and Gender Information Value Date Recorded Sex Assigned at Not on file 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
--- OUTSIDE RECORDS SUMMARY | 2025-03-19 21:28 | XMS_ITS | Encounter Summary ---
Author Organization [facility] Address [address] [place] [address] Care Team Providers Care Workers Compensation Analyst Name Role Phone Miguel Angel MD Primary Care Provider [phone] Encounter Details Date Type Department Care Team (Late st Contact Info) Description 04/01/2005 Inpatient Historical [facility] Kolby Gayle MD [address] [facility] [address] [place], [place] [id number] INTRAMURAL LEIOMYOMA (Primary Dx) Social History Tobacco Use Types Packs/Day Years Used Date Smoking Tobacco: Never Assessed Comments Unknown Sex and Gender Information Value Date Recorded Sex Assigned at Not on file Legal Sex Female 3:31 AM DIRECTOR OF PUBLIC SAFETY Gender Identity Not on file Sexual Orientation [...] Primary documented in this encounter Care Teams Workers Compensation Analyst Relationship Specialty Start Date End Date Miguel Angel MD [address] [place] [address] PCP - General Family Practice 10/14/17 documented as of this encounter
--- OUTSIDE RECORDS SUMMARY | 2025-03-19 21:28 | XMS_ITS | Encounter Summary ---
Author Organization [facility] Address [address] [place] [address] Care Team Providers Care Lap Grinder Name Role Phone Miguel Angel MD Primary Care Provider [phone] Encounter Details Date Type Department Care Team (Latest Contact Info) Description 11/11/[address] [address] Josselin Ordonez MD [address] [place] [address], [address] INSOMNIA NEC (Primary Dx); OTHER MALAISE AND FATIGUE; ACUTE FRONTAL SINUSITIS Social History Tobacco Use Types Packs/Day Years Used Date Smoking Tobacco: Never Assessed Comments Unknown Sex and Gender Information Value Date Recorded Sex Assigned at Not on file Legal Sex Female 3:31 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 [place] [address] PCP - General Family Practice 10/14/17 documented as of this encounter
--- OUTSIDE RECORDS SUMMARY | 2025-03-19 21:28 | XMS_ITS | Encounter Summary ---
Author Organization [facility] Address [address] [place] [address] Care Team Providers Care Operations Team Leader Name Role Phone Miguel Angel MD Primary Care Provider Encounter Details Date Type Department Care Team (Latest Contact Info) Description 03/16/2006 Outpatient [facility] [place] [address] [place] [address] Kolby Gayle MD [address] [facility] [address] [place] [address] Routine Medical Exam (Primary Dx); Routine Gynecological Examination Social History Tobacco Use Types Packs/Day Years Used Date Smoking Tobacco: Never Assessed Comments Unknown Sex and Gender Information Value Date Recorded Sex Assigned at Not on file 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 [place] [address] PCP - General Family Practice 10/14/17 documented as of this encounter
--- OUTSIDE RECORDS SUMMARY | 2025-03-19 21:28 | XMS_ITS | Encounter Summary ---
Author Organization [facility] Address [address] [place] [address] Care Team Providers Care Head Start Teacher Name Role Phone Miguel Angel MD Primary Care Provider [phone] Encounter Details Date Type Department Care Team (Late st Contact Info) Description 07/21/2007 Outpatient Historical [facility] Gen Spec Surg [place] [address] [facility] [address] [place] [address] Magdaleno Phillips MD NO ADDRESS ON FILE Social History Tobacco Use Types Packs/Day Years Used Date Smoking Tobacco: Never Assessed Comments Unknown Sex and Gender Information Value Date Recorded Sex Assigned at Not on file 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
--- OUTSIDE RECORDS SUMMARY | 2025-03-19 21:28 | XMS_ITS | Encounter Summary ---
Author Organization [facility] Address [address] [place] [address] Care Team Providers Care Skein Bander Name Role Phone Miguel Angel MD Primary Care Provider [phone] Encounter Details Date Type Department Care Team (Latest Contact Info) Description 05/28/2005 Outpatient 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
--- OUTSIDE RECORDS SUMMARY | 2025-03-19 21:28 | XMS_ITS | Encounter Summary ---
Author Organization [facility] Address [address] [place] [address] Care Team Providers Care Inventory Specialist Name Role Phone Miguel Angel MD Primary Care Provider Encounter Details Date Type Department Care Team (Late st Contact Info) Description 03/06/2009 Ancillary Orders [facility] Gen Spec Surg [place] 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
--- OUTSIDE RECORDS SUMMARY | 2025-03-19 21:28 | XMS_ITS | Encounter Summary ---
Author Organization [facility] Address [address] [place] [address] Care Team Providers Care Athletic Agent Name Role Phone Miguel Angel MD Primary Care Provider [phone] Encounter Details Date Type Department Care Team (Latest Contact Info) Description 11/17/2002 Outpatient Historical [address] [phone] Josselin Ordonez MD [address] [place] [address], [address] HYPOVOLEMIA (Primary Dx); NAUSEA WITH VOMITING Social History Tobacco Use Types Packs/Day Years Used Date Smoking Tobacco: Never Assessed Comments Unknown Sex and Gender Information Value Date Recorded Sex Assigned at Not on file 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
--- OUTSIDE RECORDS SUMMARY | 2025-03-19 21:28 | XMS_ITS | Encounter Summary ---
Author Organization [facility] Address [address] [place] [address] Care Team Providers Care Airport Driver Name Role Phone Miguel Angel MD Primary Care Provider [phone] Encounter Details Date Type Department Care Team (Late st Contact Info) Description 03/08/2008 Outpatient [facility] [address] [facility] [address] [place] [address] Social History Tobacco Use Types Packs/Day Years Used Date Smoking Tobacco: Never Assessed Comments Unknown Sex and Gender Information Value Date Recorded Sex Assigned at Not on file Legal Sex Female 3:31 AM ADMIN SECRETARY Gender Identity Not on file Sexual Orientation Not on file documented as of this encounter Plan of Treatment Not on file documented as of this encounter Visit Diagnoses Not on filedocumented in this encounter Care Teams Airport Driver Relationship Specialty Start Date End Date Miguel Angel MD [address] [facility] [place] [address] PCP - General Family Practice 10/14/17 documented as of this encounter
--- OUTSIDE RECORDS SUMMARY | 2025-03-19 21:28 | XMS_ITS | Encounter Summary ---
Author Organization [facility] Address [address] [place] [address] Care Team Providers Care Resident Engineer Name Role Phone Miguel Angel MD Primary Care Provider [phone] Encounter Details Date Type Department Care Team (Latest Contact Info) Description 02/24/2003 Outpatient Historical [address] [phone] Josselin Ordonez MD [address] [place] [address], [address] INSOMNIA NEC (Primary Dx) Social History Tobacco Use Types Packs/Day Years Used Date Smoking Tobacco: Never Assessed Comments Unknown Sex and Gender Information Value Date Recorded Sex Assigned at Not on file Legal Sex Female 3:31 AM REFERENCE ARCHIVIST Gender Identity Not on file Sexual Orientation Not on file documented as of this encounter Plan of Treatment Not on file documented as of this encounter Visit Diagnoses Diagnosis Insomnia, unspecified- Primary documented in this encounter Care Teams Resident Engineer Relationship Specialty Start Date End Date Miguel Angel MD [address] [facility] [place] [address] PCP - General Family Practice 10/14/17 documented as of this encounter
--- OUTSIDE RECORDS SUMMARY | 2025-03-19 21:28 | XMS_ITS | Clinical Summary ---
Author Organization [facility] Address [address] [facility] [address] Attn: Epic Prelude ADT [place] [address] Care Team Providers Care Sheet Metal Erector Name Role Phone Miguel Angel MD Primary Care Provider [phone] Allergies Active Allergy Reactions Criticality Noted Date [...] on file Legal Sex Female 8:29 AM MITER CUTTER Gender Identity Not on file Sexual Orientation Not on file Last Filed Vital Signs Vital Sign Reading Time Taken Comments Blood Pressure 148/80 07/08/2021 3:24 PM MITER CUTTER Pulse 76 07/08/2021 3:02 PM MITER CUTTER Temperature 36.7 C (98 F) 10/19/2017 11:41 AM MITER CUTTER Respiratory Rate 16 10/19/2017 1:02 PM MITER CUTTER Oxygen Saturation - - Inhaled Oxygen Concentration - - Weight 73.5 kg (162 lb) 07/08/2021 3:02 PM MITER CUTTER Height 162.6 cm (5' 4 ) 07/08/2021 3:02 PM MITER CUTTER Body Mass Index 27.81 07/08/2021 3:02 PM MITER CUTTER Plan of Treatment Health Maintenance Due Date [...] Most Recently Relevant to Health Maintenance Insurance [facility] [id number] [place] [employer] MEDICARE PART A AND B Care Teams Sheet Metal Erector Relationship Specialty Start Date End Date Miguel Angel MD [address] [facility] [place] [address] PCP - General Family Practice 10/14/17
--- OUTSIDE RECORDS SUMMARY | 2025-03-19 21:28 | XMS_ITS | Encounter Summary ---
Author Organization [facility] Address [address] [place] [address] Care Team Providers Care Gusset Edger Name Role Phone Miguel Angel MD Primary Care Provider [phone] Encounter Details Date Type Department Care Team (Latest Contact Info) Description 05/16/2002 Outpatient Historical [facility] Medicine [address] [phone] Marcelino Lazar MD [address] [phone] ACUTE FRONTAL SINUSITIS (Primary Dx); ABDOMINAL PAIN UNSPEC SITE; NAUSEA ALONE Social History Tobacco Use Types Packs/Day Years Used Date Smoking Tobacco: Never Assessed Comments Unknown Sex and Gender Information Value Date Recorded Sex Assigned at Not on file Legal Sex Female 3:31 AM LEARNING SPECIALIST Gender Identity Not on file Sexual Orientation Not on file documented as of this encounter Plan of Treatment Not on file documented as of this encounter Visit Diagnoses Diagnosis Acute frontal sinusitis- Primary Abdominal pain, unspecified site Nausea alone documented in this encounter Care Teams Gusset Edger Relationship Specialty Start Date End Date Miguel Angel MD [address] [facility] [place] [address] PCP - General Family Practice 10/14/17 documented as of this encounter
--- OUTSIDE RECORDS SUMMARY | 2025-03-19 21:28 | XMS_ITS | Encounter Summary ---
Author Organization [facility] Address [address] [place] [address] Care Team Providers Care Publishing Editor Name Role Phone Miguel Angel MD Primary Care Provider [phone] Encounter Details Date Type Department Care Team (Latest Contact Info) Description 02/24/2005 Outpatient Historical [facility] Robert [address] [place] [phone] Kolby Gayle MD [address] [facility] [address] [place] [address] Excessive menstruation (Primary Dx) Social History Tobacco Use Types Packs/Day Years Used Date Smoking Tobacco: Never Assessed Comments Unknown Sex and Gender Information Value Date Recorded Sex Assigned at Not on file Legal Sex Female 3:31 AM CONTACT CENTER TEAM LEAD Gender Identity Not on file Sexual Orientation Not on file documented as of this encounter Plan of Treatment Not on file documented as of this encounter Visit Diagnoses Diagnosis Excessive menstruation- Primary Excessive or frequent menstruation documented in this encounter Care Teams Publishing Editor Relationship Specialty Start Date End Date Miguel Angel MD [address] [facility] [place] [address] PCP - General Family Practice 10/14/17 documented as of this encounter
--- OUTSIDE RECORDS SUMMARY | 2025-03-19 21:28 | XMS_ITS | Encounter Summary ---
Author Organization [facility] Address [address] [facility] Attn: [place] [address] Care Team Providers Care Hr Business Partner Consultant Name Role Phone Miguel Angel MD Primary Care Provider [phone] Encounter Details Date Type Department Care Team (Late st Contact Info) Description 06/11/2001 Outpatient Historical Magdaleno Phillips MD NO ADDRESS ON FILE Social History Tobacco Use Types Packs/Day Years Used Date Smoking Tobacco: Never Assessed Comments Unknown Sex and Gender Information Value Date Recorded Sex Assigned at Not on file 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
--- OUTSIDE RECORDS SUMMARY | 2025-03-19 21:28 | XMS_ITS | Encounter Summary ---
Author Organization [facility] Address [address] [place] [address] Care Team Providers Care Licensing Worker Name Role Phone Miguel Angel MD Primary Care Provider [phone] Encounter Details Date Type Department Care Team (Latest Contact Info) Description 03/10/2005 Outpatient Historical [facility] [place] [address] [place] [phone] Kolby Gayle MD [address] [facility] [address] [place] [address] Excessive menstruation (Primary Dx) Social History Tobacco Use Types Packs/Day Years Used Date Smoking Tobacco: Never Assessed Comments Unknown Sex and Gender Information Value Date Recorded Sex Assigned at Not on file Legal Sex Female 3:31 AM BRIDGE EXPERT Gender Identity Not on file Sexual Orientation Not on file documented as of this encounter Plan of Treatment Not on file documented as of this encounter Visit Diagnoses Diagnosis Excessive menstruation- Primary Excessive or frequent menstruation documented in this encounter Care Teams Licensing Worker Relationship Specialty Start Date End Date Miguel Angel MD [address] [facility] [place] [address] PCP - General Family Practice 10/14/17 documented as of this encounter
--- OUTSIDE RECORDS SUMMARY | 2025-03-19 21:28 | XMS_ITS | Encounter Summary ---
Author Organization [facility] Address [address] [place] [address] Care Team Providers Care Gear Hobber Name Role Phone Miguel Angel MD Primary Care Provider [phone] Encounter Details Date Type Department Care Team (Latest Contact Info) Description 11/30/2001 Outpatient Historical [facility] Medicine [address] [phone] Marcelino Lazar MD [address] [phone] OTALGIA NOS (Primary Dx); ALLERGY, UNSPECIFIED Social History Tobacco Use Types Packs/Day Years Used Date Smoking Tobacco: Never Assessed Comments Unknown Sex and Gender Information Value Date Recorded Sex Assigned at Not on file 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
--- OUTSIDE RECORDS SUMMARY | 2025-03-19 21:28 | XMS_ITS | Encounter Summary ---
Author Organization [facility] Address [address] [place] [address] Care Team Providers Care Senior Net Web Developer Name Role Phone Miguel Angel MD Primary Care Provider [phone] Encounter Details Date Type Department Care Team (Late st Contact Info) Description 02/01/2003 Outpatient Historical [address] [phone] Josselin Ordonez MD [address] [place] [address], [address] Social History Tobacco Use Types Packs/Day Years Used Date Smoking Tobacco: Never Assessed Comments Unknown Sex and Gender Information Value Date Recorded Sex Assigned at Not on file 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
--- OUTSIDE RECORDS SUMMARY | 2025-03-19 21:28 | XMS_ITS | Encounter Summary ---
Author Organization [facility] Address [address] [place] [address] Care Team Providers Care Poultry Farmer Name Role Phone Miguel Angel MD Primary Care Provider [phone] Encounter Details Date Type Department Care Team (Late st Contact Info) Description 07/13/2007 Outpatient [facility] [address] [facility] [address] [place] [address] Social History Tobacco Use Types Packs/Day Years Used Date Smoking Tobacco: Never Assessed Comments Unknown Sex and Gender Information Value Date Recorded Sex Assigned at Not on file Legal Sex Female 3:31 AM PUMP SERVICER Gender Identity Not on file Sexual Orientation Not on file documented as of this encounter Plan of Treatment Not on file documented as of this encounter Visit Diagnoses Not on filedocumented in this encounter Care Teams Poultry Farmer Relationship Specialty Start Date End Date Miguel Angel MD [address] [facility] [place] [address] PCP - General Family Practice 10/14/17 documented as of this encounter
--- OUTSIDE RECORDS SUMMARY | 2025-03-19 21:28 | XMS_ITS | Encounter Summary ---
Author Organization [facility] Address [address] [place] [address] Care Team Providers Care Spanish Speaking Babysitter Name Role Phone Miguel Angel MD Primary Care Provider [phone] Encounter Details Date Type Department Care Team (Latest Contact Info) Description 01/26/2001 Outpatient Historical [address] [phone] Marcelino Lazar MD [address] [phone] Unspecified disorder of skin and subcutaneous tissue (Primary Dx); Patellar tendinitis Social History Tobacco Use Types Packs/Day Years Used Date Smoking Tobacco: Never Assessed Comments Unknown Sex and Gender Information Value Date Recorded Sex Assigned at Not on file Legal Sex Female 3:31 AM RN DIABETES Gender Identity Not on file Sexual Orientation Not on file documented as of this encounter Plan of Treatment Not on file documented as of this encounter Visit Diagnoses Diagnosis Unspecified disorder of skin and subcutaneous tissue- Primary Patellar tendinitis documented in this encounter Care Teams Spanish Speaking Babysitter Relationship Specialty Start Date End Date Miguel Angel MD [address] [facility] [place] [address] PCP - General Family Practice 10/14/17 documented as of this encounter
--- OUTSIDE RECORDS SUMMARY | 2025-03-19 21:28 | XMS_ITS | Encounter Summary ---
Author Organization [facility] Address [address] [place] [address] Care Team Providers Care Farmworker Grain Name Role Phone Miguel Angel MD Primary Care Provider [phone] Reason for Referral * Outpatient Services (Routine) - Closed Specialty Diagnoses / Procedures Referred By Gladis lackey Referred To Contact Diagnoses Other screening mammogram Procedures MAMMO DIGITAL SCREEN BILAT Magdaleno Phillips MD NO ADDRESS ON FILE Referral ID Status Reason Start Date Expiration Date Visits Re quested Visits Authorized [id number] Closed 02/15/2012 02/11/2013 1 1 Encounter Details Date Type Department Care Team (Latest Contact Info) Description 02/12/2012 Ancillary Orders [facility] Pre-Registration [place] CALL TO MAKE APPOINTMENT ONLY [address] [place] [phone] Magdaleno Phillips MD NO ADDRESS ON FILE Other screening mammogram Social History Tobacco Use Types Packs/Day Years Used Date Smoking Tobacco: Never Smokeless Tobacco: Never Alcohol Use Standard Drinks/Week Comments Not Asked 0 (1 standard drink = 0.6 oz pur e alcohol) Comments No Sex and Gender Information Value Date Recorded Sex Assigned at Not on file Legal Sex Female 3:31 AM BLENDING SUPERVISOR Gender Identity Not on file Sexual [...] mammogram documented in this encounter Care Teams Farmworker Grain Relationship Specialty Start Date End Date Miguel Angel MD [address] [place] [address] PCP - General Family Practice 10/14/17 documented as of this encounter
--- OUTSIDE RECORDS SUMMARY | 2025-03-19 21:28 | XMS_ITS | Encounter Summary ---
Author Organization [facility] Address [address] [place] [address] Care Team Providers Care Can Striper Name Role Phone Miguel Angel MD Primary Care Provider [phone] Encounter Details Date Type Department Care Team (Late st Contact Info) Description 09/15/2007 Outpatient Historical [facility] Gen Spec Surg [place] [address] [facility] [address] [place] [phone] Magdaleno Phillips MD NO ADDRESS ON FILE Social History Tobacco Use Types Packs/Day Years Used Date Smoking Tobacco: Never Assessed Comments Unknown Sex and Gender Information Value Date Recorded Sex Assigned at Not on file Legal Sex Female 3:31 AM AUTOMOBILE CLUB TRAVEL COUNSELOR Gender Identity Not on file Sexual Orientation [...] , A, 810 Job #: Document #: [id number] cc: MOBILE CLUB TRAVEL COUNSELOR documented in this encounter Plan of Treatment Not on file documented as of this encounter Visit Diagnoses Not on filedocumented in this encounter Care Teams Can Striper Relationship Specialty Start Date End Date Miguel Angel MD [address] [facility] [place] [address] PCP - General Family Practice 10/14/17 documented as of this encounter
--- OUTSIDE RECORDS SUMMARY | 2025-03-19 21:28 | XMS_ITS | Encounter Summary ---
Author Organization [facility] Address [address] [place] [address] Care Team Providers Care Director Multiple Sclerosis Center Name Role Phone Miguel Angel MD Primary Care Provider [phone] Encounter Details Date Type Department Care Team (Latest Contact Info) Description 02/01/2003 Outpatient Historical [facility] [employer] [facility] [address] [place] [address] Josselin Ordonez MD [address] [place] [address], [address] SCREENING MAMM-MAILG NEOPL-OTHER (Primary Dx) Social History Tobacco Use Types Packs/Day Years Used Date Smoking Tobacco: Never Assessed Comments Unknown Sex and Gender Information Value Date Recorded Sex Assigned at Not on file Legal Sex Female 3:31 AM CELL TUBER MACHINE Gender Identity Not on file Sexual Orientation Not on file documented as of this encounter Plan of Treatment Not on file documented as of this encounter Visit Diagnoses Diagnosis Other screening mammogram- Primary documented in this encounter Care Teams Director Multiple Sclerosis Center Relationship Specialty Start Date End Date Miguel Angel MD [address] [facility] [place] [address] PCP - General Family Practice 10/14/17 documented as of this encounter
--- OUTSIDE RECORDS SUMMARY | 2025-03-19 21:28 | XMS_ITS | Encounter Summary ---
Author Organization [facility] Address [address] [place] [address] Care Team Providers Care Van Driver Helper Name Role Phone Miguel Angel MD Primary Care Provider [phone] Encounter Details Date Type Department Care Team (Latest Contact Info) Description 03/26/2005 Outpatient Historical [facility] [address] [place] [address] Kolby Gayle MD [address] [facility] [address] [place] [address] PREOP EXAM OTHER SPECIFIED (Primary Dx) Social History Tobacco Use Types Packs/Day Years Used Date Smoking Tobacco: Never Assessed Comments Unknown Sex and Gender Information Value Date Recorded Sex Assigned at Not on file Legal Sex Female 3:31 AM AIRCRAFT LANDING GEAR 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
--- OUTSIDE RECORDS SUMMARY | 2025-03-19 21:28 | XMS_ITS | Encounter Summary ---
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
--- OUTSIDE RECORDS SUMMARY | 2025-03-19 21:28 | XMS_ITS | Encounter Summary ---
Author Organization [facility] Address [address] [facility] Attn: [place] [address] Care Team Providers Care Merchandise Support Associate Name Role Phone Miguel Angel MD Primary Care Provider [phone] Encounter Details Date Type Department Care Team (Late st Contact Info) Description 01/27/2001 Outpatient Historical Marcelino Lazar MD [address] [place] [address] Social History Tobacco Use Types Packs/Day Years Used Date Smoking Tobacco: Never Assessed Comments Unknown Sex and Gender Information Value Date Recorded Sex Assigned at Not on file Legal Sex Female 3:31 AM LIBRARY HELPER Gender Identity Not on file Sexual Orientation Not on file documented as of this encounter Plan of Treatment Not on file documented as of this encounter Visit Diagnoses Not on filedocumented in this encounter Care Teams Merchandise Support Associate Relationship Specialty Start Date End Date Miguel Angel MD [address] [facility] [place] [address] PCP - General Family Practice 10/14/17 documented as of this encounter
--- OUTSIDE RECORDS SUMMARY | 2025-03-19 21:28 | XMS_ITS | Encounter Summary ---
Author Organization [facility] Address [address] [place] [address] Care Team Providers Care Equipment Manager Name Role Phone Miguel Angel MD Primary Care Provider Encounter Details Date Type Department Care Team (Late st Contact Info) Description 03/10/2005 Outpatient Historical [facility] [place] [address] [place] [address] Kolby Gayle MD [address] [facility] [address] [place] [address] Social History Tobacco Use Types Packs/Day Years Used Date Smoking Tobacco: Never Assessed Comments Unknown Sex and Gender Information Value Date Recorded Sex Assigned at Not on file Legal Sex Female 3:31 AM PROCESS AUTOMATION ENGINEER Gender Identity Not on file Sexual Orientation Not on file documented as of this encounter Plan of Treatment Not on file documented as of this encounter Visit Diagnoses Not on filedocumented in this encounter Care Teams Equipment Manager Relationship Specialty Start Date End Date Miguel Angel MD [address] [facility] [place] [address] PCP - General Family Practice 10/14/17 documented as of this encounter
--- OUTSIDE RECORDS SUMMARY | 2025-03-19 21:28 | XMS_ITS | Encounter Summary ---
Author Organization [facility] Address [address] [place] [address] Care Team Providers Care Claim Analyst Name Role Phone Miguel Angel MD Primary Care Provider [phone] Encounter Details Date Type Department Care Team (Late st Contact Info) Description 03/10/2005 Outpatient Historical [facility] [address] [place] [address] Social History Tobacco Use Types Packs/Day Years Used Date Smoking Tobacco: Never Assessed Comments Unknown Sex and Gender Information Value Date Recorded Sex Assigned at Not on file Legal Sex Female 3:31 AM SENIOR MILITARY ANALYST Gender Identity Not on file Sexual Orientation Not on file documented as of this encounter Plan of Treatment Not on file documented as of this encounter Visit Diagnoses Not on filedocumented in this encounter Care Teams Claim Analyst Relationship Specialty Start Date End Date Miguel Angel MD [address] [facility] [place] [address] PCP - General Family Practice 10/14/17 documented as of this encounter
--- OUTSIDE RECORDS SUMMARY | 2025-03-19 21:28 | XMS_ITS | Encounter Summary ---
Author Organization [facility] Address [address] [place] [address] Care Team Providers Care Waxer Operator Name Role Phone Miguel Angel MD Primary Care Provider Encounter Details Date Type Department Care Team (Latest Contact Info) Description 05/12/2001 Outpatient Historical [address] [phone] Marcelino Lazar MD [address] [phone] Unspecified endocrine disorder (Primary Dx); Sebaceous cyst Social History Tobacco Use Types Packs/Day Years Used Date Smoking Tobacco: Never Assessed Comments Unknown Sex and Gender Information Value Date Recorded Sex Assigned at Not on file Legal Sex Female 3:31 AM AUDIT SPECIALIST Gender Identity Not on file Sexual Orientation Not on file documented as of this encounter Plan of Treatment Not on file documented as of this encounter Visit Diagnoses Diagnosis Unspecified endocrine disorder- Primary Sebaceous cyst documented in this encounter Care Teams Waxer Operator Relationship Specialty Start Date End Date Miguel Angel MD [address] [facility] [place] [address] PCP - General Family Practice 10/14/17 documented as of this encounter
--- OUTSIDE RECORDS SUMMARY | 2025-03-19 21:28 | XMS_ITS | Encounter Summary ---
Author Organization [facility] Address [address] [place] [address] Care Team Providers Care Electrical Controls Designer Name Role Phone Miguel Angel MD Primary Care Provider [phone] Encounter Details Date Type Department Care Team (Latest Contact Info) Description 09/14/2002 Outpatient Historical [address], [place] [phone] Marcelino Lazar MD [address] [phone] SHOULDER REGION DIS NEC (Primary Dx); ENTHESOPATHY, SITE NOS Social History Tobacco Use Types Packs/Day Years Used Date Smoking Tobacco: Never Assessed Comments Unknown Sex and Gender Information Value Date Recorded Sex Assigned at Not on file Legal Sex Female 3:31 AM PROCESS TECHNICIAN Gender Identity Not on file Sexual Orientation Not on file documented as of this encounter Plan of Treatment Not on file documented as of this encounter Visit Diagnoses Diagnosis Other affections of shoulder region, not elsewhere classified- Primary Enthesopathy of unspecified site documented in this encounter Care Teams Electrical Controls Designer Relationship Specialty Start Date End Date Miguel Angel MD [address] [facility] [place] [place] [address] PCP - General Family Practice 10/14/17 documented as of this encounter
--- OUTSIDE RECORDS SUMMARY | 2025-03-19 21:28 | XMS_ITS | Encounter Summary ---
Author Organization [facility] Address [address] [place] [address] Care Team Providers Care Noise Abatement Engineer Name Role Phone Miguel Angel MD Primary Care Provider [phone] Encounter Details Date Type Department Care Team (Latest Contact Info) Description 11/16/2001 Outpatient Historical [address] [address] Josselin Ordonez MD [address] [place] [address], [address] THYROTOX NOS NO CRISIS (Primary Dx) Social History Tobacco Use Types Packs/Day Years Used Date Smoking Tobacco: Never Assessed Comments Unknown Sex and Gender Information Value Date Recorded Sex Assigned at Not on file Legal Sex Female 3:31 AM DIRECTOR DATA PROCESSING Gender Identity Not on file Sexual Orientation Not on file documented as of this encounter Plan of Treatment Not on file documented as of this encounter Visit Diagnoses Diagnosis Thyrotoxicosis without mention of goiter or other cause, without mention of thyrotoxic crisis or storm- Primary documented in this encounter Care Teams Noise Abatement Engineer Relationship Specialty Start Date End Date Miguel Angel MD [address] [facility] [place] [address] PCP - General Family Practice 10/14/17 documented as of this encounter
--- OUTSIDE RECORDS SUMMARY | 2025-03-19 21:28 | XMS_ITS | Encounter Summary ---
Author Organization [facility] Address [address] [place] [address] Care Team Providers Care Coding Clerks Supervisor Name Role Phone Miguel Angel MD Primary Care Provider [phone] Encounter Details Date Type Department Care Team (Latest Contact Info) Description 06/09/2001 Outpatient Historical [facility] Medicine [address] [phone] Rubia Ortiz MD [address] [place] [phone] Acute frontal sinusitis (Primary Dx) Social History Tobacco Use Types Packs/Day Years Used Date Smoking Tobacco: Never Assessed Comments Unknown Sex and Gender Information Value Date Recorded Sex Assigned at Not on file Legal Sex Female 3:31 AM PILE TRIMMER Gender Identity Not on file Sexual Orientation Not on file documented as of this encounter Plan of Treatment Not on file documented as of this encounter Visit Diagnoses Diagnosis Acute frontal sinusitis- Primary documented in this encounter Care Teams Coding Clerks Supervisor Relationship Specialty Start Date End Date Miguel Angel MD [address] [facility] [address] PCP - General Family Practice 10/14/17 documented as of this encounter
--- OUTSIDE RECORDS SUMMARY | 2025-03-19 21:28 | XMS_ITS | Encounter Summary ---
Author Organization [facility] Address [address] [place] [address] Care Team Providers Care Insurance Risk Analyst Name Role Phone Miguel Angel MD Primary Care Provider [phone] Encounter Details Date Type Department Care Team (Late st Contact Info) Description 03/16/2006 Outpatient [facility] [place] [address] [place] [phone] Kolby Gayle MD [address] [facility] [address] [place] [address] Social History Tobacco Use Types Packs/Day Years Used Date Smoking Tobacco: Never Assessed Comments Unknown Sex and Gender Information Value Date Recorded Sex Assigned at Not on file Legal Sex Female 3:31 AM ASSOCIATE MERCHANDISE PLANNER Gender Identity Not on file Sexual Orientation Not on file documented as of this encounter Plan of Treatment Not on file documented as of this encounter Visit Diagnoses Not on filedocumented in this encounter Care Teams Insurance Risk Analyst Relationship Specialty Start Date End Date Miguel Angel MD [address] [facility] [place] [address] PCP - General Family Practice 10/14/17 documented as of this encounter
--- OUTSIDE RECORDS SUMMARY | 2025-03-19 21:28 | XMS_ITS | Encounter Summary ---
Author Organization [facility] Address [address] [place] [address] Care Team Providers Care Blood Donor Unit Assistant Name Role Phone Miguel Angel MD Primary Care Provider [phone] Encounter Details Date Type Department Care Team (Latest Contact Info) Description 06/21/[address] [facility] Gen Spec S[facility] [place] [address] [facility] [address] [place] [address] Magdaleno Phillips MD NO ADDRESS ON FILE BENIGN JAKE SOFT TISSUE HEAD (Primary Dx); SURGERY FOLLOWUP, UNSPEC Social History Tobacco Use Types Packs/Day Years Used Date Smoking Tobacco: Never Assessed Comments Unknown Sex and Gender Information Value Date Recorded Sex Assigned at Not on file Legal Sex Female 3:31 AM UNDER CUTTING MACHINE OPERATOR Gender Identity Not on file Sexual Orientation Not on file documented as of this encounter Plan of Treatment Not on file documented as of this encounter Visit Diagnoses Diagnosis 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
--- OUTSIDE RECORDS SUMMARY | 2025-03-19 21:28 | XMS_ITS | Encounter Summary ---
Author Organization [facility] Address [address] [place] [address] Care Team Providers Care Wine Maker Name Role Phone Miguel Angel MD Primary Care Provider Encounter Details Date Type Department Care Team (Latest Contact Info) Description 07/13/2007 Outpatient [facility] [address] [place], [place] [address] Magdaleno Phillips MD NO ADDRESS ON FILE Depressive Disorder, not Elsewhere Classified; Personal History of Allergy to Penicillin Social History Tobacco Use Types Packs/Day Years Used Date Smoking Tobacco: Never Assessed Comments Unknown Sex and Gender Information Value Date Recorded Sex Assigned at Not on file Legal Sex Female 3:31 AM SKIRT TRIMMER Gender Identity Not on file Sexual Orientation Not on file documented as of this encounter Plan of Treatment Not on file documented as of this encounter Visit Diagnoses Diagnosis Depressive disorder, not elsewhere classified Personal history of allergy to penicillin documented in this encounter Care Teams Wine Maker Relationship Specialty Start Date End Date Miguel Angel MD [address] [facility] [place] [address] PCP - General Family Practice 10/14/17 documented as of this encounter
--- OUTSIDE RECORDS SUMMARY | 2025-03-19 21:28 | XMS_ITS | Encounter Summary ---
Author Organization [facility] Address [address] [place] [address] Care Team Providers Care Place Change Roof Bolter Name Role Phone Miguel Angel MD Primary Care Provider [phone] Encounter Details Date Type Department Care Team (Latest Contact Info) Description 12/05/2002 Outpatient Historical [address] [phone] Marcelino Lazar MD [address] [phone] OTHER MALAISE AND FATIGUE (Primary Dx); GASTRITIS/DUODEN NOS W/O HEMORRH Social History Tobacco Use Types Packs/Day Years Used Date Smoking Tobacco: Never Assessed Comments Unknown Sex and Gender Information Value Date Recorded Sex Assigned at Not on file Legal Sex Female 3:31 AM MANAGER BEHAVIORAL Gender Identity Not on file Sexual Orientation Not on file documented as of this encounter Plan of Treatment Not on file documented as of this encounter Visit Diagnoses Diagnosis Other malaise and fatigue- Primary Unspecified gastritis and gastroduodenitis without mention of hemorrhage documented in this encounter Care Teams Place Change Roof Bolter Relationship Specialty Start Date End Date Miguel Angel MD [address] [facility] [place] [address] PCP - General Family Practice 10/14/17 documented as of this encounter
--- OUTSIDE RECORDS SUMMARY | 2025-03-19 21:28 | XMS_ITS | Encounter Summary ---
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); Benign neoplasm of skin, site unspecified; Dysthymic disorder Social History Tobacco Use Types Packs/Day Years Used Date Smoking Tobacco: Never Assessed Comments Unknown Sex and Gender Information Value Date Recorded Sex Assigned at Not on file Legal Sex Female 3:31 AM ADOLESCENT COUNSELOR Gender Identity Not on file Sexual Orientation Not on file documented as of this encounter Plan of Treatment Not on file documented as of this encounter Visit Diagnoses Diagnosis 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
--- OUTSIDE RECORDS SUMMARY | 2025-03-19 21:28 | XMS_ITS | Encounter Summary ---
Author Organization [facility] Address [address] [place] [address] Care Team Providers Care Welder Production Line Combination Name Role Phone Miguel Angel MD Primary Care Provider Encounter Details Date Type Department Care Team (Latest Contact Info) Description 09/07/2001 Outpatient Historical [facility] Medicine [address] [phone] Marcelino Lazar MD [address] [phone] HEADACHE (Primary Dx); Sprain of neck Social History Tobacco Use Types Packs/Day Years Used Date Smoking Tobacco: Never Assessed Comments Unknown Sex and Gender Information Value Date Recorded Sex Assigned at Not on file Legal Sex Female 3:31 AM ROUTE SALES MANAGER Gender Identity Not on file Sexual Orientation Not on file documented as of this encounter Plan of Treatment Not on file documented as of this encounter Visit Diagnoses Diagnosis Headache(784.0)- Primary Headache Sprain of neck Neck sprain and strain documented in this encounter Care Teams Welder Production Line Combination Relationship Specialty Start Date End Date Miguel Angel MD [address] [facility] [place] [address] PCP - General Family Practice 10/14/17 documented as of this encounter
--- OUTSIDE RECORDS SUMMARY | 2025-03-19 21:28 | XMS_ITS | Encounter Summary ---
Author Organization [facility] Address [address] [place] [address] Care Team Providers Care Quality Control Lab Tech Name Role Phone Miguel Angel MD Primary Care Provider [phone] Reason for Referral * Outpatient Services (Routine) - Closed Specialty Diagnoses / Procedures Referred By Contsmita t Referred To Contact Radiology Diagnoses Other screening mammogram Procedures MAMMO DIGITAL SCREEN BILAT Magdaleno Phillips MD NO ADDRESS ON FILE [facility] [address] [facility] [address] [place] [address] Phone: tel: fax: Referral ID Status Reason Start Date Expiration Date Visits Re quested Visits Authorized [id number] Closed 02/23/2013 03/26/2014 1 1 Encounter Details Date Type Department Care Team (Latest Contact Info) Description 02/23/2013 Ancillary Orders [facility] Pre-Registration [place] CALL TO MAKE APPOINTMENT ONLY [address] [place] [address] Magdaleno Phillips MD NO ADDRESS [...] on file Legal Sex Female 3:31 AM WILDLIFE PROTECTOR Gender Identity Not on file Sexual Orientation [...] Primary documented in this encounter Care Teams Quality Control Lab Tech Relationship Specialty Start Date End Date Migeul Angel MD [address] [place] [address] PCP - General Family Practice 10/14/17 documented as of this encounter
--- OUTSIDE RECORDS SUMMARY | 2025-03-19 21:28 | XMS_ITS | Encounter Summary ---
Author Organization [facility] Address [address] [place] [address] Care Team Providers Care Adzing And Boring Machine Feeder Name Role Phone Miguel Angel MD Primary Care Provider Encounter Details Date Type Department Care Team (Latest Contact Info) Description 03/26/2005 Outpatient Historical [facility] [address] [place] [phone] Kolby Gayle MD [address] [facility] [address] [place] [address] UTERINE LEIOMYOMA NOS (Primary Dx); Excessive menstruation; OVARIAN CYST NEC/NOS Social History Tobacco Use Types Packs/Day Years Used Date Smoking Tobacco: Never Assessed Comments Unknown Sex and Gender Information Value Date Recorded Sex Assigned at Not on file Legal Sex Female 3:31 AM BANDAGE WINDING 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 Gender Identity Not on file Sexual Orientation Not on file documented as of this encounter Plan of Treatment Not on file documented as of this encounter Visit Diagnoses Diagnosis Leiomyoma of uterus, unspecified- Primary Excessive menstruation Excessive or frequent menstruation Other and unspecified ovarian cyst documented in this encounter Care Teams Adzing And Boring Machine Feeder Relationship Specialty Start Date End Date Miguel Angel MD [address] [facility] [address] PCP - General Family Practice 10/14/17 documented as of this encounter
--- OUTSIDE RECORDS SUMMARY | 2025-03-19 21:28 | XMS_ITS | Encounter Summary ---
Author Organization [facility] Address [address] [place] [address] Care Team Providers Care Four H Agent Name Role Phone Miguel Angel MD Primary Care Provider [phone] Encounter Details Date Type Department Care Team (Latest Contact Info) Description 05/01/2005 Outpatient Historical [facility] [address] [place] [phone] Kolby Gayle MD [address] [facility] [address] [place] [address] SURGERY FOLLOWUP NOS (Primary Dx) Social History Tobacco Use Types Packs/Day Years Used Date Smoking Tobacco: Never Assessed Comments Unknown Sex and Gender Information Value Date Recorded Sex Assigned at Not on file Legal Sex Female 3:31 AM BONER MEAT Gender Identity Not on file Sexual Orientation Not on file documented as of this encounter Plan of Treatment Not on file documented as of this encounter Visit Diagnoses Diagnosis Follow-up examination, following unspecified surgery- Primary documented in this encounter Care Teams Four H Agent Relationship Specialty Start Date End Date Miguel Angel MD [address] [facility] [place] [address] PCP - General Family Practice 10/14/17 documented as of this encounter
--- OUTSIDE RECORDS SUMMARY | 2025-03-19 21:28 | XMS_ITS | Encounter Summary ---
Author Organization [facility] Address [address] [place] [address] Care Team Providers Care Scheduling Manager Name Role Phone Miguel Angel MD Primary Care Provider [phone] Encounter Details Date Type Department Care Team (Latest Contact Info) Description 02/01/2003 Outpatient Historical [address] [phone] Josselin Ordonez MD [address] [place] [address], [address] Gynecologic examination (Primary Dx) Social History Tobacco Use Types Packs/Day Years Used Date Smoking Tobacco: Never Assessed Comments Unknown Sex and Gender Information Value Date Recorded Sex Assigned at Not on file 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
--- OUTSIDE RECORDS SUMMARY | 2025-03-19 21:28 | XMS_ITS | Encounter Summary ---
Author Organization [facility] Address [address] [place] [address] Care Team Providers Care Wireless Consultant Name Role Phone Miguel Angel MD Primary Care Provider [phone] Encounter Details Date Type Department Care Team (Late st Contact Info) Description 04/16/2009 Ancillary Orders [facility] Gen Spec Surg 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
--- OUTSIDE RECORDS SUMMARY | 2025-03-19 21:28 | XMS_ITS | Encounter Summary ---
Author Organization [facility] Address [address] [place] [address] Care Team Providers Care Pond Tender Name Role Phone Miguel Angel MD Primary Care Provider [phone] Encounter Details Date Type Department Care Team (Late st Contact Info) Description 02/24/2005 Outpatient Historical [facility] [address] [place] [phone] Kolby Gayle MD [address] [facility] [address] [place] [address] Social History Tobacco Use Types Packs/Day Years Used Date Smoking Tobacco: Never Assessed Comments Unknown Sex and Gender Information Value Date Recorded Sex Assigned at Not on file 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
--- OUTSIDE RECORDS SUMMARY | 2025-03-19 21:28 | XMS_ITS | Encounter Summary ---
Author Organization [facility] Address [address] [place] [address] Care Team Providers Care Orthodontist Small Business Owner Name Role Phone Miguel Angel MD Primary Care Provider [phone] Encounter Details Date Type Department Care Team (Latest Contact Info) Description 05/24/2001 Outpatient Historical [facility] Gen Spec Surg [place] [facility] [address] [place] [phone] Magdaleno Phillips MD NO ADDRESS ON FILE Sebaceous cyst (Primary Dx) Social History Tobacco Use Types Packs/Day Years Used Date Smoking Tobacco: Never Assessed Comments Unknown Sex and Gender Information Value Date Recorded Sex Assigned at Not on file 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
--- OUTSIDE RECORDS SUMMARY | 2025-03-19 21:28 | XMS_ITS | Encounter Summary ---
Author Organization [facility] Address [address] [place] [address] Care Team Providers Care Organizational Development Consultant Name Role Phone Miguel Angel MD Primary Care Provider [phone] Encounter Details Date Type Department Care Team (Latest Contact Info) Description 10/19/2000 Outpatient Historical [address] [phone] Josselin Ordonez MD [address] [place] [address], [address] Hypoglycemia, unspecified (Primary Dx); Dysthymic disorder; Gynecologic examination; Special screening for malignant neoplasms of other sites Social History Tobacco Use Types Packs/Day Years Used Date Smoking Tobacco: Never Assessed Comments Unknown Sex and Gender Information Value Date Recorded Sex Assigned at Not on file 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 Gender Identity Not on file Sexual Orientation Not on file documented as of this encounter Plan of Treatment Not on file documented as of this encounter Visit Diagnoses Diagnosis Hypoglycemia, unspecified- Primary Dysthymic disorder Gynecologic examination Gynecological examination Special screening for malignant neoplasms of other sites documented in this encounter Care Teams Organizational Development Consultant Relationship Specialty Start Date End Date Miguel Angel MD [address] [facility] [place] [address] PCP - General Family Practice 10/14/17 documented as of this encounter
--- OUTSIDE RECORDS SUMMARY | 2025-03-19 21:28 | XMS_ITS | Encounter Summary ---
Author Organization [facility] Address [address] [place] [address] Care Team Providers Care Maintenance Supervisor Mechanical Name Role Phone Miguel Angel MD Primary Care Provider Encounter Details Date Type Department Care Team (Late st Contact Info) Description 03/06/2008 Outpatient 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 Gender Identity Not on file Sexual Orientation [...] 03/08/2008 3:19 PM CDT Report Available in [facility] Procedure Note 09/18/2008 Report Available in [facility] us Magdaleno Phillips MD MAMMO ORDERABLES Final Resul t documented in this encounter Visit Diagnoses Not on filedocumented in this encounter Care Teams Maintenance Supervisor Mechanical Relationship Specialty Start Date End Date Miguel Angel MD [address] [facility] [place] [address] PCP - General Family Practice 10/14/17 documented as of this encounter
--- OUTSIDE RECORDS SUMMARY | 2025-03-19 21:29 | XMS_ITS | Encounter Summary ---
Author Organization [facility] Address [address] [place] [address] Care Team Providers Care Identification Printing Machine Setter Name Role Phone Miguel Angel MD Primary Care Provider Reason for Referral * Outpatient Services (Routine) - Closed Specialty Diagnoses / Procedures Referred By Contsmita t Referred To Contact Diagnoses Abdominal pain Liver cyst Procedures MRI ABDOMEN W WO CONTRAST Josselin Scott MD [address] [place] [address] Phone: tel: fax: Referral ID Status Reason Start Date Expiration Date Visits Re quested Visits Authorized [id number] Closed 01/01/2011 06/30/2011 1 1 Encounter Details Date Type Department Care Team (Late st Contact Info) Description 12/31/2010 Ancillary Orders [facility] Mobile MRI [address] 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 sdm - uploaded from [employer] - Narrative 01/01/2011 3:23 PM CDT Exam: [...] thin internal septations. sdm - uploaded from [employer] - us Josselin Scott MD MR ORDERABLES Final Result documented in this encounter Visit Diagnoses Diagnosis Abdominal pain Abdominal pain, unspecified site Liver cyst Other specified disorders of liver documented in this encounter Care Teams Identification Printing Machine Setter Relationship Specialty Start Date End Date Miguel Angel MD [address] [place] [address] PCP - General Family Practice 10/14/17 documented as of this encounter
--- OUTSIDE RECORDS SUMMARY | 2025-03-19 21:29 | XMS_ITS | Encounter Summary ---
Author Organization [facility] Address [address] [place] [address] Care Team Providers Care Explosive Operator Grenade Name Role Phone Miguel Angel MD Primary Care Provider [phone] Reason for Referral * Outpatient Services (Routine) - Closed Specialty Diagnoses / Procedures Referred By Contsmita t Referred To Contact Diagnoses Other screening mammogram Procedures MAMMO DIGITAL SCREEN BILAT Magdaleno Phillips MD NO ADDRESS ON FILE Referral ID Status Reason Start Date Expiration Date Visits Re quested Visits Authorized [id number] Closed 04/08/2010 10/05/2010 1 1 Encounter Details Date Type Department Care Team (Late st Contact Info) Description 04/08/2010 Ancillary Orders [facility] [address] [facility] [address] [place] [address] Magdaleno Phillips MD NO ADDRESS ON FILE Other Screening Mammogram Social History Tobacco Use Types Packs/Day Years Used Date Smoking Tobacco: Never Assessed Comments Unknown Sex and Gender Information Value Date Recorded Sex Assigned at Not on file 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 [place] [address] PCP - General Family Practice 10/14/17 documented as of this encounter
--- OUTSIDE RECORDS SUMMARY | 2025-03-19 21:29 | XMS_ITS | Clinical Summary ---
Author Organization [facility] Address [address] [place] [address] Care Team Providers Care Investment Consultant Name Role Phone Miguel Angel MD Primary Care Provider [phone] Allergies Active Allergy Reactions Criticality Noted Date [...] file Legal Sex Female 3:31 AM CAFE ASSOCIATE Gender Identity Not on file Sexual Orientation Not on file Occupation Industry Job Start Date Job End Date Not on file Not on file Not on file Not on file Last Filed Vital Signs Vital Sign Reading Time Taken Comments Blood Pressure 146/88 07/09/2020 9:50 AM CAFE ASSOCIATE Pulse 84 10/19/2017 1:02 PM CAFE ASSOCIATE Temperature 36.7 C (98 F) 10/19/2017 11:41 AM CAFE ASSOCIATE Respiratory Rate 16 10/19/2017 1:02 PM CAFE ASSOCIATE Oxygen Saturation 97% 10/19/2017 1:02 PM CAFE ASSOCIATE Inhaled Oxygen Concentration - - Weight 74.8 kg (165 lb) 07/09/2020 9:50 AM CAFE ASSOCIATE Height 162.6 cm (5' 4 ) 07/09/2020 9:50 AM CAFE ASSOCIATE Body Mass Index 28.32 07/09/2020 9:50 AM CAFE ASSOCIATE Plan of Treatment Health Maintenance Due Date [...] Personal/Family Self 1955 [address] [place] [address] [facility] WORK[facility] 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
--- NOTE | 2025-03-19 23:53 | XRR_ITS ---
PROCEDURE INFORMATION: Exam: XR Chest Exam date and time: 03/19/2025 11:58 PM Age: 69 years old Clinical indication: Other: Trouble swallowing TECHNIQUE: Imaging protocol: Radiologic exam of the chest. Views: 1 view. COMPARISON: CR XR chest 1V portable [id number] 03/14/2025 11:02 AM FINDINGS: Lungs: Unremarkable. No consolidation. Pleural spaces: Unremarkable. No pleural effusion. No pneumothorax. Heart/Mediastinum: Unremarkable. No cardiomegaly. Bones/joints: Unremarkable. XR/XR chest 1V portable [id number] IMPRESSION: No acute findings.
--- NOTE | 2025-03-20 00:01 | W.ED.GENADLT ---
HPI - General Adult General: Chief complaint: General Medical Stated complaint: Choking episodes Time Seen by Provider: 03/19/25 23:47 Source: patient Mode of arrival: ambulatory Limitations: no limitations History of Present Illness: Patient is a 69-year-old female with multiple prior ED visits, presenting with a couple of episodes of choking. She states this beginning at approximately 1500 today, stating anytime she ate or drink something she would choke on it. States that she would have trouble breathing with these episodes. She notes that this has been intermittent sometimes she does not have this happen to her. She is also reporting a lump on her chest that she wants checked out. Has never had this issue before, states she has had an upper endoscopy somewhat recently that was normal. MD complaint: Choking Onset (ago): hour(s) Associated symptoms: Reports dyspnea; Deny chest pain, headache(s), nausea, rash, palpitations or vomiting Related Data Home Medications ?Medication ?Instructions ?Recorded ?Confirmed buspirone 10 mg tablet 20 mg PO TID 12/10/20 03/15/25 multivitamin-calcium, 1 tab PO QAM 12/28/20 03/15/25 [id number] isoflavone 400 mcg-60 mg tablet (One-A-Day Menopause Formula) pantoprazole 40 mg tablet,delayed 40 mg PO QAM 12/28/20 03/15/25 release (Protonix) alendronate 35 mg tablet 35 mg PO Q7D 12/23/21 03/15/25 epinephrine 0.3 mg/0.3 mL 0.3 mg IM Q4H PRN Allergic Reaction 12/23/21 03/15/25 injection, auto-injector (EpiPen 2-Fredy) valacyclovir 1 gram tablet 1,000 mg PO BEDTIME 12/23/21 03/15/25 venlafaxine 75 mg tablet 225 mg PO BEDTIME 06/18/23 03/15/25 doxepin 10 mg capsule 10 mg PO DAILY 02/22/25 03/15/25 diphenhydramine HCl 25 mg capsule 75 mg PO BEDTIME PRN Sleep 03/14/25 03/15/25 (Benadryl) aripiprazole 5 mg tablet 5 mg PO BEDTIME 03/15/25 03/15/25 Previous Rx's ?Medication ?Instructions ?Recorded metoprolol tartrate 25 mg tablet 25 mg PO BID #180 tabs 01/09/21 Custom Molded Orthotics #1 ea 09/12/21 pramipexole 0.5 mg tablet 0.5 mg PO BID #60 tabs 03/09/25 levofloxacin 500 mg tablet 500 mg PO DAILY 7 days #7 tabs 03/14/25 metronidazole 500 mg tablet 500 mg PO BID 7 days #14 tabs 03/14/25 Allergies Allergy/AdvReac Type Severity Reaction Status Date / Time Penicillins Allergy Unknown Unknown Verified 02/22/25 10:35 cayenne Allergy Unknown Verified 02/22/25 10:35 erythromycin base Allergy Unknown Verified 02/22/25 10:35 Review of Systems General: Reports: 10 or more systems reviewed and unremarkable except in HPI and below Const: Denies: fever(s), chills or fatigue Eyes: Denies: change in vision ENMT: Denies: throat pain, ear or mastoid pain or nasal discharge Card: Denies: chest pain, palpitations, swelling of feet/ankles or lightheadedness Resp: Reports: dyspnea; Denies: productive cough or wheezing GI: Reports: abdominal pain (Upper) and other (Choking); Denies: nausea, vomiting, diarrhea or constipation : Denies: flank pain, difficulty voiding, dysuria or urinary frequency Musc: Denies: neck pain, back pain or joint pain Skin/Breast: Denies: rash Neuro: Denies: headache(s), numbness in extremities or weakness in extremities PFSH ED PFSH: Medical History PVC (premature ventricular contraction) GERD (gastroesophageal reflux disease) Hyperlipidemia PTSD (post-traumatic stress disorder) History of depression Surgical History Status post laparoscopic cholecystectomy (02/06/21) H/O esophagogastroduodenoscopy (01/31/21) gastritis Status post colonoscopy S/P bilateral breast lumpectomy Hx of hysterectomy Family History Grandfather CAD (coronary artery disease) Myocardial infarction Diabetes Mother Stroke Dementia Father Stroke Dementia Social History Smoking and tobacco/nicotine status: never used tobacco/nicotine Alcohol intake: current Alcohol intake frequency: holidays/special occasions only Substance/Drug Use: never Physical Exam Const: COMMON NORMALS: no acute distress, average body habitus, patient oriented x3, no limitations, healthy appearing, alert and well nourished GENERAL APPEARANCE: cooperative and anxious ORIENTATION/CONSCIOUSNESS: Yes awake HENMT: COMMON NORMALS: normocephalic, atraumatic, hearing grossly normal bilaterally, external ears normal, Normal external nose present, Normal nasal mucous membranes and turbinates present and moist oral mucous membranes HEAD & SCALP: normocephalic and atraumatic NOSE: Normal external nose present and Normal nasal mucous membranes and turbinates present EXTERNAL EAR: Yes external ears normal Eye: COMMON NORMALS: Equal, round and reactive pupils present, EOMs intact bilaterally, conjunctivae normal and normal visual liu by confrontation CONJUNCTIVA: Yes conjunctivae normal PUPIL: Yes Equal, round and reactive pupils present Neck/C-Spine: COMMON NORMALS: full ROM, supple, no meningeal signs and no JVD Resp: COMMON NORMALS: normal respiratory effort, No retractions, No use of accessory muscles and clear to auscultation bilaterally AUSCULTATION: clear to auscultation bilaterally, no crackles, no rales, no rhonchi and no wheezes Cardio: COMMON NORMALS: no JVD, regular rate, regular rhythm, S1 normal heart sound present, S2 normal heart sound present, No gallops present (Cardio), No clicks present (Cardio), No murmurs present (Cardio), No rub (Cardio) and Peripheral pulses 2+ throughout RATE: regular rate RHYTHM: regular rhythm HEART SOUNDS: S1 normal heart sound present and S2 normal heart sound present PERIPHERAL PULSES: Peripheral pulses 2+ throughout GI: COMMON NORMALS: Normal to inspection, nondistended, normoactive bowel sounds present, Soft to palpation, non-tender, No hepatosplenomegaly present and no masses AUSCULTATION: Yes normoactive bowel sounds PALPATION: Yes Soft to palpation, No Guarding due to palpation present (GI), No Rigid due to palpation and Yes No hepatosplenomegaly present RECTAL EXAM: deferred Extremity: COMMON NORMALS: normal to inspection and full ROM Neuro: COMMON NORMALS: patient oriented x3, moves all extremities, no focal motor deficits and no sensory deficits noted SENSORIUM/ORIENTATION: Yes alert MENINGEAL SIGNS: Yes no meningeal signs Psych: COMMON NORMALS: mental status grossly normal, cooperative and speech normal SPEECH: Yes normal speech Skin: COMMON NORMALS: no rashes or lesions noted GENERAL SKIN EXAM: no rashes or lesions noted Course Vital Signs: Vital signs: Vital Signs Temperature 97.7 F 03/19/25 21:28 Pulse Rate 78 03/19/25 21:28 Respiratory Rate 17 03/19/25 21:28 Blood Pressure 125/75 03/19/25 21:28 Pulse Oximetry 99 03/19/25 21:28 Oxygen Delivery Me thod Room Air 03/19/25 21:28 MDM - General Adult Medical Decision Making Patient here for the third time this week, complaining of choking with swallowing. P.o. challenge successful here, she did not have any choking was able to keep down liquids. X-ray was negative. I do not suspect any obstructive process or infectious process. Exam was unremarkable, breathing has been normal and airway patent. She has ENT already, and states that she recently had EGD that was normal. Encouraged her to continue follow-ups and return with any new or worsening. Lab Data Radiology Impressions Chest X-Ray 03/19/25 23:53 IMPRESSION: No acute findings. All radiology interpretation(s) finalized by discharge Discharge Plan Discharge Patient Disposition: Home Clinical Impression: Dysphagia Qualifiers: Dysphagia type: oral phase Qualified Code(s): R13.11 - Dysphagia, oral phase Condition: Stable Prescriptions: No Action (DME) Custom Molded Orthotics See Rx Instructions .Route .MEDSUPPLY Qty: 1 0RF Rx Instructions: As directed doxepin 10 mg capsule 10 mg PO DAILY metoprolol tartrate 25 mg tablet 25 mg PO BID Qty: 180 3RF pramipexole 0.5 mg tablet 0.5 mg PO BID Qty: 60 3RF buspirone 10 mg tablet 20 mg PO TID pantoprazole [Protonix] 40 mg Tablet,Delayed Release (Dr/Ec) 40 mg PO QAM One-A-Day Menopause Formula 400-60 mcg-mg Tablet 1 tab PO QAM valacyclovir 1 gram Tablet 1,000 mg PO BEDTIME alendronate 35 mg Tablet 35 mg PO Q7D Rx Instructions: ON THURSDAY epinephrine [EpiPen 2-Fredy] 0.3 mg/0.3 mL Auto-Injector 0.3 mg IM Q4H PRN (Reason: Allergic Reaction) venlafaxine 75 mg Tablet 225 mg PO BEDTIME diphenhydramine HCl [Benadryl] 25 mg Capsule 75 mg PO BEDTIME PRN (Reason: Sleep) levofloxacin 500 mg tablet 500 mg PO DAILY 7 Days Qty: 7 0RF metronidazole 500 mg tablet 500 mg PO BID 7 Days Qty: 14 0RF aripiprazole 5 mg tablet 5 mg PO BEDTIME Discharge Orders: Discharge ED (Routine); Ordered 03/20/25 Ordered By: Shon Underwood Referrals: Joellen Alvarez FNP [Primary Care Provider, Nurse Practitioner] Patient Instructions: Dysphagia (ED), Patient Portal & Elbert Instructions Activity Restrictions/Additional Instructions: Follow-up with ENT as we discussed. Return with any trouble breathing or any other new concerning symptoms you have. Print Language: Tajik Coding Level of Care Code ED Tailercpa for Marci Quinn
[2025-03-20 00:02] VITALS: BP 115/75; PULSE 79; RESP 18; O2SAT 96
[2025-03-20 01:03] VITALS: BP 115/70; PULSE 75; RESP 16; O2SAT 99
== END 2025-03-20 00:50 | disposition home or self-care (01) ==
PROVIDERS: Emergency Provider Physician Assistant; PCP Nurse Practitioner
DX: R13.11 Dysphagia, oral phase (principal); E78.5 Hyperlipidemia, unspecified
CPT/HCPCS: 71045; 99283

== ENCOUNTER 2025-03-22 09:39 | Outpatient (CLI) | payer OTHER, SELFPAY ==
--- NOTE | 2025-03-22 10:15 | MR_ITS ---
WS: [id number] MRI HEAD WITHOUT CONTRAST TECHNIQUE: Sagittal T1, T2 axial, T2 axial FLAIR, axial and coronal T1 images, axial susceptibility weighted imaging, axial diffusion weighted images, and coronal T2 images were obtained. CLINICAL INFORMATION: G25.5 - Other chorea COMPARISON: Outside MRI 2021 FINDINGS: No evidence of restricted diffusion to suggest acute ischemia. Mild small vessel changes. Moderate parenchymal volume loss worse in the parietal lobes bilaterally. Normal vascular flow voids at the skull base. No extra-axial fluid collections. Paranasal sinuses and mastoid air cells are well aerated. No hemosiderin on susceptibly weighted images. Normal optic chiasm and pituitary infundibulum. Temporal lobes and hippocampal formations are normal in appearance. No other acute findings. MR/MR head wo con* [id number] IMPRESSION: 1. No evidence of restricted diffusion to suggest acute ischemia. 2. Mild small vessel changes progressed since 2021. Moderate parenchymal volum e loss worse in the bilateral parietal lobes progressed since 2021. 3. No hemosiderin on the susceptibly weighted images. 4. No significant atrophy temporal lobes and hippocampal formations. 5. No other acute findings.
== END 2025-03-22 09:40 | disposition home or self-care (01) ==
LOC: RAD 09:40
PROVIDERS: PCP Nurse Practitioner; Visit Provider Specialist
DX: G25.5 Other chorea (principal); G93.9 Disorder of brain, unspecified
CPT/HCPCS: 70551

== ENCOUNTER 2025-03-22 19:51 | Outpatient (CLI) | payer OTHER, SELFPAY | END 2025-03-22 19:52 | disposition home or self-care (01) | LOC: SLEEP 19:52 | PROVIDERS: PCP Nurse Practitioner; Visit Provider Internal Medicine Pulmonary Disease | DX: G47.33 Obstructive sleep apnea (adult) (pediatric) (principal) | CPT/HCPCS: 95811 ==

== ENCOUNTER 2025-03-31 08:23 | Outpatient (CLI) | payer OTHER, SELFPAY ==
--- NOTE | 2025-03-31 08:33 | FL_ITS ---
WS: [id number] Barium swallow and esophagram, 03/31/2025 Clinical Data: DYSPHAGIA Comparison: None. Fluoroscopy time: 1min [id number] # of spot films: 37 Findings: The patient swallowed the thick and thin barium, and it flowed through the hypopharynx without hesitation. No stricture, mass, polyp or erosion was seen. No aspiration or penetration occurred. The barium entered the esophagus and there was normal motility throughout. No hiatal hernia, reflux, stricture, polyp, mass, erosion or ulcer was noted. The barium passed normally into the esophagus.. FL/FL barium swallow [id number] Impression: Normal esophagram.
== END 2025-03-31 08:24 | disposition home or self-care (01) ==
LOC: RAD 08:27
PROVIDERS: PCP Nurse Practitioner; Visit Provider Nurse Practitioner Family
DX: R13.10 Dysphagia, unspecified (principal)
CPT/HCPCS: 74220

== ENCOUNTER → 2025-04-04 15:00 | Outpatient (BNVA) | payer OTHER, SELFPAY | PROVIDERS: PCP Nurse Practitioner; Referring Provider Nurse Practitioner; Visit Provider Specialist | DX: G25.9 Extrapyramidal and movement disorder, unspecified (principal); R29.90 Unspecified symptoms and signs involving the nervous system; E78.5 Hyperlipidemia, unspecified; I71.9 Aortic aneurysm of unspecified site, without rupture; M21.372 Foot drop, left foot; I49.3 Ventricular premature depolarization; G25.5 Other chorea; M54.16 Radiculopathy, lumbar region | CPT/HCPCS: 36415; 82728; 83540; 83550; 99214 ==

== ENCOUNTER 2025-05-02 09:46 | Emergency (ER) | payer OTHER, SELFPAY ==
[2025-05-02 10:18] VITALS: BP 116/78; PULSE 70; RESP 18; TEMP 36.4; O2SAT 99
--- OUTSIDE RECORDS SUMMARY | 2025-05-02 10:46 | XMS_ITS | Encounter Summary ---
Author Organization [facility] Address [address] [place] [address] Care Team Providers Care Lamp Shades Supervisor Name Role Phone Miguel Angel MD Primary Care Provider [phone] Encounter Details Date Type Department Care Team (Latest Contact Info) Description 01/26/2001 Outpatient Historical [address] [phone] Marcelino Lazar MD [address] [phone] Unspecified disorder of skin and subcutaneous tissue (Primary Dx); Patellar tendinitis Social History Tobacco Use Types Packs/Day Years Used Date Smoking Tobacco: Never Assessed Comments Unknown Sex and Gender Information Value Date Recorded Sex Assigned at Not on file Legal Sex Female 3:31 AM SITE HEAD Gender Identity Not on file Sexual Orientation Not on file documented as of this encounter Plan of Treatment Not on file documented as of this encounter Visit Diagnoses Diagnosis Unspecified disorder of skin and subcutaneous tissue- Primary Patellar tendinitis documented in this encounter Care Teams Lamp Shades Supervisor Relationship Specialty Start Date End Date Miguel Angel MD [address] [facility] [place] [address] PCP - General Family Practice 10/14/17 documented as of this encounter
--- OUTSIDE RECORDS SUMMARY | 2025-05-02 10:46 | XMS_ITS | Encounter Summary ---
Author Organization [facility] Address [address] [place] [address] Care Team Providers Care Geophysical Computer Name Role Phone Miguel Angel MD Primary Care Provider [phone] Encounter Details Date Type Department Care Team (Latest Contact Info) Description 09/14/2002 Outpatient Historical [address], [place] [phone] Marcelino Lazar MD [address] [phone] SHOULDER REGION DIS NEC (Primary Dx); ENTHESOPATHY, SITE NOS Social History Tobacco Use Types Packs/Day Years Used Date Smoking Tobacco: Never Assessed Comments Unknown Sex and Gender Information Value Date Recorded Sex Assigned at Not on file Legal Sex Female 3:31 AM CONTAINER CRANE OPERATOR Gender Identity Not on file Sexual Orientation Not on file documented as of this encounter Plan of Treatment Not on file documented as of this encounter Visit Diagnoses Diagnosis Other affections of shoulder region, not elsewhere classified- Primary Enthesopathy of unspecified site documented in this encounter Care Teams Geophysical Computer Relationship Specialty Start Date End Date Miguel Angel MD [address] [facility] [place] [address] PCP - General Family Practice 10/14/17 documented as of this encounter
--- OUTSIDE RECORDS SUMMARY | 2025-05-02 10:46 | XMS_ITS | Encounter Summary ---
Author Organization [facility] Address [address] [place] [address] Care Team Providers Care Fruit Thinner Machine Operator Name Role Phone Miguel Angel MD Primary Care Provider [phone] Encounter Details Date Type Department Care Team (Latest Contact Info) Description 11/30/2001 Outpatient Historical [facility] Medicine [address] [phone] Marcelino Lazar MD [address] [phone] OTALGIA NOS (Primary Dx); ALLERGY, UNSPECIFIED Social History Tobacco Use Types Packs/Day Years Used Date Smoking Tobacco: Never Assessed Comments Unknown Sex and Gender Information Value Date Recorded Sex Assigned at Not on file Legal Sex Female 3:31 AM BRICKMASON CONTRACTOR Gender Identity Not on file Sexual Orientation Not on file documented as of this encounter Plan of Treatment Not on file documented as of this encounter Visit Diagnoses Diagnosis Otalgia, unspecified- Primary Allergy, unspecified not elsewhere classified documented in this encounter Care Teams Fruit Thinner Machine Operator Relationship Specialty Start Date End Date Miguel Angel MD [address] [facility] [place] [address] PCP - General Family Practice 10/14/17 documented as of this encounter
--- OUTSIDE RECORDS SUMMARY | 2025-05-02 10:46 | XMS_ITS | Encounter Summary ---
Author Organization [facility] Address [address] [place] [address] Care Team Providers Care Gyroscope Technician Name Role Phone Miguel Angel MD Primary Care Provider [phone] Encounter Details Date Type Department Care Team (Latest Contact Info) Description 11/16/2001 Outpatient Historical [address] [phone] Josselin Ordonez MD [address] [place] [address], [address] THYROTOX NOS NO CRISIS (Primary Dx) Social History Tobacco Use Types Packs/Day Years Used Date Smoking Tobacco: Never Assessed Comments Unknown Sex and Gender Information Value Date Recorded Sex Assigned at Not on file Legal Sex Female 3:31 AM TRANSPORTATION SERVICES REPRESENTATIVE Gender Identity Not on file Sexual Orientation Not on file documented as of this encounter Plan of Treatment Not on file documented as of this encounter Visit Diagnoses Diagnosis Thyrotoxicosis without mention of goiter or other cause, without mention of thyrotoxic crisis or storm- Primary documented in this encounter Care Teams Gyroscope Technician Relationship Specialty Start Date End Date Miguel Angel MD [address] [facility] [place] [address] PCP - General Family Practice 10/14/17 documented as of this encounter
--- OUTSIDE RECORDS SUMMARY | 2025-05-02 10:46 | XMS_ITS | Encounter Summary ---
Author Organization [facility] Address [address] [place] [address] Care Team Providers Care Deputy Sheriff/Investigator Name Role Phone Miguel Angel MD Primary Care Provider [phone] Encounter Details Date Type Department Care Team (Latest Contact Info) Description 05/16/2002 Outpatient Historical [facility] Medicine [address] [phone] Marcelino Lazar MD [address] [phone] ACUTE FRONTAL SINUSITIS (Primary Dx); ABDOMINAL PAIN UNSPEC SITE; NAUSEA ALONE Social History Tobacco Use Types Packs/Day Years Used Date Smoking Tobacco: Never Assessed Comments Unknown Sex and Gender Information Value Date Recorded Sex Assigned at Not on file Legal Sex Female 3:31 AM LATHE SPOTTER Gender Identity Not on file Sexual Orientation Not on file documented as of this encounter Plan of Treatment Not on file documented as of this encounter Visit Diagnoses Diagnosis Acute frontal sinusitis- Primary Abdominal pain, unspecified site Nausea alone documented in this encounter Care Teams Deputy Sheriff/Investigator Relationship Specialty Start Date End Date Miguel Angel MD [address] [facility] [place] [address] PCP - General Family Practice 10/14/17 documented as of this encounter
--- OUTSIDE RECORDS SUMMARY | 2025-05-02 10:46 | XMS_ITS | Encounter Summary ---
Author Organization [facility] Address [address] [place] [address] Care Team Providers Care Benzene Still Utility Operator Name Role Phone Miguel Angel MD Primary Care Provider [phone] Encounter Details Date Type Department Care Team (Latest Contact Info) Description 10/19/2000 Outpatient Historical [address] [phone] Josselin Ordonez MD [address] [place] [address], [address] Hypoglycemia, unspecified (Primary Dx); Dysthymic disorder; Gynecologic examination; Special screening for malignant neoplasms of other sites Social History Tobacco Use Types Packs/Day Years Used Date Smoking Tobacco: Never Assessed Comments Unknown Sex and Gender Information Value Date Recorded Sex Assigned at Not on file Legal Sex Female 3:31 AM BORDER MEASURER Gender Identity Not on file Sexual Orientation Not on file documented as of this encounter Plan of Treatment Not on file documented as of this encounter Visit Diagnoses Diagnosis Hypoglycemia, unspecified- Primary Dysthymic disorder Gynecologic examination Gynecological examination Special screening for malignant neoplasms of other sites documented in this encounter Care Teams Benzene Still Utility Operator Relationship Specialty Start Date End Date Miguel Angel MD [address] [facility] [place] [address] PCP - General Family Practice 10/14/17 documented as of this encounter
--- OUTSIDE RECORDS SUMMARY | 2025-05-02 10:46 | XMS_ITS | Encounter Summary ---
Author Organization [facility] Address [address] [place] [address] Care Team Providers Care Cold Work Operator Name Role Phone Miguel Angel MD Primary Care Provider Encounter Details Date Type Department Care Team (Latest Contact Info) Description 11/11/[address] [phone] Josselin Ordonez MD [address] [place] [address], [address] INSOMNIA NEC (Primary Dx); OTHER MALAISE AND FATIGUE; ACUTE FRONTAL SINUSITIS Social History Tobacco Use Types Packs/Day Years Used Date Smoking Tobacco: Never Assessed Comments Unknown Sex and Gender Information Value Date Recorded Sex Assigned at Not on file Legal Sex Female 3:31 AM DISPATCH COORDINATOR Gender Identity Not on file Sexual Orientation Not on file documented as of this encounter Plan of Treatment Not on file documented as of this encounter Visit Diagnoses Diagnosis Insomnia, unspecified- Primary Other malaise and fatigue Acute frontal sinusitis documented in this encounter Care Teams Cold Work Operator Relationship Specialty Start Date End Date Miguel Angel MD [address] [facility] [place] [address] PCP - General Family Practice 10/14/17 documented as of this encounter
--- OUTSIDE RECORDS SUMMARY | 2025-05-02 10:46 | XMS_ITS | Encounter Summary ---
Author Organization [facility] Address [address] [place] [address] Care Team Providers Care Mint Wafer Depositor Name Role Phone Miguel Angel MD Primary Care Provider [phone] Encounter Details Date Type Department Care Team (Latest Contact Info) Description 05/24/2001 Outpatient Historical [facility] Gen Spec Surg [place] [facility] [address] [place] [phone] Magdaleno Phillips MD NO ADDRESS ON FILE Sebaceous cyst (Primary Dx) Social History Tobacco Use Types Packs/Day Years Used Date Smoking Tobacco: Never Assessed Comments Unknown Sex and Gender Information Value Date Recorded Sex Assigned at Not on file Legal Sex Female 3:31 AM REVENUE STAMP CUTTER Gender Identity Not on file Sexual Orientation Not on file documented as of this encounter Plan of Treatment Not on file documented as of this encounter Visit Diagnoses Diagnosis Sebaceous cyst- Primary documented in this encounter Care Teams Mint Wafer Depositor Relationship Specialty Start Date End Date Miguel Angel MD [address] [facility] [place] [address] PCP - General Family Practice 10/14/17 documented as of this encounter
--- OUTSIDE RECORDS SUMMARY | 2025-05-02 10:46 | XMS_ITS | Encounter Summary ---
Author Organization [facility] Address [address] [facility] Attn: [place] [address] Care Team Providers Care Shop Foreman Name Role Phone Miguel Angel MD Primary Care Provider [phone] Encounter Details Date Type Department Care Team (Late st Contact Info) Description 01/27/2001 Outpatient Historical Marcelino Lazar MD [address] [place] [address] Social History Tobacco Use Types Packs/Day Years Used Date Smoking Tobacco: Never Assessed Comments Unknown Sex and Gender Information Value Date Recorded Sex Assigned at Not on file Legal Sex Female 3:31 AM SAFETY ENGINEER Gender Identity Not on file Sexual Orientation Not on file documented as of this encounter Plan of Treatment Not on file documented as of this encounter Visit Diagnoses Not on filedocumented in this encounter Care Teams Shop Foreman Relationship Specialty Start Date End Date Miguel Angel MD [address] [facility] [place] [address] PCP - General Family Practice 10/14/17 documented as of this encounter
--- OUTSIDE RECORDS SUMMARY | 2025-05-02 10:46 | XMS_ITS | Encounter Summary ---
Author Organization [facility] Address [address] [facility] Attn: [place] [address] Care Team Providers Care Sloop Captain Name Role Phone Miguel Angel MD Primary Care Provider [phone] Encounter Details Date Type Department Care Team (Late st Contact Info) Description 06/11/2001 Outpatient Historical Magdaleno Phillips MD NO ADDRESS ON FILE Social History Tobacco Use Types Packs/Day Years Used Date Smoking Tobacco: Never Assessed Comments Unknown Sex and Gender Information Value Date Recorded Sex Assigned at Not on file Legal Sex Female 3:31 AM APPRENTICE PLANT ATTENDANT Gender Identity Not on file Sexual Orientation Not on file documented as of this encounter Plan of Treatment Not on file documented as of this encounter Visit Diagnoses Not on filedocumented in this encounter Care Teams Sloop Captain Relationship Specialty Start Date End Date Miguel Angel MD [address] [facility] [place] [address] PCP - General Family Practice 10/14/17 documented as of this encounter
--- OUTSIDE RECORDS SUMMARY | 2025-05-02 10:46 | XMS_ITS | Encounter Summary ---
Author Organization [facility] Address [address] [place] [address] Care Team Providers Care Interactive Media Designer Name Role Phone Miguel Angel MD Primary Care Provider [phone] Encounter Details Date Type Department Care Team (Latest Contact Info) Description 06/09/2001 Outpatient Historical [facility] Medicine [address] [phone] Rubia Ortiz MD [address] [place] [phone] Acute frontal sinusitis (Primary Dx) Social History Tobacco Use Types Packs/Day Years Used Date Smoking Tobacco: Never Assessed Comments Unknown Sex and Gender Information Value Date Recorded Sex Assigned at Not on file Legal Sex Female 3:31 AM CASE THERAPIST Gender Identity Not on file Sexual Orientation Not on file documented as of this encounter Plan of Treatment Not on file documented as of this encounter Visit Diagnoses Diagnosis Acute frontal sinusitis- Primary documented in this encounter Care Teams Interactive Media Designer Relationship Specialty Start Date End Date Miguel Angel MD [address] [facility] [place] [address] PCP - General Family Practice 10/14/17 documented as of this encounter
--- OUTSIDE RECORDS SUMMARY | 2025-05-02 10:46 | XMS_ITS | Encounter Summary ---
Author Organization [facility] Address [address] [place] [address] Care Team Providers Care Events Intern Name Role Phone Miguel Angel MD Primary Care Provider [phone] Encounter Details Date Type Department Care Team (Latest Contact Info) Description 09/07/[address] 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
--- OUTSIDE RECORDS SUMMARY | 2025-05-02 10:46 | XMS_ITS | Encounter Summary ---
Author Organization [facility] Address [address] [place] [address] Care Team Providers Care Weld Lay Out Worker Name Role Phone Miguel Angel MD Primary Care Provider [phone] Encounter Details Date Type Department Care Team (Latest Contact Info) Description 06/21/2001 Outpatient Historical [facility] Gen Spec Surg [place] [address] [facility] [address] [place] [address] Magdaleno Phillips MD NO ADDRESS ON FILE BENIGN JAKE SOFT TISSUE HEAD (Primary Dx); SURGERY FOLLOWUP, UNSPEC Social History Tobacco Use Types Packs/Day Years Used Date Smoking Tobacco: Never Assessed Comments Unknown Sex and Gender Information Value Date Recorded Sex Assigned at Not on file Legal Sex Female 3:31 AM CLINIC LICENSED PRACTICAL NURSE Gender Identity Not on file Sexual Orientation Not on file documented as of this encounter Plan of Treatment Not on file documented as of this encounter Visit Diagnoses Diagnosis 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
--- OUTSIDE RECORDS SUMMARY | 2025-05-02 10:47 | XMS_ITS | Encounter Summary ---
Author Organization [facility] Address [address] [place] [address] Care Team Providers Care Timber Repairer Name Role Phone Miguel Angel MD Primary Care Provider [phone] Encounter Details Date Type Department Care Team (Latest Contact Info) Description 03/16/2006 [facility]patient [facility] [address] [place] [phone] Kolby Gayle MD [address] [facility] [address] [place] [address] Routine Medical Exam (Primary Dx); Routine Gynecological Examination Social History Tobacco Use Types Packs/Day Years Used Date Smoking Tobacco: Never Assessed Comments Unknown Sex and Gender Information Value Date Recorded Sex Assigned at Not on file Legal Sex Female 3:31 AM PLASTIC OUTFITTER Gender Identity Not on file Sexual Orientation Not on file documented as of this encounter Plan of Treatment Not on file documented as of this encounter Visit Diagnoses Diagnosis Routine medical exam- Primary Routine general medical examination at a health care facility Routine gynecological examination documented in this encounter Care Teams Timber Repairer Relationship Specialty Start Date End Date Miguel Angel MD [address] [facility] [place] [address] PCP - General Family Practice 10/14/17 documented as of this encounter
--- OUTSIDE RECORDS SUMMARY | 2025-05-02 10:47 | XMS_ITS | Encounter Summary ---
Author Organization [facility] Address [address] [place] [address] Care Team Providers Care Supervisor Steffen House Name Role Phone Miguel Angel MD Primary Care Provider [phone] Encounter Details Date Type Department Care Team (Late st Contact Info) Description 07/13/[address] [facility] [address] [facility] [address] [place] [address] Social History Tobacco Use Types Packs/Day Years Used Date Smoking Tobacco: Never Assessed Comments Unknown Sex and Gender Information Value Date Recorded Sex Assigned at Not on file Legal Sex Female 3:31 AM QUALITY ENGINEERING MANAGER Gender Identity Not on file Sexual Orientation Not on file documented as of this encounter Plan of Treatment Not on file documented as of this encounter Visit Diagnoses Not on filedocumented in this encounter Care Teams Supervisor Steffen House Relationship Specialty Start Date End Date Miguel Angel MD [address] [facility] [place] [address] PCP - General Family Practice 10/14/17 documented as of this encounter
--- OUTSIDE RECORDS SUMMARY | 2025-05-02 10:47 | XMS_ITS | Encounter Summary ---
Author Organization [facility] Address [address] [place] [address] Care Team Providers Care Machine Tool Operator Name Role Phone Miguel Angel MD Primary Care Provider [phone] Encounter Details Date Type Department Care Team (Latest Contact Info) Description 12/05/2002 Outpatient Historical [address], [place] [phone] Marcelino Lazar MD [address] [phone] OTHER MALAISE AND FATIGUE (Primary Dx); GASTRITIS/DUODEN NOS W/O HEMORRH Social History Tobacco Use Types Packs/Day Years Used Date Smoking Tobacco: Never Assessed Comments Unknown Sex and Gender Information Value Date Recorded Sex Assigned at Not on file Legal Sex Female 3:31 AM DIRECTOR OF COMMUNITY LIFE Gender Identity Not on file Sexual Orientation Not on file documented as of this encounter Plan of Treatment Not on file documented as of this encounter Visit Diagnoses Diagnosis Other malaise and fatigue- Primary Unspecified gastritis and gastroduodenitis without mention of hemorrhage documented in this encounter Care Teams Machine Tool Operator Relationship Specialty Start Date End Date Miguel Angel MD [address] [facility] [place] [address] PCP - General Family Practice 10/14/17 documented as of this encounter
--- OUTSIDE RECORDS SUMMARY | 2025-05-02 10:47 | XMS_ITS | Encounter Summary ---
Author Organization [facility] Address [address] [place] [address] Care Team Providers Care Casting And Locker Room Servicer Name Role Phone Miguel Angel MD Primary Care Provider [phone] Encounter Details Date Type Department Care Team (Late st Contact Info) Description 03/06/2009 Ancillary Orders [facility] Gen Spec Surg [place] [address] [place] [address] Magdaleno Phillips MD NO ADDRESS ON FILE Screening Mammogram Social History Tobacco Use Types Packs/Day Years Used Date Smoking Tobacco: Never Assessed Comments Unknown Sex and Gender Information Value Date Recorded Sex Assigned at Not on file Legal Sex Female 3:31 AM ASSEMBLY MACHINE SET UP MECHANIC Gender Identity Not on file Sexual [...] mammogram documented in this encounter Care Teams Casting And Locker Room Servicer Relationship Specialty Start Date End Date Miguel Angel MD [address] [place] [address] PCP - General Family Practice 10/14/17 documented as of this encounter
--- OUTSIDE RECORDS SUMMARY | 2025-05-02 10:47 | XMS_ITS | Encounter Summary ---
Author Organization [facility] Address [address] [place] [address] Care Team Providers Care International Logistics Analyst Name Role Phone Miguel Angel MD Primary Care Provider [phone] Encounter Details Date Type Department Care Team (Late st Contact Info) Description 12/05/[address] [address] Julius Banda, POULTRY HATCHERY LABORER [address] [place] [address] Social History Tobacco Use Types Packs/Day Years Used Date Smoking Tobacco: Never Assessed Comments Unknown Sex and Gender Information Value Date Recorded Sex Assigned at Not on file Legal Sex Female 3:31 AM ENAMEL CRACKER Gender Identity Not on file Sexual Orientation Not on file documented as of this encounter Plan of Treatment Not on file documented as of this encounter Visit Diagnoses Not on filedocumented in this encounter Care Teams International Logistics Analyst Relationship Specialty Start Date End Date Miguel Angel MD [address] [facility] [place] [address] PCP - General Family Practice 10/14/17 documented as of this encounter
--- OUTSIDE RECORDS SUMMARY | 2025-05-02 10:47 | XMS_ITS | Encounter Summary ---
Author Organization [facility] Address [address] [place] [address] Care Team Providers Care Software Clerk Name Role Phone Miguel Angel MD Primary Care Provider [phone] Encounter Details Date Type Department Care Team (Late st Contact Info) Description 03/16/2006 Outpatient [facility] [address] [place] [address] Kolby Gayle MD [address] [facility] [address] [place] [address] Social History Tobacco Use Types Packs/Day Years Used Date Smoking Tobacco: Never Assessed Comments Unknown Sex and Gender Information Value Date Recorded Sex Assigned at Not on file Legal Sex Female 3:31 AM NEW GRAD RN Gender Identity Not on file Sexual Orientation Not on file documented as of this encounter Plan of Treatment Not on file documented as of this encounter Visit Diagnoses Not on filedocumented in this encounter Care Teams Software Clerk Relationship Specialty Start Date End Date Miguel Angel MD [address] [facility] [place] [address] PCP - General Family Practice 10/14/17 documented as of this encounter
--- OUTSIDE RECORDS SUMMARY | 2025-05-02 10:47 | XMS_ITS | Encounter Summary ---
Author Organization [facility] Address [address] [place] [address] Care Team Providers Care Dairy Grazer Name Role Phone Miguel Angel MD Primary Care Provider [phone] Encounter Details Date Type Department Care Team (Late st Contact Info) Description 04/16/2009 Ancillary Orders [facility] Gen Spec Surg [address] [place] [address] Magdaleno Phillips MD NO ADDRESS ON FILE Other Screening Mammogram Social History Tobacco Use Types Packs/Day Years Used Date Smoking Tobacco: Never Assessed Comments Unknown Sex and Gender Information Value Date Recorded Sex Assigned at Not on file Legal Sex Female 3:31 AM LEAD WEB APPLICATION DEVELOPER Gender Identity Not on file Sexual [...] mammogram documented in this encounter Care Teams Dairy Grazer Relationship Specialty Start Date End Date Miguel Angel MD [address] [facility] [address] PCP - General Family Practice 10/14/17 documented as of this encounter
--- OUTSIDE RECORDS SUMMARY | 2025-05-02 10:47 | XMS_ITS | Encounter Summary ---
Author Organization [facility] Address [address] [place] [address] Care Team Providers Care Drill Foreman Name Role Phone Miguel Angel MD Primary Care Provider [phone] Encounter Details Date Type Department Care Team (Latest Contact Info) Description 02/01/2003 Outpatient Historical [facility] [address] [place] [address] Josselin Ordonez MD [address] [place] [address], [address] SCREENING MAMM-MAILG NEOPL-OTHER (Primary Dx) Social History Tobacco Use Types Packs/Day Years Used Date Smoking Tobacco: Never Assessed Comments Unknown Sex and Gender Information Value Date Recorded Sex Assigned at Not on file Legal Sex Female 3:31 AM STEWARD/STEWARDESS ROOM Gender Identity Not on file Sexual Orientation Not on file documented as of this encounter Plan of Treatment Not on file documented as of this encounter Visit Diagnoses Diagnosis Other screening mammogram- Primary documented in this encounter Care Teams Drill Foreman Relationship Specialty Start Date End Date Miguel Angel MD [address] [facility] [place] [address] PCP - General Family Practice 10/14/17 documented as of this encounter
--- OUTSIDE RECORDS SUMMARY | 2025-05-02 10:47 | XMS_ITS | Encounter Summary ---
Author Organization [facility] Address [address] [place] [address] Care Team Providers Care Client Executive Name Role Phone Miguel Angel MD Primary Care Provider [phone] Encounter Details Date Type Department Care Team (Late st Contact Info) Description 03/06/2008 Outpatient [facility] [address] [place], [place] [phone] Magdaleno Phillips MD NO ADDRESS ON FILE Social History Tobacco Use Types Packs/Day Years Used Date Smoking Tobacco: Never Assessed Comments Unknown Sex and Gender Information Value Date Recorded Sex Assigned at Not on file 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 Gender Identity Not on file Sexual Orientation [...] 03/08/2008 3:19 PM CDT Report Available in [facility] Procedure Note 09/18/2008 Report Available in [facility] us Magdaleno Phillips MD MAMMO ORDERABLES Final Resul t documented in this encounter Visit Diagnoses Not on filedocumented in this encounter Care Teams Client Executive Relationship Specialty Start Date End Date Miguel Angel MD [address] [facility] [place] [address] PCP - General Family Practice 10/14/17 documented as of this encounter
--- OUTSIDE RECORDS SUMMARY | 2025-05-02 10:47 | XMS_ITS | Encounter Summary ---
Author Organization [facility] Address [address] [place] [address] Care Team Providers Care Surveyor Geophysical Prospecting Name Role Phone Miguel Angel MD Primary Care Provider [phone] Encounter Details Date Type Department Care Team (Latest Contact Info) Description 02/24/2005 Outpatient Historical [facility] [address] [place] [address] Kolby Gayle MD [address] [facility] [address] [place] [address] Excessive menstruation (Primary Dx) Social History Tobacco Use Types Packs/Day Years Used Date Smoking Tobacco: Never Assessed Comments Unknown Sex and Gender Information Value Date Recorded Sex Assigned at Not on file 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
--- OUTSIDE RECORDS SUMMARY | 2025-05-02 10:47 | XMS_ITS | Encounter Summary ---
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); Benign neoplasm of skin, site unspecified; Dysthymic disorder Social History Tobacco Use Types Packs/Day Years Used Date Smoking Tobacco: Never Assessed Comments Unknown Sex and Gender Information Value Date Recorded Sex Assigned at Not on file Legal Sex Female 3:31 AM 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 ANALYST Gender Identity Not on file Sexual Orientation Not on file documented as of this encounter Plan of Treatment Not on file documented as of this encounter Visit Diagnoses Diagnosis 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
--- OUTSIDE RECORDS SUMMARY | 2025-05-02 10:47 | XMS_ITS | Encounter Summary ---
Author Organization [facility] Address [address] [place] [address] Care Team Providers Care Guncotton Packer Name Role Phone Miguel Angel MD Primary Care Provider Encounter Details Date Type Department Care Team (Late st Contact Info) Description 09/15/2007 Outpatient Historical [facility] Gen Spec Surg [place] [address] [facility] [address] [place] [address] Magdaleno Phillips MD NO ADDRESS ON FILE Social History Tobacco Use Types Packs/Day Years Used Date Smoking Tobacco: Never Assessed Comments Unknown Sex and Gender Information Value Date Recorded Sex Assigned at Not on file Legal Sex Female 3:31 AM DIET ASSISTANT Gender Identity Not on file Sexual [...] , A, 810 Job #: Document #: [id number] cc: ASSISTANT documented in this encounter Plan of Treatment Not on file documented as of this encounter Visit Diagnoses Not on filedocumented in this encounter Care Teams Guncotton Packer Relationship Specialty Start Date End Date Miguel Angel MD [address] [facility] [place] [address] PCP - General Family Practice 10/14/17 documented as of this encounter
--- OUTSIDE RECORDS SUMMARY | 2025-05-02 10:47 | XMS_ITS | Encounter Summary ---
Author Organization [facility] Address [address] [place] [address] Care Team Providers Care Collection Specialist Name Role Phone Miguel Angel MD Primary Care Provider [phone] Encounter Details Date Type Department Care Team (Latest Contact Info) Description 05/12/2001 Outpatient Historical [address] [phone] Marcelino Lazar MD [address] [phone] Unspecified endocrine disorder (Primary Dx); Sebaceous cyst Social History Tobacco Use Types Packs/Day Years Used Date Smoking Tobacco: Never Assessed Comments Unknown Sex and Gender Information Value Date Recorded Sex Assigned at Not on file Legal Sex Female 3:31 AM 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
--- OUTSIDE RECORDS SUMMARY | 2025-05-02 10:47 | XMS_ITS | Encounter Summary ---
Author Organization [facility] Address [address] [place] [address] Care Team Providers Care Enrollment Management Vice President Name Role Phone Miguel Angel MD Primary Care Provider [phone] Encounter Details Date Type Department Care Team (Late st Contact Info) Description 04/01/2005 Inpatient Historical [facility] Kolby Gayle MD [address] [facility] [address] [place], [place] [phone] INTRAMURAL LEIOMYOMA (Primary Dx) Social History Tobacco Use Types Packs/Day Years Used Date Smoking Tobacco: Never Assessed Comments Unknown Sex and Gender Information Value Date Recorded Sex Assigned at Not on file 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
--- OUTSIDE RECORDS SUMMARY | 2025-05-02 10:47 | XMS_ITS | Encounter Summary ---
Author Organization [facility] Address [address] [place] [address] Care Team Providers Care Gas Main Fitter Helper Name Role Phone Miguel Angel MD Primary Care Provider [phone] Reason for Referral * Outpatient Services (Routine) - Closed Specialty Diagnoses / Procedures Referred By Contsmita t Referred To Contact Diagnoses Abdominal pain Liver cyst Procedures MRI ABDOMEN W WO CONTRAST Josselin Scott MD [address] [place] [address] Phone: tel: fax: Referral ID Status Reason Start Date Expiration Date Visits Re quested Visits Authorized [id number] Closed 01/01/2011 06/30/2011 1 1 Encounter Details Date Type Department Care Team (Late st Contact Info) Description 12/31/2010 Ancillary Orders [facility] Mobile MRI [address] [place] [address] Josselin Scott MD [address] [place] [address] Abdominal pain; Liver cyst Social History Tobacco Use Types Packs/Day Years Used Date Smoking Tobacco: Never Assessed Comments No Sex and Gender Information Value Date Recorded Sex Assigned at Not on file Legal Sex Female 3:31 AM TRANSPORTATION OFFICER Gender Identity Not on file Sexual [...] thin internal septations. sdm - uploaded from [facility] - Narrative 01/01/2011 3:23 PM CDT Exam: [...] thin internal septations. sdm - uploaded from [facility] - us Josselin Scott MD MR ORDERABLES Final Result documented in this encounter Visit Diagnoses Diagnosis Abdominal pain Abdominal pain, unspecified site Liver cyst Other specified disorders of liver documented in this encounter Care Teams Gas Main Fitter Helper Relationship Specialty Start Date End Date Miguel Angel MD [address] [place] [address] PCP - General Family Practice 10/14/17 documented as of this encounter
--- OUTSIDE RECORDS SUMMARY | 2025-05-02 10:47 | XMS_ITS | Encounter Summary ---
Author Organization [facility] Address [address] [place] [address] Care Team Providers Care K9 Handler Name Role Phone Miguel Angel MD Primary Care Provider [phone] Encounter Details Date Type Department Care Team (Latest Contact Info) Description 03/26/2005 Outpatient Historical [facility] Jd [place] [address] [place] [address] Kolby Gayle MD [address] [facility] [address] [place] [address] UTERINE LEIOMYOMA NOS (Primary Dx); Excessive menstruation; OVARIAN CYST NEC/NOS Social History Tobacco Use Types Packs/Day Years Used Date Smoking Tobacco: Never Assessed Comments Unknown Sex and Gender Information Value Date Recorded Sex Assigned at Not on file Legal Sex Female 3:31 AM EPILEPSY PHYSICIAN Gender Identity Not on file Sexual Orientation Not on file documented as of this encounter Plan of Treatment Not on file documented as of this encounter Visit Diagnoses Diagnosis Leiomyoma of uterus, unspecified- Primary Excessive menstruation Excessive or frequent menstruation Other and unspecified ovarian cyst documented in this encounter Care Teams K9 Handler Relationship Specialty Start Date End Date Miguel Angel MD [address] [facility] [place] [address] PCP - General Family Practice 10/14/17 documented as of this encounter
--- OUTSIDE RECORDS SUMMARY | 2025-05-02 10:47 | XMS_ITS | Encounter Summary ---
Author Organization [facility] Address [address] [place] [address] Care Team Providers Care Senior Instructor Name Role Phone Miguel Angel MD Primary Care Provider [phone] Encounter Details Date Type Department Care Team (Late st Contact Info) Description 02/01/2003 Outpatient [facility] [address] [facility] [address] [place] [address] Social History Tobacco Use Types Packs/Day Years Used Date Smoking Tobacco: Never Assessed Comments Unknown Sex and Gender Information Value Date Recorded Sex Assigned at Not on file 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
--- OUTSIDE RECORDS SUMMARY | 2025-05-02 10:47 | XMS_ITS | Encounter Summary ---
Author Organization [facility] Address [address] [place] [address] Care Team Providers Care Bar Host/Hostess Name Role Phone Miguel Angel MD Primary Care Provider [phone] Encounter Details Date Type Department Care Team (Latest Contact Info) Description 05/01/2005 Outpatient Historical [facility] [place] [address] [place] [address] Kolby Gayle MD [address] [facility] [address] [place] [address] SURGERY FOLLOWUP NOS (Primary Dx) Social History Tobacco Use Types Packs/Day Years Used Date Smoking Tobacco: Never Assessed Comments Unknown Sex and Gender Information Value Date Recorded Sex Assigned at Not on file Legal Sex Female 3:31 AM RADIO SURVEY WORKER Gender Identity Not on file Sexual Orientation Not on file documented as of this encounter Plan of Treatment Not on file documented as of this encounter Visit Diagnoses Diagnosis Follow-up examination, following unspecified surgery- Primary documented in this encounter Care Teams Bar Host/Hostess Relationship Specialty Start Date End Date Miguel Angel MD [address] [facility] [place] [address] PCP - General Family Practice 10/14/17 documented as of this encounter
--- OUTSIDE RECORDS SUMMARY | 2025-05-02 10:47 | XMS_ITS | Encounter Summary ---
Author Organization [facility] Address [address] [place] [address] Care Team Providers Care Cloth Drier Name Role Phone Miguel Angel MD Primary Care Provider [phone] Encounter Details Date Type Department Care Team (Latest Contact Info) Description 05/28/2005 Outpatient Historical [facility] [place] [address] [place] [address] Kolby Gayle MD [address] [facility] [address] [place] [address] URIN TRACT INFECTION NOS (Primary Dx) Social History Tobacco Use Types Packs/Day Years Used Date Smoking Tobacco: Never Assessed Comments Unknown Sex and Gender Information Value Date Recorded Sex Assigned at Not on file Legal Sex Female 3:31 AM ACID PUMPER Gender Identity Not on file Sexual Orientation Not on file documented as of this encounter Plan of Treatment Not on file documented as of this encounter Visit Diagnoses Diagnosis Urinary tract infection, site not specified- Primary documented in this encounter Care Teams Cloth Drier Relationship Specialty Start Date End Date Miguel Angel MD [address] [facility] [place] [address] PCP - General Family Practice 10/14/17 documented as of this encounter
--- OUTSIDE RECORDS SUMMARY | 2025-05-02 10:47 | XMS_ITS | Encounter Summary ---
Author Organization [facility] Address [address] [place] [address] Care Team Providers Care Attendant Sales Name Role Phone Miguel Angel MD Primary Care Provider [phone] Encounter Details Date Type Department Care Team (Late st Contact Info) Description 02/24/2005 Outpatient Historical [facility] [place] [address] [place] [address] Kolby Gayle MD [address] [facility] [address] [place] [address] Social History Tobacco Use Types Packs/Day Years Used Date Smoking Tobacco: Never Assessed Comments Unknown Sex and Gender Information Value Date Recorded Sex Assigned at Not on file 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
--- OUTSIDE RECORDS SUMMARY | 2025-05-02 10:47 | XMS_ITS | Encounter Summary ---
Author Organization [facility] Address [address] [place] [address] Care Team Providers Care Remote Sensing Advisor Name Role Phone Miguel Angel MD Primary Care Provider [phone] Encounter Details Date Type Department Care Team (Latest Contact Info) Description 02/01/2003 Outpatient Historical [address] [phone] Josselin Ordonez MD [address] [place] [address], [address] Gynecologic examination (Primary Dx) Social History Tobacco Use Types Packs/Day Years Used Date Smoking Tobacco: Never Assessed Comments Unknown Sex and Gender Information Value Date Recorded Sex Assigned at Not on file 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
--- OUTSIDE RECORDS SUMMARY | 2025-05-02 10:47 | XMS_ITS | Encounter Summary ---
Author Organization [facility] Address [address] [place] [address] Care Team Providers Care Transmitter Supervisor Name Role Phone Miguel Angel MD Primary Care Provider [phone] Encounter Details Date Type Department Care Team (Late st Contact Info) Description 03/10/2005 Outpatient Historical [facility] [place] [address] [phone] Kolby Gayle MD [address] [facility] [address] [place] [address] Social History Tobacco Use Types Packs/Day Years Used Date Smoking Tobacco: Never Assessed Comments Unknown Sex and Gender Information Value Date Recorded Sex Assigned at Not on file Legal Sex Female 3:31 AM REPRODUCTIVE ENDOCRINOLOGIST Gender Identity Not on file Sexual Orientation Not on file documented as of this encounter Plan of Treatment Not on file documented as of this encounter Visit Diagnoses Not on filedocumented in this encounter Care Teams Transmitter Supervisor Relationship Specialty Start Date End Date Miguel Angel MD [address] [facility] [place] [address] PCP - General Family Practice 10/14/17 documented as of this encounter
--- OUTSIDE RECORDS SUMMARY | 2025-05-02 10:47 | XMS_ITS | Encounter Summary ---
Author Organization [facility] Address [address] [place] [address] Care Team Providers Care Chain Mender Name Role Phone Miguel Angel MD Primary Care Provider [phone] Reason for Referral * Outpatient Services (Routine) - Closed Specialty Diagnoses / Procedures Referred By Contsmita t Referred To Contact Radiology Diagnoses Other screening mammogram Procedures MAMMO DIGITAL SCREEN BILAT Magdaleno Phillips MD NO ADDRESS ON FILE [facility] [address] [facility] [address] [place] [address] Phone: tel: fax: Referral ID Status Reason Start Date Expiration Date Visits Re quested Visits Authorized [id number] Closed 02/23/2013 03/26/2014 1 1 Encounter Details Date Type Department Care Team (Latest Contact Info) Description 02/23/2013 Ancillary Orders [facility] Pre-Registration [place] CALL TO MAKE APPOINTMENT ONLY [address] [place] [address] Magdaleno Phillips MD NO ADDRESS [...] on file Legal Sex Female 3:31 AM ACOUSTICAL LOGGING 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
--- OUTSIDE RECORDS SUMMARY | 2025-05-02 10:47 | XMS_ITS | Clinical Summary ---
Author Organization [facility] Address [address] [place] [address] Care Team Providers Care Chemical Research Technician Name Role Phone Miguel Angel MD Primary Care Provider [phone] Allergies Active Allergy Reactions Criticality Noted Date [...] on file Legal Sex Female 3:31 AM GLASSWARE DEFECT REPAIRER Gender Identity Not on file Sexual Orientation Not on file Occupation Industry Job Start Date Job End Date Not on file Not on file Not on file Not on file Last Filed Vital Signs Vital Sign Reading Time Taken Comments Blood Pressure 146/88 07/09/2020 9:50 AM GLASSWARE DEFECT REPAIRER Pulse 84 10/19/2017 1:02 PM GLASSWARE DEFECT REPAIRER Temperature 36.7 C (98 F) 10/19/2017 11:41 AM GLASSWARE DEFECT REPAIRER Respiratory Rate 16 10/19/2017 1:02 PM GLASSWARE DEFECT REPAIRER Oxygen Saturation 97% 10/19/2017 1:02 PM GLASSWARE DEFECT REPAIRER Inhaled Oxygen Concentration - - Weight 74.8 kg (165 lb) 07/09/2020 9:50 AM GLASSWARE DEFECT REPAIRER Height 162.6 cm (5' 4 ) 07/09/2020 9:50 AM GLASSWARE DEFECT REPAIRER Body Mass Index 28.32 07/09/2020 9:50 AM GLASSWARE DEFECT REPAIRER Plan of Treatment Health Maintenance Due Date [...] Personal/Family Self 1955 [address] [place] [address] [facility] [place] CCN [employer] Advance Directives For more information, please contact: [phone] * Full Code (Latest Code Status on File) Date Activated Date Inactivated Comments 10/19/2017 11:44 AM 10/19/2017 3:11 PM Care Teams Chemical Research Technician Relationship Specialty Start Date End Date Miguel Angel MD [address] [facility] [place] [address] PCP - General Family Practice 10/14/17
--- OUTSIDE RECORDS SUMMARY | 2025-05-02 10:47 | XMS_ITS | Encounter Summary ---
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
--- OUTSIDE RECORDS SUMMARY | 2025-05-02 10:47 | XMS_ITS | Encounter Summary ---
Author Organization [facility] Address [address] [place] [address] Care Team Providers Care Respiratory Clinician Name Role Phone Miguel Angel MD Primary Care Provider [phone] Encounter Details Date Type Department Care Team (Late st Contact Info) Description 03/08/2008 Outpatient [facility] [address] [facility] [address] [place] [address] Social History Tobacco Use Types Packs/Day Years Used Date Smoking Tobacco: Never Assessed Comments Unknown Sex and Gender Information Value Date Recorded Sex Assigned at Not on file Legal Sex Female 3:31 AM SALESPERSON HEARING AIDS Gender Identity Not on file Sexual Orientation Not on file documented as of this encounter Plan of Treatment Not on file documented as of this encounter Visit Diagnoses Not on filedocumented in this encounter Care Teams Respiratory Clinician Relationship Specialty Start Date End Date Miguel Angel MD [address] [facility] [place] [address] PCP - General Family Practice 10/14/17 documented as of this encounter
--- OUTSIDE RECORDS SUMMARY | 2025-05-02 10:47 | XMS_ITS | Encounter Summary ---
Author Organization [facility] Address [address] [place] [address] Care Team Providers Care Radio Repair Teacher Name Role Phone Miguel Angel MD Primary Care Provider [phone] Encounter Details Date Type Department Care Team (Latest Contact Info) Description 02/24/2003 Outpatient Historical [address] [phone] Josselin Ordonez MD [address] [place] [address], [address] INSOMNIA NEC (Primary Dx) Social History Tobacco Use Types Packs/Day Years Used Date Smoking Tobacco: Never Assessed Comments Unknown Sex and Gender Information Value Date Recorded Sex Assigned at Not on file 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
--- OUTSIDE RECORDS SUMMARY | 2025-05-02 10:47 | XMS_ITS | Encounter Summary ---
Author Organization [facility] Address [address] [place] [address] Care Team Providers Care Occupational Health Nurse Supervisor Name Role Phone Miguel Angel MD Primary Care Provider Encounter Details Date Type Department Care Team (Latest Contact Info) Description 11/17/2002 Outpatient Historical [address] [phone] Josselin Ordonez MD [address] [place] [address], [address] HYPOVOLEMIA (Primary Dx); NAUSEA WITH VOMITING Social History Tobacco Use Types Packs/Day Years Used Date Smoking Tobacco: Never Assessed Comments Unknown Sex and Gender Information Value Date Recorded Sex Assigned at Not on file 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
--- OUTSIDE RECORDS SUMMARY | 2025-05-02 10:47 | XMS_ITS | Encounter Summary ---
Author Organization [facility] Address [address] [place] [address] Care Team Providers Care Buffing Machine Operator Semiautomatic Name Role Phone Miguel Angel MD Primary Care Provider [phone] Encounter Details Date Type Department Care Team (Late st Contact Info) Description 03/10/2005 Outpatient [facility] [address] [place] [address] Social History Tobacco Use Types Packs/Day Years Used Date Smoking Tobacco: Never Assessed Comments Unknown Sex and Gender Information Value Date Recorded Sex Assigned at Not on file 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 [address] PCP - General Family Practice 10/14/17 documented as of this encounter
--- OUTSIDE RECORDS SUMMARY | 2025-05-02 10:47 | XMS_ITS | Encounter Summary ---
Author Organization [facility] [place] [facility] Address [address] [place] [address] Care Team Providers Care Plain Clothes Police Officer Name Role Phone Miguel Angel MD Primary Care Provider [phone] Encounter Details Date Type Department Care Team (Latest Contact Info) Description 03/10/2005 Outpatient Historical [facility] Imaging [facility] [place] [address] [place] [phone] Kolby Gayle MD [address] [facility] [address] [place] [address] Excessive menstruation (Primary Dx) Social History Tobacco Use Types Packs/Day Years Used Date Smoking Tobacco: Never Assessed Comments Unknown Sex and Gender Information Value Date Recorded Sex Assigned at Not on file 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
--- OUTSIDE RECORDS SUMMARY | 2025-05-02 10:47 | XMS_ITS | Encounter Summary ---
Author Organization [facility] Address [address] [place] [address] Care Team Providers Care Sound Controller Name Role Phone Miguel Angel MD Primary Care Provider Encounter Details Date Type Department Care Team (Latest Contact Info) Description 07/13/2007 Outpatient [facility] [address] [place], [place] [address] Magdaleno Phillips MD NO ADDRESS ON FILE Depressive Disorder, not Elsewhere Classified; Personal History of Allergy to Penicillin Social History Tobacco Use Types Packs/Day Years Used Date Smoking Tobacco: Never Assessed Comments Unknown Sex and Gender Information Value Date Recorded Sex Assigned at Not on file 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
--- OUTSIDE RECORDS SUMMARY | 2025-05-02 10:47 | XMS_ITS | Clinical Summary ---
Author Organization [facility] Address [address] [facility] Attn: Epic Prelude ADT EZEQUIEL [place]ACE [place]REW [address] Care Team Providers Care Water Reclamation Systems Operator Name Role Phone Miguel Angel MD Primary Care Provider [phone] Allergies Active Allergy Reactions Criticality Noted Date [...] on file Legal Sex Female 8:29 AM ANODIZER Gender Identity Not on file Sexual Orientation Not on file Last Filed Vital Signs Vital Sign Reading Time Taken Comments Blood Pressure 148/80 07/08/2021 3:24 PM ANODIZER Pulse 76 07/08/2021 3:02 PM ANODIZER Temperature 36.7 C (98 F) 10/19/2017 11:41 AM ANODIZER Respiratory Rate 16 10/19/2017 1:02 PM ANODIZER Oxygen Saturation - - Inhaled Oxygen Concentration - - Weight 73.5 kg (162 lb) 07/08/2021 3:02 PM ANODIZER Height 162.6 cm (5' 4 ) 07/08/2021 3:02 PM ANODIZER Body Mass Index 27.81 07/08/2021 3:02 PM ANODIZER Plan of Treatment Health Maintenance Due Date [...] Most Recently Relevant to Health Maintenance Insurance [facility] OPTIONS PPO [id number] [place] CCN [employer] MEDICARE PART A AND B Care Teams Water Reclamation Systems Operator Relationship Specialty Start Date End Date Miguel Angel MD [address] [facility] [place] [address] PCP - General Family Practice 10/14/17
--- OUTSIDE RECORDS SUMMARY | 2025-05-02 10:47 | XMS_ITS | Encounter Summary ---
Author Organization [facility] Address [address] [place] [address] Care Team Providers Care Crown Wheel Assembler Name Role Phone Miguel Angel MD Primary Care Provider [phone] Reason for Referral * Outpatient Services (Routine) - Closed Specialty Diagnoses / Procedures Referred By Gladis lackey Referred To Contact Diagnoses Other screening mammogram Procedures MAMMO DIGITAL SCREEN BILAT Magdaleno Phillips MD NO ADDRESS ON FILE Referral ID Status Reason Start Date Expiration Date Visits Re quested Visits Authorized [id number] Closed 02/15/2012 02/11/2013 1 1 Encounter Details Date Type Department Care Team (Latest Contact Info) Description 02/12/2012 Ancillary Orders [facility] Pre-Registration [place] CALL TO MAKE APPOINTMENT ONLY [address] [place] [phone] Magdaleno Phillips MD NO ADDRESS ON FILE Other screening mammogram Social History Tobacco Use Types Packs/Day Years Used Date Smoking Tobacco: Never Smokeless Tobacco: Never Alcohol Use Standard Drinks/Week Comments Not Asked 0 (1 standard drink = 0.6 oz pur e alcohol) Comments No Sex and Gender Information Value Date Recorded Sex Assigned at Not on file 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
--- OUTSIDE RECORDS SUMMARY | 2025-05-02 10:47 | XMS_ITS | Encounter Summary ---
Author Organization [facility] Address [address] [place] [address] Care Team Providers Care Cdl Driver Name Role Phone Miguel Angel MD Primary Care Provider [phone] Encounter Details Date Type Department Care Team (Late st Contact Info) Description 07/21/2007 Outpatient Historical 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
--- OUTSIDE RECORDS SUMMARY | 2025-05-02 10:47 | XMS_ITS | Encounter Summary ---
Author Organization [facility] Address [address] [place] [address] Care Team Providers Care Ski Top Trimmer Name Role Phone Miguel Angel MD Primary Care Provider [phone] Reason for Referral * Outpatient Services (Routine) - Closed Specialty Diagnoses / Procedures Referred By Contsmita t Referred To Contact Diagnoses Other screening mammogram Procedures MAMMO DIGITAL SCREEN BILAT Magdaleno Phillips MD NO ADDRESS ON FILE Referral ID Status Reason Start Date Expiration Date Visits Re quested Visits Authorized [id number] Closed 04/08/2010 10/05/2010 1 1 Encounter Details Date Type Department Care Team (Late st Contact Info) Description 04/08/2010 Ancillary Orders [facility] [address] [facility] [address] [place] [address] Magdaleno Phillips MD NO ADDRESS ON FILE Other Screening Mammogram Social History Tobacco Use Types Packs/Day Years Used Date Smoking Tobacco: Never Assessed Comments Unknown Sex and Gender Information Value Date Recorded Sex Assigned at Not on file 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
--- OUTSIDE RECORDS SUMMARY | 2025-05-02 10:47 | XMS_ITS | Encounter Summary ---
Author Organization [facility] Address [address] [place] [address] Care Team Providers Care Technical Cable Jointer Name Role Phone Miguel Angel MD Primary Care Provider [phone] Encounter Details Date Type Department Care Team (Latest Contact Info) Description 03/26/2005 Outpatient Historical [facility] [address] [place] [address] Kolby Gayle MD [address] [facility] [address] [place] [address] PREOP EXAM OTHER SPECIFIED (Primary Dx) Social History Tobacco Use Types Packs/Day Years Used Date Smoking Tobacco: Never Assessed Comments Unknown Sex and Gender Information Value Date Recorded Sex Assigned at Not on file 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
--- NOTE | 2025-05-02 11:38 | XR_ITS ---
WS: [id number] XR hip LT 2-3V wo/w pel* [id number] REASON FOR EXAM: Trauma FINDINGS: Femoral head and neck are intact. Superior and inferior pubic rami and acetabulum are intact. 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 XR/XR hip LT 2-3V wo/w pel* [id number] IMPRESSION: No acute abnormality.
[2025-05-02 12:30] VITALS: BP 134/81; PULSE 68; O2SAT 99
--- NOTE | 2025-05-02 13:01 | W.ED.FALL ---
HPI - Fall General: Chief Complaint: Fall Stated Complaint: fell 9 days ago, L hip and leg pain, swelling Time Seen by Provider: 05/02/25 09:47 History of Present Illness: 69-year-old female presents emergency room complaining of hip and leg pain she fell 9 days ago still has pain. She is able to ambulate. Associated symptoms-after fall: Denies abdominal pain, chest pain or neck pain Related Data Home Medications ?Medication ?Instructions ?Recorded ?Confirmed buspirone 10 mg tablet 20 mg PO TID 12/10/20 04/04/25 multivitamin-calcium, 1 tab PO QAM 12/28/20 04/04/25 [id number] isoflavone 400 mcg-60 mg tablet (One-A-Day Menopause Formula) pantoprazole 40 mg tablet,delayed 40 mg PO QAM 12/28/20 04/04/25 release (Protonix) alendronate 35 mg tablet 35 mg PO Q7D 12/23/21 04/04/25 epinephrine 0.3 mg/0.3 mL 0.3 mg IM Q4H PRN Allergic Reaction 12/23/21 04/04/25 injection, auto-injector (EpiPen 2-Fredy) valacyclovir 1 gram tablet 1,000 mg PO BEDTIME 12/23/21 04/04/25 venlafaxine 75 mg tablet 225 mg PO BEDTIME 06/18/23 04/04/25 doxepin 10 mg capsule 10 mg PO DAILY 02/22/25 04/04/25 diphenhydramine HCl 25 mg capsule 75 mg PO BEDTIME PRN Sleep 03/14/25 04/04/25 (Benadryl) Previous Rx's ?Medication ?Instructions ?Recorded metoprolol tartrate 25 mg tablet 25 mg PO BID #180 tabs 01/09/21 Custom Molded Orthotics #1 ea 09/12/21 pramipexole 0.5 mg tablet 0.5 mg PO BID #60 tabs 03/09/25 ferrous gluconate 324 mg (37.5 mg 324 mg PO BID #60 tabs 04/08/25 iron) tablet hydrocodone 5 mg-acetaminophen 325 1 tab PO Q8H PRN pain #7 tabs 05/02/25 mg tablet Allergies Allergy/AdvReac Type Severity Reaction Status Date / Time Penicillins Allergy Unknown Unknown Verified 02/22/25 10:35 cayenne Allergy Unknown Verified 02/22/25 10:35 erythromycin base Allergy Unknown Verified 02/22/25 10:35 Review of Systems Const: Denies: fever(s) or chills Card: Denies: chest pain Resp: Denies: dyspnea GI: Denies: abdominal pain : Denies: dysuria, urinary frequency or urinary urgency Musc: Denies: neck pain or back pain Skin/Breast: Denies: rash PFSH ED PFSH: Medical History PVC (premature ventricular contraction) GERD (gastroesophageal reflux disease) Hyperlipidemia PTSD (post-traumatic stress disorder) History of depression Surgical History Status post laparoscopic cholecystectomy (02/06/21) H/O esophagogastroduodenoscopy (01/31/21) gastritis Status post colonoscopy S/P bilateral breast lumpectomy Hx of hysterectomy Family History Grandfather CAD (coronary artery disease) Myocardial infarction Diabetes Mother Stroke Dementia Father Stroke Dementia Social History Smoking and tobacco/nicotine status: never used tobacco/nicotine Alcohol intake: current Alcohol intake frequency: holidays/special occasions only Substance/Drug Use: never Physical Exam Const: COMMON NORMALS: no acute distress GENERAL APPEARANCE: cooperative and comfortable ORIENTATION/CONSCIOUSNESS: Yes awake, Yes oriented to person, Yes oriented to place and Yes oriented to time HENMT: COMMON NORMALS: normocephalic, atraumatic and hearing grossly normal bilaterally HEAD & SCALP: normocephalic and atraumatic Resp: COMMON NORMALS: normal respiratory effort, No retractions, No use of accessory muscles and clear to auscultation bilaterally AUSCULTATION: clear to auscultation bilaterally Cardio: COMMON NORMALS: regular rate, regular rhythm and No murmurs present (Cardio) RATE: regular rate RHYTHM: regular rhythm GI: COMMON NORMALS: Soft to palpation and No hepatosplenomegaly present AUSCULTATION: Yes normoactive bowel sounds PALPATION: Yes Soft to palpation, No Tenderness to palpation present (GI), No Guarding due to palpation present (GI) and Yes No hepatosplenomegaly present Extremity: COMMON NORMALS: normal to inspection, capillary refill normal, no clubbing, cyanosis or edema, no calf tenderness and no pedal edema Neuro: SENSORIUM/ORIENTATION: Yes oriented to person, Yes oriented to place and Yes oriented to time Skin: COMMON NORMALS: no rashes or lesions noted GENERAL SKIN EXAM: no rashes or lesions noted Course Vital Signs: Vital signs: Vital Signs Temperature 97.6 F 05/02/25 10:18 Pulse Rate 78 05/02/25 13:14 Respiratory Rate 16 05/02/25 13:14 Blood Pressure 144/88 05/02/25 13:14 Pulse Oximetry 99 05/02/25 13:14 Oxygen Delivery Me thod Room Air 05/02/25 12:30 MDM - Fall Medical Decision Making Large hematoma of the left posterior thigh. No acute findings on the remainder of exam labs or imaging. Discharge patient home follow-up with her primary care. Pain medications given to use as needed Lab Data Radiology Impressions Hip/Pelvis X-Ray 05/02/25 11:38 IMPRESSION: No acute abnormality. All radiology interpretation(s) finalized by discharge Discharge Plan Discharge Patient Disposition: Home Clinical Impression: Hematoma of left thigh Condition: Stable Prescriptions: New hydrocodone-acetaminophen 5-325 mg tablet 1 tab PO Q8H PRN (Reason: pain) Qty: 7 0RF No Action (DME) Custom Molded Orthotics See Rx Instructions .Route .MEDSUPPLY Qty: 1 0RF Rx Instructions: As directed doxepin 10 mg capsule 10 mg PO DAILY metoprolol tartrate 25 mg tablet 25 mg PO BID Qty: 180 3RF pramipexole 0.5 mg tablet 0.5 mg PO BID Qty: 60 3RF ferrous gluconate 324 mg (37.5 mg iron) tablet 324 mg PO BID Qty: 60 2RF buspirone 10 mg tablet 20 mg PO TID pantoprazole [Protonix] 40 mg Tablet,Delayed Release (Dr/Ec) 40 mg PO QAM One-A-Day Menopause Formula 400-60 mcg-mg Tablet 1 tab PO QAM valacyclovir 1 gram Tablet 1,000 mg PO BEDTIME alendronate 35 mg Tablet 35 mg PO Q7D Rx Instructions: ON THURSDAY epinephrine [EpiPen 2-Fredy] 0.3 mg/0.3 mL Auto-Injector 0.3 mg IM Q4H PRN (Reason: Allergic Reaction) venlafaxine 75 mg Tablet 225 mg PO BEDTIME diphenhydramine HCl [Benadryl] 25 mg Capsule 75 mg PO BEDTIME PRN (Reason: Sleep) Discharge Orders: Discharge ED (Routine); Ordered 05/02/25 Ordered By: Ken Saenz Referrals: Joellen Alvarez FNP [Primary Care Provider, Nurse Practitioner] Discharge Diet: Usual diet Discharge Activity: Increase activity as tolerated Patient Instructions: Opioid Safety, Pain Management, Patient Portal & Elbert Instructions Activity Restrictions/Additional Instructions: Thank you for choosing [facility] for your healthcare needs today. It is very important that you follow up as instructed or that you return to the Emergency Department should you have concerns or if your condition changes or worsens in any way. Emergency department visits are focused on emergent conditions, in some cases you may require further evaluation on an outpatient basis. You were seen in the emergency room with complaint of leg pain a week and a half after a fall. On exam on the distal lateral portion of your thigh there is a sizable hematoma. This is blood in the tissues it is very irritating is causing her pain. X-rays taken today do not show any fractures. You can use medications prescribed for discomfort. Additionally you can apply alternating heat and cold for relief of symptoms in the area of the hematoma. (Please note that included in your discharge packet is information concerning opioid safety and pain management. This information is given to all patients were discharged from the ER regardless of their discharge diagnosis or the medicines they usually take or are prescribed.) Print Language: Swedish Coding Level of Care Code ED Manager Business Planning for Marci Quinn
[2025-05-02 13:14] VITALS: BP 144/88; PULSE 78; RESP 16; O2SAT 99
== END 2025-05-02 13:10 | disposition home or self-care (01) ==
PROVIDERS: Emergency Provider Family Medicine; PCP Nurse Practitioner
DX: S70.12XA Contusion of left thigh, initial encounter (principal); E78.5 Hyperlipidemia, unspecified; W19.XXXA Unspecified fall, initial encounter
CPT/HCPCS: 73502; 99283

== ENCOUNTER 2025-05-03 09:34 | Outpatient (CLI) | payer OTHER, MEDICARE, SELFPAY ==
--- NOTE | 2025-05-03 09:41 | FL_ITS ---
WS: [id number] FL barium swallow modifd [id number] REASON FOR EXAM: Other dysphagia FLUOROSCOPY TIME: 3min [id number] # OF SPOT FILMS: 0 TECHNIQUE: Examination was supervised by the speech therapy department. Patient was examined in the sitting upright lateral projection. The swallowing of barium of varying consistencies was monitored fluoroscopically and video recorded. FINDINGS: No aspiration or laryngeal penetration. Patient was unable to swallow the barium tablet. FL/FL barium swallow modifd [id number] IMPRESSION: A detailed report of the swallowing will be rendered by the speech therapy depa rtment.
== END 2025-05-03 09:35 | disposition home or self-care (01) ==
LOC: RAD 09:35
PROVIDERS: PCP Nurse Practitioner; Visit Provider Nurse Practitioner Family
DX: R13.19 Other dysphagia (principal)
CPT/HCPCS: 74230; 92611

== ENCOUNTER 2025-05-30 10:03 | Outpatient (CLI) | payer OTHER, SELFPAY ==
--- NOTE | 2025-05-30 10:10 | MR_ITS ---
WS: [id number] MRI NECK WITH CONTRAST TECHNIQUE: Noncontrast axial T1, axial T2 FSE fat sat, coronal T2 fat sat, coronal T1, coronal T1 fat sat, sagittal T2 fat sat, plus contrast enhanced coronal, sagittal, and axial T1 fat sat images obtained. CLINICAL INFORMATION: DYSPHAGIA COMPARISON: MRI 03/22/[address] 11/01/2024 FINDINGS: Some images significant degraded by motion and dental artifact. Again seen is enhancing soft tissue thickening at the base of the tongue on the LEFT with slight filling of the vallecula. This has a nodular configuration and is similar to the prior 2 studies. See bookmarked images. Neoplasm not excluded. Recommend direct visualization and biopsy. Persistent enlargement and enhancement palatine tonsils. No cervical lymphadenopathy. Parotid glands are normal. Submandibular glands are normal. Normal glottis and subglottic airway. 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 MR/MR orbit face neck wo/w* [id number] IMPRESSION: 1. Again seen is mild soft tissue thickening with enhancement at the base of t he tongue on the LEFT with a nodular configuration. Neoplasm not excluded. Marcus mmend direct visualization. Slight filling of the LEFT vallecula. 2. Persistent enlarged Paterson tonsils with enhancement. 3. Some images are significantly degraded by motion artifact 4. 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 Recommend further evaluation with MRI thoracic spin e.
[2025-05-30] MEDS: gadobenate dimeglumine 20 mL vial 13 ML IV (11:10)
== END 2025-05-30 10:04 | disposition home or self-care (01) ==
LOC: RAD 10:04
PROVIDERS: PCP Nurse Practitioner; Visit Provider Specialist
DX: G25.5 Other chorea (principal); R13.19 Other dysphagia; J31.2 Chronic pharyngitis; K14.8 Other diseases of tongue; J35.1 Hypertrophy of tonsils; G95.0 Syringomyelia and syringobulbia; M53.84 Other specified dorsopathies, thoracic region; R29.90 Unspecified symptoms and signs involving the nervous system; E78.5 Hyperlipidemia, unspecified; I71.9 Aortic aneurysm of unspecified site, without rupture; G25.9 Extrapyramidal and movement disorder, unspecified; M21.372 Foot drop, left foot; R42 Dizziness and giddiness; R29.6 Repeated falls; M54.16 Radiculopathy, lumbar region
CPT/HCPCS: 70543; 99214

== ENCOUNTER 2025-05-31 16:36 | Outpatient (CLI) | payer OTHER, SELFPAY ==
--- NOTE | 2025-05-31 16:40 | CT_ITS ---
WS: [id number] CT HEAD WITH AND WITHOUT CONTRAST HISTORY: STROKE LIKE SYMPTOMS FOR SEVERAL WEEKS, RIGHT SIDE DROOPING, TECHNIQUE: Noncontrast axial images obtained from the vertex to the skull base. Additional imaging performed in axial images status post IV contrast. Bone and soft tissue windows are reviewed. All CT scans at [facility] use at least one of these dose optimization techniques: automated exposure control; mA and/or kV adjustment per patient size (includes targeted exams where dose is matched to clinical indication); or iterative reconstruction. CONTRAST: Omnipaque 350; 100 mL IV. DLP: 2036.18 mGy.cm COMPARISON: 12/29/2024, MRI 03/22/2025 No acute intracranial hemorrhage, edema or midline shift. Mild to moderate atrophy and small vessel disease. Remote lacunar infarct versus perivascular space in the LEFT basal ganglia is stable. No new infarct or change in attenuation since 12/29/2024. No enhancing mass or vascular malformations identified. Dural venous sinuses are normally enhancing. Visualized wiyot of Perez is unremarkable. Paranasal sinuses as visualized: Clear. Mastoid air cells: Clear. Calvarium and scalp: Intact. CT/CT head wo/w con [id number] IMPRESSION: 1. No acute intracranial hemorrhage or edema. 2. No subacute infarct or new infarct since 12/29/2024 or the MRI of 03/22/2025. 3. Mild to moderate cerebral atrophy with small vessel disease.
[2025-05-31] MEDS: iohexol 350 mg/mL 500 mL Btl (per mL) IV (17:30)
[2025-06-02 15:49] LABS: COMPLEMENT, TOTAL (CH50) >60 U/mL (31-60)
[2025-06-02 15:58] LABS: COMPLEMENT COMPONENT C3C 131 mg/dL (83-193); COMPLEMENT COMPONENT C4C 21 mg/dL (15-57)
[2025-06-05 14:36] LABS: CENTROMERE B ANTIBODY <1.0 NEG AI (<1.0 NEG); JO-1 ANTIBODY <1.0 NEG AI (<1.0 NEG); RNP ANTIBODY <1.0 NEG AI (<1.0 NEG); SCL-70 ANTIBODY <1.0 NEG AI (<1.0 NEG); SS-B <1.0 NEG AI (<1.0 NEG)
[2025-06-06 10:19] LABS: Vitamin B1 (Thiamine),Blood 152 nmol/L (78-185)
[2025-06-07 15:19] LABS: THYROID PEROXIDASE ANTIBODIES 82 IU/mL (<9)
[2025-06-09 05:35] LABS: DNA AB (DS) CRITHIDIA,IFA NEGATIVE (NEGATIVE)
== END 2025-05-31 16:37 | disposition home or self-care (01) ==
LOC: RAD 16:37
PROVIDERS: Specialist; PCP Nurse Practitioner; Visit Provider Nurse Practitioner
DX: G25.5 Other chorea (principal); R42 Dizziness and giddiness; R29.6 Repeated falls; I63.81 Other cerebral infarction due to occlusion or stenosis of small artery; G31.89 Other specified degenerative diseases of nervous system; I69.992 Facial weakness following unspecified cerebrovascular disease; F44.89 Other dissociative and conversion disorders; I69.991 Dysphagia following unspecified cerebrovascular disease; Z87.898 Personal history of other specified conditions
CPT/HCPCS: 70470; 84425; 86160; 86162; 86235; 86255; 86376

== ENCOUNTER 2025-06-06 12:38 | Outpatient (CLI) | payer OTHER, SELFPAY ==
--- NOTE | 2025-06-06 13:00 | CTR_ITS ---
PROCEDURE INFORMATION: Exam: CT Chest Without Contrast; Diagnostic Exam date and time: 06/06/2025 1:02 PM Age: 69 years old Clinical indication: Condition or disease; Prior surgery; Surgery date: 6+ months; Surgery type: Hyst, gb; Left foot drop, gerd, urinary incontinence, looking for any malignancies; Additional info: M21.372 - foot drop, left foot TECHNIQUE: Imaging protocol: Diagnostic computed tomography of the chest without contrast. Radiation optimization: All CT scans at this facility use at least one of these dose optimization techniques: automated exposure control; mA and/or kV adjustment per patient size (includes targeted exams where dose is matched to clinical indication); or iterative reconstruction. COMPARISON: CT angio chest PE protcl [id number] 05/04/2023 1:45 PM RADIATION DOSE METRICS: Total DLP (mGy-cm): 554.26 FINDINGS: Lungs: There is a small 3 mm perifissural nodule on image 23 of series 5. There is a 3 mm nodule of the posteroinferior right lower lobe on image 43 of series 5. Pleural spaces: Unremarkable. No pneumothorax. No pleural effusion. Heart: Unremarkable. No cardiomegaly. No pericardial effusion. Lymph nodes: Unremarkable. No enlarged lymph nodes. Vasculature: Unremarkable. No aortic aneurysm. Bones/joints: There is degenerative changes throughout the thoracic spine. Soft tissues: Unremarkable. Other findings: CT Chest at 12 months. (Reference: Brenden) REFERENCES: Brenden Ramon et al. Guidelines for Management of Incidental Pulmonary Nodules Detected on CT Images: From the Fleischner Society 2017. Radiology. 2017;284(1):228-243. PROCEDURE INFORMATION: Exam: CT Abdomen And Pelvis Without Contrast Exam date and time: 06/06/2025 1:02 PM Age: 69 years old Clinical indication: Condition or disease; Prior surgery; Surgery date: 6+ months; Surgery type: Hyst, gb; Left foot drop, gerd, urinary incontinence, looking for any malignancies; Additional info: M21.372 - foot drop, left foot TECHNIQUE: Imaging protocol: Computed tomography of the abdomen and pelvis without contrast. Radiation optimization: All CT scans at this facility use at least one of these dose optimization techniques: automated exposure control; mA and/or kV adjustment per patient size (includes targeted exams where dose is matched to clinical indication); or iterative reconstruction. COMPARISON: CR XR hip LT 2-3V wo/w pel* [id number] 05/02/2025 12:15 PM RADIATION DOSE METRICS: Total DLP (mGy-cm): 554.26 FINDINGS: Liver: There are small hepatic cysts. Gallbladder and biliary ducts: Patient is status post cholecystectomy. Pancreas: Normal. No ductal dilation. Spleen: Normal. No splenomegaly. Adrenal glands: Normal. No mass. Kidneys and ureters: Normal. No hydronephrosis. Stomach and bowel: There is a moderate amount of stool throughout the colon. Appendix: No evidence of appendicitis. Intraperitoneal space: Unremarkable. No free air. No significant fluid collection. Vasculature: Unremarkable. No abdominal aortic aneurysm. Lymph nodes: Unremarkable. No enlarged lymph nodes. Urinary bladder: Unremarkable as visualized. Reproductive: Unremarkable as visualized. Bones/joints: There is no acute osseous abnormality appreciated. There is degenerative changes throughout the lumbar spine. Soft tissues: Unremarkable. CT/[place] [id number] IMPRESSION: 1. Small pulmonary nodules 2. No acute process For patients at low risk (minimal or absent history of smoking and of other known risk factors), no routine follow-up is indicated. For patients at high risk (history of smoking or of other known risk factors), consider optional IMPRESSION: 1. No acute process 2. Moderate volume of stool.
== END 2025-06-06 12:39 | disposition home or self-care (01) ==
LOC: RAD 12:39
PROVIDERS: PCP Nurse Practitioner; Visit Provider Specialist
DX: M21.372 Foot drop, left foot (principal); G25.5 Other chorea; R42 Dizziness and giddiness; R29.6 Repeated falls; R91.8 Other nonspecific abnormal finding of lung field; K76.89 Other specified diseases of liver; Z90.49 Acquired absence of other specified parts of digestive tract; K56.41 Fecal impaction; R93.7 Abnormal findings on diagnostic imaging of other parts of musculoskeletal system
CPT/HCPCS: 71250; 74176

== ENCOUNTER 2025-06-09 10:24 | Outpatient (CLI) | payer OTHER, SELFPAY ==
--- NOTE | 2025-06-09 10:30 | MM_ITS ---
WS: [id number] BILATERAL 3D TOMOSYNTHESIS DIGITAL SCREENING MAMMOGRAPHY WITH CAD CLINICAL INFORMATION: SCREENING HISTORY: Screening mammogram. No current complaints. COMPARISON: 2022 TECHNIQUE: Bilateral CC and MLO views. FINDINGS: The breasts are composed of heterogeneous fibroglandular density tissue, which can limit the detection of small underlying mass lesions. No suspicious mass, asymmetry, calcifications, or architectural distortion. No evidence of malignancy. Bilateral breast calcifications similar to previous. MM/MM [facility] tomosynthesis [id number] IMPRESSION: DENSITY: The breasts are heterogeneously dense, which may obscure small masses. BI-RADS: 2 - Benign FOLLOW UP: 1 Year Follow-up Recommend return to annual screening mammography.
== END 2025-06-09 10:25 | disposition home or self-care (01) ==
LOC: RAD 10:25
PROVIDERS: PCP Nurse Practitioner; Visit Provider Nurse Practitioner
DX: Z12.31 Encounter for screening mammogram for malignant neoplasm of breast (principal); R92.333 Mammographic heterogeneous density, bilateral breasts; R92.323 Mammographic fibroglandular density, bilateral breasts; R92.1 Mammographic calcification found on diagnostic imaging of breast
CPT/HCPCS: 77063; 77067

== ENCOUNTER 2025-06-13 14:28 | Outpatient (CLI) | payer OTHER, SELFPAY ==
--- NOTE | 2025-06-13 14:30 | MR_ITS ---
WS: [id number] MRI THORACIC SPINE WITHOUT CONTRAST TECHNIQUE: Sagittal T1, T2 and STIR imaging. Axial T2 imaging. Noncontrast imaging obtained. 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 This is most prominent at T3-T5 measuring 2 mm in maximum AP dimension. Moderate thoracic kyphosis. Shallow central protrusion at T5-T6 with slight contact and indentation on the thoracic cord at this level with mild central canal stenosis. Adrenal glands are normal. Small RIGHT renal cysts. Tiny esophageal hiatal hernia. Partially visualized hepatic cysts. MR/MR thoracic spin wo con* [id number] IMPRESSION: 1. 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 This is most prominent at T3-T5 measuring 2 mm in maximum AP dimension. 2. Shallow central protrusion at T5-T6 with mild central canal stenosis and sl ight contact with indentation of the thoracic cord.
== END 2025-06-13 14:29 | disposition home or self-care (01) ==
LOC: RAD 14:29
PROVIDERS: PCP Nurse Practitioner; Visit Provider Specialist
DX: G25.5 Other chorea (principal); R42 Dizziness and giddiness; R29.6 Repeated falls; R93.7 Abnormal findings on diagnostic imaging of other parts of musculoskeletal system; M48.02 Spinal stenosis, cervical region; M40.294 Other kyphosis, thoracic region; N28.1 Cyst of kidney, acquired; K76.89 Other specified diseases of liver
CPT/HCPCS: 72146